=== PATIENT | female | born 1940 | race African-American/Black ===

== ENCOUNTER 2016-08-06 03:36 | Inpatient (IN) | payer OTHER, MEDICAID ==
[~2016-08-06] VITALS: Ht 165.1 cm; Wt 63.5 kg
[~2016-08-06 03:36] MED LIST: ACYC800T4 PO; FURO20TA3 PO
[2016-08-06 04:06] LABS: BASO # 0.1 x10^3/uL (0.0-0.2); BASO % 1 % (0-3); EOS % 1 % (0-3); HEMATOCRIT 34.5 % (36.0-47.0); HEMOGLOBIN 11.2 g/dL (12.0-15.5); LYMPH # 1.7 x10^3/uL (1.0-4.8); LYMPH % 13 % (24-48); MEAN CORPUSCULAR HEMOGLOBIN 27 pg (25-35); MEAN CORPUSCULAR HGB CONC 33 g/dL (31-37); MEAN CORPUSCULAR VOLUME 83 fL (79-100); MONO % 9 % (0-9); NEUT % 77 % (31-73); PLATELET COUNT 161 x10^3/uL (140-400); RED BLOOD COUNT 4.14 x10^6/uL (3.50-5.40); RED CELL DISTRIBUTION WIDTH 15.4 % (11.5-14.5); WHITE BLOOD COUNT 13.3 x10^3/uL (4.0-11.0)
--- NOTE | 2016-08-06 04:12 | PHYS DOC ---
Adult General Chief Complaint Chief Complaint: ANKLE PROBLEM HPI HPI This is a 75-year-old female presents from home after she had a syncopal episode while soaking her feet. He states she did fall out of her chair and hit her head and has an obvious ankle that is swollen and painful to the lateral malleolus. EMS arrived and administered multiple doses of fentanyl with mild pain relief as well as placing her in a rudimentary splint. She denies any chest pain or shortness breath. She has a mild occipital headache. She denies any swelling or bleeding from her scalp. She denies any shoulder pain or hip pain. She denies any abdominal pain. She localizes all of her pain to the right ankle and rates it an 6/10 on the pain scale. Review of Systems Review of Systems Constitutional: Denies fever or chills [] Eyes: Denies change in visual acuity, redness, or eye pain [] HENT: Denies nasal congestion or sore throat [] Respiratory: Denies cough or shortness of breath [] Cardiovascular: No additional information not addressed in HPI [] GI: Denies abdominal pain, nausea, vomiting, bloody stools or diarrhea [] : Denies dysuria or hematuria [] Musculoskeletal: Denies back pain, has joint pain [] Integument: Denies rash or skin lesions [] Neurologic: Denies headache, focal weakness or sensory changes [] Endocrine: Denies polyuria or polydipsia [] Current Medications Current Medications Current Medications Medications (Trade) Dose Ordered Sig/Rene Start Time Stop Time Status Last Admin Dose Admin Acetaminophen (Tylenol) 650 mg PRN Q4HRS PRN 08/06/16 05:00 08/07/16 04:59 Morphine Sulfate 4 mg 4 mg PRN Q2HR PRN 08/06/16 05:00 08/07/16 04:59 Ondansetron HCl (Zofran) 4 mg PRN Q8HRS PRN 08/06/16 05:00 08/07/16 04:59 Sodium Chloride (Iv Sodium Chloride 0.9% 500ml Bag) 500 ml @ 500 mls/hr 1X ONCE 08/06/16 05:00 08/06/16 05:59 08/06/16 04:48 500 MLS/HR Sodium Chloride (Iv Sodium Chloride 0.9% 1000ml Bag) 1,000 ml @ 100 mls/hr Q10H 08/06/16 04:59 08/07/16 04:58 08/06/16 05:31 100 MLS/HR Allergies Allergies Allergies Coded Allergies Type Severity Reaction Last Updated Verified iodine Allergy Severe 10/14/13 Yes Penicillins Allergy Intermediate 08/06/16 Yes Sulfa (Sulfonamide Antibiotics) Allergy Intermediate 08/06/16 Yes prednisone Allergy Mild 10/14/13 Yes Physical Exam Physical Exam Constitutional: Well developed, well nourished, no acute distress, non-toxic appearance. [] HENT: Normocephalic, atraumatic, bilateral external ears normal, oropharynx moist, no oral exudates, nose normal. [] Eyes: PERRLA, EOMI, conjunctiva normal, no discharge. [] Neck: Normal range of motion, no tenderness, supple, no stridor. [] Cardiovascular:Heart rate regular rhythm, no murmur [] Lungs & Thorax: Bilateral breath sounds clear to auscultation [] Abdomen: Bowel sounds normal, soft, no tenderness, no masses, no pulsatile masses. [] Skin: Warm, dry, no erythema, no rash. [] Back: No tenderness, no CVA tenderness. [] Extremities: Moderate tenderness and swelling to the left lateral malleolus, no cyanosis, no clubbing, ROM limited in right ankle secondary to pain, mild edema. [] Neurologic: Alert and oriented X 3, normal motor function, normal sensory function, no focal deficits noted. [] Psychologic: Affect normal, judgement normal, mood normal. [] Current Patient Data Vital Signs Vital Signs Date Time Temp Pulse Resp B/P Pulse Ox O2 Delivery O2 Flow Rate FiO2 08/06/16 04:47 19 95 08/06/16 03:36 99.5 86 146/81 99.5 Lab Values Laboratory Tests Test 08/06/16 03:55 08/06/16 04:00 Sodium Level 140mmol/L (136-145) Potassium Level 4.5mmol/L (3.5-5.1) Chloride Level 106mmol/L (98-107) Carbon Dioxide Level 26mmol/L (21-32) Anion Gap 8 (6-14) Blood Urea Nitrogen 42mg/dL (7-20) H Creatinine 1.8mg/dL (0.6-1.0) H Estimated GFR (Cockcroft-Gault) 33.1 Glucose Level 101mg/dL (70-99) H Calcium Level 10.4mg/dL (8.5-10.1) H Troponin I Quantitative 0.046ng/mL (0.000-0.055) White Blood Count 13.3x10^3/uL (4.0-11.0) H Red Blood Count 4.14x10^6/uL (3.50-5.40) Hemoglobin 11.2g/dL (12.0-15.5) L Hematocrit 34.5% (36.0-47.0) L Mean Corpuscular Volume 83fL (79-100) Mean Corpuscular Hemoglobin 27pg (25-35) Mean Corpuscular Hemoglobin Concent 33g/dL (31-37) Red Cell Distribution Width 15.4% (11.5-14.5) H Platelet Count 161x10^3/uL (140-400) Neutrophils (%) (Auto) 77% (31-73) H Lymphocytes (%) (Auto) 13% (24-48) L Monocytes (%) (Auto) 9% (0-9) Eosinophils (%) (Auto) 1% (0-3) Basophils (%) (Auto) 1% (0-3) Neutrophils # (Auto) 10.2x10^3uL (1.8-7.7) H Lymphocytes # (Auto) 1.7x10^3/uL (1.0-4.8) Monocytes # (Auto) 1.2x10^3/uL (0.0-1.1) H Eosinophils # (Auto) 0.1x10^3/uL (0.0-0.7) Basophils # (Auto) 0.1x10^3/uL (0.0-0.2) Laboratory Tests 08/06/16 04:00 Laboratory Tests 08/06/16 03:55 EKG EKG EKG as interpreted by me reveals sinus rhythm with rate 87 bpm. There are no obvious ischemic findings on this EKG. Radiology/Procedures Radiology/Procedures Portable view of the right ankle reveals a minimally displaced distal fibular fracture. Right hip 2 view with AP pelvis does not demonstrate any obvious acute fracture or dislocation Portable view of her chest does not reveal an acute process. CT of the head without contrast demonstrated the following; No evidence of acute intracranial hemorrhage or mass. Mild chronic small vessel ischemic changes in the deep/subcortical periventricular white matter with remote cortical infarcts of the right frontal lobe and right parietal lobe. Mild atrophy for age. Course & Med Decision Making Course & Med Decision Making Pertinent Labs and Imaging studies reviewed. (See chart for details) This 75-year-old female had a similar episode while sitting and soaking her feet and has obvious right ankle swelling and tenderness to lateral malleolus. Plain films will be obtained of the right ankle and hip and pelvis as well as a CT of her head without contrast. I will obtain full laboratory work including EKG. I will be admitting her for her syncopal episode and ankle fracture. Upon my reassessment, the patient has continued pain in the right ankle for which IV morphine will be administered. AP views of her right hip and pelvis did not demonstrate an acute fracture dislocation. Right ankle films demonstrate a distal fibular fracture that is minimally displaced for which a stirrup splint will be placed. Patient is in the process of going to the CT scanner in no acute distress. Post splint assessment reveals adequate immobilization and excellent capillary refill of the right foot. CT of the head without contrast did not demonstrate any acute findings but did show mild chronic small vessel ischemic changes in the deep subcortical periventricular white matter with remote cortical infarcts of the right frontal lobe and right parietal lobe. A portable 1 view her chest did not reveal any acute abnormality. I'll be admitting her to Dr. Arreola for her syncope and right ankle fracture with consults to orthopedic surgery. A urinalysis is still pending at this time. I discussed the need to admit the patient with the hospitalist, Dr. Alvarado, who agreed to admit the patient for further evaluation and treatment. Dragon Disclaimer Dragon Disclaimer This electronic medical record was generated, in whole or in part, using a voice recognition dictation system. Departure Departure Impression: Primary Impression: Syncope Additional Impression: Closed right ankle fracture Disposition: 09 ADMITTED INPATIENT Admitting Physician: Julianna Arreola Condition: STABLE Referrals: DIMITRI GROSSMAN MD (PCP) Problem Qualifiers OLEG GREENWOOD DO Aug 06, 2016 04:12
[2016-08-06 04:21] LABS: CALCIUM 10.4 mg/dL (8.5-10.1); CREATININE 1.8 mg/dL (0.6-1.0); GFR 33.1; POTASSIUM 4.5 mmol/L (3.5-5.1)
[2016-08-06] MEDS ORDERED: IV NORMAL SALINE 1000ML BAG 1,000 ML IV SCH (04:59)
[2016-08-06] MEDS ORDERED: MORPHINE SULFATE 4 MG/ML DISP.SYRIN. IV ONE (05:00)
[2016-08-06] MEDS ORDERED: ONDANSETRON PF 4 MG/2 ML VIAL. IV PRN (05:00)
[2016-08-06] MEDS ORDERED: MORPHINE SULFATE 4 MG/ML DISP.SYRIN. IV PRN (05:00)
[2016-08-06] MEDS ORDERED: ACETAMINOPHEN 325 MG TABLET. PO PRN (05:00)
[2016-08-06] MEDS ORDERED: IV NORMAL SALINE 500ML BAG 500 ML IV ONE (05:00)
--- NOTE | 2016-08-06 05:02 | RAD ---
PROCEDURE CT head without contrast dated 08/06/2016. HISTORY Syncope. Recent fall. TECHNIQUE Contiguous axial imaging of the head was performed from skull base to vertex. No contrast administered.Exposure: One or more of the following individualized dose reduction techniques were utilized for this exam: 1. Automated exposure control. 2. Adjustment of the mA and/or kV according to patient size. 3. Use of iterative reconstruction technique. COMPARISON 01/21/2004. FINDINGS Ventricles and sulci are mildly prominent for age. No midline shift or mass-effect. Mild patchy low density in the deep/subcortical periventricular white matter with small remote cortical infarcts of the right frontal lobe and high right parietal lobe. Mild patchy low density in the deep/subcortical periventricular white matter. No hemorrhage or extra-axial collection. Posterior fossa and brainstem unremarkable. Visualized paranasal sinuses and mastoid air cells are clear. No acute calvarial abnormality. IMPRESSION No evidence of acute intracranial hemorrhage or mass. Mild chronic small vessel ischemic changes in the deep/subcortical periventricular white matter with remote cortical infarcts of the right frontal lobe and right parietal lobe. Mild atrophy for age. Electronically signed by: Poncho Fernandez (Aug 06, 2016 05:00:58)
--- NOTE | 2016-08-06 05:30 | ACF ---
Admission Forms Criteria SYNCOPE Clinical Indications for Admission to Inpatient Care ( Place 'X' for any and all applicable criteria): Admission is indicated for syncope and ANY ONE of the following (1)(2)(3)(4)(5) (6)(7) : [ ]I. Inpatient admission required rather than observation care (Also use Syncope: Observation Care Criteria as appropriate) because of ANY ONE of the following: [ ]a) Hemodynamic instability that is severe or persistent [ ]b) Cardiac arrhythmias of immediate concern identified or strongly suspected (eg, needs electrophysiologic study) [ ]c) Acute coronary syndrome identified (Also use Myocardial Infarction or Angina Criteria form ) [ ]d) Structural cardiac disorder (eg, aortic stenosis) suspected as cause that requires immediate correction [ ]e) Respiratory symptoms (eg, dyspnea, tachypnea) that are severe or persistent [ ]f) Neurologic signs or symptoms that are severe or persistent ( eg, stroke, seizures, altered mental status) [ ]g) Severe electrolyte abnormalities requiring inpatient care [ ]h) Supplemental oxygen or respiratory treatment for over 24 hrs that are performable only in acute inpatient setting [ ]i) IV fluid to replace significant ongoing (eg, for over 24 hrs ) losses (>3 L/m2 per day) [ ]j) Continuous intravenous infusion of anticoagulation, platelet inhibitor, vasoactive, or antiarrhythmic medication(15)(16) [ ]k) Pulmonary artery catheter monitoring [ ]l) Temporary pacemaker placement(17) [ ]m) Emergent cardioversion(18) [ ]n) Other conditions, treatment or monitoring requiring inpatient admission [ ]II. Suspicion of imminently dangerous cause (eg, rare causes like pericardial tamponade, pulmonary embolism) [X]III. Syncope causing severe injury requiring hospitalization Extended stay beyond goal length of stay may be needed for(28) [ ]a) Dangerous arrhythmia(15)(23)(27)(29) [ ]b) Myocardial ischemia [ ]c) Seizure disorder [ ]d) Syncope-related injuries The original [employer] content created by [employer] has been revised. The portions of the content which have been revised are identified through the use of italic text or in bold, and [facility] has neither reviewed nor approved the modified material. All other unmodified content is copyright [facility]. Please see references footnoted in the original [facility] 2016 Admission Criteria Met?: Yes ALFIE CORTES Aug 06, 2016 05:29
[2016-08-06 05:41] LABS: BILIRUBIN,URINE NEGATIVE (NEG); GLUCOSE,URINE NEGATIVE (NEG); NITRITE,URINE NEGATIVE (NEG); PH,URINE 7.5; PROTEIN,URINE NEGATIVE (NEG-TRACE); UROBILINOGEN,URINE 0.2 mg/dL (0.2 mg/dL)
[2016-08-06 06:25] VITALS: BP 138/80
[2016-08-06 06:30] LABS: BACTERIA,URINE 0 /HPF (0-FEW); RBC,URINE 0 /HPF (0-2); SQUAMOUS EPITHELIAL CELL,UR OCC /LPF
--- NOTE | 2016-08-06 06:51 | EKG ---
[address] [place] [address] Test Date: 2016-08-06 Test Time: 04:24:48 Pat Name: DIONE GOMEZ Department: Room: Gender: F Manager Test: : 1940 Requested By: OLEG GREENWOOD Order Number: [id number] Reading MD: Measurements Intervals [place] Rate: 87 P: 12 [place]: 210 QRS: 57 QRSD: 80 T: 48 QT: 348 QTc: 424 Interpretive Statements SINUS RHYTHM NORMAL ECG RI6.01 Unconfirmed report No previous ECG available for comparison
[2016-08-06 07:00] VITALS: BP 125/77
--- NOTE | 2016-08-06 07:19 | RAD ---
EXAM: Chest one view. HISTORY: Syncope. COMPARISON: 09/28/2014. FINDINGS: A frontal view of the chest is obtained. There are no confluent infiltrates. Hyperinflation suggests chronic obstructive pulmonary disease. Blunting of the right costophrenic angle is chronic and likely represent scarring. There is no pneumothorax. The heart is moderately enlarged. There are atherosclerotic calcifications of the aorta. A right paratracheal mass superiorly, displacing the trachea to the left is stable chronically and represents intrathoracic extension of a goiter as seen on prior CT of 10/14/2013. There are surgical clips in the left upper quadrant. IMPRESSION: 1. Moderate cardiomegaly. 2. Hyperinflation is consistent with chronic obstructive pulmonary disease. Right basilar scarring. 3. 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
--- NOTE | 2016-08-06 07:26 | RAD ---
EXAM: Frontal pelvis with 2V right hip. HISTORY: Fall with right hip and pelvic pain. COMPARISON: 09/28/2014. FINDINGS: No fractures are identified. There is at least mild osteopenia. There is mild superior joint space narrowing at both hips. Alignment is maintained. Atherosclerotic calcifications are noted. IMPRESSION: 1. No fracture. Early bilateral hip osteoarthritis.
--- NOTE | 2016-08-06 07:28 | RAD ---
EXAM: Right ankle 3 views. HISTORY: Fall with right ankle pain COMPARISON: None. FINDINGS: Three views of the right ankle are obtained. There is a nondisplaced oblique fracture of the lateral malleolus, intersecting the mortise at the level of the tibial plafond. There is 2 cortical widths of posterior and lateral displacement of the distal fracture fragment. The alignment and joint spaces of the mortise is preserved. Osteopenia appears moderate. Soft tissue swelling is worst laterally. IMPRESSION: 1. Mildly displaced oblique fracture of the lateral malleolus.
--- NOTE | 2016-08-06 10:22 | PDOC ---
Provider Note Provider Note Pt seen.H&P dictated. #[id number] LOS NOLASCO MD Aug 06, 2016 10:22
[2016-08-06 11:00] VITALS: BP 102/61
--- NOTE | 2016-08-06 13:26 | PDOC2 ---
JOSE FOSTER [address] 08/06/16 1326: CARDIAC CONSULT DATE OF CONSULT Date of Consult DATE: 08/06/16 TIME: 13:25 REASON FOR CONSULT Reason for Consult: syncope REFERRING PHYSICIAN Referring Physician: Dr. Aleksandra Arreola SOURCE Source: Chart review, Patient HISTORY OF PRESENT ILLNESS HISTORY OF PRESENT ILLNESS 75 year old female with a syncopal episode resulting in a right ankle fracture. Reports she was on the floor soaking her feet and fell backward onto her head. Dizzy and lightheaded prior to syncope and daughter reports patient has been complaining of dizziness and lightheadedness recently. Denies associated chest pain, dyspnea, palpitations. EKG SR without acute changes. Troponin levels not consistent with acute DE. Previous cardiac evaluation @ [facility] associated with CVA in 2013. Reason for Visit: syncope PAST MEDICAL HISTORY Cardiovascular: CAD (coronary artery calcifications seen in predominantly LAD on CT scan - 2014), HTN, Other (infrarenal AAA 4 X [address] - 2014) Pulmonary: COPD (on CXR) CENTRAL NERVOUS SYSTEM: CVA (2013), Other (chronic small vessel ischemic disease on CT of head 07/2016) GI: Diverticulosis Endocrine: Other (right thyroid nodule) PAST SURGICAL HISTORY Past Surgical History: Appendectomy, Other (spleenectomy - 1978) FAMILY HISTORY Family History: No Significant SOCIAL HISTORY Smoke: No ALCOHOL: none Drugs: None CURRENT MEDICATIONS CURRENT MEDICATIONS Current Medications Medications (Trade) Dose Ordered Sig/Rene Route PRN Reason Start Time Stop Time Status Last Admin Dose Admin Morphine Sulfate 4 mg 4 mg 1X ONCE IV 08/06/16 05:00 08/06/16 05:01 DC 08/06/16 04:47 Sodium Chloride 500 ml @ 500 mls/hr 1X ONCE IV 08/06/16 05:00 08/06/16 05:59 DC 08/06/16 04:48 Sodium Chloride (Iv Sodium Chloride 0.9% 1000ml Bag) 1,000 ml @ 100 mls/hr Q10H IV 08/06/16 04:59 08/07/16 04:58 08/06/16 05:31 ALLERGIES ALLERGIES: Coded Allergies: iodine (Verified Allergy, Severe, 10/14/13) Penicillins (Verified Allergy, Intermediate, 08/06/16) Sulfa (Sulfonamide Antibiotics) (Verified Allergy, Intermediate, 08/06/16) prednisone (Verified Allergy, Mild, 10/14/13) ROS Review of System 14 point review with pertinent positives in HPI PHYSICAL EXAM General: Alert, Oriented X3, Cooperative, No acute distress HEENT: Atraumatic, PERRLA Lungs: Clear to auscultation, Normal air movement Heart: Regular rate, Normal S1, Normal S2, No murmurs, Other (no carotid bruits ; not on telemetry) Abdomen: Normal bowel sounds, Soft, No tenderness Extremities: No edema (in LLE; dressing/splint on RLE - unable to assess) Skin: No rashes Neuro: Normal speech Psych/Mental Status: Mental status NL, Mood NL MUSCULOSKELETAL: Other (splint on RLE) VITALS VITALS Vital Signs Date Time Temp Pulse Resp B/P Pulse Ox O2 Delivery O2 Flow Rate FiO2 08/06/16 11:00 100.0 62 18 102/61 99 Room Air 100.0 LABS Lab: Laboratory Tests Test 08/06/16 03:55 08/06/16 04:00 08/06/16 05:00 08/06/16 11:50 Sodium Level 140mmol/L (136-145) Potassium Level 4.5mmol/L (3.5-5.1) Chloride Level 106mmol/L (98-107) Carbon Dioxide Level 26mmol/L (21-32) Anion Gap 8 (6-14) Blood Urea Nitrogen 42mg/dL (7-20) Creatinine 1.8mg/dL (0.6-1.0) Estimated GFR (Cockcroft-Gault) 33.1 Glucose Level 101mg/dL (70-99) Calcium Level 10.4mg/dL (8.5-10.1) Troponin I Quantitative 0.046ng/mL (0.000-0.055) 0.041ng/mL (0.000-0.055) White Blood Count 13.3x10^3/uL (4.0-11.0) Red Blood Count 4.14x10^6/uL (3.50-5.40) Hemoglobin 11.2g/dL (12.0-15.5) Hematocrit 34.5% (36.0-47.0) Mean Corpuscular Volume 83fL (79-100) Mean Corpuscular Hemoglobin 27pg (25-35) Mean Corpuscular Hemoglobin Concent 33g/dL (31-37) Red Cell Distribution Width 15.4% (11.5-14.5) Platelet Count 161x10^3/uL (140-400) Neutrophils (%) (Auto) 77% (31-73) Lymphocytes (%) (Auto) 13% (24-48) Monocytes (%) (Auto) 9% (0-9) Eosinophils (%) (Auto) 1% (0-3) Basophils (%) (Auto) 1% (0-3) Neutrophils # (Auto) 10.2x10^3uL (1.8-7.7) Lymphocytes # (Auto) 1.7x10^3/uL (1.0-4.8) Monocytes # (Auto) 1.2x10^3/uL (0.0-1.1) Eosinophils # (Auto) 0.1x10^3/uL (0.0-0.7) Basophils # (Auto) 0.1x10^3/uL (0.0-0.2) Urine Collection Type Unknown Urine Color Yellow Urine Clarity Clear Urine pH 7.5 Urine Specific [place] 1.010 Urine Protein Negativemg/dL (NEG-TRACE) Urine Glucose (UA) Negativemg/dL (NEG) Urine Ketones (Stick) Negativemg/dL (NEG) Urine Blood Negative (NEG) Urine Nitrite Negative (NEG) Urine Bilirubin Negative (NEG) Urine Urobilinogen Dipstick 0.2mg/dL (0.2 mg/dL) Urine Leukocyte Esterase Small (NEG) Urine RBC 0/HPF (0-2) Urine WBC 5-10/HPF (0-4) Urine Squamous Epithelial Cells Occ/LPF Urine Bacteria 0/HPF (0-FEW) Creatine Kinase 184U/L (26-192) IMAGES IMAGES 10/14/2013: CT abd/pelvis: 1. Nodular enlargement of the right thyroid lobe with dominant low-density nodule measuring 3.3 cm. This was previously evaluated with ultrasound on July 09, 2006, correlate with biopsy results. 2. Extensive coronary artery calcification, greatest in the left anterior descending coronary artery. 3. 10 mm low-density lesion in the left hepatic dome, likely represents a cyst however this is indeterminate on this exam. This could be confirmed with ultrasound if clinically warranted. 4. Infrarenal abdominal aortic aneurysm, 4 x 4 cm, , spanning approximately 4.2 cm in length. This has increased in size since the 2007 CT exam when this area measured 2.5 cm AP. 5. Scattered colonic diverticula without CT evidence of acute diverticulitis. 6. No signs of malignancy in the chest, abdomen or pelvis on this noncontrast exam. 08/06/2016: CXR: FINDINGS: A frontal view of the chest is obtained. There are no confluent infiltrates. Hyperinflation suggests chronic obstructive pulmonary disease. Blunting of the right costophrenic angle is chronic and likely represent scarring. There is no pneumothorax. The heart is moderately enlarged. There are atherosclerotic calcifications of the aorta. A right paratracheal mass superiorly, displacing the trachea to the left is stable chronically and represents intrathoracic extension of a goiter as seen on prior CT of 10/14/2013. There are surgical clips in the left upper quadrant. IMPRESSION: 1. Moderate cardiomegaly. 2. Hyperinflation is consistent with chronic obstructive pulmonary disease. Right basilar scarring. 3. Right paratracheal mass consistent with intrathoracic extension of a extension of a goiter. ASSESSMENT/PLAN ASSESSMENT/PLAN 1. syncope echo pending to evaluate for valvular heart disease place on cardiac tele to evaluate for dysrhythmias - will likely need event monitor at discharge unable to measure orthostatics due to right ankle fracture 2. HTN resume home meds 3. AAA; infrarenal 4 X [address] scan - 2014 CR of 1.8 precludes re-evaluation with CT scan - will obtain u/s to evaluate AAA 4. CAD coronary artery calcifications in LAD predominantly troponin levels not consistent with AMI and no acute changes in EKG ? stress test as outpatient for further evaluation would consider use of statin therapy ASA 81 mg daily 5. thyroid nodules now with goiter seen on CXR 6. ? lipid status FLP pending 7. previous CVA sm. vessel ischemic disease on CT scan Problems: LILLIE ESTRADA MD 08/07/16 0907: CARDIAC CONSULT ALLERGIES ALLERGIES: Coded Allergies: iodine (Verified Allergy, Severe, 10/14/13) Penicillins (Verified Allergy, Intermediate, 08/06/16) Sulfa (Sulfonamide Antibiotics) (Verified Allergy, Intermediate, 08/06/16) prednisone (Verified Allergy, Mild, 10/14/13) ASSESSMENT/PLAN ASSESSMENT/PLAN Patient seen and examined 08/06/16. Agree with [employer]'s assessment and plan. Telemetry did not show any significant arrhythmia so far. 2-D echo showed normal LV function and severe pulmonary hypertension. Plan for event monitor as an outpatient to rule out any significant arrhythmias. We will also plan for outpatient ischemic evaluation in the form of stress test. Thank you for your consultation. Problems: JOSE FOSTER APRN Aug 06, 2016 13:26 LILLIE ESTRADA MD Aug 07, 2016 09:07
[2016-08-06] MEDS: IV NORMAL SALINE 1000ML BAG 1,000 ML IV SCH (14:03)
[2016-08-06] MEDS: ENOXAPARIN 30 MG/0.3 ML DISP.SYRIN. SQ SCH (14:03)
[2016-08-06] MEDS: ASPIRIN ENTERIC COATED 81 MG TABLET.DR. PO SCH (14:03)
[2016-08-06] MEDS: HYDROCODONE/APAP 5/325MG TABLET. PO PRN ×2 (14:09→21:19)
--- NOTE | 2016-08-06 14:54 | HP ---
ADMIT DATE: 08/06/2016 LOCATION: [facility] REASON FOR ADMISSION TO THE HOSPITAL: Syncopal episode and right fibular fracture, closed fracture from the fall. HISTORY OF PRESENT ILLNESS: The patient is a 75-year-old female and she was soaking her feet and she was trying to get out of the chair and she felt lightheaded, dizzy, fell and she says she does not remember how long and when she woke up, she had pain in the right ankle, came to the Emergency Room and x-ray shows a right fibular fracture, nondisplaced and patient was admitted for syncopal episode. PAST MEDICAL HISTORY: She has a history of hypertension, history of previous strokes. PAST SURGICAL HISTORY: Denies any major surgeries. ALLERGIES: PENICILLIN, SULFA, IODINE, AND PREDNISONE. MEDICATIONS: At home, she is on Lasix 20 mg, acyclovir 800 mg. FAMILY HISTORY: Unremarkable. SOCIAL HISTORY: Lives at home by herself, able to walk with a cane. REVIEW OF SYSTEMS: Fourteen-system reviewed. CARDIAC: Denies any chest pain. LUNGS: No cough or sputum. GASTROINTESTINAL: No nausea or vomiting. Complains of pain in the right ankle and she has a dizzy episode when she came to the hospital. Rest of the 14-system was reviewed, negative. PHYSICAL EXAMINATION: GENERAL: Pleasant female, not in any distress. VITAL SIGNS: Temperature 99.5, pulse 86, respirations 15, blood pressure 146/81, 98% on room air. HEENT: Head is atraumatic. Pupils equal. Oral cavity: Dentures. NECK: Supple. Thyroid not enlarged. JVD not elevated. CHEST: Symmetrical. CARDIOVASCULAR: S1, S2. No murmurs. LUNGS: Clear to auscultation, no wheezing. ABDOMEN: Soft, no mass palpable. EXTERNAL GENITALIA: No Jimenez. RECTAL: Deferred. EXTREMITIES: The patient has a half cast placed in the Emergency Room, left leg, no edema, no swelling, no pain. NEUROLOGIC: Cranial nerves intact. Power 5/5 in all extremities. LABORATORY DATA: Shows a white count of 13, hemoglobin 11, platelets 161. Electrolytes show sodium 140, potassium 4.5, chloride 106, bicarbonate 26, BUN 42, creatinine 1.8. Troponin 0.04, glucose 104. Urine negative for nitrites and leukocyte esterase. IMAGING: CT head shows no evidence of acute bleeding or mass; old strokes, right frontal and parietal lobes. Ankle x-ray shows mildly displaced oblique fracture of the lateral malleolus. Chest x-ray: Mild cardiomegaly, possibly some goiter. X-ray of the pelvis, no fractures, osteoarthritis. EKG done, report is pending. FINAL IMPRESSION: 1. Syncope. 2. Right ankle fracture, closed fracture. 3. Hypertension. 4. Mild renal insufficiency. 5. History of previous strokes. PLAN: At this time, was admit to the hospital, quality assurance monitor, cardiology consultation, neuro consultation, we will complete a stroke workup including carotid and echocardiogram, seen by orthopedic and may be transitioned to Cam walker boot and PT, OT and see how she does. The patient may benefit from going to SNF. She lives alone home. LOS NOLASCO MD DR: HARSHA/sal JOB#: [id number] / [id number]
--- NOTE | 2016-08-06 15:46 | RAD ---
EXAM: Carotid Doppler sonogram. HISTORY: Syncope. TECHNIQUE: Nicole scale and color Doppler sonographic evaluation of the neck with spectral waveform analysis was performed and static images are submitted for review. FINDINGS: RIGHT: The peak systolic velocity within the common carotid artery is 100 cm/sec. The peak systolic velocity within the internal carotid artery is 62 cm/sec and the end diastolic velocity within the internal carotid artery is 18 cm/sec. The ICA/CCA ratio is 0.93. Grayscale images demonstrate moderate calcified plaquing at the carotid bulb. LEFT: The peak systolic velocity within the common carotid artery is 59 cm/sec. The peak systolic velocity within the internal carotid artery is 61 cm/sec and the end diastolic velocity within the internal carotid artery is 21 cm/sec. The ICA/CCA ratio is 0.96. Grayscale images demonstrate moderate calcified plaquing at the carotid bulb. There is antegrade flow within both vertebral arteries. IMPRESSION: 1. No evidence of hemodynamically significant stenosis. PQRS Compliance Statement - Stenosis calculations for CT, MR and conventional angiography are based upon measurement of the distal ICA diameter in accordance with the NASCET methodology. Stenosis calculations for carotid ultrasound studies are derived from validated velocity criteria which are known to correlate with the NASCET methodology.
--- NOTE | 2016-08-06 15:51 | PDOC2 ---
NEUROLOGY CONSULT Date of Admission Date of Admission DATE: 08/06/16 TIME: 15:30 Reason for Consult Reason for Consult: IMPRESSION: Syncope. Seizure evaluation. UTI likely Renal failure. 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 Right oblique lateral malleolus fracture. RECOMMENDATIONS/PLAN: Continue ASA daily. HCT performed no acute findings. Carotid A US + Doppler. Thyroid US EEG Lab: see orders. Treat medical diseases. Discussed with her daughter at bedside. HISTORY OF THE PRESENT ILLNESS: 75-y-old AA male patient with above medical disease had a syncopal spell for this admission. She stated she lost consciousness and fell. No jerking, shaking or henrik movements observed. No obvious postictal state. Her daughter stated that the patient had a similar episode in recent month. No focalized motor or sensory deficits noted. PAST MEDICAL HISTORY: Please see above. PAST SURGERY HISTORY: Appendectomy. Spleenectomy. ALLERGY: PCN Sulfa Prednisone Iodine MEDICATIONS: Refer to [facility] FAMILY HISTORY: Non contributory. SOCIAL HISTORY: Denies current smoking, drinking, and illicit drug use. REVIEW OF SYSTEMS: Constitutional: No malnutrition, weight loss, cachexia. Head: No traumatic brain or head injury. Skin: No edema, or rash. Ear: No infection, tinnitus. Eyes: No vision loss or color blindness. Nose: No bleeding or purulent discharges. Hearing: Hearing decrease. Neck: No injury. Breast: No history of cancer, masses,or discharges. Cardiac: CAD, HTN, HLD. Pulmonary: COPD. GI: No GI ulcer, GI bleeding, GERD. Urinary/genital: UTI. Endocrinologic: goiter mass. Skeletomuscular: No muscular atrophy, deformity. Neurological: see HP. Psychiatric: Denies drug use/abuse. Otherwise, not [id number] review of systems. PHYSICAL EXAMINATION: General appearance is in subacute distress. HEENT: Normocephalic and nontraumatic. Eyes, nose, ears, and throat are unremarkable. Neck is supple. No lymphadenopathy. No crepitus. Cardiovascular: S1, S2, regular rate and rhythm. Pulmonary: Clear to auscultation bilaterally. Abdomen: Bowel sounds are positive. Extremities: No rash, lesions, or edema. No restriction of range of motion NEUROLOGICAL EXAMINATION: Awake. Oriented to time, place and person but reaction was slow. PERRL. EOMI. CN: no focal findings. Muscle tone: within normal. Muscle strength: 4+ DTR: 2 Plantar reflex: Flexor response bilaterally Gait: not examined in bed. Sensory exam: no abnormal findings. No cerebellar signs elicited. F-T-N test not performed.. Current Medications Current Medications Current Medications Morphine Sulfate 4 mg 4 mg 1X ONCE IV Last administered on 08/06/16 04:47; Start 08/06/16 at 05:00; Stop 08/06/16 at 05:01; Status DC Sodium Chloride (Iv Sodium Chloride 0.9% 500ml Bag) 500 ml @ 500 mls/hr 1X ONCE IV Last administered on 08/06/16 04:48; Start 08/06/16 at 05:00; Stop at 05:59; Status DC Ondansetron HCl (Zofran) 4 mg PRN Q8HRS PRN IV NAUSEA/VOMITING; Start 08/06/16 at 05:00; Stop 08/07/16 at 04:59 Morphine Sulfate 4 mg 4 mg PRN Q2HR PRN IV SEVERE PAIN; Start 08/06/16 at 05:00 ; Stop 08/07/16 at 04:59 Sodium Chloride (Iv Sodium Chloride 0.9% 1000ml Bag) 1,000 ml @ 100 mls/hr Q10H IV Last administered on 08/06/16 05:31; Start 08/06/16 at 04:59; Stop at 14:43; Status DC Acetaminophen 650 mg 650 mg PRN Q4HRS PRN PO FEVER; Start 08/06/16 at 05:00; Stop 08/07/16 at 04:59 Sodium Chloride (Iv Sodium Chloride 0.9% 1000ml Bag) 1,000 ml @ 75 mls/hr [id number] IV Last administered on 08/06/16 14:03; Start 08/06/16 at 11:00 Acetaminophen/ Hydrocodone Bitart (Lortab 5/325) 1 tab PRN Q4HRS PRN PO PAIN Last administered on 08/06/16 14:09; Start 08/06/16 at 10:15 Enoxaparin Sodium (Lovenox 30mg Syringe) 30 mg Q24H SQ Last administered on 08/06 14:03; Start 08/06/16 at 11:00 Aspirin (Ecotrin) 81 mg [id number] PO Last administered on 08/06/16t 14:03; Start 08/06/16 at 14:30 Active Scripts Active Reported Furosemide 20 Mg Tablet 20 Mg PO Zovirax (Acyclovir) 800 Mg Tablet 800 Mg PO Allergies Allergies: Coded Allergies: iodine (Verified Allergy, Severe, 10/14/13) Penicillins (Verified Allergy, Intermediate, 08/06/16) Sulfa (Sulfonamide Antibiotics) (Verified Allergy, Intermediate, 08/06/16) prednisone (Verified Allergy, Mild, 10/14/13) Vitals VITALS Vital Signs Date Time Temp Pulse Resp B/P Pulse Ox O2 Delivery O2 Flow Rate FiO2 08/06/16 15:18 Room Air 08/06/16 11:00 100.0 62 18 102/61 99 100.0 Labs Labs Laboratory Tests Test 08/06/16 03:55 08/06/16 04:00 08/06/16 05:00 08/06/16 11:50 Sodium Level 140mmol/L (136-145) Potassium Level 4.5mmol/L (3.5-5.1) Chloride Level 106mmol/L (98-107) Carbon Dioxide Level 26mmol/L (21-32) Anion Gap 8 (6-14) Blood Urea Nitrogen 42mg/dL (7-20) Creatinine 1.8mg/dL (0.6-1.0) Estimated GFR (Cockcroft-Gault) 33.1 Glucose Level 101mg/dL (70-99) Calcium Level 10.4mg/dL (8.5-10.1) Troponin I Quantitative 0.046ng/mL (0.000-0.055) 0.041ng/mL (0.000-0.055) White Blood Count 13.3x10^3/uL (4.0-11.0) Red Blood Count 4.14x10^6/uL (3.50-5.40) Hemoglobin 11.2g/dL (12.0-15.5) Hematocrit 34.5% (36.0-47.0) Mean Corpuscular Volume 83fL (79-100) Mean Corpuscular Hemoglobin 27pg (25-35) Mean Corpuscular Hemoglobin Concent 33g/dL (31-37) Red Cell Distribution Width 15.4% (11.5-14.5) Platelet Count 161x10^3/uL (140-400) Neutrophils (%) (Auto) 77% (31-73) Lymphocytes (%) (Auto) 13% (24-48) Monocytes (%) (Auto) 9% (0-9) Eosinophils (%) (Auto) 1% (0-3) Basophils (%) (Auto) 1% (0-3) Neutrophils # (Auto) 10.2x10^3uL (1.8-7.7) Lymphocytes # (Auto) 1.7x10^3/uL (1.0-4.8) Monocytes # (Auto) 1.2x10^3/uL (0.0-1.1) Eosinophils # (Auto) 0.1x10^3/uL (0.0-0.7) Basophils # (Auto) 0.1x10^3/uL (0.0-0.2) Urine Collection Type Unknown Urine Color Yellow Urine Clarity Clear Urine pH 7.5 Urine Specific [place] 1.010 Urine Protein Negativemg/dL (NEG-TRACE) Urine Glucose (UA) Negativemg/dL (NEG) Urine Ketones (Stick) Negativemg/dL (NEG) Urine Blood Negative (NEG) Urine Nitrite Negative (NEG) Urine Bilirubin Negative (NEG) Urine Urobilinogen Dipstick 0.2mg/dL (0.2 mg/dL) Urine Leukocyte Esterase Small (NEG) Urine RBC 0/HPF (0-2) Urine WBC 5-10/HPF (0-4) Urine Squamous Epithelial Cells Occ/LPF Urine Bacteria 0/HPF (0-FEW) Creatine Kinase 184U/L (26-192) Laboratory Tests Test 08/06/16 03:55 08/06/16 04:00 08/06/16 05:00 08/06/16 11:50 Sodium Level 140mmol/L (136-145) Potassium Level 4.5mmol/L (3.5-5.1) Chloride Level 106mmol/L (98-107) Carbon Dioxide Level 26mmol/L (21-32) Anion Gap 8 (6-14) Blood Urea Nitrogen 42mg/dL (7-20) Creatinine 1.8mg/dL (0.6-1.0) Estimated GFR (Cockcroft-Gault) 33.1 Glucose Level 101mg/dL (70-99) Calcium Level 10.4mg/dL (8.5-10.1) Troponin I Quantitative 0.046ng/mL (0.000-0.055) 0.041ng/mL (0.000-0.055) White Blood Count 13.3x10^3/uL (4.0-11.0) Red Blood Count 4.14x10^6/uL (3.50-5.40) Hemoglobin 11.2g/dL (12.0-15.5) Hematocrit 34.5% (36.0-47.0) Mean Corpuscular Volume 83fL (79-100) Mean Corpuscular Hemoglobin 27pg (25-35) Mean Corpuscular Hemoglobin Concent 33g/dL (31-37) Red Cell Distribution Width 15.4% (11.5-14.5) Platelet Count 161x10^3/uL (140-400) Neutrophils (%) (Auto) 77% (31-73) Lymphocytes (%) (Auto) 13% (24-48) Monocytes (%) (Auto) 9% (0-9) Eosinophils (%) (Auto) 1% (0-3) Basophils (%) (Auto) 1% (0-3) Neutrophils # (Auto) 10.2x10^3uL (1.8-7.7) Lymphocytes # (Auto) 1.7x10^3/uL (1.0-4.8) Monocytes # (Auto) 1.2x10^3/uL (0.0-1.1) Eosinophils # (Auto) 0.1x10^3/uL (0.0-0.7) Basophils # (Auto) 0.1x10^3/uL (0.0-0.2) Urine Collection Type Unknown Urine Color Yellow Urine Clarity Clear Urine pH 7.5 Urine Specific [place] 1.010 Urine Protein Negativemg/dL (NEG-TRACE) Urine Glucose (UA) Negativemg/dL (NEG) Urine Ketones (Stick) Negativemg/dL (NEG) Urine Blood Negative (NEG) Urine Nitrite Negative (NEG) Urine Bilirubin Negative (NEG) Urine Urobilinogen Dipstick 0.2mg/dL (0.2 mg/dL) Urine Leukocyte Esterase Small (NEG) Urine RBC 0/HPF (0-2) Urine WBC 5-10/HPF (0-4) Urine Squamous Epithelial Cells Occ/LPF Urine Bacteria 0/HPF (0-FEW) Creatine Kinase 184U/L (26-192) LUCINA SEVERINO MD Aug 06, 2016 15:51
--- NOTE | 2016-08-06 16:21 | CARD ---
APPROVED REPORT EXAM: Two-dimensional and M-mode echocardiogram with Doppler and color Doppler. Other Information Quality : GoodHR: 77bpm Rhythm : NSR INDICATION Syncope 2D DIMENSIONS RVDd2.9 (2.9-3.5cm)Left Atrium(2D)2.9 (1.6-4.0cm) IVSd1.1 (0.7-1.1cm)Aortic Root(2D)3.1 (2.0-3.7cm) LVDd3.6 (3.9-5.9cm)LVOT Diameter2.2 (1.8-2.4cm) PWd1.6 (0.7-1.1cm)LVDs2.3 (2.5-4.0cm) FS (%) 35.9 %SV36.7 ml LVEF(%)66.5 (>50%) Aortic Valve AoV Peak Gurmeet.159.0cm/sAoV VTI30.4cm AO Peak GR.10.1mmHgLVOT Peak Gurmeet.129.9cm/s AO Mean GR.6mmHgAVA (VMAX)3.15cm2 Mitral Valve MV E Jkcnkqzi40.0cm/sMV E Peak Gr.7mmHg MV DECEL [id number] A Bugbjzbs901.8cm/s MV E Mean Gr.4mmHgE/A Ratio0.8 MV A [id number] Pulmonary Valve PV Peak Gyeesxdv05.9cm/s Tricuspid Valve TR P. Wuxturus157cj/sTR Peak Gr.85mmHg Pulmonary Vein S1 Ujbasumg09.5cm/sD2 Ojdvdtbg68.8cm/s PVa ecuxetdm67qofh LEFT VENTRICLE The left ventricle is normal size. There is mild concentric left ventricular hypertrophy. The left ve ntricular systolic function is normal and the ejection fraction is within normal range. The Ejection Fraction is 60-65%. There is normal LV segmental wall motion. Transmitral Doppler flow pattern is Gra de I-abnormal relaxation pattern. RIGHT VENTRICLE The right ventricle is normal size. There is normal right ventricular wall thickness. The right ventr icular systolic function is normal. ATRIA The left atrium is mildly dilated. The right atrium size is mildly dilated. The interatrial septum is intact with no evidence for an atrial septal defect or patent foramen ovale as noted on 2-D or Doppl er imaging. AORTIC VALVE The aortic valve is mildly sclerotic. Doppler and Color Flow revealed trace aortic regurgitation. The re is no significant aortic valvular stenosis. MITRAL VALVE Mitral annular calcification is mild. The mitral valve leaflets are thickened. There is no evidence o f mitral valve prolapse. There is no mitral valve stenosis. Doppler and Color Flow revealed mild mitr al regurgitation. TRICUSPID VALVE Doppler and Color Flow revealed severe tricuspid regurgitation. The pulmonary artery systolic pressur e is estimated at greater than 70 mmHg. There is severe pulmonary hypertension. PULMONIC VALVE The pulmonary valve is normal in structure and function. Doppler and Color Flow revealed no pulmonic valvular regurgitation. There is no pulmonic valvular stenosis. GREAT VESSELS The aortic root is normal in size. The ascending aorta is normal in size. The pulmonary artery is nor mal. The IVC is normal in size and collapses >50% with inspiration. PERICARDIAL EFFUSION There is no evidence of significant pericardial effusion. Critical Notification Critical Value: No <Conclusion> The left ventricle is normal size. The left ventricular systolic function is normal and the ejection fraction is within normal range. The Ejection Fraction is 60-65%. There is mild concentric left ventricular hypertrophy. There is no significant aortic valvular stenosis. Doppler and Color Flow revealed trace aortic regurgitation. Doppler and Color Flow revealed mild mitral regurgitation. Doppler and Color Flow revealed severe tricuspid regurgitation. The pulmonary artery systolic pressure is estimated at greater than 70 mmHg. There is severe pulmonary hypertension.
--- NOTE | 2016-08-06 16:24 | RAD ---
EXAM: Thyroid ultrasound HISTORY: Goiter COMPARISON: None. FINDINGS: Sonographic evaluation of the thyroid gland was performed. The right lobe measures 5.7 x 3.8 x 3.8 cm. The right lobe is enlarged by a dominant solitary isoechoic or hyperechoic heterogeneous nodule that measures 4.1 x 3.0 x 3.0 cm. The left lobe measures 3.9 x 1.4 x 1.2 cm. The parenchyma is homogeneous without focal lesions. The isthmus is mildly thickened at 5 mm. IMPRESSION: 1. Dominant 4.1 cm nodule in the right thyroid lobe. Ultrasound-guided fine-needle aspiration is recommended to exclude malignancy.
[2016-08-06] MEDS ORDERED: BENZ100C2 PO (17:41)
[2016-08-06] MEDS ORDERED: AZIL1TAB3 PO (17:41)
[2016-08-06] MEDS ORDERED: DOCU-27 PO (18:39)
[2016-08-06 19:30] VITALS: BP 123/62
--- NOTE | 2016-08-06 19:40 | EEG ---
DATE OF SERVICE: 08/06/2016 EEG number: [id number]. OBJECTIVE: This is a 75-year-old female patient who had 2 syncopal versus seizure-like episodes. EEG was requested to help rule out seizure. METHOD: Twenty electrodes were applied according to the international 10-20 electrode placement system. EKG monitoring, hyperventilation, intermittent photic stimulation, monopolar and bipolar montages are routinely utilized. The record was obtained on a digital system with video monitoring. MEDICATIONS: No anti-seizure medication. FINDINGS: 1. Background: The patient was recorded in the awake and drowsy states. No actual sleep state was recorded. The overall background amplitude is 5-15 microvolts. A posterior dominant rhythm of 8 Hz is observed. 2. Abnormalities: No specific epileptiform discharge or electrographic seizure is seen. No focal or diffuse slowing. 3. Activation: Hyperventilation was performed with good efforts and normal response. Intermittent photic stimulation was performed with photic driving. No specific epileptiform discharge or electrographic seizure induced by hyperventilation or intermittent photic stimulation. IMPRESSION: This EEG is within the broad normal limits of the study for the awake and drowsy state. No actual sleep state was recorded. No focal, lateralizing, specific epileptiform discharge, or electrographic seizure is seen. LUCINA SEVERINO MD DR: RAEGAN/sal JOB#: [id number] / [id number] LAUREN
[2016-08-06] MEDS ORDERED: DOCUSATE SODIUM 100 MG CAPSULE PO PRN (20:15)
[2016-08-06] MEDS ORDERED: CHLORTHALIDONE PO SCH (21:00)
[2016-08-06] MEDS ORDERED: AZILSARTAN MED PO SCH (21:00)
[2016-08-06] MEDS: CHLORTHALIDONE 25 MG TABLET PO SCH (21:14)
[2016-08-06] MEDS: LOSARTAN POTASSIUM 50 MG TABLET. PO SCH (21:14)
[2016-08-06] MEDS: BENZONATATE 100 MG CAPSULE. PO SCH (21:19)
--- NOTE | 2016-08-06 22:44 | CONS ---
DATE OF CONSULTATION: 08/06/2016 REQUESTING PHYSICIAN: Dr. Arreola. REASON FOR CONSULTATION: Right ankle fracture. HISTORY OF PRESENT ILLNESS: The patient is a 75-year-old female who reports passing out when soaking her feet. She fell out of her chair, hit her head and twisted her right ankle, which was swollen, painful and she was unable to bear weight on it post-injury. She was brought in by ambulance to [facility]. She had a headache apparently on admission to the Emergency Department, which she says has now since resolved. Denied any other pain other than her right ankle. Today, she does indicate that she has had some intermittent pain in the right rib cage area prior to her injury. It is not more severe now and is really not present at this time, certainly not a result of the fall. She denies that it is worse with any breathing and is unsure of the exacerbating factors. Denies any significant past medical or surgical history. Otherwise, healthy, independently ambulatory regarding her social history and she is independent at home. MEDICATIONS: Reviewed. ALLERGIES: INCLUDE PENICILLIN, SULFA, IODINE AND PREDNISONE. FAMILY HISTORY: Noncontributory. SOCIAL HISTORY: Again, lives at home, independently ambulatory. Denies tobacco, alcohol or drug use. REVIEW OF SYSTEMS: Significant really only for the intermittent right-sided chest wall pain. She denies any chest pain, shortness of breath, visual changes, current headache, abdominal pain, change in bowel or bladder habits, focal weakness, numbness, tingling and really only significant for the right ankle pain with any motion, better with rest. PHYSICAL EXAMINATION: VITAL SIGNS: Temp 98.3, pulse 88, respirations 20, blood pressure 125/77, 94% saturation on room air. HEENT: Atraumatic, normocephalic. EXTREMITIES: Examination of the upper extremities reveals full range of motion and normal stability and alignment of the shoulder, elbow and wrist bilaterally. She has good hip and knee range of motion, alignment in both lower extremities throughout. Examination of the right ankle reveals tenderness over the lateral malleolus without gross instability. She has really no medial tenderness over the ankle. Normal examination of the contralateral left foot and ankle, with intact motor function, distal pulses, sensation, reflexes, skin in both upper and lower extremities throughout. IMAGING: CT of the head shows no intracranial hemorrhage or mass. X-rays of the right ankle show a distal fibula fracture that is overall in acceptable alignment with maintenance of the ankle joint mortise. LABORATORY DATA: H and H 11.2 and 34.5. IMPRESSION: 1. Right distal fibula fracture. 2. Right-sided intermittent chest wall pain unrelated to fall. TREATMENT PLAN: Regarding the right ankle, I anticipate nonoperative treatment for this. It is generally a stable injury. I am going to have her weightbear as tolerated in a Cam walker boot that will get from [facility], typically follow up with x-rays in about a week to make sure it is remaining in an acceptable position and as always, if it displaces at all, operative treatment may be considered. Regarding her intermittent right-sided chest wall pain unrelated to the fall, I suggested that she mention that to Dr. Arreola for potential further evaluation. I am going to resume her diet due to anticipated nonoperative treatment. ALICIA GUERIN MD DR: LOVE/sal JOB#: [id number] / [id number] DIMITRI Ambrosio MD
[2016-08-06 23:42] VITALS: BP 119/64
[2016-08-07] MEDS: IV NORMAL SALINE 1000ML BAG 1,000 ML IV SCH ×2 (00:46→13:57)
[2016-08-07 03:20] VITALS: BP 125/71
[2016-08-07 05:23] LABS: BASO # 0.1 x10^3/uL (0.0-0.2); BASO % 1 % (0-3); EOS % 8 % (0-3); HEMATOCRIT 30.1 % (36.0-47.0); HEMOGLOBIN 9.7 g/dL (12.0-15.5); LYMPH # 2.2 x10^3/uL (1.0-4.8); LYMPH % 30 % (24-48); MEAN CORPUSCULAR HEMOGLOBIN 28 pg (25-35); MEAN CORPUSCULAR HGB CONC 32 g/dL (31-37); MEAN CORPUSCULAR VOLUME 86 fL (79-100); MONO % 11 % (0-9); NEUT % 51 % (31-73); PLATELET COUNT 136 x10^3/uL (140-400); RED BLOOD COUNT 3.52 x10^6/uL (3.50-5.40); RED CELL DISTRIBUTION WIDTH 15.6 % (11.5-14.5); WHITE BLOOD COUNT 7.4 x10^3/uL (4.0-11.0)
[2016-08-07 05:49] LABS: ALBUMIN 2.4 g/dL (3.4-5.0); ALBUMIN/GLOBULIN RATIO 0.6 (1.0-1.7); CALCIUM 9.5 mg/dL (8.5-10.1); CHOLESTEROL/HDL RATIO 2.4; CREATININE 1.5 mg/dL (0.6-1.0); GFR 40.9; POTASSIUM 4.4 mmol/L (3.5-5.1); TOTAL BILIRUBIN 0.4 mg/dL (0.2-1.0); TOTAL PROTEIN 6.6 g/dL (6.4-8.2)
[2016-08-07 07:00] VITALS: BP 132/69
--- NOTE | 2016-08-07 07:31 | RAD ---
EXAM: Ultrasound abdominal aorta. HISTORY: Abdominal aortic aneurysm follow-up. COMPARISON: 10/14/2013. FINDINGS: Sonographic evaluation of the abdominal aorta was performed. Proximally the abdominal aorta measures 2.5 cm. There is an infrarenal abdominal aortic aneurysm that measures up to 5.2 x 4.[address] dated 10/14/2013, it measured 4.1 x 3.9 cm. The aorta tapers to normal caliber at the bifurcation right where it measures 1.5 cm. The common iliac arteries measure 1.5 cm on the right and 1.3 cm on the left. No aortic stenosis is seen. The gallbladder is packed with stones. The common duct is not dilated at 5 mm. IMPRESSION: 1. 5.2 cm infrarenal abdominal aortic aneurysm, increased from 4.1 cm and 2014. Ongoing management is recommended. 2. The gallbladder is packed with stones.
[2016-08-07] MEDS: ASPIRIN ENTERIC COATED 81 MG TABLET.DR. PO SCH (08:47)
[2016-08-07] MEDS: HYDROCODONE/APAP 5/325MG TABLET. PO PRN ×3 (08:47→22:22)
[2016-08-07] MEDS: LOSARTAN POTASSIUM 50 MG TABLET. PO SCH (08:48)
[2016-08-07] MEDS: ENOXAPARIN 30 MG/0.3 ML DISP.SYRIN. SQ SCH (08:49)
[2016-08-07] MEDS ORDERED: CHLORTHALIDONE PO SCH (09:00)
[2016-08-07] MEDS ORDERED: AZILSARTAN MED PO SCH (09:00)
[2016-08-07] MEDS: CHLORTHALIDONE 25 MG TABLET PO SCH (09:53)
--- NOTE | 2016-08-07 10:14 | PDOC ---
PROGRESS NOTES Subjective Subjective feels better today Objective Objective Vital Signs Date Time Temp Pulse Resp B/P Pulse Ox O2 Delivery O2 Flow Rate FiO2 08/07/16 09:51 Room Air 08/07/16 08:48 76 132/69 08/07/16 08:47 98 08/07/16 07:00 100.1 18 100.1 Intake and Output 08/07/16 07:00 Intake Total 2031 ml Output Total 400 ml Balance 1631 ml Intake Oral 480 ml IV Total 1551 ml Output Urine Total 400 ml # Voids 7 Physical Exam Abdomen: Normal bowel sounds, Soft, No tenderness Heart: Regular rate, Normal S1, Normal S2, No murmurs, Other (no carotid bruits ; not on telemetry) Extremities: No edema (in LLE; dressing/splint on RLE - unable to assess) General: Alert, Oriented X3, Cooperative, No acute distress HEENT: Atraumatic, PERRLA Lungs: Clear to auscultation, Normal air movement MUSCULOSKELETAL: Other (splint on RLE) Neuro: Normal speech Psych/Mental Status: Mental status NL, Mood NL Skin: No rashes COMMENT CAM walker boot rt leg Diagnosis Problem List Problems Medical Problems: (1) Closed right ankle fracture Status: Acute (2) Syncope Status: Acute Assessment Assessment Problems Medical Problems: (1) Closed right ankle fracture Status: Acute (2) Syncope Status: Acute FINAL IMPRESSION: 1. Syncope. 2. Right ankle fracture, closed fracture. 3. Hypertension. 4. Mild renal insufficiency. 5. History of previous strokes. 6. Thyroid mass 7. AAA PLAN: ct head old cva carotid dopller -neg. echo -good lvf. thyroid mass - FNA. surgical consult appreciated AAA-vascular consult ,5 [place] now[place] [facility] [place]. [place], was admit to the hospital, cardiac cath rn, cardiology consultation, neuro consultation, we will complete a stroke workup including carotid and echocardiogram, seen by orthopedic and may be transitioned to Cam walker boot and PT, OT and see how she does. The patient may benefit from going to SNF. She lives alone home. Problems: Plan Plan of Care Problems Medical Problems: (1) Closed right ankle fracture Status: Acute (2) Syncope Status: Acute Comment Review of Relevant I have reviewed the following items jmaes (where applicable) has been applied. Labs Laboratory Tests Test 08/06/16 11:50 08/06/16 17:45 08/07/16 04:55 Creatine Kinase 184U/L (26-192) Troponin I Quantitative 0.041ng/mL (0.000-0.055) 0.043ng/mL (0.000-0.055) White Blood Count 7.4x10^3/uL (4.0-11.0) Red Blood Count 3.52x10^6/uL (3.50-5.40) Hemoglobin 9.7g/dL (12.0-15.5) Hematocrit 30.1% (36.0-47.0) Mean Corpuscular Volume 86fL (79-100) Mean Corpuscular Hemoglobin 28pg (25-35) Mean Corpuscular Hemoglobin Concent 32g/dL (31-37) Red Cell Distribution Width 15.6% (11.5-14.5) Platelet Count 136x10^3/uL (140-400) Neutrophils (%) (Auto) 51% (31-73) Lymphocytes (%) (Auto) 30% (24-48) Monocytes (%) (Auto) 11% (0-9) Eosinophils (%) (Auto) 8% (0-3) Basophils (%) (Auto) 1% (0-3) Neutrophils # (Auto) 3.8x10^3uL (1.8-7.7) Lymphocytes # (Auto) 2.2x10^3/uL (1.0-4.8) Monocytes # (Auto) 0.8x10^3/uL (0.0-1.1) Eosinophils # (Auto) 0.6x10^3/uL (0.0-0.7) Basophils # (Auto) 0.1x10^3/uL (0.0-0.2) Sodium Level 141mmol/L (136-145) Potassium Level 4.4mmol/L (3.5-5.1) Chloride Level 110mmol/L (98-107) Carbon Dioxide Level 23mmol/L (21-32) Anion Gap 8 (6-14) Blood Urea Nitrogen 28mg/dL (7-20) Creatinine 1.5mg/dL (0.6-1.0) Estimated GFR (Cockcroft-Gault) 40.9 BUN/Creatinine Ratio 19 (6-20) Glucose Level 87mg/dL (70-99) Calcium Level 9.5mg/dL (8.5-10.1) Total Bilirubin 0.4mg/dL (0.2-1.0) Aspartate Amino Transf (AST/SGOT) 18U/L (15-37) Alanine Aminotransferase (ALT/SGPT) 15U/L (14-59) Alkaline Phosphatase 49U/L (46-116) Total Protein 6.6g/dL (6.4-8.2) Albumin 2.4g/dL (3.4-5.0) Albumin/Globulin Ratio 0.6 (1.0-1.7) Triglycerides Level 26mg/dL (0-150) Cholesterol Level 127mg/dL (0-200) LDL Cholesterol, Calculated 69mg/dL (0-100) VLDL Cholesterol, Calculated 5mg/dL (0-40) HDL Cholesterol 53mg/dL (40-60) Cholesterol/HDL Ratio 2.4 Thyroid Stimulating Hormone (TSH) 0.778uIU/mL (0.358-3.74) Medications Current Medications Acetaminophen/ Hydrocodone Bitart (Lortab 5/325) 1 tab PRN Q4HRS PRN PO PAIN Last administered on 08/07/16 08:47; Start 08/06/16 at 10:15 Aspirin (Ecotrin) 81 mg [id number] PO Last administered on 08/07/16 08:47; Start 08/06/16 at 14:30 Benzonatate (Tessalon Perle) 100 mg QHS PO ; Start 08/06/16 at 21:00 Chlorthalidone (Thalitone) 12.5 mg DAILY PO Last administered on 08/07/16 09:53 ; Start 08/06/16 at 20:30 Docusate Sodium (Colace) 100 mg PRN DAILY PRN PO CONSTIPATION Last administered on 08/07/16 08:46; Start 08/06/16 at 20:15 Enoxaparin Sodium (Lovenox 30mg Syringe) 30 mg Q24H SQ Last administered on 08/07 08:49; Start 08/06/16 at 11:00 Losartan Potassium (Cozaar) 50 mg DAILY PO Last administered on 08/07/16 08:48 ; Start 08/06/16 at 20:30 Non-Formulary Medication 1 tab DAILY PO ; Start 08/06/16 at 21:00; Status UNV Non-Formulary Medication 1 tab DAILY PO ; Start 08/07/16 at 09:00; Status Cancel Sodium Chloride (Iv Sodium Chloride 0.9% 1000ml Bag) 1,000 ml @ 75 mls/hr [id number] IV Last administered on 08/07/16t 00:46; Start 08/06/16 at 11:00 Vitals/I & O Vital Sign - Last 24 Hours 08/06/16 08/06/16 08/06/16 08/06/16 11:00 14:09 19:30 19:50 Temp 100.0 98.4 100.0 98.4 Pulse 62 74 Resp 18 B/P 102/61 123/62 Pulse Ox 99 99 O2 Delivery Room Air Room Air Room Air Room Air 08/06/16 08/06/16 08/06/16 08/07/16 21:14 21:19 23:42 03:20 Temp 98.3 98.4 98.3 98.4 Pulse 74 72 71 Resp 18 18 B/P 123/62 119/64 125/71 Pulse Ox 98 94 O2 Delivery Room Air Room Air Room Air 08/07/16 08/07/16 08/07/16 08/07/16 07:00 08:47 08:48 09:51 Temp 100.1 100.1 Pulse 76 76 Resp 18 B/P 132/69 132/69 Pulse Ox 98 98 O2 Delivery Room Air Room Air Room Air Intake and Output 08/06/16 08/06/16 08/07/16 15:00 23:00 07:00 Intake Total 816 ml 425 ml 790 ml Output Total 400 ml Balance 816 ml 425 ml 390 ml LOS NOLASCO MD Aug 07, 2016 10:14
[2016-08-07] MEDS ORDERED: MAGNESIUM HYDROXIDE 2,400 MG/30 ML ORAL.SUSP. PO PRN (10:45)
[2016-08-07 11:00] VITALS: BP 134/62
--- NOTE | 2016-08-07 11:20 | PDOC ---
CARDIO Progress Notes Date and Time Date of Service 08/07/2016 Time of Evaluation 1112 Subjective Comments: patient remains in the restroom - unable to evaluate Vitals Vitals Vital Signs Date Time Temp Pulse Resp B/P Pulse Ox O2 Delivery O2 Flow Rate FiO2 08/07/16 09:51 Room Air 08/07/16 08:48 76 132/69 08/07/16 08:47 98 08/07/16 07:00 100.1 18 100.1 Weight Weight [ ] Input and Output Intake and Output Intake and Output 08/07/16 07:00 Intake Total 2031 ml Output Total 400 ml Balance 1631 ml Intake Oral 480 ml IV Total 1551 ml Output Urine Total 400 ml # Voids 7 Laboratory Labs Laboratory Tests Test 08/06/16 11:50 08/06/16 17:45 08/07/16 04:55 Creatine Kinase 184U/L (26-192) Troponin I Quantitative 0.041ng/mL (0.000-0.055) 0.043ng/mL (0.000-0.055) White Blood Count 7.4x10^3/uL (4.0-11.0) Red Blood Count 3.52x10^6/uL (3.50-5.40) Hemoglobin 9.7g/dL (12.0-15.5) Hematocrit 30.1% (36.0-47.0) Mean Corpuscular Volume 86fL (79-100) Mean Corpuscular Hemoglobin 28pg (25-35) Mean Corpuscular Hemoglobin Concent 32g/dL (31-37) Red Cell Distribution Width 15.6% (11.5-14.5) Platelet Count 136x10^3/uL (140-400) Neutrophils (%) (Auto) 51% (31-73) Lymphocytes (%) (Auto) 30% (24-48) Monocytes (%) (Auto) 11% (0-9) Eosinophils (%) (Auto) 8% (0-3) Basophils (%) (Auto) 1% (0-3) Neutrophils # (Auto) 3.8x10^3uL (1.8-7.7) Lymphocytes # (Auto) 2.2x10^3/uL (1.0-4.8) Monocytes # (Auto) 0.8x10^3/uL (0.0-1.1) Eosinophils # (Auto) 0.6x10^3/uL (0.0-0.7) Basophils # (Auto) 0.1x10^3/uL (0.0-0.2) Sodium Level 141mmol/L (136-145) Potassium Level 4.4mmol/L (3.5-5.1) Chloride Level 110mmol/L (98-107) Carbon Dioxide Level 23mmol/L (21-32) Anion Gap 8 (6-14) Blood Urea Nitrogen 28mg/dL (7-20) Creatinine 1.5mg/dL (0.6-1.0) Estimated GFR (Cockcroft-Gault) 40.9 BUN/Creatinine Ratio 19 (6-20) Glucose Level 87mg/dL (70-99) Calcium Level 9.5mg/dL (8.5-10.1) Total Bilirubin 0.4mg/dL (0.2-1.0) Aspartate Amino Transf (AST/SGOT) 18U/L (15-37) Alanine Aminotransferase (ALT/SGPT) 15U/L (14-59) Alkaline Phosphatase 49U/L (46-116) Total Protein 6.6g/dL (6.4-8.2) Albumin 2.4g/dL (3.4-5.0) Albumin/Globulin Ratio 0.6 (1.0-1.7) Triglycerides Level 26mg/dL (0-150) Cholesterol Level 127mg/dL (0-200) LDL Cholesterol, Calculated 69mg/dL (0-100) VLDL Cholesterol, Calculated 5mg/dL (0-40) HDL Cholesterol 53mg/dL (40-60) Cholesterol/HDL Ratio 2.4 Thyroid Stimulating Hormone (TSH) 0.778uIU/mL (0.358-3.74) Assessment Assessment 1. syncope echo with preserved LV function, mild MR and severe TR; severe pulmonary HTN with PA of 70 mm Hg no evidence of cardiac dysrhythmias on tele outpatient event monitor at discharge 2. HTN improved control 3. AAA; infrarenal 4 X [address] scan - 2014 now 5.2 on ultrasound - consult to vascular surgery 4. CAD coronary artery calcifications in LAD predominantly troponin levels not consistent with AMI and no acute changes in EKG ? stress test as outpatient for further evaluation would consider use of statin therapy ASA 81 mg daily 5. thyroid nodules now with goiter seen on CXR 6. HLD LDLs = 69 7. previous CVA sm. vessel ischemic disease on CT scan 8. fracture right ankle JOSE FOSTER [employer] Aug 07, 2016 11:20
[2016-08-07] MEDS: ACETAMINOPHEN 325 MG TABLET. PO PRN (12:36)
--- NOTE | 2016-08-07 14:21 | PDOC ---
SURGICAL PROGRESS NOTE Subjective 75 yo F with thyroid nodule recommend FNA Thanks for consult! [id number] Vital Signs Vital Signs Date Time Temp Pulse Resp B/P Pulse Ox O2 Delivery O2 Flow Rate FiO2 08/07/16 13:57 Room Air 08/07/16 11:00 99.1 72 20 134/62 96 99.1 I&O Intake and Output 08/07/16 07:00 Intake Total 2031 ml Output Total 400 ml Balance 1631 ml Intake Oral 480 ml IV Total 1551 ml Output Urine Total 400 ml # Voids 7 Labs Laboratory Tests Test 08/06/16 03:55 08/06/16 04:00 08/06/16 05:00 08/06/16 11:50 Sodium Level 140mmol/L (136-145) Potassium Level 4.5mmol/L (3.5-5.1) Chloride Level 106mmol/L (98-107) Carbon Dioxide Level 26mmol/L (21-32) Anion Gap 8 (6-14) Blood Urea Nitrogen 42mg/dL (7-20) Creatinine 1.8mg/dL (0.6-1.0) Estimated GFR (Cockcroft-Gault) 33.1 Glucose Level 101mg/dL (70-99) Calcium Level 10.4mg/dL (8.5-10.1) Troponin I Quantitative 0.046ng/mL (0.000-0.055) 0.041ng/mL (0.000-0.055) White Blood Count 13.3x10^3/uL (4.0-11.0) Red Blood Count 4.14x10^6/uL (3.50-5.40) Hemoglobin 11.2g/dL (12.0-15.5) Hematocrit 34.5% (36.0-47.0) Mean Corpuscular Volume 83fL (79-100) Mean Corpuscular Hemoglobin 27pg (25-35) Mean Corpuscular Hemoglobin Concent 33g/dL (31-37) Red Cell Distribution Width 15.4% (11.5-14.5) Platelet Count 161x10^3/uL (140-400) Neutrophils (%) (Auto) 77% (31-73) Lymphocytes (%) (Auto) 13% (24-48) Monocytes (%) (Auto) 9% (0-9) Eosinophils (%) (Auto) 1% (0-3) Basophils (%) (Auto) 1% (0-3) Neutrophils # (Auto) 10.2x10^3uL (1.8-7.7) Lymphocytes # (Auto) 1.7x10^3/uL (1.0-4.8) Monocytes # (Auto) 1.2x10^3/uL (0.0-1.1) Eosinophils # (Auto) 0.1x10^3/uL (0.0-0.7) Basophils # (Auto) 0.1x10^3/uL (0.0-0.2) Urine Collection Type Unknown Urine Color Yellow Urine Clarity Clear Urine pH 7.5 Urine Specific [place] 1.010 Urine Protein Negativemg/dL (NEG-TRACE) Urine Glucose (UA) Negativemg/dL (NEG) Urine Ketones (Stick) Negativemg/dL (NEG) Urine Blood Negative (NEG) Urine Nitrite Negative (NEG) Urine Bilirubin Negative (NEG) Urine Urobilinogen Dipstick 0.2mg/dL (0.2 mg/dL) Urine Leukocyte Esterase Small (NEG) Urine RBC 0/HPF (0-2) Urine WBC 5-10/HPF (0-4) Urine Squamous Epithelial Cells Occ/LPF Urine Bacteria 0/HPF (0-FEW) Creatine Kinase 184U/L (26-192) Test 08/06/16 17:45 08/07/16 04:55 Troponin I Quantitative 0.043ng/mL (0.000-0.055) White Blood Count 7.4x10^3/uL (4.0-11.0) Red Blood Count 3.52x10^6/uL (3.50-5.40) Hemoglobin 9.7g/dL (12.0-15.5) Hematocrit 30.1% (36.0-47.0) Mean Corpuscular Volume 86fL (79-100) Mean Corpuscular Hemoglobin 28pg (25-35) Mean Corpuscular Hemoglobin Concent 32g/dL (31-37) Red Cell Distribution Width 15.6% (11.5-14.5) Platelet Count 136x10^3/uL (140-400) Neutrophils (%) (Auto) 51% (31-73) Lymphocytes (%) (Auto) 30% (24-48) Monocytes (%) (Auto) 11% (0-9) Eosinophils (%) (Auto) 8% (0-3) Basophils (%) (Auto) 1% (0-3) Neutrophils # (Auto) 3.8x10^3uL (1.8-7.7) Lymphocytes # (Auto) 2.2x10^3/uL (1.0-4.8) Monocytes # (Auto) 0.8x10^3/uL (0.0-1.1) Eosinophils # (Auto) 0.6x10^3/uL (0.0-0.7) Basophils # (Auto) 0.1x10^3/uL (0.0-0.2) Sodium Level 141mmol/L (136-145) Potassium Level 4.4mmol/L (3.5-5.1) Chloride Level 110mmol/L (98-107) Carbon Dioxide Level 23mmol/L (21-32) Anion Gap 8 (6-14) Blood Urea Nitrogen 28mg/dL (7-20) Creatinine 1.5mg/dL (0.6-1.0) Estimated GFR (Cockcroft-Gault) 40.9 BUN/Creatinine Ratio 19 (6-20) Glucose Level 87mg/dL (70-99) Calcium Level 9.5mg/dL (8.5-10.1) Total Bilirubin 0.4mg/dL (0.2-1.0) Aspartate Amino Transf (AST/SGOT) 18U/L (15-37) Alanine Aminotransferase (ALT/SGPT) 15U/L (14-59) Alkaline Phosphatase 49U/L (46-116) Total Protein 6.6g/dL (6.4-8.2) Albumin 2.4g/dL (3.4-5.0) Albumin/Globulin Ratio 0.6 (1.0-1.7) Triglycerides Level 26mg/dL (0-150) Cholesterol Level 127mg/dL (0-200) LDL Cholesterol, Calculated 69mg/dL (0-100) VLDL Cholesterol, Calculated 5mg/dL (0-40) HDL Cholesterol 53mg/dL (40-60) Cholesterol/HDL Ratio 2.4 Thyroid Stimulating Hormone (TSH) 0.778uIU/mL (0.358-3.74) Laboratory Tests Test 08/06/16 17:45 08/07/16 04:55 Troponin I Quantitative 0.043ng/mL (0.000-0.055) White Blood Count 7.4x10^3/uL (4.0-11.0) Red Blood Count 3.52x10^6/uL (3.50-5.40) Hemoglobin 9.7g/dL (12.0-15.5) Hematocrit 30.1% (36.0-47.0) Mean Corpuscular Volume 86fL (79-100) Mean Corpuscular Hemoglobin 28pg (25-35) Mean Corpuscular Hemoglobin Concent 32g/dL (31-37) Red Cell Distribution Width 15.6% (11.5-14.5) Platelet Count 136x10^3/uL (140-400) Neutrophils (%) (Auto) 51% (31-73) Lymphocytes (%) (Auto) 30% (24-48) Monocytes (%) (Auto) 11% (0-9) Eosinophils (%) (Auto) 8% (0-3) Basophils (%) (Auto) 1% (0-3) Neutrophils # (Auto) 3.8x10^3uL (1.8-7.7) Lymphocytes # (Auto) 2.2x10^3/uL (1.0-4.8) Monocytes # (Auto) 0.8x10^3/uL (0.0-1.1) Eosinophils # (Auto) 0.6x10^3/uL (0.0-0.7) Basophils # (Auto) 0.1x10^3/uL (0.0-0.2) Sodium Level 141mmol/L (136-145) Potassium Level 4.4mmol/L (3.5-5.1) Chloride Level 110mmol/L (98-107) Carbon Dioxide Level 23mmol/L (21-32) Anion Gap 8 (6-14) Blood Urea Nitrogen 28mg/dL (7-20) Creatinine 1.5mg/dL (0.6-1.0) Estimated GFR (Cockcroft-Gault) 40.9 BUN/Creatinine Ratio 19 (6-20) Glucose Level 87mg/dL (70-99) Calcium Level 9.5mg/dL (8.5-10.1) Total Bilirubin 0.4mg/dL (0.2-1.0) Aspartate Amino Transf (AST/SGOT) 18U/L (15-37) Alanine Aminotransferase (ALT/SGPT) 15U/L (14-59) Alkaline Phosphatase 49U/L (46-116) Total Protein 6.6g/dL (6.4-8.2) Albumin 2.4g/dL (3.4-5.0) Albumin/Globulin Ratio 0.6 (1.0-1.7) Triglycerides Level 26mg/dL (0-150) Cholesterol Level 127mg/dL (0-200) LDL Cholesterol, Calculated 69mg/dL (0-100) VLDL Cholesterol, Calculated 5mg/dL (0-40) HDL Cholesterol 53mg/dL (40-60) Cholesterol/HDL Ratio 2.4 Thyroid Stimulating Hormone (TSH) 0.778uIU/mL (0.358-3.74) Problem List Problems Medical Problems: (1) Closed right ankle fracture Status: Acute (2) Syncope Status: Acute Problems: GEORGES JHA MD Aug 07, 2016 14:21
[2016-08-07 15:00] VITALS: BP 136/63
--- NOTE | 2016-08-07 18:01 | PDOC ---
PROGRESS NOTES Assessment Assessment Syncope. Seizure not likely. UTI Renal failure. 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 Right oblique lateral malleolus fracture. RECOMMENDATIONS/PLAN: Continue ASA daily.. Treat medical diseases. Further evaluation of thyroid mass per floor team. Please consult Surgery for thyroid mass. Discussed with her daughter at bedside on 08/06/16. HCT performed no acute findings. Carotid A US + Doppler: No high grade stenosis. Thyroid US: 4/1 cm thyroid mass. EEG: WNL HISTORY OF THE PRESENT ILLNESS: 75-y-old AA male patient with above medical disease had a syncopal spell for this admission. She stated she lost consciousness and fell. No jerking, shaking or henrik movements observed. No obvious postictal state. Her daughter stated that the patient had a similar episode in recent month. No focalized motor or sensory deficits noted. She stated she is doing mush better on 3.8. PAST MEDICAL HISTORY: Please see above. PAST SURGERY HISTORY: Appendectomy. Spleenectomy. ALLERGY: PCN Sulfa Prednisone Iodine MEDICATIONS: Refer to [facility] FAMILY HISTORY: Non contributory. SOCIAL HISTORY: Denies current smoking, drinking, and illicit drug use. REVIEW OF SYSTEMS: Constitutional: No malnutrition, weight loss, cachexia. Head: No traumatic brain or head injury. Skin: No edema, or rash. Ear: No infection, tinnitus. Eyes: No vision loss or color blindness. Nose: No bleeding or purulent discharges. Hearing: Hearing decrease. Neck: No injury. Breast: No history of cancer, masses,or discharges. Cardiac: CAD, HTN, HLD. Pulmonary: COPD. GI: No GI ulcer, GI bleeding, GERD. Urinary/genital: UTI. Endocrinologic: goiter mass. Skeletomuscular: No muscular atrophy, deformity. Neurological: see HP. Psychiatric: Denies drug use/abuse. Otherwise, not [id number] review of systems. PHYSICAL EXAMINATION: General appearance is in subacute distress. HEENT: Normocephalic and nontraumatic. Eyes, nose, ears, and throat are unremarkable. Neck is supple. No lymphadenopathy. No crepitus. Cardiovascular: S1, S2, regular rate and rhythm. Pulmonary: Clear to auscultation bilaterally. Abdomen: Bowel sounds are positive. Extremities: No rash, lesions, or edema. No restriction of range of motion NEUROLOGICAL EXAMINATION: Awake. Oriented to time, place and person but reaction was slow. PERRL. EOMI. CN: no focal findings. Muscle tone: within normal. Muscle strength: 4+ DTR: 2 Plantar reflex: Flexor response bilaterally Gait: Able to stand with a walker. Sensory exam: no abnormal findings. No cerebellar signs elicited. F-T-N test not performed.. Objective Objective Vital Signs Date Time Temp Pulse Resp B/P Pulse Ox O2 Delivery O2 Flow Rate FiO2 08/07/16 15:03 Room Air 08/07/16 15:00 98.9 76 20 136/63 95 98.9 Intake and Output 08/07/16 07:00 Intake Total 2031 ml Output Total 400 ml Balance 1631 ml Intake Oral 480 ml IV Total 1551 ml Output Urine Total 400 ml # Voids 7 Vitals Signs Vitals VS - Last 72 Hours, by Label Date Time Temp Pulse Resp B/P Pulse Ox O2 Delivery O2 Flow Rate FiO2 08/07/16 15:03 Room Air 08/07/16 15:00 98.9 76 20 136/63 95 Room Air 98.9 08/07/16 13:57 Room Air 08/07/16 11:00 99.1 72 20 134/62 96 Room Air 99.1 08/07/16 08:48 76 132/69 08/07/16 08:47 98 Room Air 08/07/16 08:00 Room Air 08/07/16 07:00 100.1 76 18 132/69 98 Room Air 100.1 08/07/16 03:20 98.4 71 18 125/71 94 Room Air 98.4 08/06/16 23:42 98.3 72 18 119/64 98 Room Air 98.3 08/06/16 21:19 Room Air 08/06/16 21:14 74 123/62 08/06/16 19:50 Room Air 08/06/16 19:30 98.4 74 18 123/62 99 Room Air 98.4 08/06/16 14:09 Room Air 08/06/16 11:00 100.0 62 18 102/61 99 Room Air 100.0 08/06/16 08:00 Room Air 08/06/16 07:00 98.3 88 20 125/77 94 Room Air 98.3 Laboratory Laboratory Laboratory Tests Test 08/07/16 04:55 White Blood Count 7.4x10^3/uL (4.0-11.0) Red Blood Count 3.52x10^6/uL (3.50-5.40) Hemoglobin 9.7g/dL (12.0-15.5) Hematocrit 30.1% (36.0-47.0) Mean Corpuscular Volume 86fL (79-100) Mean Corpuscular Hemoglobin 28pg (25-35) Mean Corpuscular Hemoglobin Concent 32g/dL (31-37) Red Cell Distribution Width 15.6% (11.5-14.5) Platelet Count 136x10^3/uL (140-400) Neutrophils (%) (Auto) 51% (31-73) Lymphocytes (%) (Auto) 30% (24-48) Monocytes (%) (Auto) 11% (0-9) Eosinophils (%) (Auto) 8% (0-3) Basophils (%) (Auto) 1% (0-3) Neutrophils # (Auto) 3.8x10^3uL (1.8-7.7) Lymphocytes # (Auto) 2.2x10^3/uL (1.0-4.8) Monocytes # (Auto) 0.8x10^3/uL (0.0-1.1) Eosinophils # (Auto) 0.6x10^3/uL (0.0-0.7) Basophils # (Auto) 0.1x10^3/uL (0.0-0.2) Sodium Level 141mmol/L (136-145) Potassium Level 4.4mmol/L (3.5-5.1) Chloride Level 110mmol/L (98-107) Carbon Dioxide Level 23mmol/L (21-32) Anion Gap 8 (6-14) Blood Urea Nitrogen 28mg/dL (7-20) Creatinine 1.5mg/dL (0.6-1.0) Estimated GFR (Cockcroft-Gault) 40.9 BUN/Creatinine Ratio 19 (6-20) Glucose Level 87mg/dL (70-99) Calcium Level 9.5mg/dL (8.5-10.1) Total Bilirubin 0.4mg/dL (0.2-1.0) Aspartate Amino Transf (AST/SGOT) 18U/L (15-37) Alanine Aminotransferase (ALT/SGPT) 15U/L (14-59) Alkaline Phosphatase 49U/L (46-116) Total Protein 6.6g/dL (6.4-8.2) Albumin 2.4g/dL (3.4-5.0) Albumin/Globulin Ratio 0.6 (1.0-1.7) Triglycerides Level 26mg/dL (0-150) Cholesterol Level 127mg/dL (0-200) LDL Cholesterol, Calculated 69mg/dL (0-100) VLDL Cholesterol, Calculated 5mg/dL (0-40) HDL Cholesterol 53mg/dL (40-60) Cholesterol/HDL Ratio 2.4 Thyroid Stimulating Hormone (TSH) 0.778uIU/mL (0.358-3.74) Microbiology 08/06/16 Urine Culture - Preliminary, Resulted 08/06/16 Urine Culture Result 1 (SCARLETT) - Preliminary, Resulted 08/06/16 Urine Culture Result 2 (SCARLETT) - Preliminary, Resulted Medication Medications Current Medications Acetaminophen (Tylenol) 650 mg PRN Q6HRS PRN PO MILD PAIN / TEMP Last administered on 08/07/16 12:36; Start 08/07/16 at 10:45 Benzonatate (Tessalon Perle) 100 mg QHS PO ; Start 08/06/16 at 21:00 Chlorthalidone (Thalitone) 12.5 mg DAILY PO Last administered on 08/07/16 09:53 ; Start 08/06/16 at 20:30 Docusate Sodium (Colace) 100 mg PRN DAILY PRN PO CONSTIPATION Last administered on 08/07/16 08:46; Start 08/06/16 at 20:15 Losartan Potassium (Cozaar) 50 mg DAILY PO Last administered on 08/07/16 08:48 ; Start 08/06/16 at 20:30 Magnesium Hydroxide (Milk Of Magnesia) 2,400 mg PRN DAILY PRN PO CONSTIPATION; Start 08/07/16 at 10:45 Non-Formulary Medication 1 tab DAILY PO ; Start 08/06/16 at 21:00; Status UNV Non-Formulary Medication 1 tab DAILY PO ; Start 08/07/16 at 09:00; Status Cancel Comment Review of Relevant I have reviewed the following items james (where applicable) has been applied. LUCINA SEVERINO MD Aug 07, 2016 18:01
[2016-08-07 19:00] VITALS: BP 158/74
--- NOTE | 2016-08-07 19:54 | PDOC2 ---
CONSULT Date of Consult Date of Consult DATE: 08/07/16 TIME: 19:36 Reason for Consult Reason for Consult: Infrarenal abdominal aneurysm, 5.2 x 4.9 cm (ultrasound) Referring Physician Referring Physician: Dr. Arreola Identification/Chief Complaint Chief Complaint syncope with right ankle fracture Source Source: Patient History of Present Illness Reason for Visit: Ms. Booker is a 75 y/o female with HTN, CAD, prior CVA that presented to the ED with a right fibular fracture after a fall (syncope episode). She was trying to get out of a chair, and she felt dizzy and then fell and does not remember how long before she woke up. The right ankle fracture is is a boot, and being treated nonoperatively. She has a history of a AAA, from a CT scan in 2013 the aneurysm size was 4.1 cm. She has not had any routine follow-up on the abdominal aneurysm, and a repeat US on this admission demonstrated a AAA at 5.2 x 4.9 cm. She denies any abdominal pain or changes in eating or bowel function. She does have a history of a prior CVA in 2014, and a carotid study on this hospitalization was negative for carotid disease. She denies claudication, rest pain, or any foot ulcers. Past Medical History Cardiovascular: CAD (coronary artery calcifications seen in predominantly LAD on CT scan - 2014), HTN, Other (infrarenal AAA 4 X [address] - 2014) Pulmonary: COPD (on CXR) CENTRAL NERVOUS SYSTEM: CVA (2013), Other (chronic small vessel ischemic disease on CT of head 07/2016) GI: Diverticulosis Endocrine: Other (right thyroid nodule) Past Surgical History Past Surgical History: Appendectomy, Other (spleenectomy - 1978; hysterectomy) Family History Family History: No Significant Social History No ALCOHOL: none Drugs: None Current Problem List Problem List Problems Medical Problems: (1) Closed right ankle fracture Status: Acute (2) Syncope Status: Acute Current Medications Current Medications Current Medications Morphine Sulfate 4 mg 4 mg 1X ONCE IV Last administered on 08/06/16 04:47; Start 08/06/16 at 05:00; Stop 08/06/16 at 05:01; Status DC Sodium Chloride (Iv Sodium Chloride 0.9% 500ml Bag) 500 ml @ 500 mls/hr 1X ONCE IV Last administered on 08/06/16 04:48; Start 08/06/16 at 05:00; Stop at 05:59; Status DC Ondansetron HCl (Zofran) 4 mg PRN Q8HRS PRN IV NAUSEA/VOMITING; Start 08/06/16 at 05:00; Stop 08/07/16 at 04:59; Status DC Morphine Sulfate 4 mg 4 mg PRN Q2HR PRN IV SEVERE PAIN; Start 08/06/16 at 05:00 ; Stop 08/07/16 at 04:59; Status DC Sodium Chloride (Iv Sodium Chloride 0.9% 1000ml Bag) 1,000 ml @ 100 mls/hr Q10H IV Last administered on 08/06/16 05:31; Start 08/06/16 at 04:59; Stop at 14:43; Status DC Acetaminophen 650 mg 650 mg PRN Q4HRS PRN PO FEVER; Start 08/06/16 at 05:00; Stop 08/07/16 at 04:59; Status DC Sodium Chloride (Iv Sodium Chloride 0.9% 1000ml Bag) 1,000 ml @ 75 mls/hr [id number] IV Last administered on 08/07/16 13:57; Start 08/06/16 at 11:00 Acetaminophen/ Hydrocodone Bitart (Lortab 5/325) 1 tab PRN Q4HRS PRN PO PAIN Last administered on 08/07/16 13:57; Start 08/06/16 at 10:15 Enoxaparin Sodium (Lovenox 30mg Syringe) 30 mg Q24H SQ Last administered on 08/07 08:49; Start 08/06/16 at 11:00 Aspirin (Ecotrin) 81 mg DAILYWBKFT PO Last administered on 08/07/16 08:47; Start 08/06/16 at 14:30 Benzonatate (Tessalon Perle) 100 mg QHS PO ; Start 08/06/16 at 21:00 Docusate Sodium (Colace) 100 mg PRN DAILY PRN PO CONSTIPATION Last administered on 08/07/16 08:46; Start 08/06/16 at 20:15 Non-Formulary Medication 1 tab DAILY PO ; Start 08/07/16 at 09:00; Status Cancel Non-Formulary Medication 1 tab DAILY PO ; Start 08/06/16 at 21:00; Status UNV Chlorthalidone (Thalitone) 12.5 mg DAILY PO Last administered on 08/07/16 09:53 ; Start 08/06/16 at 20:30 Losartan Potassium (Cozaar) 50 mg DAILY PO Last administered on 08/07/16 08:48 ; Start 08/06/16 at 20:30 Acetaminophen (Tylenol) 650 mg PRN Q6HRS PRN PO MILD PAIN / TEMP Last administered on 08/07/16 12:36; Start 08/07/16 at 10:45 Magnesium Hydroxide (Milk Of Magnesia) 2,400 mg PRN DAILY PRN PO CONSTIPATION; Start 08/07/16 at 10:45 Active Scripts Active Reported Colace (Docusate Sodium) 100 Mg Capsule 100 Mg PO DAILY Benzonatate 100 Mg Capsule 1 Cap PO QHS Edarbyclor 40-12.5 Mg Tablet (Azilsartan/Chlorthalidone) 1 Each Tablet 1 Tab PO DAILY Zovirax (Acyclovir) 800 Mg Tablet 800 Mg PO Allergies Allergies: Coded Allergies: iodine (Verified Allergy, Severe, 10/14/13) Penicillins (Verified Allergy, Intermediate, 08/06/16) Sulfa (Sulfonamide Antibiotics) (Verified Allergy, Intermediate, 08/06/16) prednisone (Verified Allergy, Mild, 10/14/13) Physical Exam General: Alert, Oriented X3, No acute distress HEENT: Atraumatic, EOMI Lungs: Clear to auscultation, Normal air movement Heart: Regular rate, Normal S1, Normal S2, No murmurs Abdomen: Normal bowel sounds, Soft, No tenderness Extremities: No clubbing, No cyanosis, Other (Pulse: palpable femoral b/l, palpable popliteal b/l, palpable left DP/PT (+1), right DP/PT unable to examine (boot)) Skin: No rashes, No breakdown Neuro: Normal speech, Strength at 5/5 X4 ext, Sensation intact Psych/Mental Status: Mental status NL MUSCULOSKELETAL: No deformity, No swelling Vitals VITALS Vital Signs Date Time Temp Pulse Resp B/P Pulse Ox O2 Delivery O2 Flow Rate FiO2 08/07/16 19:00 98.3 70 20 158/74 99 Room Air 98.3 Labs Labs Laboratory Tests Test 08/06/16 03:55 08/06/16 04:00 08/06/16 05:00 08/06/16 11:50 Sodium Level 140mmol/L (136-145) Potassium Level 4.5mmol/L (3.5-5.1) Chloride Level 106mmol/L (98-107) Carbon Dioxide Level 26mmol/L (21-32) Anion Gap 8 (6-14) Blood Urea Nitrogen 42mg/dL (7-20) Creatinine 1.8mg/dL (0.6-1.0) Estimated GFR (Cockcroft-Gault) 33.1 Glucose Level 101mg/dL (70-99) Calcium Level 10.4mg/dL (8.5-10.1) Troponin I Quantitative 0.046ng/mL (0.000-0.055) 0.041ng/mL (0.000-0.055) White Blood Count 13.3x10^3/uL (4.0-11.0) Red Blood Count 4.14x10^6/uL (3.50-5.40) Hemoglobin 11.2g/dL (12.0-15.5) Hematocrit 34.5% (36.0-47.0) Mean Corpuscular Volume 83fL (79-100) Mean Corpuscular Hemoglobin 27pg (25-35) Mean Corpuscular Hemoglobin Concent 33g/dL (31-37) Red Cell Distribution Width 15.4% (11.5-14.5) Platelet Count 161x10^3/uL (140-400) Neutrophils (%) (Auto) 77% (31-73) Lymphocytes (%) (Auto) 13% (24-48) Monocytes (%) (Auto) 9% (0-9) Eosinophils (%) (Auto) 1% (0-3) Basophils (%) (Auto) 1% (0-3) Neutrophils # (Auto) 10.2x10^3uL (1.8-7.7) Lymphocytes # (Auto) 1.7x10^3/uL (1.0-4.8) Monocytes # (Auto) 1.2x10^3/uL (0.0-1.1) Eosinophils # (Auto) 0.1x10^3/uL (0.0-0.7) Basophils # (Auto) 0.1x10^3/uL (0.0-0.2) Urine Collection Type Unknown Urine Color Yellow Urine Clarity Clear Urine pH 7.5 Urine Specific Notrees 1.010 Urine Protein Negativemg/dL (NEG-TRACE) Urine Glucose (UA) Negativemg/dL (NEG) Urine Ketones (Stick) Negativemg/dL (NEG) Urine Blood Negative (NEG) Urine Nitrite Negative (NEG) Urine Bilirubin Negative (NEG) Urine Urobilinogen Dipstick 0.2mg/dL (0.2 mg/dL) Urine Leukocyte Esterase Small (NEG) Urine RBC 0/HPF (0-2) Urine WBC 5-10/HPF (0-4) Urine Squamous Epithelial Cells Occ/LPF Urine Bacteria 0/HPF (0-FEW) Creatine Kinase 184U/L (26-192) Test 08/06/16 17:45 08/07/16 04:55 Troponin I Quantitative 0.043ng/mL (0.000-0.055) White Blood Count 7.4x10^3/uL (4.0-11.0) Red Blood Count 3.52x10^6/uL (3.50-5.40) Hemoglobin 9.7g/dL (12.0-15.5) Hematocrit 30.1% (36.0-47.0) Mean Corpuscular Volume 86fL (79-100) Mean Corpuscular Hemoglobin 28pg (25-35) Mean Corpuscular Hemoglobin Concent 32g/dL (31-37) Red Cell Distribution Width 15.6% (11.5-14.5) Platelet Count 136x10^3/uL (140-400) Neutrophils (%) (Auto) 51% (31-73) Lymphocytes (%) (Auto) 30% (24-48) Monocytes (%) (Auto) 11% (0-9) Eosinophils (%) (Auto) 8% (0-3) Basophils (%) (Auto) 1% (0-3) Neutrophils # (Auto) 3.8x10^3uL (1.8-7.7) Lymphocytes # (Auto) 2.2x10^3/uL (1.0-4.8) Monocytes # (Auto) 0.8x10^3/uL (0.0-1.1) Eosinophils # (Auto) 0.6x10^3/uL (0.0-0.7) Basophils # (Auto) 0.1x10^3/uL (0.0-0.2) Sodium Level 141mmol/L (136-145) Potassium Level 4.4mmol/L (3.5-5.1) Chloride Level 110mmol/L (98-107) Carbon Dioxide Level 23mmol/L (21-32) Anion Gap 8 (6-14) Blood Urea Nitrogen 28mg/dL (7-20) Creatinine 1.5mg/dL (0.6-1.0) Estimated GFR (Cockcroft-Gault) 40.9 BUN/Creatinine Ratio 19 (6-20) Glucose Level 87mg/dL (70-99) Calcium Level 9.5mg/dL (8.5-10.1) Total Bilirubin 0.4mg/dL (0.2-1.0) Aspartate Amino Transf (AST/SGOT) 18U/L (15-37) Alanine Aminotransferase (ALT/SGPT) 15U/L (14-59) Alkaline Phosphatase 49U/L (46-116) Total Protein 6.6g/dL (6.4-8.2) Albumin 2.4g/dL (3.4-5.0) Albumin/Globulin Ratio 0.6 (1.0-1.7) Triglycerides Level 26mg/dL (0-150) Cholesterol Level 127mg/dL (0-200) LDL Cholesterol, Calculated 69mg/dL (0-100) VLDL Cholesterol, Calculated 5mg/dL (0-40) HDL Cholesterol 53mg/dL (40-60) Cholesterol/HDL Ratio 2.4 Thyroid Stimulating Hormone (TSH) 0.778uIU/mL (0.358-3.74) Laboratory Tests Test 08/07/16 04:55 White Blood Count 7.4x10^3/uL (4.0-11.0) Red Blood Count 3.52x10^6/uL (3.50-5.40) Hemoglobin 9.7g/dL (12.0-15.5) Hematocrit 30.1% (36.0-47.0) Mean Corpuscular Volume 86fL (79-100) Mean Corpuscular Hemoglobin 28pg (25-35) Mean Corpuscular Hemoglobin Concent 32g/dL (31-37) Red Cell Distribution Width 15.6% (11.5-14.5) Platelet Count 136x10^3/uL (140-400) Neutrophils (%) (Auto) 51% (31-73) Lymphocytes (%) (Auto) 30% (24-48) Monocytes (%) (Auto) 11% (0-9) Eosinophils (%) (Auto) 8% (0-3) Basophils (%) (Auto) 1% (0-3) Neutrophils # (Auto) 3.8x10^3uL (1.8-7.7) Lymphocytes # (Auto) 2.2x10^3/uL (1.0-4.8) Monocytes # (Auto) 0.8x10^3/uL (0.0-1.1) Eosinophils # (Auto) 0.6x10^3/uL (0.0-0.7) Basophils # (Auto) 0.1x10^3/uL (0.0-0.2) Sodium Level 141mmol/L (136-145) Potassium Level 4.4mmol/L (3.5-5.1) Chloride Level 110mmol/L (98-107) Carbon Dioxide Level 23mmol/L (21-32) Anion Gap 8 (6-14) Blood Urea Nitrogen 28mg/dL (7-20) Creatinine 1.5mg/dL (0.6-1.0) Estimated GFR (Cockcroft-Gault) 40.9 BUN/Creatinine Ratio 19 (6-20) Glucose Level 87mg/dL (70-99) Calcium Level 9.5mg/dL (8.5-10.1) Total Bilirubin 0.4mg/dL (0.2-1.0) Aspartate Amino Transf (AST/SGOT) 18U/L (15-37) Alanine Aminotransferase (ALT/SGPT) 15U/L (14-59) Alkaline Phosphatase 49U/L (46-116) Total Protein 6.6g/dL (6.4-8.2) Albumin 2.4g/dL (3.4-5.0) Albumin/Globulin Ratio 0.6 (1.0-1.7) Triglycerides Level 26mg/dL (0-150) Cholesterol Level 127mg/dL (0-200) LDL Cholesterol, Calculated 69mg/dL (0-100) VLDL Cholesterol, Calculated 5mg/dL (0-40) HDL Cholesterol 53mg/dL (40-60) Cholesterol/HDL Ratio 2.4 Thyroid Stimulating Hormone (TSH) 0.778uIU/mL (0.358-3.74) Images Images US 08/06/16: Infrarenal abdominal aortic aneurysm at 5.2 x 4.9 cm Carotid US 08/06/16: No hemodynamically significant stenosis Assessment/Plan Assessment/Plan Assessment: 1. AAA, 5.2 x 4.9 cm 2. Syncope 3. Right ankle fracture 4. CAD 5. prior CVA 6. COPD Plan: Ms. Booker has a history of infrarenal abdominal aneurysm with increase in size from last study in 2013 at 4.1 cm to 5.2 x 4.9 on recent abdominal ultrasound on 08/06/16. The ultrasound was obtained because of elevated creatinine at 1.5 and GFR 40, she also has an iodine dye allergy. If her renal function improves with IV hydration and her iodine dye reaction was mild, would recommend CTA Abd / Pelvis with prednisone pretreatment to further evaluate her abdominal aneurysm size and anatomy. If the renal function does not improve or her dye reaction was significant, then would recommend a non-contrast study. This will help get an accurate size measurement, and if her aneurysm size is near 5.2 then I discussed with her that she should consider a repair in the near future. If the aneurysm size is less than 5.0, recommend continued observation with repeat imaging in 3-6 months. I discussed with her the options of endovascular and open surgical repair, and the CT scan will determine if she is a candidate for endovascular repair. She does have elevated troponins on this admission, and an echo demonstrated normal LV function but she does have severe pulmonary hypertension. Cardiology has recommended a stress test as an outpatient. Will provide futher recommendations once CT scan is completed. SHERIN COBIAN MD Aug 07, 2016 19:54
[2016-08-07] MEDS: BENZONATATE 100 MG CAPSULE. PO SCH ×2 (20:32→20:39)
[2016-08-07 23:00] VITALS: BP 155/78
[2016-08-08 03:00] VITALS: BP 150/75
[2016-08-08] MEDS: IV NORMAL SALINE 1000ML BAG 1,000 ML IV SCH (04:05)
[2016-08-08 04:08] LABS: BASO # 0.1 x10^3/uL (0.0-0.2); BASO % 1 % (0-3); EOS % 6 % (0-3); HEMATOCRIT 30.3 % (36.0-47.0); LYMPH # 2.5 x10^3/uL (1.0-4.8); LYMPH % 30 % (24-48); MEAN CORPUSCULAR HEMOGLOBIN 28 pg (25-35); MEAN CORPUSCULAR HGB CONC 33 g/dL (31-37); MEAN CORPUSCULAR VOLUME 84 fL (79-100); MONO % 10 % (0-9); NEUT % 53 % (31-73); PLATELET COUNT 131 x10^3/uL (140-400); RED BLOOD COUNT 3.59 x10^6/uL (3.50-5.40); RED CELL DISTRIBUTION WIDTH 15.7 % (11.5-14.5); WHITE BLOOD COUNT 8.3 x10^3/uL (4.0-11.0)
[2016-08-08 04:21] LABS: CALCIUM 9.3 mg/dL (8.5-10.1); CREATININE 1.4 mg/dL (0.6-1.0); GFR 44.2; POTASSIUM 4.5 mmol/L (3.5-5.1)
--- NOTE | 2016-08-08 05:20 | CONS ---
DATE OF CONSULTATION: 08/07/2016 LOCATION: She is in room 410. ATTENDING PHYSICIAN: Dr. Arreola. The patient was seen at the request of Dr. Arreola for rehab evaluation. HISTORY OF PRESENT ILLNESS: This is a 75-year-old female who lives alone and has been independent with her mobility and self-care skills, not using an assistive device just prior to the present hospitalization. She is soaking her feet while sitting in a chair, tried to get up out of the chair, and she felt lightheaded and dizzy and fell and sustained fracture of right lateral malleolus and she had been admitted on 08/06/2016, and Orthopedics saw her and let her have CAM Walker and weightbearing as tolerated. She admits some pain in her right ankle area. She is somewhat protecting her right ankle. PAST MEDICAL HISTORY: Significant for hypertension, old cerebrovascular accident in 2016 without any residual deficits. ALLERGIES: She is known allergic to PENICILLIN, SULFA, IODINE, and PREDNISONE. SOCIAL HISTORY: She lives alone and had stairs for her to manage, railing in place. She used to use a cane on occasion. The patient admits some problems with constipation. She denies any trouble with urination. PHYSICAL EXAMINATION: Today revealed an elderly female. She is alert, oriented to time, place, person and circumstance and follows commands appropriately, moves all 4 extremities voluntarily. She had 4+/5 grade muscle strength, and deep tendon reflexes are slightly exaggerated at left knee, 2+ at right knee, absent at left ankle. She had equal perception of touch and pinprick sensation bilaterally. The patient had CAM walker placed to her right ankle in place. She is hesitant about moving her right lower extremity and complains of pain with any movement or even trying to touch her right leg with CAM walker. She requires minimal assistance with bed mobility and transfers. Once up, she walked using a roller walker at bedside without any problems. She walks slowly. She gets tired easily. Her skin is intact at this time. She is receiving IV fluids. She had a crepitus on range of motion of both knee joints with mild knee joint effusion. No significant pain on range of motion of her knees. ASSESSMENT: Mobility and self-care limitation in a patient with recent fall and fracture of right lateral malleolus with mild displacement, degenerative joint disease of both knees without any pain. History of previous cerebrovascular accident with hyperreflexia at left knee, clinical evidence of peripheral neuropathy. The patient with known hypertension. RECOMMENDATIONS: Agree with the plan for physical therapy and occupational therapy and transfer to [facility] care unit when medically stable. Dr. Arreola, I appreciate asking me to participate in care of this interesting patient. I will be glad to follow her with you as needed for her rehabilitation. ETHEL CHOI MD DR: MINI/nts JOB#: [id number] / [id number]
[2016-08-08 07:00] VITALS: BP 161/79
[2016-08-08] MEDS: ASPIRIN ENTERIC COATED 81 MG TABLET.DR. PO SCH (08:25)
[2016-08-08] MEDS: CHLORTHALIDONE 25 MG TABLET PO SCH (08:25)
[2016-08-08] MEDS: LOSARTAN POTASSIUM 50 MG TABLET. PO SCH (08:26)
[2016-08-08] MEDS: HYDROCODONE/APAP 5/325MG TABLET. PO PRN ×2 (08:27→13:36)
--- NOTE | 2016-08-08 08:28 | PDOC ---
Provider Note Provider Note Vascualr F/U Imp: AAA Plan: Will need cardiac clearance, suggest stress test now while an inpatient. KAM WEST MD Aug 08, 2016 08:28
--- NOTE | 2016-08-08 09:49 | PDOC ---
PROGRESS NOTES Subjective Subjective She admits continued right ankle pain. Objective Objective Vital Signs Date Time Temp Pulse Resp B/P Pulse Ox O2 Delivery O2 Flow Rate FiO2 08/08/16 08:27 Room Air 08/08/16 08:26 70 161/79 08/08/16 07:00 98.1 16 98 98.1 Intake and Output 08/08/16 07:00 Intake Total 100 ml Balance 100 ml Intake Oral 100 ml # Voids 8 # Bowel Movements 1 Physical Exam Physical Exam She is alert and she had tenderness to palpation over right lateral malleolus and edema of right ankle.She is still protecting her right ankle but not as much as yesterday. Assessment Assessment Problems Medical Problems: (1) Closed right ankle fracture Status: Acute (2) Syncope Status: Acute Plan Plan of Care To SNF when medically stable and arrangements are completed. Comment Review of Relevant I have reviewed the following items james (where applicable) has been applied. Labs Laboratory Tests Test 08/06/16 11:50 08/06/16 17:45 08/07/16 04:55 08/08/16 03:55 Creatine Kinase 184U/L (26-192) Troponin I Quantitative 0.041ng/mL (0.000-0.055) 0.043ng/mL (0.000-0.055) White Blood Count 7.4x10^3/uL (4.0-11.0) 8.3x10^3/uL (4.0-11.0) Red Blood Count 3.52x10^6/uL (3.50-5.40) 3.59x10^6/uL (3.50-5.40) Hemoglobin 9.7g/dL (12.0-15.5) 10.0g/dL (12.0-15.5) Hematocrit 30.1% (36.0-47.0) 30.3% (36.0-47.0) Mean Corpuscular Volume 86fL (79-100) 84fL (79-100) Mean Corpuscular Hemoglobin 28pg (25-35) 28pg (25-35) Mean Corpuscular Hemoglobin Concent 32g/dL (31-37) 33g/dL (31-37) Red Cell Distribution Width 15.6% (11.5-14.5) 15.7% (11.5-14.5) Platelet Count 136x10^3/uL (140-400) 131x10^3/uL (140-400) Neutrophils (%) (Auto) 51% (31-73) 53% (31-73) Lymphocytes (%) (Auto) 30% (24-48) 30% (24-48) Monocytes (%) (Auto) 11% (0-9) 10% (0-9) Eosinophils (%) (Auto) 8% (0-3) 6% (0-3) Basophils (%) (Auto) 1% (0-3) 1% (0-3) Neutrophils # (Auto) 3.8x10^3uL (1.8-7.7) 4.4x10^3uL (1.8-7.7) Lymphocytes # (Auto) 2.2x10^3/uL (1.0-4.8) 2.5x10^3/uL (1.0-4.8) Monocytes # (Auto) 0.8x10^3/uL (0.0-1.1) 0.9x10^3/uL (0.0-1.1) Eosinophils # (Auto) 0.6x10^3/uL (0.0-0.7) 0.5x10^3/uL (0.0-0.7) Basophils # (Auto) 0.1x10^3/uL (0.0-0.2) 0.1x10^3/uL (0.0-0.2) Sodium Level 141mmol/L (136-145) 142mmol/L (136-145) Potassium Level 4.4mmol/L (3.5-5.1) 4.5mmol/L (3.5-5.1) Chloride Level 110mmol/L (98-107) 110mmol/L (98-107) Carbon Dioxide Level 23mmol/L (21-32) 22mmol/L (21-32) Anion Gap 8 (6-14) 10 (6-14) Blood Urea Nitrogen 28mg/dL (7-20) 25mg/dL (7-20) Creatinine 1.5mg/dL (0.6-1.0) 1.4mg/dL (0.6-1.0) Estimated GFR (Cockcroft-Gault) 40.9 44.2 BUN/Creatinine Ratio 19 (6-20) Glucose Level 87mg/dL (70-99) 86mg/dL (70-99) Calcium Level 9.5mg/dL (8.5-10.1) 9.3mg/dL (8.5-10.1) Total Bilirubin 0.4mg/dL (0.2-1.0) Aspartate Amino Transf (AST/SGOT) 18U/L (15-37) Alanine Aminotransferase (ALT/SGPT) 15U/L (14-59) Alkaline Phosphatase 49U/L (46-116) Total Protein 6.6g/dL (6.4-8.2) Albumin 2.4g/dL (3.4-5.0) Albumin/Globulin Ratio 0.6 (1.0-1.7) Triglycerides Level 26mg/dL (0-150) Cholesterol Level 127mg/dL (0-200) LDL Cholesterol, Calculated 69mg/dL (0-100) VLDL Cholesterol, Calculated 5mg/dL (0-40) HDL Cholesterol 53mg/dL (40-60) Cholesterol/HDL Ratio 2.4 Thyroid Stimulating Hormone (TSH) 0.778uIU/mL (0.358-3.74) Laboratory Tests Test 08/08/16 03:55 White Blood Count 8.3x10^3/uL (4.0-11.0) Red Blood Count 3.59x10^6/uL (3.50-5.40) Hemoglobin 10.0g/dL (12.0-15.5) Hematocrit 30.3% (36.0-47.0) Mean Corpuscular Volume 84fL (79-100) Mean Corpuscular Hemoglobin 28pg (25-35) Mean Corpuscular Hemoglobin Concent 33g/dL (31-37) Red Cell Distribution Width 15.7% (11.5-14.5) Platelet Count 131x10^3/uL (140-400) Neutrophils (%) (Auto) 53% (31-73) Lymphocytes (%) (Auto) 30% (24-48) Monocytes (%) (Auto) 10% (0-9) Eosinophils (%) (Auto) 6% (0-3) Basophils (%) (Auto) 1% (0-3) Neutrophils # (Auto) 4.4x10^3uL (1.8-7.7) Lymphocytes # (Auto) 2.5x10^3/uL (1.0-4.8) Monocytes # (Auto) 0.9x10^3/uL (0.0-1.1) Eosinophils # (Auto) 0.5x10^3/uL (0.0-0.7) Basophils # (Auto) 0.1x10^3/uL (0.0-0.2) Sodium Level 142mmol/L (136-145) Potassium Level 4.5mmol/L (3.5-5.1) Chloride Level 110mmol/L (98-107) Carbon Dioxide Level 22mmol/L (21-32) Anion Gap 10 (6-14) Blood Urea Nitrogen 25mg/dL (7-20) Creatinine 1.4mg/dL (0.6-1.0) Estimated GFR (Cockcroft-Gault) 44.2 Glucose Level 86mg/dL (70-99) Calcium Level 9.3mg/dL (8.5-10.1) Microbiology 08/06/16 Urine Culture - Preliminary, Resulted 08/06/16 Urine Culture Result 1 (SCARLETT) - Preliminary, Resulted 08/06/16 Urine Culture Result 2 (SCARLETT) - Preliminary, Resulted Medications Current Medications Morphine Sulfate 4 mg 4 mg 1X ONCE IV Last administered on 08/06/16 04:47; Start 08/06/16 at 05:00; Stop 08/06/16 at 05:01; Status DC Sodium Chloride (Iv Sodium Chloride 0.9% 500ml Bag) 500 ml @ 500 mls/hr 1X ONCE IV Last administered on 08/06/16 04:48; Start 08/06/16 at 05:00; Stop at 05:59; Status DC Ondansetron HCl (Zofran) 4 mg PRN Q8HRS PRN IV NAUSEA/VOMITING; Start 08/06/16 at 05:00; Stop 08/07/16 at 04:59; Status DC Morphine Sulfate 4 mg 4 mg PRN Q2HR PRN IV SEVERE PAIN; Start 08/06/16 at 05:00 ; Stop 08/07/16 at 04:59; Status DC Sodium Chloride (Iv Sodium Chloride 0.9% 1000ml Bag) 1,000 ml @ 100 mls/hr Q10H IV Last administered on 08/06/16 05:31; Start 08/06/16 at 04:59; Stop at 14:43; Status DC Acetaminophen 650 mg 650 mg PRN Q4HRS PRN PO FEVER; Start 08/06/16 at 05:00; Stop 08/07/16 at 04:59; Status DC Sodium Chloride (Iv Sodium Chloride 0.9% 1000ml Bag) 1,000 ml @ 75 mls/hr [id number] IV Last administered on 08/08/16 04:05; Start 08/06/16 at 11:00 Acetaminophen/ Hydrocodone Bitart (Lortab 5/325) 1 tab PRN Q4HRS PRN PO PAIN Last administered on 08/08/16 08:27; Start 08/06/16 at 10:15 Enoxaparin Sodium (Lovenox 30mg Syringe) 30 mg Q24H SQ Last administered on 08/07 08:49; Start 08/06/16 at 11:00 Aspirin (Ecotrin) 81 mg DAILYWBKFT PO Last administered on 08/08/16 08:25; Start 08/06/16 at 14:30 Benzonatate (Tessalon Perle) 100 mg QHS PO ; Start 08/06/16 at 21:00; Stop at 01:53; Status DC Docusate Sodium (Colace) 100 mg PRN DAILY PRN PO CONSTIPATION Last administered on 08/07/16 08:46; Start 08/06/16 at 20:15 Non-Formulary Medication 1 tab DAILY PO ; Start 08/07/16 at 09:00; Status Cancel Non-Formulary Medication 1 tab DAILY PO ; Start 08/06/16 at 21:00; Status UNV Chlorthalidone (Thalitone) 12.5 mg DAILY PO Last administered on 08/08/16 08:25 ; Start 08/06/16 at 20:30 Losartan Potassium (Cozaar) 50 mg DAILY PO Last administered on 08/08/16 08:26 ; Start 08/06/16 at 20:30 Acetaminophen (Tylenol) 650 mg PRN Q6HRS PRN PO MILD PAIN / TEMP Last administered on 3/8/17at 12:36; Start 08/07/16 at 10:45 Magnesium Hydroxide (Milk Of Magnesia) 2,400 mg PRN DAILY PRN PO CONSTIPATION; Start 08/07/16 at 10:45 Active Scripts Active Reported Colace (Docusate Sodium) 100 Mg Capsule 100 Mg PO DAILY Benzonatate 100 Mg Capsule 1 Cap PO QHS Edarbyclor 40-12.5 Mg Tablet (Azilsartan/Chlorthalidone) 1 Each Tablet 1 Tab PO DAILY Zovirax (Acyclovir) 800 Mg Tablet 800 Mg PO Vitals/I & O Vital Sign - Last 24 Hours 08/07/16 08/07/16 08/07/16 08/07/16 11:00 13:57 15:00 15:03 Temp 99.1 98.9 99.1 98.9 Pulse 72 76 Resp 20 20 B/P 134/62 136/63 Pulse Ox 96 95 O2 Delivery Room Air Room Air Room Air Room Air 08/07/16 08/07/16 08/08/16 08/08/16 19:00 23:00 03:00 07:00 Temp 98.3 98.9 98.7 98.1 98.3 98.9 98.7 98.1 Pulse 70 71 70 70 Resp 20 20 20 16 B/P 158/74 155/78 150/75 161/79 Pulse Ox 99 96 94 98 O2 Delivery Room Air Room Air Room Air Room Air 08/08/16 08/08/16 08:26 08:27 Pulse 70 B/P 161/79 O2 Delivery Room Air Intake and Output 08/07/16 08/07/16 08/08/16 15:00 23:00 07:00 Intake Total 100 ml Balance 100 ml ETHEL CHOI MD Aug 08, 2016 09:49
[2016-08-08 10:06] LABS: BILIRUBIN,URINE NEGATIVE (NEG); GLUCOSE,URINE NEGATIVE (NEG); NITRITE,URINE NEGATIVE (NEG); PH,URINE 6.5; PROTEIN,URINE NEGATIVE (NEG-TRACE); UROBILINOGEN,URINE 0.2 mg/dL (0.2 mg/dL)
[2016-08-08 10:22] LABS: BACTERIA,URINE FEW /HPF (0-FEW); RBC,URINE RARE /HPF (0-2); SQUAMOUS EPITHELIAL CELL,UR FEW /LPF; WBC,URINE RARE /HPF (0-4)
[2016-08-08 11:00] VITALS: BP 124/75
--- NOTE | 2016-08-08 11:32 | PDOC ---
CLAUDIA LIGHT PAINT SPRAYING MACHINE OPERATOR HELPER 08/08/16 1131: CARDIO Progress Notes Date and Time Date of Service 08/08/16 Time of Evaluation 1145 Subjective Subjective: No Chest Pain, No shortness of breath, No Palpitations Vitals Vitals Vital Signs Date Time Temp Pulse Resp B/P Pulse Ox O2 Delivery O2 Flow Rate FiO2 08/08/16 08:27 Room Air 08/08/16 08:26 70 161/79 08/08/16 07:00 98.1 16 98 98.1 Weight Weight [ ] Input and Output Intake and Output Intake and Output 08/08/16 07:00 Intake Total 100 ml Balance 100 ml Intake Oral 100 ml # Voids 8 # Bowel Movements 1 Laboratory Labs Laboratory Tests Test 08/08/16 03:55 08/08/16 09:50 White Blood Count 8.3x10^3/uL (4.0-11.0) Red Blood Count 3.59x10^6/uL (3.50-5.40) Hemoglobin 10.0g/dL (12.0-15.5) Hematocrit 30.3% (36.0-47.0) Mean Corpuscular Volume 84fL (79-100) Mean Corpuscular Hemoglobin 28pg (25-35) Mean Corpuscular Hemoglobin Concent 33g/dL (31-37) Red Cell Distribution Width 15.7% (11.5-14.5) Platelet Count 131x10^3/uL (140-400) Neutrophils (%) (Auto) 53% (31-73) Lymphocytes (%) (Auto) 30% (24-48) Monocytes (%) (Auto) 10% (0-9) Eosinophils (%) (Auto) 6% (0-3) Basophils (%) (Auto) 1% (0-3) Neutrophils # (Auto) 4.4x10^3uL (1.8-7.7) Lymphocytes # (Auto) 2.5x10^3/uL (1.0-4.8) Monocytes # (Auto) 0.9x10^3/uL (0.0-1.1) Eosinophils # (Auto) 0.5x10^3/uL (0.0-0.7) Basophils # (Auto) 0.1x10^3/uL (0.0-0.2) Sodium Level 142mmol/L (136-145) Potassium Level 4.5mmol/L (3.5-5.1) Chloride Level 110mmol/L (98-107) Carbon Dioxide Level 22mmol/L (21-32) Anion Gap 10 (6-14) Blood Urea Nitrogen 25mg/dL (7-20) Creatinine 1.4mg/dL (0.6-1.0) Estimated GFR (Cockcroft-Gault) 44.2 Glucose Level 86mg/dL (70-99) Calcium Level 9.3mg/dL (8.5-10.1) Urine Collection Type Unknown Urine Color Straw Urine Clarity Clear Urine pH 6.5 Urine Specific [place] <=1.005 Urine Protein Negativemg/dL (NEG-TRACE) Urine Glucose (UA) Negativemg/dL (NEG) Urine Ketones (Stick) Negativemg/dL (NEG) Urine Blood Negative (NEG) Urine Nitrite Negative (NEG) Urine Bilirubin Negative (NEG) Urine Urobilinogen Dipstick 0.2mg/dL (0.2 mg/dL) Urine Leukocyte Esterase Negative (NEG) Urine RBC Rare/HPF (0-2) Urine WBC Rare/HPF (0-4) Urine Squamous Epithelial Cells Few/LPF Urine Bacteria Few/HPF (0-FEW) Microbiology Micro Microbiology 08/06/16 Urine Culture - Preliminary, Resulted 08/06/16 Urine Culture Result 1 (SCARLETT) - Preliminary, Resulted 08/06/16 Urine Culture Result 2 (SCARLETT) - Preliminary, Resulted Physical Exam HEENT: Neck Supple W Full Motion Chest: Symmetric LUNGS: Clear to Auscultation Heart: S1S2, RRR Abdomen: Soft N/T Extremities: Other (RLE boot/splint) Neurology: alert, oriented, follow commands Assessment Assessment 1. syncope echo with preserved LV function, mild MR and severe TR; severe pulmonary HTN with PA of 70 mm Hg no evidence of cardiac dysrhythmias on tele outpatient event monitor arranged upon discharge with f/u 2. HTN improved control 3. AAA; infrarenal 5.2 x 4.9 cm per ultrasound per vascular surgery 4. CAD coronary artery calcifications in LAD predominantly Revised Cardiac Risk Index class IV risk correlating with an 11% risk of major cardiac risk will proceed with MPI pre-operatively to r/o underlying ischemia 6. HLD LDLs = 69 7. previous CVA sm. vessel ischemic disease on CT scan 8. fracture right ankle LILLIE ESTRADA MD 08/09/16 1005: CARDIO Progress Notes Assessment Assessment Patient seen and examined 08/08/16. Agree with DIESEL PILE HAMMER OPERATOR's assessment and plan. Agree with Lexiscan nuclear stress test to rule out ischemia prior to cardiac clearance for surgery. Plan for event monitor as an outpatient to rule out any significant arrhythmias as a cause of her syncope. CLAUDIA LIGHT APRN Aug 08, 2016 11:31 LILLIE ESTRADA MD Aug 09, 2016 10:05
--- NOTE | 2016-08-08 11:43 | CONS ---
DATE OF CONSULTATION: 08/07/2016 REFERRING PHYSICIANS: Dr. Tad Rubio, Dr. Jason Phillips, Dr. Moore, Dr. Guerin, Dr. Estrada, Dr. Bryan, Dr. Nolasco, Dr. Oleg Skelton, and Dr. Dimitri White. Thank you for the consult. CHIEF COMPLAINT: Right foot pain. DIAGNOSIS: Fall with a foot fracture. REASON FOR CONSULTATION: Thyroid nodule. HISTORY OF PRESENT ILLNESS: This is a pleasant 75-year-old female who had a concern for possible syncopal event yesterday. She got up of the chair and felt lightheaded and fell down and broke her right ankle. She subsequently was admitted to the hospital for treatment of her ankle fracture as well as her syncope. During her workup, she has been noted to have a dominant thyroid nodule. She denies any unusual heart rates or temperature intolerances. She is seen in her hospital room and reports doing very well. She is tolerating diet well and denies any difficulty breathing or swelling. ALLERGIES: SHE HAS AN ALLERGY TO PENICILLIN, SULFA, IODINE AND PREDNISONE. MEDICATIONS: Includes, Lasix and acyclovir. PAST MEDICAL HISTORY: Hypertension, history of previous stroke, abdominal aortic aneurysm, COPD, and diverticulosis. PAST SURGICAL HISTORY: Includes appendectomy and splenectomy. SOCIAL HISTORY: No tobacco, no alcohol at this time. FAMILY HISTORY: Noncontributory. REVIEW OF SYSTEMS: All systems reviewed and negative except for HPI. PHYSICAL EXAMINATION: GENERAL: Well-developed, thin female sitting up in chair, no obvious distress. VITAL SIGNS: She is afebrile, vital signs within normal limits. HEENT: Normocephalic, anicteric sclerae. Oropharynx clear. NECK: Supple. Thyroid is palpable, but a distinct nodule is difficult to elicit.. CHEST: Bilateral chest excursion. ABDOMEN: Soft. EXTREMITIES: She has a right foot cast. LABORATORY DATA: White blood cell count 7.4, was 13 3 on presentation, creatinine is 1.5. Urinalysis is unremarkable. Abdominal aortic aneurysm; ultrasound demonstrates the 5.2 cm aneurysm with gallbladder with gallstones. Carotid Doppler demonstrates no significant stenosis. DIAGNOSTIC DATA: Chest x-ray demonstrates right paratracheal mass consistent with intrathoracic extension of goiter. Ankle x-ray demonstrates mildly displaced lateral malleolar fracture. Head CT demonstrates mild atrophy. An ultrasound of her neck demonstrates dominant 4.1 cm nodule in the right thyroid. A fine needle aspiration is recommended. IMPRESSION AND RECOMMENDATIONS: A 75-year-old female with right thyroid nodule, ask for a fine needle aspiration to evaluate for possible malignancy. I will discuss the case with Dr. Zaragoza, who has more experience with thyroid surgery and he will evaluate the patient tomorrow. Thank you for allowing participation in the care of this pleasant patient. Sincerely, GEORGES JHA MD DR: ADRIANA/sal JOB#: [id number] / [id number] JASON Simpson MD, DIMITRI SKELTON, OLEG ROJAS, TAD MOORE, ETHEL NOLASCO, LOS GUERIN, ALICIA ESTRADA, LILLIE BRYAN, LUCINA AGUILAR
--- NOTE | 2016-08-08 11:46 | PDOC2 ---
CONSULT Date of Consult Date of Consult DATE: 08/08/16 TIME: 11:44 Reason for Consult Reason for Consult: DUNIA, CAN Risk assessment Referring Physician Referring Physician: Dr Arreola Source Source: Chart review, Patient History of Present Illness Reason for Visit: as dictated Past Medical History Cardiovascular: CAD (coronary artery calcifications seen in predominantly LAD on CT scan - 2014), HTN, Other (infrarenal AAA 4 X [address] - 2014) Pulmonary: COPD (on CXR) CENTRAL NERVOUS SYSTEM: CVA (2013), Other (chronic small vessel ischemic disease on CT of head 07/2016) GI: Diverticulosis Renal/: Chronic renal insuff Endocrine: Other (right thyroid nodule) Past Surgical History Past Surgical History: Appendectomy, Other (spleenectomy - 1978; hysterectomy) Family History Family History: No Significant Social History No ALCOHOL: none Drugs: None Current Problem List Problem List Problems Medical Problems: (1) Closed right ankle fracture Status: Acute (2) Syncope Status: Acute Current Medications Current Medications Current Medications Morphine Sulfate 4 mg 4 mg 1X ONCE IV Last administered on 08/06/16 04:47; Start 08/06/16 at 05:00; Stop 08/06/16 at 05:01; Status DC Sodium Chloride (Iv Sodium Chloride 0.9% 500ml Bag) 500 ml @ 500 mls/hr 1X ONCE IV Last administered on 08/06/16 04:48; Start 08/06/16 at 05:00; Stop at 05:59; Status DC Ondansetron HCl (Zofran) 4 mg PRN Q8HRS PRN IV NAUSEA/VOMITING; Start 08/06/16 at 05:00; Stop 08/07/16 at 04:59; Status DC Morphine Sulfate 4 mg 4 mg PRN Q2HR PRN IV SEVERE PAIN; Start 08/06/16 at 05:00 ; Stop 08/07/16 at 04:59; Status DC Sodium Chloride (Iv Sodium Chloride 0.9% 1000ml Bag) 1,000 ml @ 100 mls/hr Q10H IV Last administered on 08/06/16 05:31; Start 08/06/16 at 04:59; Stop at 14:43; Status DC Acetaminophen 650 mg 650 mg PRN Q4HRS PRN PO FEVER; Start 08/06/16 at 05:00; Stop 08/07/16 at 04:59; Status DC Sodium Chloride (Iv Sodium Chloride 0.9% 1000ml Bag) 1,000 ml @ 75 mls/hr [id number] IV Last administered on 08/08/16 04:05; Start 08/06/16 at 11:00 Acetaminophen/ Hydrocodone Bitart (Lortab 5/325) 1 tab PRN Q4HRS PRN PO PAIN Last administered on 08/08/16 08:27; Start 08/06/16 at 10:15 Enoxaparin Sodium (Lovenox 30mg Syringe) 30 mg Q24H SQ Last administered on 08/07 08:49; Start 08/06/16 at 11:00 Aspirin (Ecotrin) 81 mg [id number] PO Last administered on 08/08/16 08:25; Start 08/06/16 at 14:30 Benzonatate (Tessalon Perle) 100 mg QHS PO ; Start 08/06/16 at 21:00; Stop at 01:53; Status DC Docusate Sodium (Colace) 100 mg PRN DAILY PRN PO CONSTIPATION Last administered on 08/07/16 08:46; Start 08/06/16 at 20:15 Non-Formulary Medication 1 tab DAILY PO ; Start 08/07/16 at 09:00; Status Cancel Non-Formulary Medication 1 tab DAILY PO ; Start 08/06/16 at 21:00; Status UNV Chlorthalidone (Thalitone) 12.5 mg DAILY PO Last administered on 08/08/16 08:25 ; Start 08/06/16 at 20:30 Losartan Potassium (Cozaar) 50 mg DAILY PO Last administered on 08/08/16 08:26 ; Start 08/06/16 at 20:30 Acetaminophen (Tylenol) 650 mg PRN Q6HRS PRN PO MILD PAIN / TEMP Last administered on 08/07/16 12:36; Start 08/07/16 at 10:45 Magnesium Hydroxide (Milk Of Magnesia) 2,400 mg PRN DAILY PRN PO CONSTIPATION; Start 08/07/16 at 10:45 Active Scripts Active Reported Colace (Docusate Sodium) 100 Mg Capsule 100 Mg PO DAILY Benzonatate 100 Mg Capsule 1 Cap PO QHS Edarbyclor 40-12.5 Mg Tablet (Azilsartan/Chlorthalidone) 1 Each Tablet 1 Tab PO DAILY Zovirax (Acyclovir) 800 Mg Tablet 800 Mg PO Allergies Allergies: Coded Allergies: iodine (Verified Allergy, Severe, 10/14/13) Penicillins (Verified Allergy, Intermediate, 08/06/16) Sulfa (Sulfonamide Antibiotics) (Verified Allergy, Intermediate, 08/06/16) prednisone (Verified Allergy, Mild, 10/14/13) ROS Review of System GEN: no Fevers no Chills EYES: no new Visual Complaints ENT: no EN Drainage no Hearing deficiets CVS: no Orthopnea no CP RESP: no SOB no RAMOS GI: no Nausea no Vomiting : no Dysuria no Urgency HEME: no easy bruising no Palp Ly Nodes NEURO no Focal Weakness no Sz PSYCH: no Suicidal Ideation no Depression SKIN: no Rashes ENDO: no Polyuria or Polydipsia no Hot/Cold Intolerance MU SK: + Arthraigia no Myalgia Physical Exam Physical Exam General Appearance: Awake Alert Oriented x 3 In no Distress Eyes: VIsion Unchanged Conjunctiva Normal EN: No EN Drainage Mucous Memb. moist Neck: no JVD no JVP Supple no Thyromegaly CVS: S1 S2 soft Murmur No Gallop No Rub no Edema Resp: no Rales no Rhonchi no Acc. Muscle use GI: BS +ve NO Bruit Non Tender Non Distended; +ve Palp pulsations : no CVA tenderness; no Suprapubic Tenderness SKIN: no Rashes Breast Exam deferred Mu.Sk: Adequate ROM x Rt foot (in brace) no Muscle Atrophy Heme: Unable to palpate Obvious LAD no Splenomegaly NEURO: Good Strength and Tone Cranial Nerves II - XII grossly intact Psych: not Depressed no Active hallucination Vital Signs Vital Signs Date Time Temp Pulse Resp B/P Pulse Ox O2 Delivery O2 Flow Rate FiO2 08/08/16 09:27 Room Air 08/08/16 08:26 70 161/79 08/08/16 07:00 98.1 16 98 98.1 Assessment & Plan Dunia - resolved CKD III - this may be her baseline with ASVDz. Current FLuid and E-lyte status does not necessitate emergent need for Dialysis. Will re-evaluate for Dialysis in am AAA - small to med Risk of CAN explained. pt willing to proceed; Given high likelihood of ASVDz - will hold Diuretic for now. Norvasc for HTN if needed HypoALb - UA -ve for proteinuria x 2 Anemia: Chekc Iron; may need Epogen Transfuse as needed. ? Renovascular HTN: will also eval renal arteries with CTA. Current BP meds reviewed. See orders for changes. Discussed Plan of Care and prognosis etc. at length with family. Labs Labs Laboratory Tests Test 08/06/16 11:50 08/06/16 17:45 08/07/16 04:55 08/08/16 03:55 Creatine Kinase 184U/L (26-192) Troponin I Quantitative 0.041ng/mL (0.000-0.055) 0.043ng/mL (0.000-0.055) White Blood Count 7.4x10^3/uL (4.0-11.0) 8.3x10^3/uL (4.0-11.0) Red Blood Count 3.52x10^6/uL (3.50-5.40) 3.59x10^6/uL (3.50-5.40) Hemoglobin 9.7g/dL (12.0-15.5) 10.0g/dL (12.0-15.5) Hematocrit 30.1% (36.0-47.0) 30.3% (36.0-47.0) Mean Corpuscular Volume 86fL (79-100) 84fL (79-100) Mean Corpuscular Hemoglobin 28pg (25-35) 28pg (25-35) Mean Corpuscular Hemoglobin Concent 32g/dL (31-37) 33g/dL (31-37) Red Cell Distribution Width 15.6% (11.5-14.5) 15.7% (11.5-14.5) Platelet Count 136x10^3/uL (140-400) 131x10^3/uL (140-400) Neutrophils (%) (Auto) 51% (31-73) 53% (31-73) Lymphocytes (%) (Auto) 30% (24-48) 30% (24-48) Monocytes (%) (Auto) 11% (0-9) 10% (0-9) Eosinophils (%) (Auto) 8% (0-3) 6% (0-3) Basophils (%) (Auto) 1% (0-3) 1% (0-3) Neutrophils # (Auto) 3.8x10^3uL (1.8-7.7) 4.4x10^3uL (1.8-7.7) Lymphocytes # (Auto) 2.2x10^3/uL (1.0-4.8) 2.5x10^3/uL (1.0-4.8) Monocytes # (Auto) 0.8x10^3/uL (0.0-1.1) 0.9x10^3/uL (0.0-1.1) Eosinophils # (Auto) 0.6x10^3/uL (0.0-0.7) 0.5x10^3/uL (0.0-0.7) Basophils # (Auto) 0.1x10^3/uL (0.0-0.2) 0.1x10^3/uL (0.0-0.2) Sodium Level 141mmol/L (136-145) 142mmol/L (136-145) Potassium Level 4.4mmol/L (3.5-5.1) 4.5mmol/L (3.5-5.1) Chloride Level 110mmol/L (98-107) 110mmol/L (98-107) Carbon Dioxide Level 23mmol/L (21-32) 22mmol/L (21-32) Anion Gap 8 (6-14) 10 (6-14) Blood Urea Nitrogen 28mg/dL (7-20) 25mg/dL (7-20) Creatinine 1.5mg/dL (0.6-1.0) 1.4mg/dL (0.6-1.0) Estimated GFR (Cockcroft-Gault) 40.9 44.2 BUN/Creatinine Ratio 19 (6-20) Glucose Level 87mg/dL (70-99) 86mg/dL (70-99) Calcium Level 9.5mg/dL (8.5-10.1) 9.3mg/dL (8.5-10.1) Total Bilirubin 0.4mg/dL (0.2-1.0) Aspartate Amino Transf (AST/SGOT) 18U/L (15-37) Alanine Aminotransferase (ALT/SGPT) 15U/L (14-59) Alkaline Phosphatase 49U/L (46-116) Total Protein 6.6g/dL (6.4-8.2) Albumin 2.4g/dL (3.4-5.0) Albumin/Globulin Ratio 0.6 (1.0-1.7) Triglycerides Level 26mg/dL (0-150) Cholesterol Level 127mg/dL (0-200) LDL Cholesterol, Calculated 69mg/dL (0-100) VLDL Cholesterol, Calculated 5mg/dL (0-40) HDL Cholesterol 53mg/dL (40-60) Cholesterol/HDL Ratio 2.4 Thyroid Stimulating Hormone (TSH) 0.778uIU/mL (0.358-3.74) Test 08/08/16 09:50 Urine Collection Type Unknown Urine Color Straw Urine Clarity Clear Urine pH 6.5 Urine Specific [place] <=1.005 Urine Protein Negativemg/dL (NEG-TRACE) Urine Glucose (UA) Negativemg/dL (NEG) Urine Ketones (Stick) Negativemg/dL (NEG) Urine Blood Negative (NEG) Urine Nitrite Negative (NEG) Urine Bilirubin Negative (NEG) Urine Urobilinogen Dipstick 0.2mg/dL (0.2 mg/dL) Urine Leukocyte Esterase Negative (NEG) Urine RBC Rare/HPF (0-2) Urine WBC Rare/HPF (0-4) Urine Squamous Epithelial Cells Few/LPF Urine Bacteria Few/HPF (0-FEW) Laboratory Tests Test 08/08/16 03:55 08/08/16 09:50 White Blood Count 8.3x10^3/uL (4.0-11.0) Red Blood Count 3.59x10^6/uL (3.50-5.40) Hemoglobin 10.0g/dL (12.0-15.5) Hematocrit 30.3% (36.0-47.0) Mean Corpuscular Volume 84fL (79-100) Mean Corpuscular Hemoglobin 28pg (25-35) Mean Corpuscular Hemoglobin Concent 33g/dL (31-37) Red Cell Distribution Width 15.7% (11.5-14.5) Platelet Count 131x10^3/uL (140-400) Neutrophils (%) (Auto) 53% (31-73) Lymphocytes (%) (Auto) 30% (24-48) Monocytes (%) (Auto) 10% (0-9) Eosinophils (%) (Auto) 6% (0-3) Basophils (%) (Auto) 1% (0-3) Neutrophils # (Auto) 4.4x10^3uL (1.8-7.7) Lymphocytes # (Auto) 2.5x10^3/uL (1.0-4.8) Monocytes # (Auto) 0.9x10^3/uL (0.0-1.1) Eosinophils # (Auto) 0.5x10^3/uL (0.0-0.7) Basophils # (Auto) 0.1x10^3/uL (0.0-0.2) Sodium Level 142mmol/L (136-145) Potassium Level 4.5mmol/L (3.5-5.1) Chloride Level 110mmol/L (98-107) Carbon Dioxide Level 22mmol/L (21-32) Anion Gap 10 (6-14) Blood Urea Nitrogen 25mg/dL (7-20) Creatinine 1.4mg/dL (0.6-1.0) Estimated GFR (Cockcroft-Gault) 44.2 Glucose Level 86mg/dL (70-99) Calcium Level 9.3mg/dL (8.5-10.1) Urine Collection Type Unknown Urine Color Straw Urine Clarity Clear Urine pH 6.5 Urine Specific [place] <=1.005 Urine Protein Negativemg/dL (NEG-TRACE) Urine Glucose (UA) Negativemg/dL (NEG) Urine Ketones (Stick) Negativemg/dL (NEG) Urine Blood Negative (NEG) Urine Nitrite Negative (NEG) Urine Bilirubin Negative (NEG) Urine Urobilinogen Dipstick 0.2mg/dL (0.2 mg/dL) Urine Leukocyte Esterase Negative (NEG) Urine RBC Rare/HPF (0-2) Urine WBC Rare/HPF (0-4) Urine Squamous Epithelial Cells Few/LPF Urine Bacteria Few/HPF (0-FEW) Images Images CT Abd and Pelvis from 09/2013: There are tiny calcifications in the right renal hilum, likely vascular in nature. Kidneys appear slightly small in size and are otherwise unremarkable KEITH CAMARILLO MD Aug 08, 2016 11:46
[2016-08-08] MEDS ORDERED: MAGNESIUM SULFATE 2GM 50 ML IV PRN (12:00)
[2016-08-08 12:19] LABS: % SAT IRON 13 % (15-34); IRON,SERUM 26 ug/dL (50-170)
[2016-08-08] MEDS: ENOXAPARIN 30 MG/0.3 ML DISP.SYRIN. SQ SCH (13:43)
--- NOTE | 2016-08-08 13:48 | PDOC ---
BUZZ JOHN MECHANICAL ADJUSTER 08/08/16 1348: SURGICAL PROGRESS NOTE Subjective patient eating lunch I discussed FNA with her--patient tells me she is not sure that she wants anything done, she has not decided if she is going to proceed with AAA d/w nurse-US showed GB packed with stones Vital Signs Vital Signs Date Time Temp Pulse Resp B/P Pulse Ox O2 Delivery O2 Flow Rate FiO2 08/08/16 13:36 Room Air 08/08/16 11:00 98.0 69 16 124/75 95 98.0 I&O Intake and Output 08/08/16 07:00 Intake Total 100 ml Balance 100 ml Intake Oral 100 ml # Voids 8 # Bowel Movements 1 General: Alert, Oriented X3, Cooperative, No acute distress Abdomen: Soft, No tenderness Labs Laboratory Tests Test 08/06/16 17:45 08/07/16 04:55 08/08/16 03:55 08/08/16 09:50 Troponin I Quantitative 0.043ng/mL (0.000-0.055) White Blood Count 7.4x10^3/uL (4.0-11.0) 8.3x10^3/uL (4.0-11.0) Red Blood Count 3.52x10^6/uL (3.50-5.40) 3.59x10^6/uL (3.50-5.40) Hemoglobin 9.7g/dL (12.0-15.5) 10.0g/dL (12.0-15.5) Hematocrit 30.1% (36.0-47.0) 30.3% (36.0-47.0) Mean Corpuscular Volume 86fL (79-100) 84fL (79-100) Mean Corpuscular Hemoglobin 28pg (25-35) 28pg (25-35) Mean Corpuscular Hemoglobin Concent 32g/dL (31-37) 33g/dL (31-37) Red Cell Distribution Width 15.6% (11.5-14.5) 15.7% (11.5-14.5) Platelet Count 136x10^3/uL (140-400) 131x10^3/uL (140-400) Neutrophils (%) (Auto) 51% (31-73) 53% (31-73) Lymphocytes (%) (Auto) 30% (24-48) 30% (24-48) Monocytes (%) (Auto) 11% (0-9) 10% (0-9) Eosinophils (%) (Auto) 8% (0-3) 6% (0-3) Basophils (%) (Auto) 1% (0-3) 1% (0-3) Neutrophils # (Auto) 3.8x10^3uL (1.8-7.7) 4.4x10^3uL (1.8-7.7) Lymphocytes # (Auto) 2.2x10^3/uL (1.0-4.8) 2.5x10^3/uL (1.0-4.8) Monocytes # (Auto) 0.8x10^3/uL (0.0-1.1) 0.9x10^3/uL (0.0-1.1) Eosinophils # (Auto) 0.6x10^3/uL (0.0-0.7) 0.5x10^3/uL (0.0-0.7) Basophils # (Auto) 0.1x10^3/uL (0.0-0.2) 0.1x10^3/uL (0.0-0.2) Sodium Level 141mmol/L (136-145) 142mmol/L (136-145) Potassium Level 4.4mmol/L (3.5-5.1) 4.5mmol/L (3.5-5.1) Chloride Level 110mmol/L (98-107) 110mmol/L (98-107) Carbon Dioxide Level 23mmol/L (21-32) 22mmol/L (21-32) Anion Gap 8 (6-14) 10 (6-14) Blood Urea Nitrogen 28mg/dL (7-20) 25mg/dL (7-20) Creatinine 1.5mg/dL (0.6-1.0) 1.4mg/dL (0.6-1.0) Estimated GFR (Cockcroft-Gault) 40.9 44.2 BUN/Creatinine Ratio 19 (6-20) Glucose Level 87mg/dL (70-99) 86mg/dL (70-99) Calcium Level 9.5mg/dL (8.5-10.1) 9.3mg/dL (8.5-10.1) Total Bilirubin 0.4mg/dL (0.2-1.0) Aspartate Amino Transf (AST/SGOT) 18U/L (15-37) Alanine Aminotransferase (ALT/SGPT) 15U/L (14-59) Alkaline Phosphatase 49U/L (46-116) Total Protein 6.6g/dL (6.4-8.2) Albumin 2.4g/dL (3.4-5.0) Albumin/Globulin Ratio 0.6 (1.0-1.7) Triglycerides Level 26mg/dL (0-150) Cholesterol Level 127mg/dL (0-200) LDL Cholesterol, Calculated 69mg/dL (0-100) VLDL Cholesterol, Calculated 5mg/dL (0-40) HDL Cholesterol 53mg/dL (40-60) Cholesterol/HDL Ratio 2.4 Thyroid Stimulating Hormone (TSH) 0.778uIU/mL (0.358-3.74) Reticulocyte Count (auto) 0.8% (0.5-2.5) Iron Level 26ug/dL (50-170) Total Iron Binding Capacity 196ug/dL (250-450) Iron Saturation 13% (15-34) Ferritin 117ng/mL (8-252) Urine Collection Type Unknown Urine Color Straw Urine Clarity Clear Urine pH 6.5 Urine Specific [place] <=1.005 Urine Protein Negativemg/dL (NEG-TRACE) Urine Glucose (UA) Negativemg/dL (NEG) Urine Ketones (Stick) Negativemg/dL (NEG) Urine Blood Negative (NEG) Urine Nitrite Negative (NEG) Urine Bilirubin Negative (NEG) Urine Urobilinogen Dipstick 0.2mg/dL (0.2 mg/dL) Urine Leukocyte Esterase Negative (NEG) Urine RBC Rare/HPF (0-2) Urine WBC Rare/HPF (0-4) Urine Squamous Epithelial Cells Few/LPF Urine Bacteria Few/HPF (0-FEW) Laboratory Tests Test 08/08/16 03:55 08/08/16 09:50 White Blood Count 8.3x10^3/uL (4.0-11.0) Red Blood Count 3.59x10^6/uL (3.50-5.40) Hemoglobin 10.0g/dL (12.0-15.5) Hematocrit 30.3% (36.0-47.0) Mean Corpuscular Volume 84fL (79-100) Mean Corpuscular Hemoglobin 28pg (25-35) Mean Corpuscular Hemoglobin Concent 33g/dL (31-37) Red Cell Distribution Width 15.7% (11.5-14.5) Platelet Count 131x10^3/uL (140-400) Neutrophils (%) (Auto) 53% (31-73) Lymphocytes (%) (Auto) 30% (24-48) Monocytes (%) (Auto) 10% (0-9) Eosinophils (%) (Auto) 6% (0-3) Basophils (%) (Auto) 1% (0-3) Neutrophils # (Auto) 4.4x10^3uL (1.8-7.7) Lymphocytes # (Auto) 2.5x10^3/uL (1.0-4.8) Monocytes # (Auto) 0.9x10^3/uL (0.0-1.1) Eosinophils # (Auto) 0.5x10^3/uL (0.0-0.7) Basophils # (Auto) 0.1x10^3/uL (0.0-0.2) Reticulocyte Count (auto) 0.8% (0.5-2.5) Sodium Level 142mmol/L (136-145) Potassium Level 4.5mmol/L (3.5-5.1) Chloride Level 110mmol/L (98-107) Carbon Dioxide Level 22mmol/L (21-32) Anion Gap 10 (6-14) Blood Urea Nitrogen 25mg/dL (7-20) Creatinine 1.4mg/dL (0.6-1.0) Estimated GFR (Cockcroft-Gault) 44.2 Glucose Level 86mg/dL (70-99) Calcium Level 9.3mg/dL (8.5-10.1) Iron Level 26ug/dL (50-170) Total Iron Binding Capacity 196ug/dL (250-450) Iron Saturation 13% (15-34) Ferritin 117ng/mL (8-252) Urine Collection Type Unknown Urine Color Straw Urine Clarity Clear Urine pH 6.5 Urine Specific Wilson <=1.005 Urine Protein Negativemg/dL (NEG-TRACE) Urine Glucose (UA) Negativemg/dL (NEG) Urine Ketones (Stick) Negativemg/dL (NEG) Urine Blood Negative (NEG) Urine Nitrite Negative (NEG) Urine Bilirubin Negative (NEG) Urine Urobilinogen Dipstick 0.2mg/dL (0.2 mg/dL) Urine Leukocyte Esterase Negative (NEG) Urine RBC Rare/HPF (0-2) Urine WBC Rare/HPF (0-4) Urine Squamous Epithelial Cells Few/LPF Urine Bacteria Few/HPF (0-FEW) Problem List Problems Medical Problems: (1) Closed right ankle fracture Status: Acute (2) Syncope Status: Acute Assessment/Plan thyroid nodule AAA cholelithiasis Dr Zaragoza can do oren at time of AAA repair if ok with vascular would rec FNA will consult Pat, as patient is unsure on treatment, assist with goal setting Problems: OLEG ZARAGOZA MD 08/09/16 1651: SURGICAL PROGRESS NOTE Assessment/Plan Reviewed, agree with above Problems: BUZZ JOHN APRN Aug 08, 2016 13:48 OLEG ZARAGOZA MD Aug 09, 2016 16:51
--- NOTE | 2016-08-08 14:06 | PDOC ---
ORTHO PROGRESS NOTES Subjective Complains of pain but tolerable. Boot provide support and some pain relief. Pain is on the lateral side of the ankle. She anticipates she will be going to rehabilitation at discharge Vitals Vital Signs Date Time Temp Pulse Resp B/P Pulse Ox O2 Delivery O2 Flow Rate FiO2 08/08/16 13:36 Room Air 08/08/16 11:00 98.0 69 16 124/75 95 98.0 Labs Laboratory Tests Test 08/06/16 17:45 08/07/16 04:55 08/08/16 03:55 08/08/16 09:50 Troponin I Quantitative 0.043ng/mL (0.000-0.055) White Blood Count 7.4x10^3/uL (4.0-11.0) 8.3x10^3/uL (4.0-11.0) Red Blood Count 3.52x10^6/uL (3.50-5.40) 3.59x10^6/uL (3.50-5.40) Hemoglobin 9.7g/dL (12.0-15.5) 10.0g/dL (12.0-15.5) Hematocrit 30.1% (36.0-47.0) 30.3% (36.0-47.0) Mean Corpuscular Volume 86fL (79-100) 84fL (79-100) Mean Corpuscular Hemoglobin 28pg (25-35) 28pg (25-35) Mean Corpuscular Hemoglobin Concent 32g/dL (31-37) 33g/dL (31-37) Red Cell Distribution Width 15.6% (11.5-14.5) 15.7% (11.5-14.5) Platelet Count 136x10^3/uL (140-400) 131x10^3/uL (140-400) Neutrophils (%) (Auto) 51% (31-73) 53% (31-73) Lymphocytes (%) (Auto) 30% (24-48) 30% (24-48) Monocytes (%) (Auto) 11% (0-9) 10% (0-9) Eosinophils (%) (Auto) 8% (0-3) 6% (0-3) Basophils (%) (Auto) 1% (0-3) 1% (0-3) Neutrophils # (Auto) 3.8x10^3uL (1.8-7.7) 4.4x10^3uL (1.8-7.7) Lymphocytes # (Auto) 2.2x10^3/uL (1.0-4.8) 2.5x10^3/uL (1.0-4.8) Monocytes # (Auto) 0.8x10^3/uL (0.0-1.1) 0.9x10^3/uL (0.0-1.1) Eosinophils # (Auto) 0.6x10^3/uL (0.0-0.7) 0.5x10^3/uL (0.0-0.7) Basophils # (Auto) 0.1x10^3/uL (0.0-0.2) 0.1x10^3/uL (0.0-0.2) Sodium Level 141mmol/L (136-145) 142mmol/L (136-145) Potassium Level 4.4mmol/L (3.5-5.1) 4.5mmol/L (3.5-5.1) Chloride Level 110mmol/L (98-107) 110mmol/L (98-107) Carbon Dioxide Level 23mmol/L (21-32) 22mmol/L (21-32) Anion Gap 8 (6-14) 10 (6-14) Blood Urea Nitrogen 28mg/dL (7-20) 25mg/dL (7-20) Creatinine 1.5mg/dL (0.6-1.0) 1.4mg/dL (0.6-1.0) Estimated GFR (Cockcroft-Gault) 40.9 44.2 BUN/Creatinine Ratio 19 (6-20) Glucose Level 87mg/dL (70-99) 86mg/dL (70-99) Calcium Level 9.5mg/dL (8.5-10.1) 9.3mg/dL (8.5-10.1) Total Bilirubin 0.4mg/dL (0.2-1.0) Aspartate Amino Transf (AST/SGOT) 18U/L (15-37) Alanine Aminotransferase (ALT/SGPT) 15U/L (14-59) Alkaline Phosphatase 49U/L (46-116) Total Protein 6.6g/dL (6.4-8.2) Albumin 2.4g/dL (3.4-5.0) Albumin/Globulin Ratio 0.6 (1.0-1.7) Triglycerides Level 26mg/dL (0-150) Cholesterol Level 127mg/dL (0-200) LDL Cholesterol, Calculated 69mg/dL (0-100) VLDL Cholesterol, Calculated 5mg/dL (0-40) HDL Cholesterol 53mg/dL (40-60) Cholesterol/HDL Ratio 2.4 Thyroid Stimulating Hormone (TSH) 0.778uIU/mL (0.358-3.74) Reticulocyte Count (auto) 0.8% (0.5-2.5) Iron Level 26ug/dL (50-170) Total Iron Binding Capacity 196ug/dL (250-450) Iron Saturation 13% (15-34) Ferritin 117ng/mL (8-252) Urine Collection Type Unknown Urine Color Straw Urine Clarity Clear Urine pH 6.[address] [place] <=1.005 Urine Protein Negativemg/dL (NEG-TRACE) Urine Glucose (UA) Negativemg/dL (NEG) Urine Ketones (Stick) Negativemg/dL (NEG) Urine Blood Negative (NEG) Urine Nitrite Negative (NEG) Urine Bilirubin Negative (NEG) Urine Urobilinogen Dipstick 0.2mg/dL (0.2 mg/dL) Urine Leukocyte Esterase Negative (NEG) Urine RBC Rare/HPF (0-2) Urine WBC Rare/HPF (0-4) Urine Squamous Epithelial Cells Few/LPF Urine Bacteria Few/HPF (0-FEW) Laboratory Tests Test 08/08/16 03:55 08/08/16 09:50 White Blood Count 8.3x10^3/uL (4.0-11.0) Red Blood Count 3.59x10^6/uL (3.50-5.40) Hemoglobin 10.0g/dL (12.0-15.5) Hematocrit 30.3% (36.0-47.0) Mean Corpuscular Volume 84fL (79-100) Mean Corpuscular Hemoglobin 28pg (25-35) Mean Corpuscular Hemoglobin Concent 33g/dL (31-37) Red Cell Distribution Width 15.7% (11.5-14.5) Platelet Count 131x10^3/uL (140-400) Neutrophils (%) (Auto) 53% (31-73) Lymphocytes (%) (Auto) 30% (24-48) Monocytes (%) (Auto) 10% (0-9) Eosinophils (%) (Auto) 6% (0-3) Basophils (%) (Auto) 1% (0-3) Neutrophils # (Auto) 4.4x10^3uL (1.8-7.7) Lymphocytes # (Auto) 2.5x10^3/uL (1.0-4.8) Monocytes # (Auto) 0.9x10^3/uL (0.0-1.1) Eosinophils # (Auto) 0.5x10^3/uL (0.0-0.7) Basophils # (Auto) 0.1x10^3/uL (0.0-0.2) Reticulocyte Count (auto) 0.8% (0.5-2.5) Sodium Level 142mmol/L (136-145) Potassium Level 4.5mmol/L (3.5-5.1) Chloride Level 110mmol/L (98-107) Carbon Dioxide Level 22mmol/L (21-32) Anion Gap 10 (6-14) Blood Urea Nitrogen 25mg/dL (7-20) Creatinine 1.4mg/dL (0.6-1.0) Estimated GFR (Cockcroft-Gault) 44.2 Glucose Level 86mg/dL (70-99) Calcium Level 9.3mg/dL (8.5-10.1) Iron Level 26ug/dL (50-170) Total Iron Binding Capacity 196ug/dL (250-450) Iron Saturation 13% (15-34) Ferritin 117ng/mL (8-252) Urine Collection Type Unknown Urine Color Straw Urine Clarity Clear Urine pH 6.[address] <=1.005 Urine Protein Negativemg/dL (NEG-TRACE) Urine Glucose (UA) Negativemg/dL (NEG) Urine Ketones (Stick) Negativemg/dL (NEG) Urine Blood Negative (NEG) Urine Nitrite Negative (NEG) Urine Bilirubin Negative (NEG) Urine Urobilinogen Dipstick 0.2mg/dL (0.2 mg/dL) Urine Leukocyte Esterase Negative (NEG) Urine RBC Rare/HPF (0-2) Urine WBC Rare/HPF (0-4) Urine Squamous Epithelial Cells Few/LPF Urine Bacteria Few/HPF (0-FEW) Notes Patient is awake and alert sitting up in chair. Breathing unlabored, no acute distress. Neurovascular intact right lower extremity. Moderate edema. Tenderness over the lateral ankle. Problems: (1) Closed right ankle fracture Assessment and Plan Okay to be weightbearing as tolerated in the boot. Okay to discharge when medically stable from orthopedic standpoint Follow-up with orthopedics, Dr. Diaz 2 weeks post injury Problem Qualifiers (1) Closed right ankle fracture: Encounter type: subsequent encounter Fracture healing: with routine healing Qualified Code: S82.891D - Other fracture of right lower leg, subsequent encounter for closed fracture with routine healing AUGUSTINE FRANCO MEDICAL SCRIBE Aug 08, 2016 14:06
--- NOTE | 2016-08-08 14:15 | PDOC ---
PROGRESS NOTES Subjective Subjective feels better ,no fever Objective Objective Vital Signs Date Time Temp Pulse Resp B/P Pulse Ox O2 Delivery O2 Flow Rate FiO2 08/08/16 13:36 Room Air 08/08/16 11:00 98.0 69 16 124/75 95 98.0 Intake and Output 08/08/16 07:00 Intake Total 100 ml Balance 100 ml Intake Oral 100 ml # Voids 8 # Bowel Movements 1 Physical Exam Abdomen: Soft, No tenderness Heart: Regular rate, Normal S1, Normal S2, No murmurs Extremities: No clubbing, No cyanosis, Other (Pulse: palpable femoral b/l, palpable popliteal b/l, palpable left DP/PT (+1), right DP/PT unable to examine (boot)) General: Alert, Oriented X3, Cooperative, No acute distress HEENT: Atraumatic, EOMI Lungs: Clear to auscultation, Normal air movement MUSCULOSKELETAL: No deformity, No swelling Neuro: Normal speech, Strength at 5/5 X4 ext, Sensation intact Psych/Mental Status: Mental status NL Skin: No rashes, No breakdown COMMENT CAM walker boot rt leg Diagnosis Problem List Problems Medical Problems: (1) Closed right ankle fracture Status: Acute (2) Syncope Status: Acute Assessment Assessment Problems Medical Problems: (1) Closed right ankle fracture Status: Acute (2) Syncope Status: Acute FINAL IMPRESSION: 1. Syncope. 2. Right ankle fracture, closed fracture. 3. Hypertension. 4. Mild renal insufficiency. 5. History of previous strokes. 6. Thyroid mass 7. AAA 8.Gallstones PLAN: needs CT angiogram for AAA renal consult. urine c/s pending ct head old cva carotid dopller -neg. echo -good lvf. thyroid mass - FNA. surgical consult appreciated AAA-vascular consult ,5 cm now,inc in [facility] [place]. At this time, was admit to the hospital, heel seat fitter machine, cardiology consultation, neuro consultation, we will complete a stroke workup including carotid and echocardiogram, seen by orthopedic and may be transitioned to Cam walker boot and PT, OT and see how she does. The patient may benefit from going to SNF. She lives alone home. Problems: Plan Plan of Care Problems Medical Problems: (1) Closed right ankle fracture Status: Acute (2) Syncope Status: Acute Comment Review of Relevant I have reviewed the following items james (where applicable) has been applied. Labs Laboratory Tests Test 08/08/16 03:55 08/08/16 09:50 White Blood Count 8.3x10^3/uL (4.0-11.0) Red Blood Count 3.59x10^6/uL (3.50-5.40) Hemoglobin 10.0g/dL (12.0-15.5) Hematocrit 30.3% (36.0-47.0) Mean Corpuscular Volume 84fL (79-100) Mean Corpuscular Hemoglobin 28pg (25-35) Mean Corpuscular Hemoglobin Concent 33g/dL (31-37) Red Cell Distribution Width 15.7% (11.5-14.5) Platelet Count 131x10^3/uL (140-400) Neutrophils (%) (Auto) 53% (31-73) Lymphocytes (%) (Auto) 30% (24-48) Monocytes (%) (Auto) 10% (0-9) Eosinophils (%) (Auto) 6% (0-3) Basophils (%) (Auto) 1% (0-3) Neutrophils # (Auto) 4.4x10^3uL (1.8-7.7) Lymphocytes # (Auto) 2.5x10^3/uL (1.0-4.8) Monocytes # (Auto) 0.9x10^3/uL (0.0-1.1) Eosinophils # (Auto) 0.5x10^3/uL (0.0-0.7) Basophils # (Auto) 0.1x10^3/uL (0.0-0.2) Reticulocyte Count (auto) 0.8% (0.5-2.5) Sodium Level 142mmol/L (136-145) Potassium Level 4.5mmol/L (3.5-5.1) Chloride Level 110mmol/L (98-107) Carbon Dioxide Level 22mmol/L (21-32) Anion Gap 10 (6-14) Blood Urea Nitrogen 25mg/dL (7-20) Creatinine 1.4mg/dL (0.6-1.0) Estimated GFR (Cockcroft-Gault) 44.2 Glucose Level 86mg/dL (70-99) Calcium Level 9.3mg/dL (8.5-10.1) Iron Level 26ug/dL (50-170) Total Iron Binding Capacity 196ug/dL (250-450) Iron Saturation 13% (15-34) Ferritin 117ng/mL (8-252) Urine Collection Type Unknown Urine Color Straw Urine Clarity Clear Urine pH 6.5 Urine Specific [place] <=1.005 Urine Protein Negativemg/dL (NEG-TRACE) Urine Glucose (UA) Negativemg/dL (NEG) Urine Ketones (Stick) Negativemg/dL (NEG) Urine Blood Negative (NEG) Urine Nitrite Negative (NEG) Urine Bilirubin Negative (NEG) Urine Urobilinogen Dipstick 0.2mg/dL (0.2 mg/dL) Urine Leukocyte Esterase Negative (NEG) Urine RBC Rare/HPF (0-2) Urine WBC Rare/HPF (0-4) Urine Squamous Epithelial Cells Few/LPF Urine Bacteria Few/HPF (0-FEW) Microbiology 08/06/16 Urine Culture - Final, Complete 08/06/16 Urine Culture Result 1 (SCARLETT) - Final, Complete 08/06/16 Urine Culture Result 2 (SCARLETT) - Final, Complete Medications Current Medications Acetylcysteine 1200 mg 1,200 mg BID PO ; Start 08/08/16 at 21:00; Stop 08/10/16 at 20:59 Magnesium Sulfate/ Dextrose (Magnesium Sulfate PREMIX 2GM) 50 ml @ 25 mls/hr PRN DAILY PRN IV for Mag < 1.7 on am labs; Start 08/08/16 at 12:00 Vitals/I & O Vital Sign - Last 24 Hours 08/07/16 08/07/16 08/07/16 08/08/16 15:00 19:00 23:00 03:00 Temp 98.9 98.3 98.9 98.7 98.9 98.3 98.9 98.7 Pulse 76 70 71 70 Resp 20 20 20 20 B/P 136/63 158/74 155/78 150/75 Pulse Ox 95 99 96 94 O2 Delivery Room Air Room Air Room Air Room Air 08/08/16 08/08/16 08/08/16 08/08/16 07:00 08:00 08:26 08:27 Temp 98.1 98.1 Pulse 70 70 Resp 16 B/P 161/79 161/79 Pulse Ox 98 O2 Delivery Room Air Room Air Room Air 08/08/16 08/08/16 08/08/16 09:27 11:00 13:36 Temp 98.0 98.0 Pulse 69 Resp 16 B/P 124/75 Pulse Ox 95 O2 Delivery Room Air Room Air Room Air Intake and Output 08/07/16 08/07/16 08/08/16 15:00 23:00 07:00 Intake Total 100 ml Balance 100 ml LOS NOLASCO MD Aug 08, 2016 14:15
--- NOTE | 2016-08-08 14:32 | PDOC ---
PROGRESS NOTES Assessment Assessment Syncope. Seizure not likely. UTI Renal failure. 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 Right oblique lateral malleolus fracture. RECOMMENDATIONS/PLAN: Continue ASA daily.. Treat medical diseases. Further evaluation of thyroid mass per floor team. Please consult Surgery for thyroid mass. Discussed with her daughter at bedside on 08/06/16. HCT performed no acute findings. Carotid A US + Doppler: No high grade stenosis. Thyroid US: 4.1 cm thyroid mass. EEG: WNL HISTORY OF THE PRESENT ILLNESS: 75-y-old AA male patient with above medical disease had a syncopal spell for this admission. She stated she lost consciousness and fell. No jerking, shaking or henrik movements observed. No obvious postictal state. Her daughter stated that the patient had a similar episode in recent month. No focalized motor or sensory deficits noted. She stated she is doing mush better since 08/07. PAST MEDICAL HISTORY: Please see above. PAST SURGERY HISTORY: Appendectomy. Spleenectomy. ALLERGY: PCN Sulfa Prednisone Iodine MEDICATIONS: Refer to [facility] FAMILY HISTORY: Non contributory. SOCIAL HISTORY: Denies current smoking, drinking, and illicit drug use. REVIEW OF SYSTEMS: Constitutional: No malnutrition, weight loss, cachexia. Head: No traumatic brain or head injury. Skin: No edema, or rash. Ear: No infection, tinnitus. Eyes: No vision loss or color blindness. Nose: No bleeding or purulent discharges. Hearing: Hearing decrease. Neck: No injury. Breast: No history of cancer, masses,or discharges. Cardiac: CAD, HTN, HLD. Pulmonary: COPD. GI: No GI ulcer, GI bleeding, GERD. Urinary/genital: UTI. Endocrinologic: goiter mass. Skeletomuscular: No muscular atrophy, deformity. Neurological: see HP. Psychiatric: Denies drug use/abuse. Otherwise, not [id number] review of systems. PHYSICAL EXAMINATION: General appearance is in subacute distress. HEENT: Normocephalic and nontraumatic. Eyes, nose, ears, and throat are unremarkable. Neck is supple. No lymphadenopathy. No crepitus. Cardiovascular: S1, S2, regular rate and rhythm. Pulmonary: Clear to auscultation bilaterally. Abdomen: Bowel sounds are positive. Extremities: No rash, lesions, or edema. No restriction of range of motion NEUROLOGICAL EXAMINATION: Awake. Oriented to time, place and person but reaction was slow. PERRL. EOMI. CN: no focal findings. Muscle tone: within normal. Muscle strength: 4+, 4- right LE DTR: 2 Plantar reflex: Flexor response bilaterally Gait: Able to stand with a walker. Sensory exam: no abnormal findings. No cerebellar signs elicited. F-T-N test not performed.. Objective Objective Vital Signs Date Time Temp Pulse Resp B/P Pulse Ox O2 Delivery O2 Flow Rate FiO2 08/08/16 13:36 Room Air 08/08/16 11:00 98.0 69 16 124/75 95 98.0 Intake and Output 08/08/16 07:00 Intake Total 100 ml Balance 100 ml Intake Oral 100 ml # Voids 8 # Bowel Movements 1 Vitals Signs Vitals VS - Last 72 Hours, by Label Date Time Temp Pulse Resp B/P Pulse Ox O2 Delivery O2 Flow Rate FiO2 08/08/16 13:36 Room Air 08/08/16 11:00 98.0 69 16 124/75 95 Room Air 98.0 08/08/16 09:27 Room Air 08/08/16 08:27 Room Air 08/08/16 08:26 70 161/79 08/08/16 08:00 Room Air 08/08/16 07:00 98.1 70 16 161/79 98 Room Air 98.1 08/08/16 03:00 98.7 70 20 150/75 94 Room Air 98.7 08/07/16 23:00 98.9 71 20 155/78 96 Room Air 98.9 08/07/16 19:00 98.3 70 20 158/74 99 Room Air 98.3 08/07/16 15:00 98.9 76 20 136/63 95 Room Air 98.9 08/07/16 13:57 Room Air 08/07/16 11:00 99.1 72 20 134/62 96 Room Air 99.1 08/07/16 08:48 76 132/69 08/07/16 08:47 98 Room Air 08/07/16 08:00 Room Air 08/07/16 07:00 100.1 76 18 132/69 98 Room Air 100.1 Laboratory Laboratory Laboratory Tests Test 08/08/16 03:55 08/08/16 09:50 White Blood Count 8.3x10^3/uL (4.0-11.0) Red Blood Count 3.59x10^6/uL (3.50-5.40) Hemoglobin 10.0g/dL (12.0-15.5) Hematocrit 30.3% (36.0-47.0) Mean Corpuscular Volume 84fL (79-100) Mean Corpuscular Hemoglobin 28pg (25-35) Mean Corpuscular Hemoglobin Concent 33g/dL (31-37) Red Cell Distribution Width 15.7% (11.5-14.5) Platelet Count 131x10^3/uL (140-400) Neutrophils (%) (Auto) 53% (31-73) Lymphocytes (%) (Auto) 30% (24-48) Monocytes (%) (Auto) 10% (0-9) Eosinophils (%) (Auto) 6% (0-3) Basophils (%) (Auto) 1% (0-3) Neutrophils # (Auto) 4.4x10^3uL (1.8-7.7) Lymphocytes # (Auto) 2.5x10^3/uL (1.0-4.8) Monocytes # (Auto) 0.9x10^3/uL (0.0-1.1) Eosinophils # (Auto) 0.5x10^3/uL (0.0-0.7) Basophils # (Auto) 0.1x10^3/uL (0.0-0.2) Reticulocyte Count (auto) 0.8% (0.5-2.5) Sodium Level 142mmol/L (136-145) Potassium Level 4.5mmol/L (3.5-5.1) Chloride Level 110mmol/L (98-107) Carbon Dioxide Level 22mmol/L (21-32) Anion Gap 10 (6-14) Blood Urea Nitrogen 25mg/dL (7-20) Creatinine 1.4mg/dL (0.6-1.0) Estimated GFR (Cockcroft-Gault) 44.2 Glucose Level 86mg/dL (70-99) Calcium Level 9.3mg/dL (8.5-10.1) Iron Level 26ug/dL (50-170) Total Iron Binding Capacity 196ug/dL (250-450) Iron Saturation 13% (15-34) Ferritin 117ng/mL (8-252) Urine Collection Type Unknown Urine Color Straw Urine Clarity Clear Urine pH 6.5 Urine Specific [place] <=1.005 Urine Protein Negativemg/dL (NEG-TRACE) Urine Glucose (UA) Negativemg/dL (NEG) Urine Ketones (Stick) Negativemg/dL (NEG) Urine Blood Negative (NEG) Urine Nitrite Negative (NEG) Urine Bilirubin Negative (NEG) Urine Urobilinogen Dipstick 0.2mg/dL (0.2 mg/dL) Urine Leukocyte Esterase Negative (NEG) Urine RBC Rare/HPF (0-2) Urine WBC Rare/HPF (0-4) Urine Squamous Epithelial Cells Few/LPF Urine Bacteria Few/HPF (0-FEW) Microbiology 08/06/16 Urine Culture - Final, Complete 08/06/16 Urine Culture Result 1 (SCARLETT) - Final, Complete 08/06/16 Urine Culture Result 2 (SCARLETT) - Final, Complete Medication Medications Current Medications Acetylcysteine 1200 mg 1,200 mg BID PO ; Start 08/08/16 at 21:00; Stop 08/10/16 at 20:59 Magnesium Sulfate/ Dextrose (Magnesium Sulfate PREMIX 2GM) 50 ml @ 25 mls/hr PRN DAILY PRN IV for Mag < 1.7 on am labs; Start 08/08/16 at 12:00 Comment Review of Relevant I have reviewed the following items james (where applicable) has been applied. LUCINA SEVERINO MD Aug 08, 2016 14:32
[2016-08-08 15:00] VITALS: BP 107/72
--- NOTE | 2016-08-08 17:19 | PDOC2 ---
PALLIATIVE CARE Palliative Care Note Palliative Care Consult requested to address goals of care Plan family meeting tomorrow at 1430 Diagnosis: AAA, gallbladder stones, Thyroid Mass, closed ankle fracture, mild renal insufficiency. Patient alert. Discussed Code Status: Will address again tomorrow with family MJ BEAVER Aug 08, 2016 17:19
[2016-08-08 19:00] VITALS: BP 134/46
[2016-08-08] MEDS: ACETYLCYSTEINE 20% ORAL SOLN 600 MG/3 ML SYRINGE. PO SCH (21:00)
[2016-08-08 23:00] VITALS: BP 137/80
[2016-08-09] VITALS (7 sets, daily range): BP systolic 134–163; BP diastolic 70–80
--- NOTE | 2016-08-09 01:36 | CONS ---
DATE OF CONSULTATION: PRIMARY PHYSICIAN: Dr. Arreola. REASON FOR CONSULTATION: Acute on chronic renal insufficiency. HISTORY OF PRESENT ILLNESS: The patient is a 75-year-old -[place] female who tells me that in the 1980s, she was told that she needed dialysis. She got another opinion and it was felt that she did not require it at that time. She has since felt that she may have had some kidney problems. She was followed by Dr. Rubio until recently. She is now followed by Dr. Arreola for the last month. She is not sure where her GFR lies at this time. She apparently sustained a fall at home and developed right fibular fracture. She is now in a boot/brace from that. She remembers feeling dizzy and lightheaded. During her hospital workup here, she is noted to have increased size of her infrarenal AAA and is felt to ____ a CT angiography. We were asked to see her for the same. Her list of home medications, current list of medications etc. were reviewed and it was felt that she was on Lasix as well as chlorthalidone recently. I have reviewed some of her old imaging studies and it is noted in 2013, she was noted to have a tiny calcifications in the right renal hilum, likely vascular in nature. Kidneys do appear slightly small in size on CT. No recent imaging studies of the kidneys are available. For rest of the details, please see electronic renal consult note. KEITH CAMARILLO MD DR: RAKAN/sal JOB#: [id number] / [id number]
[2016-08-09] MEDS: IV NORMAL SALINE 1000ML BAG 1,000 ML IV SCH ×3 (02:11→20:17)
[2016-08-09] MEDS: HYDROCODONE/APAP 5/325MG TABLET. PO PRN ×2 (03:18→22:32)
[2016-08-09 06:56] LABS: ALBUMIN 2.5 g/dL (3.4-5.0); CALCIUM 9.7 mg/dL (8.5-10.1); CREATININE 1.4 mg/dL (0.6-1.0); GFR 44.2; PHOSPHORUS 3.3 mg/dL (2.6-4.7); POTASSIUM 4.5 mmol/L (3.5-5.1)
[2016-08-09] MEDS ORDERED: REGADENOSON 0.4 MG/5 ML DISP.SYRIN. IV ONE (08:00)
--- NOTE | 2016-08-09 08:45 | PDOC ---
SUBJECTIVE ROS CKD and Elyte ABN doign OK x for c/o constipation CVS: no Orthopnea, no CP RESP: no SOB, no RAMOS GI: no Nausea, no Vomiting : no Dysuria, no Urgency OBJECTIVE Vital Signs Vital Signs Date Time Temp Pulse Resp B/P Pulse Ox O2 Delivery O2 Flow Rate FiO2 08/09/16 07:00 97.7 70 14 150/73 94 Room Air 97.7 I & 0 Intake and Output 08/09/16 07:00 Intake Total 200 ml Output Total 850 ml Balance -650 ml Intake Oral 200 ml Output Urine Total 850 ml # Voids 5 PHYSICAL EXAM Physical Exam General Appearance: Awake Alert Oriented x 3 In no Distress Eyes: VIsion Unchanged Conjunctiva Normal EN: No EN Drainage Mucous Memb. moist Neck: no JVD no JVP Supple no Thyromegaly CVS: S1 S2 soft Murmur No Gallop No Rub no Edema Resp: no Rales no Rhonchi no Acc. Muscle use GI: BS +ve NO Bruit Non Tender Non Distended; +ve Palp pulsations : no CVA tenderness; no Suprapubic Tenderness Assessment & Plan Dunia - resolved CKD III - this may be her baseline with ASVDz. Current FLuid and E-lyte status does not necessitate emergent need for Dialysis. Will re-evaluate for Dialysis in am AAA - small to med Risk of CAN with CTA if planned, has been explained pt willing to proceed; Given high likelihood of ASVDz - will hold Diuretic for now. Norvasc for HTN if needed, IVNS and NAC if needed HypoALb - UA -ve for proteinuria x 2 Low Mag - MOM x 1; replace IV if low in am Constipation - MOM x 1 Anemia: IV Iron as ordered; may need Epogen; Transfuse as needed. ? Renovascular HTN: will also need eval renal arteries with CTA. Current BP meds reviewed. ct present meds will return on Friday - pl call over weekend if needed COMMENT/RELEVANT DATA Meds Current Medications Medications (Trade) Dose Ordered Sig/Rene Start Time Stop Time Status Last Admin Dose Admin Acetaminophen (Tylenol) 650 mg PRN Q6HRS PRN 08/07/16 10:45 08/07/16 12:36 325 MG Acetaminophen/ Hydrocodone Bitart (Lortab 5/325) 1 tab PRN Q4HRS PRN 08/06/16 10:15 08/09/16 03:18 1 TAB Acetylcysteine 1200 mg 1,200 mg BID 08/08/16 21:00 08/10/16 20:59 Aspirin (Ecotrin) 81 mg [id number] 08/06/16 14:30 08/08/16 08:25 81 MG Benzonatate (Tessalon Perle) 100 mg QHS 08/06/16 21:00 08/08/16 01:53 DC Chlorthalidone (Thalitone) 12.5 mg DAILY 08/06/16 20:30 08/08/16 11:59 DC 08/08/16 08:25 12.5 MG Docusate Sodium (Colace) 100 mg PRN DAILY PRN 08/06/16 20:15 08/07/16 08:46 100 MG Enoxaparin Sodium (Lovenox 30mg Syringe) 30 mg Q24H 08/06/16 11:00 08/08/16 13:43 30 MG Losartan Potassium (Cozaar) 50 mg DAILY 08/06/16 20:30 08/08/16 11:59 DC 08/08/16 08:26 50 MG Magnesium Hydroxide (Milk Of Magnesia) 2,400 mg PRN DAILY PRN 08/07/16 10:45 Magnesium Sulfate/ Dextrose 50 ml @ 25 mls/hr PRN DAILY PRN 08/08/16 12:00 Morphine Sulfate 4 mg PRN Q2HR PRN 08/06/16 05:00 08/07/16 04:59 DC Morphine Sulfate 4 mg 4 mg 1X ONCE 08/06/16 05:00 08/06/16 05:01 DC 08/06/16 04:47 4 MG Non-Formulary Medication 1 tab DAILY 08/06/16 21:00 UNV Ondansetron HCl (Zofran) 4 mg PRN Q8HRS PRN 08/06/16 05:00 08/07/16 04:59 DC Regadenoson (Lexiscan) 0.4 mg 1X ONCE 08/09/16 08:00 08/09/16 08:01 DC Sodium Chloride (Iv Sodium Chloride 0.9% 500ml Bag) 500 ml @ 500 mls/hr 1X ONCE 08/06/16 05:00 08/06/16 05:59 DC 08/06/16 04:48 500 MLS/HR Sodium Chloride (Iv Sodium Chloride 0.9% 1000ml Bag) 1,000 ml @ 75 mls/hr [id number] 08/09/16 02:15 08/09/16 02:11 75 MLS/HR Lab Laboratory Tests Test 08/08/16 09:50 08/09/16 06:14 Urine Collection Type Unknown Urine Color Straw Urine Clarity Clear Urine pH 6.5 Urine Specific [place] <=1.005 Urine Protein Negativemg/dL (NEG-TRACE) Urine Glucose (UA) Negativemg/dL (NEG) Urine Ketones (Stick) Negativemg/dL (NEG) Urine Blood Negative (NEG) Urine Nitrite Negative (NEG) Urine Bilirubin Negative (NEG) Urine Urobilinogen Dipstick 0.2mg/dL (0.2 mg/dL) Urine Leukocyte Esterase Negative (NEG) Urine RBC Rare/HPF (0-2) Urine WBC Rare/HPF (0-4) Urine Squamous Epithelial Cells Few/LPF Urine Bacteria Few/HPF (0-FEW) Hemoglobin 10.6g/dL (12.0-15.5) Sodium Level 142mmol/L (136-145) Potassium Level 4.5mmol/L (3.5-5.1) Chloride Level 109mmol/L (98-107) Carbon Dioxide Level 24mmol/L (21-32) Anion Gap 9 (6-14) Blood Urea Nitrogen 22mg/dL (7-20) Creatinine 1.4mg/dL (0.6-1.0) Estimated GFR (Cockcroft-Gault) 44.2 Glucose Level 84mg/dL (70-99) Calcium Level 9.7mg/dL (8.5-10.1) Phosphorus Level 3.3mg/dL (2.6-4.7) Magnesium Level 1.5mg/dL (1.8-2.4) Albumin 2.5g/dL (3.4-5.0) KEITH CAMARILLO MD Aug 09, 2016 08:45
[2016-08-09] MEDS: ACETYLCYSTEINE 20% ORAL SOLN 600 MG/3 ML SYRINGE. PO SCH ×2 (09:00→20:18)
[2016-08-09] MEDS ORDERED: MAGNESIUM HYDROXIDE 2,400 MG/30 ML ORAL.SUSP. PO ONE (09:00)
--- NOTE | 2016-08-09 10:25 | PDOC ---
PROGRESS NOTES Subjective Subjective no new problems Objective Objective Vital Signs Date Time Temp Pulse Resp B/P Pulse Ox O2 Delivery O2 Flow Rate FiO2 08/09/16 08:00 Room Air 08/09/16 07:00 97.7 70 14 150/73 94 97.7 Intake and Output 08/09/16 07:00 Intake Total 200 ml Output Total 850 ml Balance -650 ml Intake Oral 200 ml Output Urine Total 850 ml # Voids 5 Physical Exam Abdomen: Soft, No tenderness Heart: Regular rate, Normal S1, Normal S2, No murmurs Extremities: No clubbing, No cyanosis, Other (Pulse: palpable femoral b/l, palpable popliteal b/l, palpable left DP/PT (+1), right DP/PT unable to examine (boot)) General: Alert, Oriented X3, Cooperative, No acute distress HEENT: Atraumatic, EOMI Lungs: Clear to auscultation, Normal air movement MUSCULOSKELETAL: No deformity, No swelling Neuro: Normal speech, Strength at 5/5 X4 ext, Sensation intact Psych/Mental Status: Mental status NL Skin: No rashes, No breakdown COMMENT CAM walker boot rt leg Diagnosis Problem List Problems Medical Problems: (1) Closed right ankle fracture Status: Acute (2) Syncope Status: Acute Assessment Assessment Problems Medical Problems: (1) Closed right ankle fracture Status: Acute (2) Syncope Status: Acute FINAL IMPRESSION: 1. Syncope. 2. Right ankle fracture, closed fracture. 3. Hypertension. 4. Mild renal insufficiency. 5. History of previous strokes. 6. Thyroid mass 7. AAA 8.Gallstones PLAN: [place] scan stress test today, pre op evaluation needs CT angiogram for AAA today renal consult appreciated. urine c/s neg ct head old cva carotid dopller -neg. echo -good lvf. thyroid mass - FNA out pt. surgical consult appreciated, gall blader surgery along with AAA surgery AAA-vascular consult ,5 cm now,inc in seize. Problems: Plan Plan of Care Problems Medical Problems: (1) Closed right ankle fracture Status: Acute (2) Syncope Status: Acute Comment Review of Relevant I have reviewed the following items james (where applicable) has been applied. Labs Laboratory Tests Test 08/09/16 06:14 Hemoglobin 10.6g/dL (12.0-15.5) Sodium Level 142mmol/L (136-145) Potassium Level 4.5mmol/L (3.5-5.1) Chloride Level 109mmol/L (98-107) Carbon Dioxide Level 24mmol/L (21-32) Anion Gap 9 (6-14) Blood Urea Nitrogen 22mg/dL (7-20) Creatinine 1.4mg/dL (0.6-1.0) Estimated GFR (Cockcroft-Gault) 44.2 Glucose Level 84mg/dL (70-99) Calcium Level 9.7mg/dL (8.5-10.1) Phosphorus Level 3.3mg/dL (2.6-4.7) Magnesium Level 1.5mg/dL (1.8-2.4) Albumin 2.5g/dL (3.4-5.0) Microbiology 08/06/16 Urine Culture - Final, Complete 08/06/16 Urine Culture Result 1 (SCARLETT) - Final, Complete 08/06/16 Urine Culture Result 2 (SCARLETT) - Final, Complete Medications Current Medications Acetylcysteine 1200 mg 1,200 mg BID PO ; Start 08/08/16 at 21:00; Stop 08/10/16 at 20:59 Enoxaparin Sodium (Lovenox 40mg Syringe) 40 mg Q24H SQ ; Start 08/09/16 at 11:00 Iron Sucrose/ Sodium Chloride (Venofer/Iv Sodium Chloride 0.9% 100ml) 110 ml @ 55 mls/hr 3X/WEEK IV ; Start 08/09/16 at 09:00; Stop 08/19/16 at 10:59 Magnesium Hydroxide 2400 mg 2,400 mg 1X ONCE PO ; Start 08/09/16 at 09:00; Stop 08/09/16 at 09:03; Status DC Magnesium Sulfate/ Dextrose 50 ml @ 25 mls/hr PRN DAILY PRN IV for Mag < 1.7 on am labs; Start 08/08/16 at 12:00 Regadenoson (Lexiscan) 0.4 mg 1X ONCE IV Last administered on 08/09/16 09:42 ; Start 08/09/16 at 08:00; Stop 08/09/16 at 08:01; Status DC Sodium Chloride (Iv Sodium Chloride 0.9% 1000ml Bag) 1,000 ml @ 75 mls/hr [id number] IV Last administered on 3/10/17at 02:11; Start 08/09/16 at 02:15 Vitals/I & O Vital Sign - Last 24 Hours 08/08/16 08/08/16 08/08/16 08/08/16 11:00 13:36 15:00 19:00 Temp 98.0 98.1 98.0 98.0 98.1 98.0 Pulse 69 65 64 Resp 16 16 18 B/P 124/75 107/72 134/46 Pulse Ox 95 100 95 O2 Delivery Room Air Room Air Room Air Room Air 08/08/16 08/09/16 08/09/16 08/09/16 23:00 03:00 04:12 07:00 Temp 98.6 98.2 98.2 97.7 98.6 98.2 98.2 97.7 Pulse 70 73 73 70 Resp 16 18 18 14 B/P 137/80 140/73 140/70 150/73 Pulse Ox 97 92 99 94 O2 Delivery Room Air Room Air Room Air Room Air 08/09/16 08:00 O2 Delivery Room Air Intake and Output 08/08/16 08/08/16 08/09/16 15:00 23:00 07:00 Intake Total 200 ml Output Total 850 ml Balance -650 ml LOS NOLASCO MD Aug 09, 2016 10:25
--- NOTE | 2016-08-09 10:31 | PDOC ---
PROGRESS NOTES Subjective Subjective She denies any chest pain or SOB. Objective Objective Vital Signs Date Time Temp Pulse Resp B/P Pulse Ox O2 Delivery O2 Flow Rate FiO2 08/09/16 08:00 Room Air 08/09/16 07:00 97.7 70 14 150/73 94 97.7 Intake and Output 08/09/16 07:00 Intake Total 200 ml Output Total 850 ml Balance -650 ml Intake Oral 200 ml Output Urine Total 850 ml # Voids 5 Physical Exam Physical Exam She is sitting on commode without her right ankle brace. Assessment Assessment Problems Medical Problems: (1) Closed right ankle fracture Status: Acute (2) Syncope Status: Acute Plan Plan of Care To SNF when medically stable. Comment Review of Relevant I have reviewed the following items james (where applicable) has been applied. Labs Laboratory Tests Test 08/08/16 03:55 08/08/16 09:50 08/09/16 06:14 White Blood Count 8.3x10^3/uL (4.0-11.0) Red Blood Count 3.59x10^6/uL (3.50-5.40) Hemoglobin 10.0g/dL (12.0-15.5) 10.6g/dL (12.0-15.5) Hematocrit 30.3% (36.0-47.0) Mean Corpuscular Volume 84fL (79-100) Mean Corpuscular Hemoglobin 28pg (25-35) Mean Corpuscular Hemoglobin Concent 33g/dL (31-37) Red Cell Distribution Width 15.7% (11.5-14.5) Platelet Count 131x10^3/uL (140-400) Neutrophils (%) (Auto) 53% (31-73) Lymphocytes (%) (Auto) 30% (24-48) Monocytes (%) (Auto) 10% (0-9) Eosinophils (%) (Auto) 6% (0-3) Basophils (%) (Auto) 1% (0-3) Neutrophils # (Auto) 4.4x10^3uL (1.8-7.7) Lymphocytes # (Auto) 2.5x10^3/uL (1.0-4.8) Monocytes # (Auto) 0.9x10^3/uL (0.0-1.1) Eosinophils # (Auto) 0.5x10^3/uL (0.0-0.7) Basophils # (Auto) 0.1x10^3/uL (0.0-0.2) Reticulocyte Count (auto) 0.8% (0.5-2.5) Sodium Level 142mmol/L (136-145) 142mmol/L (136-145) Potassium Level 4.5mmol/L (3.5-5.1) 4.5mmol/L (3.5-5.1) Chloride Level 110mmol/L (98-107) 109mmol/L (98-107) Carbon Dioxide Level 22mmol/L (21-32) 24mmol/L (21-32) Anion Gap 10 (6-14) 9 (6-14) Blood Urea Nitrogen 25mg/dL (7-20) 22mg/dL (7-20) Creatinine 1.4mg/dL (0.6-1.0) 1.4mg/dL (0.6-1.0) Estimated GFR (Cockcroft-Gault) 44.2 44.2 Glucose Level 86mg/dL (70-99) 84mg/dL (70-99) Calcium Level 9.3mg/dL (8.5-10.1) 9.7mg/dL (8.5-10.1) Iron Level 26ug/dL (50-170) Total Iron Binding Capacity 196ug/dL (250-450) Iron Saturation 13% (15-34) Ferritin 117ng/mL (8-252) Urine Collection Type Unknown Urine Color Straw Urine Clarity Clear Urine pH 6.5 Urine Specific [place] <=1.005 Urine Protein Negativemg/dL (NEG-TRACE) Urine Glucose (UA) Negativemg/dL (NEG) Urine Ketones (Stick) Negativemg/dL (NEG) Urine Blood Negative (NEG) Urine Nitrite Negative (NEG) Urine Bilirubin Negative (NEG) Urine Urobilinogen Dipstick 0.2mg/dL (0.2 mg/dL) Urine Leukocyte Esterase Negative (NEG) Urine RBC Rare/HPF (0-2) Urine WBC Rare/HPF (0-4) Urine Squamous Epithelial Cells Few/LPF Urine Bacteria Few/HPF (0-FEW) Phosphorus Level 3.3mg/dL (2.6-4.7) Magnesium Level 1.5mg/dL (1.8-2.4) Albumin 2.5g/dL (3.4-5.0) Laboratory Tests Test 08/09/16 06:14 Hemoglobin 10.6g/dL (12.0-15.5) Sodium Level 142mmol/L (136-145) Potassium Level 4.5mmol/L (3.5-5.1) Chloride Level 109mmol/L (98-107) Carbon Dioxide Level 24mmol/L (21-32) Anion Gap 9 (6-14) Blood Urea Nitrogen 22mg/dL (7-20) Creatinine 1.4mg/dL (0.6-1.0) Estimated GFR (Cockcroft-Gault) 44.2 Glucose Level 84mg/dL (70-99) Calcium Level 9.7mg/dL (8.5-10.1) Phosphorus Level 3.3mg/dL (2.6-4.7) Magnesium Level 1.5mg/dL (1.8-2.4) Albumin 2.5g/dL (3.4-5.0) Microbiology 08/06/16 Urine Culture - Final, Complete 08/06/16 Urine Culture Result 1 (SCARLETT) - Final, Complete 08/06/16 Urine Culture Result 2 (SCARLETT) - Final, Complete Medications Current Medications Morphine Sulfate 4 mg 4 mg 1X ONCE IV Last administered on 08/06/16 04:47; Start 08/06/16 at 05:00; Stop 08/06/16 at 05:01; Status DC Sodium Chloride (Iv Sodium Chloride 0.9% 500ml Bag) 500 ml @ 500 mls/hr 1X ONCE IV Last administered on 08/06/16 04:48; Start 08/06/16 at 05:00; Stop at 05:59; Status DC Ondansetron HCl (Zofran) 4 mg PRN Q8HRS PRN IV NAUSEA/VOMITING; Start 08/06/16 at 05:00; Stop 08/07/16 at 04:59; Status DC Morphine Sulfate 4 mg 4 mg PRN Q2HR PRN IV SEVERE PAIN; Start 08/06/16 at 05:00 ; Stop 08/07/16 at 04:59; Status DC Sodium Chloride (Iv Sodium Chloride 0.9% 1000ml Bag) 1,000 ml @ 100 mls/hr Q10H IV Last administered on 08/06/16 05:31; Start 08/06/16 at 04:59; Stop at 14:43; Status DC Acetaminophen 650 mg 650 mg PRN Q4HRS PRN PO FEVER; Start 08/06/16 at 05:00; Stop 08/07/16 at 04:59; Status DC Sodium Chloride (Iv Sodium Chloride 0.9% 1000ml Bag) 1,000 ml @ 75 mls/hr [id number] IV Last administered on 08/08/16 04:05; Start 08/06/16 at 11:00; Stop at 23:07; Status DC Acetaminophen/ Hydrocodone Bitart (Lortab 5/325) 1 tab PRN Q4HRS PRN PO PAIN Last administered on 08/09/16 03:18; Start 08/06/16 at 10:15 Enoxaparin Sodium (Lovenox 30mg Syringe) 30 mg Q24H SQ Last administered on 08/08 13:43; Start 08/06/16 at 11:00; Stop 08/09/16 at 10:10; Status DC Aspirin (Ecotrin) 81 mg [id number] PO Last administered on 08/08/16 08:25; Start 08/06/16 at 14:30 Benzonatate (Tessalon Perle) 100 mg QHS PO ; Start 08/06/16 at 21:00; Stop at 01:53; Status DC Docusate Sodium (Colace) 100 mg PRN DAILY PRN PO CONSTIPATION Last administered on 08/07/16 08:46; Start 08/06/16 at 20:15 Non-Formulary Medication 1 tab DAILY PO ; Start 08/07/16 at 09:00; Status Cancel Non-Formulary Medication 1 tab DAILY PO ; Start 08/06/16 at 21:00; Status UNV Chlorthalidone (Thalitone) 12.5 mg DAILY PO Last administered on 08/08/16 08:25 ; Start 08/06/16 at 20:30; Stop 08/08/16 at 11:59; Status DC Losartan Potassium (Cozaar) 50 mg DAILY PO Last administered on 08/08/16 08:26 ; Start 08/06/16 at 20:30; Stop 08/08/16 at 11:59; Status DC Acetaminophen (Tylenol) 650 mg PRN Q6HRS PRN PO MILD PAIN / TEMP Last administered on 08/07/16 12:36; Start 08/07/16 at 10:45 Magnesium Hydroxide (Milk Of Magnesia) 2,400 mg PRN DAILY PRN PO CONSTIPATION; Start 08/07/16 at 10:45 Acetylcysteine 1200 mg 1,200 mg BID PO ; Start 08/08/16 at 21:00; Stop 08/10/16 at 20:59 Magnesium Sulfate/ Dextrose 50 ml @ 25 mls/hr PRN DAILY PRN IV for Mag < 1.7 on am labs; Start 08/08/16 at 12:00 Sodium Chloride (Iv Sodium Chloride 0.9% 1000ml Bag) 1,000 ml @ 75 mls/hr [id number] IV Last administered on 08/09/16 02:11; Start 08/09/16 at 02:15 Regadenoson (Lexiscan) 0.4 mg 1X ONCE IV Last administered on 08/09/16 09:42 ; Start 08/09/16 at 08:00; Stop 08/09/16 at 08:01; Status DC Magnesium Hydroxide 2400 mg 2,400 mg 1X ONCE PO ; Start 08/09/16 at 09:00; Stop 08/09/16 at 09:03; Status DC Iron Sucrose/ Sodium Chloride (Venofer/Iv Sodium Chloride 0.9% 100ml) 110 ml @ 55 mls/hr 3X/WEEK IV ; Start 08/09/16 at 09:00; Stop 08/19/16 at 10:59 Enoxaparin Sodium (Lovenox 40mg Syringe) 40 mg Q24H SQ ; Start 08/09/16 at 11:00 Active Scripts Active Reported Colace (Docusate Sodium) 100 Mg Capsule 100 Mg PO DAILY Benzonatate 100 Mg Capsule 1 Cap PO QHS Edarbyclor 40-12.5 Mg Tablet (Azilsartan/Chlorthalidone) 1 Each Tablet 1 Tab PO DAILY Zovirax (Acyclovir) 800 Mg Tablet 800 Mg PO Vitals/I & O Vital Sign - Last 24 Hours 08/08/16 08/08/16 08/08/16 08/08/16 11:00 13:36 15:00 19:00 Temp 98.0 98.1 98.0 98.0 98.1 98.0 Pulse 69 65 64 Resp 16 16 18 B/P 124/75 107/72 134/46 Pulse Ox 95 100 95 O2 Delivery Room Air Room Air Room Air Room Air 08/08/16 08/09/16 08/09/16 08/09/16 23:00 03:00 04:12 07:00 Temp 98.6 98.2 98.2 97.7 98.6 98.2 98.2 97.7 Pulse 70 73 73 70 Resp 18 18 14 B/P 137/80 140/73 140/70 150/73 Pulse Ox 97 92 99 94 O2 Delivery Room Air Room Air Room Air Room Air 08/09/16 08:00 O2 Delivery Room Air Intake and Output 08/08/16 08/08/16 08/09/16 15:00 23:00 07:00 Intake Total 200 ml Output Total 850 ml Balance -650 ml ETHEL CHOI MD Aug 09, 2016 10:31
[2016-08-09] MEDS: ASPIRIN ENTERIC COATED 81 MG TABLET.DR. PO SCH (10:37)
[2016-08-09] MEDS: IRON SUCROSE COMPLEX 200 MG in IV NORMAL SALINE 100ML 100 ML IV SCH (10:38)
[2016-08-09] MEDS: ENOXAPARIN 40 MG/0.4 ML DISP.SYRIN. SQ SCH (10:39)
[2016-08-09] MEDS: ACETAMINOPHEN 325 MG TABLET. PO PRN (10:44)
--- NOTE | 2016-08-09 11:15 | PDOC ---
DORABUZZ [place] DATABASE MANAGER 08/09/16 1115: SURGICAL PROGRESS NOTE Subjective down in nuc med will fu this weekend can do lap oren during aaa repair if vascular agrees Still needs FNA Vital Signs Vital Signs Date Time Temp Pulse Resp B/P Pulse Ox O2 Delivery O2 Flow Rate FiO2 08/09/16 08:00 Room Air 08/09/16 07:00 97.7 70 14 150/73 94 97.7 I&O Intake and Output 08/09/16 07:00 Intake Total 200 ml Output Total 850 ml Balance -650 ml Intake Oral 200 ml Output Urine Total 850 ml # Voids 5 Labs Laboratory Tests Test 08/08/16 03:55 08/08/16 09:50 08/09/16 06:14 White Blood Count 8.3x10^3/uL (4.0-11.0) Red Blood Count 3.59x10^6/uL (3.50-5.40) Hemoglobin 10.0g/dL (12.0-15.5) 10.6g/dL (12.0-15.5) Hematocrit 30.3% (36.0-47.0) Mean Corpuscular Volume 84fL (79-100) Mean Corpuscular Hemoglobin 28pg (25-35) Mean Corpuscular Hemoglobin Concent 33g/dL (31-37) Red Cell Distribution Width 15.7% (11.5-14.5) Platelet Count 131x10^3/uL (140-400) Neutrophils (%) (Auto) 53% (31-73) Lymphocytes (%) (Auto) 30% (24-48) Monocytes (%) (Auto) 10% (0-9) Eosinophils (%) (Auto) 6% (0-3) Basophils (%) (Auto) 1% (0-3) Neutrophils # (Auto) 4.4x10^3uL (1.8-7.7) Lymphocytes # (Auto) 2.5x10^3/uL (1.0-4.8) Monocytes # (Auto) 0.9x10^3/uL (0.0-1.1) Eosinophils # (Auto) 0.5x10^3/uL (0.0-0.7) Basophils # (Auto) 0.1x10^3/uL (0.0-0.2) Reticulocyte Count (auto) 0.8% (0.5-2.5) Sodium Level 142mmol/L (136-145) 142mmol/L (136-145) Potassium Level 4.5mmol/L (3.5-5.1) 4.5mmol/L (3.5-5.1) Chloride Level 110mmol/L (98-107) 109mmol/L (98-107) Carbon Dioxide Level 22mmol/L (21-32) 24mmol/L (21-32) Anion Gap 10 (6-14) 9 (6-14) Blood Urea Nitrogen 25mg/dL (7-20) 22mg/dL (7-20) Creatinine 1.4mg/dL (0.6-1.0) 1.4mg/dL (0.6-1.0) Estimated GFR (Cockcroft-Gault) 44.2 44.2 Glucose Level 86mg/dL (70-99) 84mg/dL (70-99) Calcium Level 9.3mg/dL (8.5-10.1) 9.7mg/dL (8.5-10.1) Iron Level 26ug/dL (50-170) Total Iron Binding Capacity 196ug/dL (250-450) Iron Saturation 13% (15-34) Ferritin 117ng/mL (8-252) Urine Collection Type Unknown Urine Color Straw Urine Clarity Clear Urine pH 6.5 Urine Specific [place] <=1.005 Urine Protein Negativemg/dL (NEG-TRACE) Urine Glucose (UA) Negativemg/dL (NEG) Urine Ketones (Stick) Negativemg/dL (NEG) Urine Blood Negative (NEG) Urine Nitrite Negative (NEG) Urine Bilirubin Negative (NEG) Urine Urobilinogen Dipstick 0.2mg/dL (0.2 mg/dL) Urine Leukocyte Esterase Negative (NEG) Urine RBC Rare/HPF (0-2) Urine WBC Rare/HPF (0-4) Urine Squamous Epithelial Cells Few/LPF Urine Bacteria Few/HPF (0-FEW) Phosphorus Level 3.3mg/dL (2.6-4.7) Magnesium Level 1.5mg/dL (1.8-2.4) Albumin 2.5g/dL (3.4-5.0) Laboratory Tests Test 08/09/16 06:14 Hemoglobin 10.6g/dL (12.0-15.5) Sodium Level 142mmol/L (136-145) Potassium Level 4.5mmol/L (3.5-5.1) Chloride Level 109mmol/L (98-107) Carbon Dioxide Level 24mmol/L (21-32) Anion Gap 9 (6-14) Blood Urea Nitrogen 22mg/dL (7-20) Creatinine 1.4mg/dL (0.6-1.0) Estimated GFR (Cockcroft-Gault) 44.2 Glucose Level 84mg/dL (70-99) Calcium Level 9.7mg/dL (8.5-10.1) Phosphorus Level 3.3mg/dL (2.6-4.7) Magnesium Level 1.5mg/dL (1.8-2.4) Albumin 2.5g/dL (3.4-5.0) Problem List Problems Medical Problems: (1) Closed right ankle fracture Status: Acute (2) Syncope Status: Acute Problems: OLEG BONILLA MD 08/09/16 1652: SURGICAL PROGRESS NOTE Assessment/Plan Vascular input noted; agree that may not with for saúl dodde if graft is utilized; thyroid testing lower priority and can be done in future Problems: BUZZ JOHN APRN Aug 09, 2016 11:15 OLEG BONILLA MD Aug 09, 2016 16:52
[2016-08-09] MEDS ORDERED: MAGNESIUM SULFATE 2GM 50 ML IV ONE (12:00)
--- NOTE | 2016-08-09 13:13 | RAD ---
APPROVED REPORT Test Type: Pharmacological Stress Nurse/Tech: rex schuler Test Indications: elevated troponin, CAD Cardiac History: HTN, SEE EHR Medications: SEE EHR Medical History: STROKE, SEE EHR Resting ECG: SR Resting Heart Rate: 67 bpm Resting Blood Pressure: 156/74mmHg Pretest Chest Pain: No chest pain Nurse/Tech Notes LUNG SOUNDS CLEAR, S1S2 MURMUR - PT STATES SHE HAS HAD IT A LONG TIME. Consent: The procedure was explained to the patient in lay terms. Informed consent was witnessed. Manuel eout was entered into [employer]. History and Stress Test performed by RT Rodney (Ailyn) (N) Pharm. Details Pharmacologic stress testing was performed using 0.4mg per 5ml of regadenoson given intravenously ove r 7-10 seconds. Stress Symptoms ABODMINAL CRAMPING, PT STATING "I DON'T FEEL GOOD" BUT DIDN'T STATE ANY SPECIFIC PAIN. POST EXERCISE Reason for Termination: Infusion complete Max HR: 96 bpm Max Blood Pressure: 156/74mmHg Chest Pain: No. Arrhythmia: No. ST Change: No. INTERPRETATION Stress EKG Conclusion: The resting EKG shows a sinus rhythm and mild nonspecific ST-T segment changes . The stress EKG shows no significant changes from baseline. No EKG evidence of stress-induced ischemia. Imaging Protocol IMAGE PROTOCOL: Rest Tc-99m/stress Tc-99m 2 days Rest: Stress: Viability: Radiopharm.Tc99m [id number] Sestamibi Lwci50oDb 33mCi Duration 15min. 10min. Img Date 08/09/2016 08/09/2016 Inj-Img Cmut45kds. 60min. Rest Admin Site:IV - Left ForearmAdministrator:RT Rodney (Ailyn)(N) Stress Admin Site: IV - Left ForearmAdministrator: RT Alycia Hawkins)(N) STRESS DATA End Diast. Vol.76.0mlAv. Heart Rate76.0bpm End Syst. Vol.16.0mlCO Index BSA0.0L/min Myocardial Vswf204.0gEject. Mrzajtaj46.0% Stress Rates Pk. Fill Rate4.65EDV/secLVtime Pk. Fill 226.33msec Pk. Empty Rate5.18ESV/secLVtime Pk. Mooon081.50msec 1/3 Pk. Fill1.12EDV/sec Stress Scores Regional WT0.00Summed WT0.00 Regional WM0.00Summed WM4.00 LV Perfusion The stress scans have a mild defect in the apical septal region. The rest scans have no significant defects. Nuclear imaging is positive for a small area of reversible ischemia in the Wall Motion Left ventricular systolic function is normal with an ejection fraction of greater than 70%. LV Perf. Quant 17 Seg. SSS3.00 17 Seg. SRS1.00 17 Seg. SDS3.00 Stress Defect Extent (% LAD)20.60Rest Defect Extent (% LAD)0.00Rev. Defect Extent (% LAD)20.60 Stress Defect Extent (% LCX) 0.00Rest Defect Extent (% LCX)7.50Rev. Defect Extent (% LCX)0.00 Stress Defect Extent (% RCA)0.00Rest Defect Extent (% RCA)0.00Rev. Defect Extent (% RCA)0.00 Stress Defect Extent (% KELLEN)8.50Rest Defect Extent (% KELLEN)1.30Rev. Defect Extent (% KELLEN)8.50 Conclusion 1. Mildly abnormal baseline EKG but no EKG evidence of stress-induced ischemia. 2. Nuclear imaging suggests a small area of reversible ischemia in the apical septal region. 3. Normal left ventricular systolic function with an ejection fraction of greater than 70%. 4. Moderate risk Lexiscan nuclear stress test.
--- NOTE | 2016-08-09 14:15 | PDOC ---
CARDIO Progress Notes Date and Time Date of Service 08/09/16 Time of Evaluation 1215 Subjective Subjective: No Chest Pain, No shortness of breath, No Palpitations, Other ( doesnt know if she wants to be "cut on") Vitals Vitals Vital Signs Date Time Temp Pulse Resp B/P Pulse Ox O2 Delivery O2 Flow Rate FiO2 08/09/16 11:00 97.8 62 14 157/78 90 Room Air 97.8 Weight Weight [ ] Input and Output Intake and Output Intake and Output 08/09/16 07:00 Intake Total 200 ml Output Total 850 ml Balance -650 ml Intake Oral 200 ml Output Urine Total 850 ml # Voids 5 Laboratory Labs Laboratory Tests Test 08/09/16 06:14 Hemoglobin 10.6g/dL (12.0-15.5) Sodium Level 142mmol/L (136-145) Potassium Level 4.5mmol/L (3.5-5.1) Chloride Level 109mmol/L (98-107) Carbon Dioxide Level 24mmol/L (21-32) Anion Gap 9 (6-14) Blood Urea Nitrogen 22mg/dL (7-20) Creatinine 1.4mg/dL (0.6-1.0) Estimated GFR (Cockcroft-Gault) 44.2 Glucose Level 84mg/dL (70-99) Calcium Level 9.7mg/dL (8.5-10.1) Phosphorus Level 3.3mg/dL (2.6-4.7) Magnesium Level 1.5mg/dL (1.8-2.4) Albumin 2.5g/dL (3.4-5.0) Microbiology Micro Microbiology 08/06/16 Urine Culture - Final, Complete 08/06/16 Urine Culture Result 1 (SCARLETT) - Final, Complete 08/06/16 Urine Culture Result 2 (SCARLETT) - Final, Complete Physical Exam HEENT: Neck Supple W Full Motion Chest: Symmetric LUNGS: Clear to Auscultation Heart: S1S2, RRR Abdomen: Soft N/T Extremities: Other (RLE boot/splint) Neurology: alert, oriented, follow commands Assessment Assessment 1. syncope no acute events noted on telemetry outpatient event monitor 2. HTN improved control 3. AAA; infrarenal 5.2 x 4.9 cm per ultrasound need CTA for further evaluation 4. CAD coronary artery calcifications in LAD predominantly Revised Cardiac Risk Index class IV risk correlating with an 11% risk of major cardiac risk MPI with small area of reversible ischemia in the apical septal region. Palliative care meeting planned for this afternoon will need to address goal to determine aggressiveness of care/further workup 6. HLD LDLs = 69 7. previous CVA sm. vessel ischemic disease on CT scan 8. fracture right ankle 9. CKD per nephrology 10. hypomagnesemia replace, monitor CLAUDIA Horton APRN Aug 09, 2016 14:15
--- NOTE | 2016-08-09 14:25 | PDOC ---
Provider Note Provider Note Vascular Surgery: The patient was in nuclear medicine when visited the room. She will need a CT scan, appreciate nephrology input regarding renal insufficiency. Per the nurse, she did not want a contrast CT scan. She will still need a non-contrast CT abd/pel for surgical planning, and if appears candidate for endovascular procedure she may still need IV contrast study. Would not recommend cholecystectomy if she can have an endovascular repair. SHERIN COBIAN MD Aug 09, 2016 14:25
--- NOTE | 2016-08-09 15:37 | PDOC2 ---
PALLIATIVE CARE Palliative Care Note Palliative Care Met with patient and daughter Sharee; patient has dtr. Edwina and son Sudarshan unable to attend. granddaughter Major would also like to have attended the meeting but was unable. Patient is able to verbalize she has "aneurysm in stomach they want to operate on" States she does not want surgery until she has had second opinion after she leaves the hospital. She wants to go to therapy and get stronger before she makes any decisions. Informed patient also has gallbladder full of stones and mass on thyroid. Patient is able to verbalize understanding that the aneurysm could burst which would cause her to . Patient would like to complete AD. Discussed Code Status: patient requests full code. She would not want to be kept alive on machine but would allow her children to make those decisions. Goals Continue Full Code. AD document to be completed. David PATEL aware Patient does not want surgery on aneurysm until she has had opportunity to get second opinion Wants to go to senior living to get stronger. MJ BEAVER Aug 09, 2016 15:37
--- NOTE | 2016-08-09 15:51 | PDOC ---
PROGRESS NOTES Assessment Assessment Syncope. No evidence of seizure. UTI Renal failure. 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 Right oblique lateral malleolus fracture. RECOMMENDATIONS/PLAN: Continue ASA daily. Treat medical diseases. Further evaluation of thyroid mass per floor team. Please consult Surgery for thyroid mass. Discussed with her daughter at bedside on 08/06/16. HCT performed no acute findings. Carotid A US + Doppler: No high grade stenosis. Thyroid US: 4.1 cm thyroid mass. EEG: WNL HISTORY OF THE PRESENT ILLNESS: 75-y-old AA male patient with above medical disease had a syncopal spell for this admission. She stated she lost consciousness and fell. No jerking, shaking or henrik movements observed. No obvious postictal state. Her daughter stated that the patient had a similar episode in recent month. No focalized motor or sensory deficits noted. She stated she has been doing better since 08/07. PAST MEDICAL HISTORY: Please see above. PAST SURGERY HISTORY: Appendectomy. Spleenectomy. ALLERGY: PCN Sulfa Prednisone Iodine MEDICATIONS: Refer to [facility] FAMILY HISTORY: Non contributory. SOCIAL HISTORY: Denies current smoking, drinking, and illicit drug use. REVIEW OF SYSTEMS: Constitutional: No malnutrition, weight loss, cachexia. Head: No traumatic brain or head injury. Skin: No edema, or rash. Ear: No infection, tinnitus. Eyes: No vision loss or color blindness. Nose: No bleeding or purulent discharges. Hearing: Hearing decrease. Neck: No injury. Breast: No history of cancer, masses,or discharges. Cardiac: CAD, HTN, HLD. Pulmonary: COPD. GI: No GI ulcer, GI bleeding, GERD. Urinary/genital: UTI. Endocrinologic: goiter mass. Skeletomuscular: No muscular atrophy, deformity. Neurological: see HP. Psychiatric: Denies drug use/abuse. Otherwise, not [id number] review of systems. PHYSICAL EXAMINATION: General appearance is in subacute distress. HEENT: Normocephalic and nontraumatic. Eyes, nose, ears, and throat are unremarkable. Neck is supple. No lymphadenopathy. No crepitus. Cardiovascular: S1, S2, regular rate and rhythm. Pulmonary: Clear to auscultation bilaterally. Abdomen: Bowel sounds are positive. Extremities: No rash, lesions, or edema. No restriction of range of motion NEUROLOGICAL EXAMINATION: Awake. Oriented to time, place and person but reaction was slow. PERRL. EOMI. CN: no focal findings. Muscle tone: within normal. Muscle strength: 4+, 4- right LE DTR: 2 Plantar reflex: Flexor response bilaterally Gait: Able to stand with a walker. Sensory exam: no abnormal findings. No cerebellar signs elicited. F-T-N test not performed.. Objective Objective Vital Signs Date Time Temp Pulse Resp B/P Pulse Ox O2 Delivery O2 Flow Rate FiO2 08/09/16 11:00 97.8 62 14 157/78 90 Room Air 97.8 Intake and Output 08/09/16 07:00 Intake Total 200 ml Output Total 850 ml Balance -650 ml Intake Oral 200 ml Output Urine Total 850 ml # Voids 5 Vitals Signs Vitals VS - Last 72 Hours, by Label Date Time Temp Pulse Resp B/P Pulse Ox O2 Delivery O2 Flow Rate FiO2 08/09/16 11:00 97.8 62 14 157/78 90 Room Air 97.8 08/09/16 08:00 Room Air 08/09/16 07:00 97.7 70 14 150/73 94 Room Air 97.7 08/09/16 04:12 98.2 73 18 140/70 99 Room Air 98.2 08/09/16 03:00 98.2 73 18 140/73 92 Room Air 98.2 08/08/16 23:00 98.6 70 16 137/80 97 Room Air 98.6 08/08/16 19:00 98.0 64 18 134/46 95 Room Air 98.0 08/08/16 15:00 98.1 65 16 107/72 100 Room Air 98.1 08/08/16 13:36 Room Air 08/08/16 11:00 98.0 69 16 124/75 95 Room Air 98.0 08/08/16 09:27 Room Air 08/08/16 08:27 Room Air 08/08/16 08:26 70 161/79 08/08/16 08:00 Room Air 08/08/16 07:00 98.1 70 16 161/79 98 Room Air 98.1 Laboratory Laboratory Laboratory Tests Test 08/09/16 06:14 Hemoglobin 10.6g/dL (12.0-15.5) Sodium Level 142mmol/L (136-145) Potassium Level 4.5mmol/L (3.5-5.1) Chloride Level 109mmol/L (98-107) Carbon Dioxide Level 24mmol/L (21-32) Anion Gap 9 (6-14) Blood Urea Nitrogen 22mg/dL (7-20) Creatinine 1.4mg/dL (0.6-1.0) Estimated GFR (Cockcroft-Gault) 44.2 Glucose Level 84mg/dL (70-99) Calcium Level 9.7mg/dL (8.5-10.1) Phosphorus Level 3.3mg/dL (2.6-4.7) Magnesium Level 1.5mg/dL (1.8-2.4) Albumin 2.5g/dL (3.4-5.0) Microbiology 08/06/16 Urine Culture - Final, Complete 08/06/16 Urine Culture Result 1 (SCARLETT) - Final, Complete 08/06/16 Urine Culture Result 2 (SCARLETT) - Final, Complete Medication Medications Current Medications Acetylcysteine 1200 mg 1,200 mg BID PO ; Start 08/08/16 at 21:00; Stop 08/10/16 at 20:59 Enoxaparin Sodium 40 mg 40 mg Q24H SQ Last administered on 08/09/16 10:39; Start 08/09/16 at 11:00 Iron Sucrose/ Sodium Chloride (Venofer/Iv Sodium Chloride 0.9% 100ml) 110 ml @ 55 mls/hr 3X/WEEK IV Last administered on 08/09/16 10:38; Start 08/09/16 at 09 :00; Stop 08/19/16 at 10:59 Magnesium Hydroxide 2400 mg 2,400 mg 1X ONCE PO Last administered on 10:36; Start 08/09/16 at 09:00; Stop 08/09/16 at 09:03; Status DC Magnesium Sulfate/ Dextrose (Magnesium Sulfate PREMIX 2GM) 50 ml @ 25 mls/hr 1X ONCE IV ; Start 08/09/16 at 12:00; Stop 08/09/16 at 13:59; Status DC Regadenoson (Lexiscan) 0.4 mg 1X ONCE IV Last administered on 08/09/16 09:42 ; Start 08/09/16 at 08:00; Stop 3/10/17 at 08:01; Status DC Sodium Chloride (Iv Sodium Chloride 0.9% 1000ml Bag) 1,000 ml @ 75 mls/hr [id number] IV Last administered on 08/09/16t 02:11; Start 08/09/16 at 02:15 Comment Review of Relevant I have reviewed the following items james (where applicable) has been applied. LUCINA SEVERINO MD Aug 09, 2016 15:51
[2016-08-10 03:00] VITALS: BP 127/75
[2016-08-10] MEDS: HYDROCODONE/APAP 5/325MG TABLET. PO PRN ×2 (03:35→21:36)
[2016-08-10 05:48] LABS: CALCIUM 9.4 mg/dL (8.5-10.1); CREATININE 1.4 mg/dL (0.6-1.0); GFR 44.2; POTASSIUM 4.1 mmol/L (3.5-5.1)
[2016-08-10] MEDS: IV NORMAL SALINE 1000ML BAG 1,000 ML IV SCH (06:35)
[2016-08-10 07:00] VITALS: BP 135/74
[2016-08-10] MEDS: ACETYLCYSTEINE 20% ORAL SOLN 600 MG/3 ML SYRINGE. PO SCH (07:52)
[2016-08-10] MEDS: ASPIRIN ENTERIC COATED 81 MG TABLET.DR. PO SCH (07:52)
--- NOTE | 2016-08-10 08:41 | PDOC ---
BUZZ JOHN BIOCHEMISTRY TEACHER 08/10/16 0841: SURGICAL PROGRESS NOTE Subjective reviewed palliative note--patient is declining any procedures this admission, wanting to discharge and have a second opinion I d/w pt and she stated that was accurate reviewed vascular note, would not recommend oren if undergoing endovascular repair Vital Signs Vital Signs Date Time Temp Pulse Resp B/P Pulse Ox O2 Delivery O2 Flow Rate FiO2 08/10/16 04:35 16 Room Air 08/10/16 03:00 98.7 69 127/75 96 98.7 I&O Intake and Output 08/10/16 07:00 Intake Total 1179 ml Output Total 300 ml Balance 879 ml Other 1179 ml Output Urine Total 300 ml # Voids 8 # Bowel Movements 3 General: Alert, Oriented X3, Cooperative, No acute distress Abdomen: Soft, No tenderness Labs Laboratory Tests Test 08/08/16 09:50 08/09/16 06:14 08/10/16 04:53 08/10/16 04:55 Urine Collection Type Unknown Urine Color Straw Urine Clarity Clear Urine pH 6.5 Urine Specific [place] <=1.005 Urine Protein Negativemg/dL (NEG-TRACE) Urine Glucose (UA) Negativemg/dL (NEG) Urine Ketones (Stick) Negativemg/dL (NEG) Urine Blood Negative (NEG) Urine Nitrite Negative (NEG) Urine Bilirubin Negative (NEG) Urine Urobilinogen Dipstick 0.2mg/dL (0.2 mg/dL) Urine Leukocyte Esterase Negative (NEG) Urine RBC Rare/HPF (0-2) Urine WBC Rare/HPF (0-4) Urine Squamous Epithelial Cells Few/LPF Urine Bacteria Few/HPF (0-FEW) Hemoglobin 10.6g/dL (12.0-15.5) Sodium Level 142mmol/L (136-145) 145mmol/L (136-145) Potassium Level 4.5mmol/L (3.5-5.1) 4.1mmol/L (3.5-5.1) Chloride Level 109mmol/L (98-107) 112mmol/L (98-107) Carbon Dioxide Level 24mmol/L (21-32) 24mmol/L (21-32) Anion Gap 9 (6-14) 9 (6-14) Blood Urea Nitrogen 22mg/dL (7-20) 20mg/dL (7-20) Creatinine 1.4mg/dL (0.6-1.0) 1.4mg/dL (0.6-1.0) Estimated GFR (Cockcroft-Gault) 44.2 44.2 Glucose Level 84mg/dL (70-99) 85mg/dL (70-99) Calcium Level 9.7mg/dL (8.5-10.1) 9.4mg/dL (8.5-10.1) Phosphorus Level 3.3mg/dL (2.6-4.7) Magnesium Level 1.5mg/dL (1.8-2.4) 1.6mg/dL (1.8-2.4) Albumin 2.5g/dL (3.4-5.0) Laboratory Tests Test 08/10/16 04:53 08/10/16 04:55 Sodium Level 145mmol/L (136-145) Potassium Level 4.1mmol/L (3.5-5.1) Chloride Level 112mmol/L (98-107) Carbon Dioxide Level 24mmol/L (21-32) Anion Gap 9 (6-14) Blood Urea Nitrogen 20mg/dL (7-20) Creatinine 1.4mg/dL (0.6-1.0) Estimated GFR (Cockcroft-Gault) 44.2 Glucose Level 85mg/dL (70-99) Calcium Level 9.4mg/dL (8.5-10.1) Magnesium Level 1.6mg/dL (1.8-2.4) Problem List Problems Medical Problems: (1) Closed right ankle fracture Status: Acute (2) Syncope Status: Acute Assessment/Plan AAA cholelithiasis thyroid nodule no surgical plans(pt refusing at this time and if does proceed vascular does not recommend cholecystectomy at time of AAA repair) will still need fna if willing to have work up on thyroid nodule will sign off, can fu in clinic if wishes to purse workup Problems: GEORGES JHA MD 08/10/162007: SURGICAL PROGRESS NOTE Assessment/Plan Pt seen and examined. Agree with Ms. John's note Pt without c/o, david PO well abd soft pt not interested in surgery will sign off, but please call for questions Problems: BUZZ JOHN APRN Aug 10, 2016 08:41 GEORGES JHA MD 11, 2017 20:08
--- NOTE | 2016-08-10 08:59 | PDOC ---
NORAT[employer]O [employer] 08/10/16 0859: IM PROGRESS NOTES- Subjective Subjective does not want surgeries, wants second opinion Objective Objective alert. Discussion initiated to consider treatment for abnormal stress test and AAA. She wants to wait. Vitals Vital Signs Date Time Temp Pulse Resp B/P Pulse Ox O2 Delivery O2 Flow Rate FiO2 08/10/16 07:00 98.0 71 18 135/74 97 Room Air 98.0 Input & Output Intake and Output 08/10/16 07:00 Intake Total 1179 ml Output Total 300 ml Balance 879 ml Other 1179 ml Output Urine Total 300 ml # Voids 8 # Bowel Movements 3 Physical Exam Physical Exam General appearance - alert,well appearing, and in no distress and oriented to person, place, and time Mental Status - alert, oriented to person, place, and time, affect appropriate to mood Head - normal Chest - clear to auscultation, no wheezes, rales or rhonchi, symmetric air entry Heart - S1 and S2 normal Abdomen - soft, nontender, nondistended, no masses or organomegaly Neurological - alert and oriented Musculoskeletal - no muscular tenderness noted Extremities - + edema RLE (post fall injury with R foot pain) Skin - warm and dry Labs Laboratory Tests Test 08/08/16 09:50 08/09/16 06:14 08/10/16 04:53 08/10/16 04:55 Urine Collection Type Unknown Urine Color Straw Urine Clarity Clear Urine pH 6.5 Urine Specific [place] <=1.005 Urine Protein Negativemg/dL (NEG-TRACE) Urine Glucose (UA) Negativemg/dL (NEG) Urine Ketones (Stick) Negativemg/dL (NEG) Urine Blood Negative (NEG) Urine Nitrite Negative (NEG) Urine Bilirubin Negative (NEG) Urine Urobilinogen Dipstick 0.2mg/dL (0.2 mg/dL) Urine Leukocyte Esterase Negative (NEG) Urine RBC Rare/HPF (0-2) Urine WBC Rare/HPF (0-4) Urine Squamous Epithelial Cells Few/LPF Urine Bacteria Few/HPF (0-FEW) Hemoglobin 10.6g/dL (12.0-15.5) Sodium Level 142mmol/L (136-145) 145mmol/L (136-145) Potassium Level 4.5mmol/L (3.5-5.1) 4.1mmol/L (3.5-5.1) Chloride Level 109mmol/L (98-107) 112mmol/L (98-107) Carbon Dioxide Level 24mmol/L (21-32) 24mmol/L (21-32) Anion Gap 9 (6-14) 9 (6-14) Blood Urea Nitrogen 22mg/dL (7-20) 20mg/dL (7-20) Creatinine 1.4mg/dL (0.6-1.0) 1.4mg/dL (0.6-1.0) Estimated GFR (Cockcroft-Gault) 44.2 44.2 Glucose Level 84mg/dL (70-99) 85mg/dL (70-99) Calcium Level 9.7mg/dL (8.5-10.1) 9.4mg/dL (8.5-10.1) Phosphorus Level 3.3mg/dL (2.6-4.7) Magnesium Level 1.5mg/dL (1.8-2.4) 1.6mg/dL (1.8-2.4) Albumin 2.5g/dL (3.4-5.0) Laboratory Tests Test 08/10/16 04:53 08/10/16 04:55 Sodium Level 145mmol/L (136-145) Potassium Level 4.1mmol/L (3.5-5.1) Chloride Level 112mmol/L (98-107) Carbon Dioxide Level 24mmol/L (21-32) Anion Gap 9 (6-14) Blood Urea Nitrogen 20mg/dL (7-20) Creatinine 1.4mg/dL (0.6-1.0) Estimated GFR (Cockcroft-Gault) 44.2 Glucose Level 85mg/dL (70-99) Calcium Level 9.4mg/dL (8.5-10.1) Magnesium Level 1.6mg/dL (1.8-2.4) Meds Current Medications Enoxaparin Sodium 40 mg 40 mg Q24H SQ Last administered on 08/09/16 10:39; Start 08/09/16 at 11:00 Iron Sucrose/ Sodium Chloride (Venofer/Iv Sodium Chloride 0.9% 100ml) 110 ml @ 55 mls/hr 3X/WEEK IV Last administered on 08/09/16 10:38; Start 08/09/16 at 09 :00; Stop 08/19/16 at 10:59 Magnesium Hydroxide 2400 mg 2,400 mg 1X ONCE PO Last administered on 10:36; Start 08/09/16 at 09:00; Stop 08/09/16 at 09:03; Status DC Magnesium Sulfate/ Dextrose (Magnesium Sulfate PREMIX 2GM) 50 ml @ 25 mls/hr 1X ONCE IV ; Start 08/09/16 at 12:00; Stop 08/09/16 at 13:59; Status DC Assessment Assessment Problems Medical Problems: (1) Closed right ankle fracture Status: Acute (2) Syncope Status: Acute FINAL IMPRESSION: 1. Syncope. 2. Right ankle fracture, closed fracture. 3. Hypertension. 4. Mild renal insufficiency. 5. History of previous strokes. 6. Thyroid mass 7. AAA 8.Gallstones PLAN: abnormal MPI with small area reversible ischemia stress induced. Cardiology consulted AAA infrarenal - 2013 4.1x39, currently 5.2 x 4.9. Vascular surgery consulted. Does not want surgery, wants second opinion ARF with RUMA resolved Admit BUN 42 Cr 1.8 08/10 BUN 2.0 Cr 1.4 nephrology consulted NS 75cc/hr Wt admit 145# 08/10 157# syncope - OP patient event monitor planned anemia Fe - Venofer 200mg IV 3 times per week thyroid nodule R thyroid 4.1 cm, OP work up planned gallstones - choley not to be done with AAA repair due to possible contamination - treatment delayed. surgery consulted old CVA -R frontal/R parietal cortical infarct Mg 1.6 Renal standing Mg replacement orders. Await consultants notes/discussion with Jeanette. She does not want further surgeries and wants second opinion. Will initiate DC home paperwork. PLAN: domen[place] scan stress test today, pre op evaluation needs CT angiogram for AAA today renal consult appreciated. urine c/s neg ct head old cva carotid dopller -neg. echo -good lvf. thyroid mass - FNA out pt. surgical consult appreciated, gall blader surgery along with AAA surgery AAA-vascular consult ,5 cm now,inc in seize. Plan Plan For more details regarding further plans, please refer to the orders. BECKY DEL ANGEL MD 08/10/16 1129: IM PROGRESS NOTES- Assessment Assessment Extensively d/w her about condition,RX of AAA,kidney problems,cholelithiasis etc I do not believe that she understands the issues well and does not want any RX. Er lE swollen- check venous doppler.D/c IV fluids. screen SNF-[facility]. The patient was seen and examined by me. Chart reviewed and plan of care formulated. Discussed with, reviewed and agree with PLANT ASSOCIATE's notes, plan of care and orders with modifications as necessary. For more details regarding further plans, please refer to the orders. TACO MELENDEZ APRN Aug 10, 2016 08:59 BECKY DEL ANGEL MD Aug 10, 2016 11:29
--- NOTE | 2016-08-10 08:59 | DISCH ---
DISCHARGE INSTRUCTIONS Condition on Discharge Condition on Discharge: Stable Activity After Discharge Activity Instructions for Disc: Activity as tolerated Diet after Discharge Diet after Discharge: Cardiac Contacting the [facility] after DC Call your doctor for: Concerns you may have Follow-Up Follow up with: Dr. Arreola in 3-5 days TACO MELENDEZ APRN Aug 10, 2016 08:59
[2016-08-10] MEDS ORDERED: ASPI81TA9 PO (09:00)
[2016-08-10 11:00] VITALS: BP 122/59
[2016-08-10 11:20] LABS: ALBUMIN 2.4 g/dL (3.4-5.0); CALCIUM 9.4 mg/dL (8.5-10.1); CREATININE 1.5 mg/dL (0.6-1.0); GFR 40.9; PHOSPHORUS 2.7 mg/dL (2.6-4.7); POTASSIUM 4.1 mmol/L (3.5-5.1)
--- NOTE | 2016-08-10 12:20 | PDOC ---
PROGRESS NOTES Subjective Subjective She c/o right ankle swelling and pain. Objective Objective Vital Signs Date Time Temp Pulse Resp B/P Pulse Ox O2 Delivery O2 Flow Rate FiO2 08/10/16 11:00 98.1 78 18 122/59 97 Room Air 98.1 Intake and Output 08/10/16 07:00 Intake Total 1179 ml Output Total 300 ml Balance 879 ml Other 1179 ml Output Urine Total 300 ml # Voids 8 # Bowel Movements 3 Physical Exam Physical Exam She had edema of right ankle and foot and no calf tenderness noted and she continues with tenderness to palpation over right lateral malleolus and pain on ROM of right ankle and she is protecting her right ankle that might be responsible for continued edema. Assessment Assessment Problems Medical Problems: (1) Closed right ankle fracture Status: Acute (2) Syncope Status: Acute Plan Plan of Care To SNF when medically stable. Comment Review of Relevant I have reviewed the following items james (where applicable) has been applied. Labs Laboratory Tests Test 08/09/16 06:14 08/10/16 03:30 08/10/16 04:53 08/10/16 04:55 Hemoglobin 10.6g/dL (12.0-15.5) Sodium Level 142mmol/L (136-145) 144mmol/L (136-145) 145mmol/L (136-145) Potassium Level 4.5mmol/L (3.5-5.1) 4.1mmol/L (3.5-5.1) 4.1mmol/L (3.5-5.1) Chloride Level 109mmol/L (98-107) 111mmol/L (98-107) 112mmol/L (98-107) Carbon Dioxide Level 24mmol/L (21-32) 24mmol/L (21-32) 24mmol/L (21-32) Anion Gap 9 (6-14) 9 (6-14) 9 (6-14) Blood Urea Nitrogen 22mg/dL (7-20) 20mg/dL (7-20) 20mg/dL (7-20) Creatinine 1.4mg/dL (0.6-1.0) 1.5mg/dL (0.6-1.0) 1.4mg/dL (0.6-1.0) Estimated GFR (Cockcroft-Gault) 44.2 40.9 44.2 Glucose Level 84mg/dL (70-99) 83mg/dL (70-99) 85mg/dL (70-99) Calcium Level 9.7mg/dL (8.5-10.1) 9.4mg/dL (8.5-10.1) 9.4mg/dL (8.5-10.1) Phosphorus Level 3.3mg/dL (2.6-4.7) 2.7mg/dL (2.6-4.7) Magnesium Level 1.5mg/dL (1.8-2.4) 1.6mg/dL (1.8-2.4) Albumin 2.5g/dL (3.4-5.0) 2.4g/dL (3.4-5.0) Laboratory Tests Test 08/10/16 03:30 08/10/16 04:53 08/10/16 04:55 Sodium Level 144mmol/L (136-145) 145mmol/L (136-145) Potassium Level 4.1mmol/L (3.5-5.1) 4.1mmol/L (3.5-5.1) Chloride Level 111mmol/L (98-107) 112mmol/L (98-107) Carbon Dioxide Level 24mmol/L (21-32) 24mmol/L (21-32) Anion Gap 9 (6-14) 9 (6-14) Blood Urea Nitrogen 20mg/dL (7-20) 20mg/dL (7-20) Creatinine 1.5mg/dL (0.6-1.0) 1.4mg/dL (0.6-1.0) Estimated GFR (Cockcroft-Gault) 40.9 44.2 Glucose Level 83mg/dL (70-99) 85mg/dL (70-99) Calcium Level 9.4mg/dL (8.5-10.1) 9.4mg/dL (8.5-10.1) Phosphorus Level 2.7mg/dL (2.6-4.7) Albumin 2.4g/dL (3.4-5.0) Magnesium Level 1.6mg/dL (1.8-2.4) Microbiology 08/06/16 Urine Culture - Final, Complete 08/06/16 Urine Culture Result 1 (SCARLETT) - Final, Complete 08/06/16 Urine Culture Result 2 (SCARLETT) - Final, Complete Medications Current Medications Morphine Sulfate 4 mg 4 mg 1X ONCE IV Last administered on 08/06/16 04:47; Start 08/06/16 at 05:00; Stop 08/06/16 at 05:01; Status DC Sodium Chloride (Iv Sodium Chloride 0.9% 500ml Bag) 500 ml @ 500 mls/hr 1X ONCE IV Last administered on 08/06/16 04:48; Start 08/06/16 at 05:00; Stop at 05:59; Status DC Ondansetron HCl (Zofran) 4 mg PRN Q8HRS PRN IV NAUSEA/VOMITING; Start 08/06/16 at 05:00; Stop 08/07/16 at 04:59; Status DC Morphine Sulfate 4 mg 4 mg PRN Q2HR PRN IV SEVERE PAIN; Start 08/06/16 at 05:00 ; Stop 08/07/16 at 04:59; Status DC Sodium Chloride (Iv Sodium Chloride 0.9% 1000ml Bag) 1,000 ml @ 100 mls/hr Q10H IV Last administered on 08/06/16 05:31; Start 08/06/16 at 04:59; Stop at 14:43; Status DC Acetaminophen 650 mg 650 mg PRN Q4HRS PRN PO FEVER; Start 08/06/16 at 05:00; Stop 08/07/16 at 04:59; Status DC Sodium Chloride (Iv Sodium Chloride 0.9% 1000ml Bag) 1,000 ml @ 75 mls/hr [id number] IV Last administered on 08/08/16 04:05; Start 08/06/16 at 11:00; Stop at 23:07; Status DC Acetaminophen/ Hydrocodone Bitart (Lortab 5/325) 1 tab PRN Q4HRS PRN PO MODERATE - SEVERE PAIN Last administered on 08/10/16 03:35; Start 08/06/16 at 10 :15 Enoxaparin Sodium (Lovenox 30mg Syringe) 30 mg Q24H SQ Last administered on 08/08 13:43; Start 08/06/16 at 11:00; Stop 08/09/16 at 10:10; Status DC Aspirin (Ecotrin) 81 mg [id number] PO Last administered on 08/10/16 07:52; Start 08/06/16 at 14:30 Benzonatate (Tessalon Perle) 100 mg QHS PO ; Start 08/06/16 at 21:00; Stop at 01:53; Status DC Docusate Sodium (Colace) 100 mg PRN DAILY PRN PO CONSTIPATION Last administered on 08/07/16 08:46; Start 08/06/16 at 20:15 Non-Formulary Medication 1 tab DAILY PO ; Start 08/07/16 at 09:00; Status Cancel Non-Formulary Medication 1 tab DAILY PO ; Start 08/06/16 at 21:00; Status UNV Chlorthalidone (Thalitone) 12.5 mg DAILY PO Last administered on 08/08/16 08:25 ; Start 08/06/16 at 20:30; Stop 08/08/16 at 11:59; Status DC Losartan Potassium (Cozaar) 50 mg DAILY PO Last administered on 08/08/16 08:26 ; Start 08/06/16 at 20:30; Stop 08/08/16 at 11:59; Status DC Acetaminophen (Tylenol) 650 mg PRN Q6HRS PRN PO MILD PAIN / TEMP Last administered on 08/09/16 10:44; Start 08/07/16 at 10:45 Magnesium Hydroxide (Milk Of Magnesia) 2,400 mg PRN DAILY PRN PO CONSTIPATION Last administered on 08/09/16 20:18; Start 08/07/16 at 10:45 Acetylcysteine 1200 mg 1,200 mg BID PO Last administered on 08/10/16 07:52; Start 08/08/16 at 21:00; Stop 08/10/16 at 20:59 Magnesium Sulfate/ Dextrose 50 ml @ 25 mls/hr PRN DAILY PRN IV for Mag < 1.7 on am labs Last administered on 08/10/16 07:53; Start 08/08/16 at 12:00 Sodium Chloride (Iv Sodium Chloride 0.9% 1000ml Bag) 1,000 ml @ 75 mls/hr [id number] IV Last administered on 08/10/16 06:35; Start 08/09/16 at 02:15; Stop 08/10/16 at 11:27; Status DC Regadenoson (Lexiscan) 0.4 mg 1X ONCE IV Last administered on 08/09/16 09:42 ; Start 08/09/16 at 08:00; Stop 08/09/16 at 08:01; Status DC Magnesium Hydroxide 2400 mg 2,400 mg 1X ONCE PO Last administered on 10:36; Start 08/09/16 at 09:00; Stop 08/09/16 at 09:03; Status DC Iron Sucrose/ Sodium Chloride (Venofer/Iv Sodium Chloride 0.9% 100ml) 110 ml @ 55 mls/hr 3X/WEEK IV Last administered on 08/09/16 10:38; Start 08/09/16 at 09 :00; Stop 08/19/16 at 10:59 Enoxaparin Sodium 40 mg 40 mg Q24H SQ Last administered on 08/09/16 10:39; Start 08/09/16 at 11:00 Magnesium Sulfate/ Dextrose (Magnesium Sulfate PREMIX 2GM) 50 ml @ 25 mls/hr 1X ONCE IV ; Start 08/09/16 at 12:00; Stop 08/09/16 at 13:59; Status DC Active Scripts Active Aspirin Ec (Aspirin) 81 Mg Tablet. 81 Mg PO [id number] Reported Colace (Docusate Sodium) 100 Mg Capsule 100 Mg PO DAILY Vitals/I & O Vital Sign - Last 24 Hours 08/09/16 08/09/16 08/09/16 08/09/16 15:00 19:00 20:00 22:32 Temp 98.2 98.3 98.2 98.3 Pulse 79 75 Resp 14 18 16 B/P 143/80 134/71 Pulse Ox 94 98 O2 Delivery Room Air Room Air Room Air Room Air 08/09/16 08/10/16 08/10/16 08/10/16 23:00 03:00 03:35 04:35 Temp 99.4 98.7 99.4 98.7 Pulse 69 69 Resp 18 18 16 16 B/P 163/79 127/75 Pulse Ox 98 96 O2 Delivery Room Air Room Air Room Air Room Air 08/10/16 08/10/16 07:00 11:00 Temp 98.0 98.1 98.0 98.1 Pulse 71 78 Resp 18 18 B/P 135/74 122/59 Pulse Ox 97 97 O2 Delivery Room Air Room Air Intake and Output 08/09/16 08/09/16 08/10/16 15:00 23:00 07:00 Intake Total 1179 ml Output Total 300 ml Balance -300 ml 1179 ml ETHEL CHOI MD Aug 10, 2016 12:20
--- NOTE | 2016-08-10 13:07 | PDOC ---
PROGRESS NOTES Assessment Problems Medical Problems: (1) Closed right ankle fracture Status: Acute (2) Syncope Status: Acute Syncope. No evidence of seizure. 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 Plan Continue ASA daily. Treat medical diseases. Subjective no complaints Objective Vital Signs Date Time Temp Pulse Resp B/P Pulse Ox O2 Delivery O2 Flow Rate FiO2 08/10/16 11:00 98.1 78 18 122/59 97 Room Air 98.1 Intake and Output 08/10/16 07:00 Intake Total 1179 ml Output Total 300 ml Balance 879 ml Other 1179 ml Output Urine Total 300 ml # Voids 8 # Bowel Movements 3 PHYSICAL EXAM Alert. Oriented to time, place and person. PERRL. EOMI. CN: no focal findings. Muscle tone: normal. Muscle strength: 4+/5, splints right ankle due to pain DTR: 2+ Plantar reflex: flexor Gait: not examined in bed. Sensory exam: no abnormal findings. No cerebellar signs elicited. Review of Relevant I have reviewed the following items james (where applicable) has been applied. Labs Laboratory Tests Test 08/09/16 06:14 08/10/16 03:30 08/10/16 04:53 08/10/16 04:55 Hemoglobin 10.6g/dL (12.0-15.5) Sodium Level 142mmol/L (136-145) 144mmol/L (136-145) 145mmol/L (136-145) Potassium Level 4.5mmol/L (3.5-5.1) 4.1mmol/L (3.5-5.1) 4.1mmol/L (3.5-5.1) Chloride Level 109mmol/L (98-107) 111mmol/L (98-107) 112mmol/L (98-107) Carbon Dioxide Level 24mmol/L (21-32) 24mmol/L (21-32) 24mmol/L (21-32) Anion Gap 9 (6-14) 9 (6-14) 9 (6-14) Blood Urea Nitrogen 22mg/dL (7-20) 20mg/dL (7-20) 20mg/dL (7-20) Creatinine 1.4mg/dL (0.6-1.0) 1.5mg/dL (0.6-1.0) 1.4mg/dL (0.6-1.0) Estimated GFR (Cockcroft-Gault) 44.2 40.9 44.2 Glucose Level 84mg/dL (70-99) 83mg/dL (70-99) 85mg/dL (70-99) Calcium Level 9.7mg/dL (8.5-10.1) 9.4mg/dL (8.5-10.1) 9.4mg/dL (8.5-10.1) Phosphorus Level 3.3mg/dL (2.6-4.7) 2.7mg/dL (2.6-4.7) Magnesium Level 1.5mg/dL (1.8-2.4) 1.6mg/dL (1.8-2.4) Albumin 2.5g/dL (3.4-5.0) 2.4g/dL (3.4-5.0) Laboratory Tests Test 08/10/16 03:30 08/10/16 04:53 08/10/16 04:55 Sodium Level 144mmol/L (136-145) 145mmol/L (136-145) Potassium Level 4.1mmol/L (3.5-5.1) 4.1mmol/L (3.5-5.1) Chloride Level 111mmol/L (98-107) 112mmol/L (98-107) Carbon Dioxide Level 24mmol/L (21-32) 24mmol/L (21-32) Anion Gap 9 (6-14) 9 (6-14) Blood Urea Nitrogen 20mg/dL (7-20) 20mg/dL (7-20) Creatinine 1.5mg/dL (0.6-1.0) 1.4mg/dL (0.6-1.0) Estimated GFR (Cockcroft-Gault) 40.9 44.2 Glucose Level 83mg/dL (70-99) 85mg/dL (70-99) Calcium Level 9.4mg/dL (8.5-10.1) 9.4mg/dL (8.5-10.1) Phosphorus Level 2.7mg/dL (2.6-4.7) Albumin 2.4g/dL (3.4-5.0) Magnesium Level 1.6mg/dL (1.8-2.4) Microbiology 08/06/16 Urine Culture - Final, Complete 08/06/16 Urine Culture Result 1 (SCARLETT) - Final, Complete 08/06/16 Urine Culture Result 2 (SCARLETT) - Final, Complete Medications Current Medications Morphine Sulfate 4 mg 4 mg 1X ONCE IV Last administered on 08/06/16 04:47; Start 08/06/16 at 05:00; Stop 08/06/16 at 05:01; Status DC Sodium Chloride (Iv Sodium Chloride 0.9% 500ml Bag) 500 ml @ 500 mls/hr 1X ONCE IV Last administered on 08/06/16 04:48; Start 08/06/16 at 05:00; Stop at 05:59; Status DC Ondansetron HCl (Zofran) 4 mg PRN Q8HRS PRN IV NAUSEA/VOMITING; Start 08/06/16 at 05:00; Stop 08/07/16 at 04:59; Status DC Morphine Sulfate 4 mg 4 mg PRN Q2HR PRN IV SEVERE PAIN; Start 08/06/16 at 05:00 ; Stop 08/07/16 at 04:59; Status DC Sodium Chloride (Iv Sodium Chloride 0.9% 1000ml Bag) 1,000 ml @ 100 mls/hr Q10H IV Last administered on 08/06/16 05:31; Start 08/06/16 at 04:59; Stop at 14:43; Status DC Acetaminophen 650 mg 650 mg PRN Q4HRS PRN PO FEVER; Start 08/06/16 at 05:00; Stop 08/07/16 at 04:59; Status DC Sodium Chloride (Iv Sodium Chloride 0.9% 1000ml Bag) 1,000 ml @ 75 mls/hr [id number] IV Last administered on 08/08/16 04:05; Start 08/06/16 at 11:00; Stop at 23:07; Status DC Acetaminophen/ Hydrocodone Bitart (Lortab 5/325) 1 tab PRN Q4HRS PRN PO MODERATE - SEVERE PAIN Last administered on 08/10/16 03:35; Start 08/06/16 at 10 :15 Enoxaparin Sodium (Lovenox 30mg Syringe) 30 mg Q24H SQ Last administered on 08/08 13:43; Start 08/06/16 at 11:00; Stop 08/09/16 at 10:10; Status DC Aspirin (Ecotrin) 81 mg [id number] PO Last administered on 08/10/16 07:52; Start 08/06/16 at 14:30 Benzonatate (Tessalon Perle) 100 mg QHS PO ; Start 08/06/16 at 21:00; Stop at 01:53; Status DC Docusate Sodium (Colace) 100 mg PRN DAILY PRN PO CONSTIPATION Last administered on 08/07/16 08:46; Start 08/06/16 at 20:15 Non-Formulary Medication 1 tab DAILY PO ; Start 08/07/16 at 09:00; Status Cancel Non-Formulary Medication 1 tab DAILY PO ; Start 08/06/16 at 21:00; Status UNV Chlorthalidone (Thalitone) 12.5 mg DAILY PO Last administered on 08/08/16 08:25 ; Start 08/06/16 at 20:30; Stop 08/08/16 at 11:59; Status DC Losartan Potassium (Cozaar) 50 mg DAILY PO Last administered on 08/08/16 08:26 ; Start 08/06/16 at 20:30; Stop 08/08/16 at 11:59; Status DC Acetaminophen (Tylenol) 650 mg PRN Q6HRS PRN PO MILD PAIN / TEMP Last administered on 08/09/16 10:44; Start 08/07/16 at 10:45 Magnesium Hydroxide (Milk Of Magnesia) 2,400 mg PRN DAILY PRN PO CONSTIPATION Last administered on 08/09/16 20:18; Start 08/07/16 at 10:45 Acetylcysteine 1200 mg 1,200 mg BID PO Last administered on 08/10/16 07:52; Start 08/08/16 at 21:00; Stop 08/10/16 at 20:59 Magnesium Sulfate/ Dextrose 50 ml @ 25 mls/hr PRN DAILY PRN IV for Mag < 1.7 on am labs Last administered on 08/10/16 07:53; Start 08/08/16 at 12:00 Sodium Chloride (Iv Sodium Chloride 0.9% 1000ml Bag) 1,000 ml @ 75 mls/hr [id number] IV Last administered on 08/10/16 06:35; Start 08/09/16 at 02:15; Stop 08/10/16 at 11:27; Status DC Regadenoson (Lexiscan) 0.4 mg 1X ONCE IV Last administered on 08/09/16 09:42 ; Start 08/09/16 at 08:00; Stop 08/09/16 at 08:01; Status DC Magnesium Hydroxide 2400 mg 2,400 mg 1X ONCE PO Last administered on 10:36; Start 08/09/16 at 09:00; Stop 08/09/16 at 09:03; Status DC Iron Sucrose/ Sodium Chloride (Venofer/Iv Sodium Chloride 0.9% 100ml) 110 ml @ 55 mls/hr 3X/WEEK IV Last administered on 08/09/16 10:38; Start 08/09/16 at 09 :00; Stop 08/19/16 at 10:59 Enoxaparin Sodium 40 mg 40 mg Q24H SQ Last administered on 08/09/16 10:39; Start 08/09/16 at 11:00 Magnesium Sulfate/ Dextrose (Magnesium Sulfate PREMIX 2GM) 50 ml @ 25 mls/hr 1X ONCE IV ; Start 08/09/16 at 12:00; Stop 08/09/16 at 13:59; Status DC Active Scripts Active Aspirin Ec (Aspirin) 81 Mg Tablet. 81 Mg PO DAILYWBKFT Reported Colace (Docusate Sodium) 100 Mg Capsule 100 Mg PO DAILY Vitals/I & O Vital Sign - Last 24 Hours 08/09/16 08/09/16 08/09/16 08/09/16 15:00 19:00 20:00 22:32 Temp 98.2 98.3 98.2 98.3 Pulse 79 75 Resp 14 18 16 B/P 143/80 134/71 Pulse Ox 94 98 O2 Delivery Room Air Room Air Room Air Room Air 08/09/16 08/10/16 08/10/16 08/10/16 23:00 03:00 03:35 04:35 Temp 99.4 98.7 99.4 98.7 Pulse 69 69 Resp 18 18 16 16 B/P 163/79 127/75 Pulse Ox 98 96 O2 Delivery Room Air Room Air Room Air Room Air 08/10/16 08/10/16 07:00 11:00 Temp 98.0 98.1 98.0 98.1 Pulse 71 78 Resp 18 18 B/P 135/74 122/59 Pulse Ox 97 97 O2 Delivery Room Air Room Air Intake and Output 08/09/16 08/09/16 08/10/16 15:00 23:00 07:00 Intake Total 1179 ml Output Total 300 ml Balance -300 ml 1179 ml Images HCT no acute findings. Carotid A US + Doppler: No high grade stenosis. Thyroid US: 4.1 cm thyroid mass. EEG: COCO ELLIOTT MD Aug 10, 2016 13:07
[2016-08-10] MEDS: ENOXAPARIN 40 MG/0.4 ML DISP.SYRIN. SQ SCH (13:46)
[2016-08-10 14:41] VITALS: BP 129/61
--- NOTE | 2016-08-10 15:02 | PDOC ---
Provider Note Provider Note AF VSS awake and alert abdomen soft ND/NT palpable bilateral femoral pulses right foot/ankle swelling with fracture A/P Asymptomatic 5.2cm AAA by ultrasound - Recommend evaluation with a CT angiogram of the aorta with runoff of the legs however patient is refusing contrast. Will obtain a noncontrast CT abd/pelvis to confirm the aneurysm size and determine if repair is needed. If it is >5cm and appears to be a stent graft candidate she would need a CTA. I discussed both open surgical and endovascular stent repairs with the patient and the benefit to prevent rupture if this is sizable on CT. She is refusing any repair at this time and would like a second opinion from a second vascular group (both myself and Dr. Landeros have seen her, I offered a third surgeon here and she said no). She has agreed to proceed with the noncontrast CT scan here as an initial evaluation. ROSALBA CAMERON MD Aug 10, 2016 15:02
--- NOTE | 2016-08-10 15:50 | RAD ---
Exam performed: Right lower extremity venous Doppler. Clinical Indication: Right leg pain, status post ankle fracture Date of Service:08/10/16 Comparison : None available Discussion: Multiple longitudinal and transverse high resolution real-time images of the venous system of right lower extremity were obtained with color and Doppler sampling and spectral analysis. The common femoral, superficial femoral, popliteal and proximal calf veins are all patent and demonstrate normal flow and compressibility. Normal respiratory phasicity and augmentation is present. Impression: Normal color duplex ultrasound of the venous system of right lower extremity.
--- NOTE | 2016-08-10 16:49 | RAD ---
Exam performed: CT chest, abdomen and pelvis without contrast. History: Aortic aneurysm. Patient is allergic to iodine. Date of service: 08/10/16. Comparison made to a CT chest abdomen and pelvis from 10/14/13. Technique: Contiguous helical acquisitions are obtained through the chest, abdomen and pelvis without intravenous administration of contrast. Sagittal and coronal reformatted images are obtained and reviewed. Findings: There is a infrarenal abdominal aortic aneurysm which measures 5.5 x 5.3 x 8.3 cm in maximum transverse, AP and craniocaudal dimension (previously measuring 4.3 x 3.9 x 6.1 cm in corresponding dimensions. There is extensive scattered atheromatous calcification of the thoracoabdominal aorta which otherwise appears normal in caliber throughout. Right thyroid nodule. No neck, axillary, mediastinal or hilar adenopathy is seen. Lungs are essentially clear. Prominent interstitial markings in both lungs are probably chronic. Small bilateral pleural effusions and linear bibasal opacities probably atelectasis. Heart size is within limits of normal. Lack of IV contrast limits evaluation of abdominal viscera, however Tiny low attenuating nodule likely cysts in the left hepatic lobe, the remainder liver appears grossly unremarkable. Spleen is surgically absent. Pancreas and gallbladder appear normal. Both adrenal glands and bilateral kidneys are symmetric in size. There is a calcification in the right renal hilum likely vascular calcification. No retroperitoneal or mesenteric lymphadenopathy seen. The small and large bowel loops are nondilated and unremarkable. Scattered stool in the colon. Urinary bladder is distended. Uterus is not clearly seen. No adnexal masses. Interrogation of bone windows demonstrates mild spondylotic changes. Impression: Extensive atheromatous 1. Extensive atheromatous calcification of the thoracoabdominal aorta with infrarenal abdominal aortic aneurysm measuring 5.5 x 5.3 x 8.3 cm. 2. Chronic interstitial changes both lung bases with probable tiny left pleural effusion. 3. Cardiomegaly. 4. Probable left hepatic lobe cyst. 5. Right thyroid nodule PQRS Compliance Statement: One or more of the following individualized dose reduction techniques were utilized for this examination: 1. Automated exposure control 2. Adjustment of the mA and/or kV according to patient size 3. Use of iterative reconstruction technique
[2016-08-10 19:00] VITALS: BP 162/81
[2016-08-10] MEDS: MAGNESIUM OXIDE 400 MG TABLET PO SCH (21:35)
[2016-08-10 23:00] VITALS: BP 155/65
[2016-08-11 03:00] VITALS: BP 149/76
[2016-08-11] MEDS: HYDROCODONE/APAP 5/325MG TABLET. PO PRN ×3 (05:49→22:05)
[2016-08-11 07:00] VITALS: BP 147/73
[2016-08-11] MEDS: ASPIRIN ENTERIC COATED 81 MG TABLET.DR. PO SCH (07:52)
[2016-08-11] MEDS: MAGNESIUM OXIDE 400 MG TABLET PO SCH (07:52)
--- NOTE | 2016-08-11 09:00 | PDOC ---
Provider Note Provider Note VSS awake and alert abdomen soft ND/NT CT noncontrast reviewed and shows 5.5cm infrarenal AAA (appears likely adequate for a stent graft) A/P 5.5cm asymptomatic infrarenal AAA - Recommend repair of the AAA at this size. She has a noncontrast CT confirming the size and the anatomy looks possibly amenable to stent graft repair. Recommend a CT angiogram of the abd/pelvis/lower extremities to evaluate for stent graft repair. I discussed the findings of the CT, options of open surgical repair vs stent graft, risks/benefits and recovery. I also discussed the risk of aneurysm rupture in the future if she does not have it repaired. The patient is no agreeable at this point to proceed with the CTA or surgery. She would like to discuss this with Dr. Arreola and consider a second opinion with a different vascular surgery group. Will await patient's decision on treatment. ROSALBA CAMERON MD Aug 11, 2016 09:00
[2016-08-11 09:37] LABS: ALBUMIN 2.6 g/dL (3.4-5.0); CALCIUM 9.9 mg/dL (8.5-10.1); CREATININE 1.4 mg/dL (0.6-1.0); GFR 44.2; PHOSPHORUS 2.9 mg/dL (2.6-4.7); POTASSIUM 4.1 mmol/L (3.5-5.1)
[2016-08-11 11:00] VITALS: BP 133/69
--- NOTE | 2016-08-11 11:02 | PDOC ---
IM PROGRESS NOTES- Subjective Subjective She does not want surgeries, wants second opinion. Objective Vitals Vital Signs Date Time Temp Pulse Resp B/P Pulse Ox O2 Delivery O2 Flow Rate FiO2 08/11/16 10:40 97 Room Air 08/11/16 07:00 98.1 70 18 147/73 98.1 Input & Output Intake and Output 08/11/16 07:00 Intake Total 1429 ml Output Total 750 ml Balance 679 ml Intake Oral 450 ml IV Total 979 ml Output Urine Total 750 ml # Voids 5 # Bowel Movements 1 Physical Exam Physical Exam General appearance - alert,well appearing, and in no distress and oriented to person, place, and time Mental Status - alert, oriented to person, place, and time, affect appropriate to mood Head - normal Chest - clear to auscultation, no wheezes, rales or rhonchi, symmetric air entry Heart - S1 and S2 normal Abdomen - soft, nontender, nondistended, no masses or organomegaly Neurological - alert and oriented Musculoskeletal - no muscular tenderness noted Extremities - + edema RLE (post fall injury with R foot pain) Skin - warm and dry Labs Laboratory Tests Test 08/10/16 03:30 08/10/16 04:53 08/10/16 04:55 08/11/16 08:35 Sodium Level 144mmol/L (136-145) 145mmol/L (136-145) 144mmol/L (136-145) Potassium Level 4.1mmol/L (3.5-5.1) 4.1mmol/L (3.5-5.1) 4.1mmol/L (3.5-5.1) Chloride Level 111mmol/L (98-107) 112mmol/L (98-107) 110mmol/L (98-107) Carbon Dioxide Level 24mmol/L (21-32) 24mmol/L (21-32) 24mmol/L (21-32) Anion Gap 9 (6-14) 9 (6-14) 10 (6-14) Blood Urea Nitrogen 20mg/dL (7-20) 20mg/dL (7-20) 18mg/dL (7-20) Creatinine 1.5mg/dL (0.6-1.0) 1.4mg/dL (0.6-1.0) 1.4mg/dL (0.6-1.0) Estimated GFR (Cockcroft-Gault) 40.9 44.2 44.2 Glucose Level 83mg/dL (70-99) 85mg/dL (70-99) 107mg/dL (70-99) Calcium Level 9.4mg/dL (8.5-10.1) 9.4mg/dL (8.5-10.1) 9.9mg/dL (8.5-10.1) Phosphorus Level 2.7mg/dL (2.6-4.7) 2.9mg/dL (2.6-4.7) Albumin 2.4g/dL (3.4-5.0) 2.6g/dL (3.4-5.0) Magnesium Level 1.6mg/dL (1.8-2.4) 2.0mg/dL (1.8-2.4) White Blood Count 9.7x10^3/uL (4.0-11.0) Red Blood Count 3.84x10^6/uL (3.50-5.40) Hemoglobin 10.5g/dL (12.0-15.5) Hematocrit 32.8% (36.0-47.0) Mean Corpuscular Volume 85fL (79-100) Mean Corpuscular Hemoglobin 27pg (25-35) Mean Corpuscular Hemoglobin Concent 32g/dL (31-37) Red Cell Distribution Width 15.3% (11.5-14.5) Platelet Count 122x10^3/uL (140-400) Neutrophils (%) (Auto) 64% (31-73) Lymphocytes (%) (Auto) 21% (24-48) Monocytes (%) (Auto) 10% (0-9) Eosinophils (%) (Auto) 5% (0-3) Basophils (%) (Auto) 1% (0-3) Neutrophils # (Auto) 6.2x10^3uL (1.8-7.7) Lymphocytes # (Auto) 2.0x10^3/uL (1.0-4.8) Monocytes # (Auto) 1.0x10^3/uL (0.0-1.1) Eosinophils # (Auto) 0.5x10^3/uL (0.0-0.7) Basophils # (Auto) 0.1x10^3/uL (0.0-0.2) Laboratory Tests Test 08/11/16 08:35 White Blood Count 9.7x10^3/uL (4.0-11.0) Red Blood Count 3.84x10^6/uL (3.50-5.40) Hemoglobin 10.5g/dL (12.0-15.5) Hematocrit 32.8% (36.0-47.0) Mean Corpuscular Volume 85fL (79-100) Mean Corpuscular Hemoglobin 27pg (25-35) Mean Corpuscular Hemoglobin Concent 32g/dL (31-37) Red Cell Distribution Width 15.3% (11.5-14.5) Platelet Count 122x10^3/uL (140-400) Neutrophils (%) (Auto) 64% (31-73) Lymphocytes (%) (Auto) 21% (24-48) Monocytes (%) (Auto) 10% (0-9) Eosinophils (%) (Auto) 5% (0-3) Basophils (%) (Auto) 1% (0-3) Neutrophils # (Auto) 6.2x10^3uL (1.8-7.7) Lymphocytes # (Auto) 2.0x10^3/uL (1.0-4.8) Monocytes # (Auto) 1.0x10^3/uL (0.0-1.1) Eosinophils # (Auto) 0.5x10^3/uL (0.0-0.7) Basophils # (Auto) 0.1x10^3/uL (0.0-0.2) Sodium Level 144mmol/L (136-145) Potassium Level 4.1mmol/L (3.5-5.1) Chloride Level 110mmol/L (98-107) Carbon Dioxide Level 24mmol/L (21-32) Anion Gap 10 (6-14) Blood Urea Nitrogen 18mg/dL (7-20) Creatinine 1.4mg/dL (0.6-1.0) Estimated GFR (Cockcroft-Gault) 44.2 Glucose Level 107mg/dL (70-99) Calcium Level 9.9mg/dL (8.5-10.1) Phosphorus Level 2.9mg/dL (2.6-4.7) Magnesium Level 2.0mg/dL (1.8-2.4) Albumin 2.6g/dL (3.4-5.0) Meds Current Medications Magnesium Oxide (Magnesium Oxide) 800 mg DAILY PO Last administered on t 07:52; Start 08/10/16 at 20:00 Assessment Assessment Patien1. Syncope. 2. Right ankle fracture, closed fracture. 3. Hypertension. 4. Mild renal insufficiency. 5. History of previous strokes. 6. Thyroid mass 7. AAA 8.Gallstones PLAN: abnormal MPI with small area reversible ischemia stress induced. Cardiology consulted AAA infrarenal - 2013 4.1x39, currently 5.2 x 4.9. Vascular surgery consulted. Does not want surgery, wants second opinion ARF with RUMA resolved Admit BUN 42 Cr 1.8 08/10 BUN 2.0 Cr 1.4 nephrology consulted NS 75cc/hr Wt admit 145# 08/10 157# syncope - OP patient event monitor planned anemia Fe - Venofer 200mg IV 3 times per week thyroid nodule R thyroid 4.1 cm, OP work up planned gallstones - choley not to be done with AAA repair due to possible contamination - treatment delayed. surgery consulted old CVA -R frontal/R parietal cortical infarct Mg 1.6 Renal standing Mg replacement orders. Await consultants notes/discussion with Jeanette. She does not want further surgeries and wants second opinion. Will initiate DC home paperwork. PLAN: AAA-vascular consult ,5.5 cm now,inc in size.she does not want any intervention for AAA and possible myocardial ischemia. Venous doppler rt LE negative. screen [facility]. For more details regarding further plans, please refer to the orders. Plan Plan For more details regarding further plans, please refer to the orders. BECKY DEL ANGEL MD Aug 11, 2016 11:02
[2016-08-11] MEDS: ENOXAPARIN 40 MG/0.4 ML DISP.SYRIN. SQ SCH (13:03)
[2016-08-11 15:00] VITALS: BP 144/72
[2016-08-11] MEDS: ACETAMINOPHEN 325 MG TABLET. PO PRN (15:06)
[2016-08-11 19:00] VITALS: BP 146/78
[2016-08-11 23:21] VITALS: BP 136/70
[2016-08-12] MEDS: HYDROCODONE/APAP 5/325MG TABLET. PO PRN ×3 (01:58→13:44)
[2016-08-12 03:21] VITALS: BP 129/84
[2016-08-12 07:00] VITALS: BP 149/94
[2016-08-12] MEDS: ASPIRIN ENTERIC COATED 81 MG TABLET.DR. PO SCH (08:12)
[2016-08-12] MEDS: MAGNESIUM OXIDE 400 MG TABLET PO SCH (08:13)
--- NOTE | 2016-08-12 09:56 | PDOC ---
PROGRESS NOTES Assessment Problems Medical Problems: (1) Closed right ankle fracture Status: Acute (2) Syncope Status: Acute Syncope. No evidence of seizure. 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 Plan Continue ASA daily. Treat medical diseases. Subjective No complaints, no episodes of syncope Objective Vital Signs Date Time Temp Pulse Resp B/P Pulse Ox O2 Delivery O2 Flow Rate FiO2 08/12/16 08:12 Room Air 08/12/16 07:00 98.4 108 16 149/94 98 98.4 Intake and Output 08/12/16 07:00 Intake Total 650 ml Output Total 300 ml Balance 350 ml Intake Oral 650 ml Output Urine Total 300 ml # Voids 3 PHYSICAL EXAM Alert. Oriented to time, place and person. PERRL. EOMI. CN: no focal findings. Muscle tone: normal. Muscle strength: 4+/5, splints right ankle due to pain DTR: 2+ Plantar reflex: flexor Gait: not examined in bed. Sensory exam: no abnormal findings. No cerebellar signs elicited. Review of Relevant I have reviewed the following items james (where applicable) has been applied. Labs Laboratory Tests Test 08/11/16 08:35 Sodium Level 144mmol/L (136-145) Potassium Level 4.1mmol/L (3.5-5.1) Chloride Level 110mmol/L (98-107) Carbon Dioxide Level 24mmol/L (21-32) Anion Gap 10 (6-14) Blood Urea Nitrogen 18mg/dL (7-20) Creatinine 1.4mg/dL (0.6-1.0) Estimated GFR (Cockcroft-Gault) 44.2 Glucose Level 107mg/dL (70-99) Calcium Level 9.9mg/dL (8.5-10.1) Phosphorus Level 2.9mg/dL (2.6-4.7) Magnesium Level 2.0mg/dL (1.8-2.4) Albumin 2.6g/dL (3.4-5.0) Microbiology 08/06/16 Urine Culture - Final, Complete 08/06/16 Urine Culture Result 1 (SCARLETT) - Final, Complete 08/06/16 Urine Culture Result 2 (SCARLETT) - Final, Complete Medications Current Medications Morphine Sulfate 4 mg 4 mg 1X ONCE IV Last administered on 08/06/16t 04:47; Start 08/06/16 at 05:00; Stop 08/06/16 at 05:01; Status DC Sodium Chloride (Iv Sodium Chloride 0.9% 500ml Bag) 500 ml @ 500 mls/hr 1X ONCE IV Last administered on 08/06/16 04:48; Start 08/06/16 at 05:00; Stop at 05:59; Status DC Ondansetron HCl (Zofran) 4 mg PRN Q8HRS PRN IV NAUSEA/VOMITING; Start 08/06/16 at 05:00; Stop 08/07/16 at 04:59; Status DC Morphine Sulfate 4 mg 4 mg PRN Q2HR PRN IV SEVERE PAIN; Start 08/06/16 at 05:00 ; Stop 08/07/16 at 04:59; Status DC Sodium Chloride (Iv Sodium Chloride 0.9% 1000ml Bag) 1,000 ml @ 100 mls/hr Q10H IV Last administered on 08/06/16 05:31; Start 08/06/16 at 04:59; Stop at 14:43; Status DC Acetaminophen 650 mg 650 mg PRN Q4HRS PRN PO FEVER; Start 08/06/16 at 05:00; Stop 08/07/16 at 04:59; Status DC Sodium Chloride (Iv Sodium Chloride 0.9% 1000ml Bag) 1,000 ml @ 75 mls/hr [id number] IV Last administered on 08/08/16 04:05; Start 08/06/16 at 11:00; Stop at 23:07; Status DC Acetaminophen/ Hydrocodone Bitart (Lortab 5/325) 1 tab PRN Q4HRS PRN PO MODERATE - SEVERE PAIN Last administered on 08/12/16 08:12; Start 08/06/16 at 10 :15 Enoxaparin Sodium (Lovenox 30mg Syringe) 30 mg Q24H SQ Last administered on 08/08 13:43; Start 08/06/16 at 11:00; Stop 08/09/16 at 10:10; Status DC Aspirin (Ecotrin) 81 mg DAILYWBKFT PO Last administered on 08/12/16 08:12; Start 08/06/16 at 14:30 Benzonatate (Tessalon Perle) 100 mg QHS PO ; Start 08/06/16 at 21:00; Stop at 01:53; Status DC Docusate Sodium (Colace) 100 mg PRN DAILY PRN PO CONSTIPATION Last administered on 08/07/16 08:46; Start 08/06/16 at 20:15 Non-Formulary Medication 1 tab DAILY PO ; Start 08/07/16 at 09:00; Status Cancel Non-Formulary Medication 1 tab DAILY PO ; Start 08/06/16 at 21:00; Status UNV Chlorthalidone (Thalitone) 12.5 mg DAILY PO Last administered on 08/08/16 08:25 ; Start 08/06/16 at 20:30; Stop 08/08/16 at 11:59; Status DC Losartan Potassium (Cozaar) 50 mg DAILY PO Last administered on 08/08/16 08:26 ; Start 08/06/16 at 20:30; Stop 08/08/16 at 11:59; Status DC Acetaminophen (Tylenol) 650 mg PRN Q6HRS PRN PO MILD PAIN / TEMP Last administered on 08/11/16 15:06; Start 08/07/16 at 10:45 Magnesium Hydroxide (Milk Of Magnesia) 2,400 mg PRN DAILY PRN PO CONSTIPATION Last administered on 08/09/16 20:18; Start 08/07/16 at 10:45 Acetylcysteine 1200 mg 1,200 mg BID PO Last administered on 08/10/16 07:52; Start 08/08/16 at 21:00; Stop 08/10/16 at 20:59; Status DC Magnesium Sulfate/ Dextrose 50 ml @ 25 mls/hr PRN DAILY PRN IV for Mag < 1.7 on am labs Last administered on 08/10/16 07:53; Start 08/08/16 at 12:00 Sodium Chloride (Iv Sodium Chloride 0.9% 1000ml Bag) 1,000 ml @ 75 mls/hr [id number] IV Last administered on 08/10/16 06:35; Start 08/09/16 at 02:15; Stop 08/10/16 at 11:27; Status DC Regadenoson (Lexiscan) 0.4 mg 1X ONCE IV Last administered on 08/09/16 09:42 ; Start 08/09/16 at 08:00; Stop 08/09/16 at 08:01; Status DC Magnesium Hydroxide 2400 mg 2,400 mg 1X ONCE PO Last administered on 10:36; Start 08/09/16 at 09:00; Stop 08/09/16 at 09:03; Status DC Iron Sucrose/ Sodium Chloride (Venofer/Iv Sodium Chloride 0.9% 100ml) 110 ml @ 55 mls/hr 3X/WEEK IV Last administered on 08/09/16 10:38; Start 08/09/16 at 09 :00; Stop 08/19/16 at 10:59 Enoxaparin Sodium 40 mg 40 mg Q24H SQ Last administered on 08/11/16 13:03; Start 08/09/16 at 11:00 Magnesium Sulfate/ Dextrose (Magnesium Sulfate PREMIX 2GM) 50 ml @ 25 mls/hr 1X ONCE IV ; Start 08/09/16 at 12:00; Stop 08/09/16 at 13:59; Status DC Magnesium Oxide (Magnesium Oxide) 800 mg DAILY PO Last administered on 08:13; Start 08/10/16 at 20:00 Active Scripts Active Aspirin Ec (Aspirin) 81 Mg Tablet. 81 Mg PO DAILYWBKFT Reported Colace (Docusate Sodium) 100 Mg Capsule 100 Mg PO DAILY Vitals/I & O Vital Sign - Last 24 Hours 08/11/16 08/11/16 08/11/16 08/11/16 10:40 11:00 15:00 19:00 Temp 98.4 98.4 98.1 98.4 98.4 98.1 Pulse 69 63 60 Resp 18 18 20 B/P 133/69 144/72 146/78 Pulse Ox 97 94 98 95 O2 Delivery Room Air Room Air Room Air 08/11/16 08/11/16 08/11/16 08/12/16 19:40 22:05 23:21 01:58 Temp 99.1 99.1 Pulse 69 Resp 20 B/P 136/70 Pulse Ox 97 O2 Delivery Room Air Room Air Room Air Room Air 08/12/16 08/12/16 08/12/16 08/12/16 02:50 03:21 07:00 08:12 Temp 99.4 98.4 99.4 98.4 Pulse 77 108 Resp 20 16 B/P 129/84 149/94 Pulse Ox 96 98 O2 Delivery Room Air Room Air Room Air Room Air Intake and Output 08/11/16 08/11/16 08/12/16 15:00 23:00 07:00 Intake Total 250 ml 100 ml 300 ml Output Total 300 ml Balance 250 ml 100 ml 0 ml COCO GREGORY MD Aug 12, 2016 09:56
--- NOTE | 2016-08-12 10:03 | PDOC ---
PROGRESS NOTES Subjective Subjective c/o pain over low back ,fall last week Objective Objective Vital Signs Date Time Temp Pulse Resp B/P Pulse Ox O2 Delivery O2 Flow Rate FiO2 08/12/16 08:12 Room Air 08/12/16 07:00 98.4 108 16 149/94 98 98.4 Intake and Output 08/12/16 07:00 Intake Total 650 ml Output Total 300 ml Balance 350 ml Intake Oral 650 ml Output Urine Total 300 ml # Voids 3 Physical Exam Abdomen: Soft, No tenderness Heart: Regular rate, Normal S1, Normal S2, No murmurs Extremities: No clubbing, No cyanosis, Other (Pulse: palpable femoral b/l, palpable popliteal b/l, palpable left DP/PT (+1), right DP/PT unable to examine (boot)) General: Alert, Oriented X3, Cooperative, No acute distress HEENT: Atraumatic, EOMI Lungs: Clear to auscultation, Normal air movement MUSCULOSKELETAL: No deformity, No swelling Neuro: Normal speech, Strength at 5/5 X4 ext, Sensation intact Psych/Mental Status: Mental status NL Skin: No rashes, No breakdown COMMENT CAM walker boot rt leg Diagnosis Problem List Problems Medical Problems: (1) Closed right ankle fracture Status: Acute (2) Syncope Status: Acute Assessment Assessment IMP: low back pain 1. Syncope. 2. Right ankle fracture, closed fracture. 3. Hypertension. 4. Mild renal insufficiency. 5. History of previous strokes. 6. Thyroid mass 7. AAA 8.Gallstones PLAN:spoke with Vascular. x ray lower spine and pelvis. d/c to [facility] today Needs Arteriogram with run off as out pt abnormal MPI with small area reversible ischemia stress induced. Cardiology consulted AAA infrarenal - 2013 4.1x39, currently 5.2 x 4.9. Vascular surgery consulted. Does not want surgery right now,want to do later Endovascular repair ARF with RUMA resolved Admit BUN 42 Cr 1.8 08/10 BUN 2.0 Cr 1.4 nephrology consulted . syncope - OP patient event monitor planned anemia Fe - Venofer 200mg IV 3 times per week thyroid nodule R thyroid 4.1 cm, OP work up planned gallstones - choley not to be done with AAA repair due to possible contamination - treatment delayed. surgery consulted old CVA -R frontal/R parietal cortical infarct Mg 1.6 Renal standing Mg replacement orders. Venous doppler rt LE negative. screen SNF-[facility]. For more details regarding further plans, please refer to the orders. Problems: Plan Plan of Care Problems Medical Problems: (1) Closed right ankle fracture Status: Acute (2) Syncope Status: Acute Comment Review of Relevant I have reviewed the following items james (where applicable) has been applied. Labs Microbiology 08/06/16 Urine Culture - Final, Complete 08/06/16 Urine Culture Result 1 (SCARLETT) - Final, Complete 08/06/16 Urine Culture Result 2 (SCARLETT) - Final, Complete Vitals/I & O Vital Sign - Last 24 Hours 08/11/16 08/11/16 08/11/16 08/11/16 10:40 11:00 15:00 19:00 Temp 98.4 98.4 98.1 98.4 98.4 98.1 Pulse 69 63 60 Resp 18 18 20 B/P 133/69 144/72 146/78 Pulse Ox 97 94 98 95 O2 Delivery Room Air Room Air Room Air 08/11/16 08/11/16 08/11/16 08/12/16 19:40 22:05 23:21 01:58 Temp 99.1 99.1 Pulse 69 Resp 20 B/P 136/70 Pulse Ox 97 O2 Delivery Room Air Room Air Room Air Room Air 08/12/16 08/12/16 08/12/16 08/12/16 02:50 03:21 07:00 08:12 Temp 99.4 98.4 99.4 98.4 Pulse 77 108 Resp 20 16 B/P 129/84 149/94 Pulse Ox 96 98 O2 Delivery Room Air Room Air Room Air Room Air Intake and Output 08/11/16 08/11/16 08/12/16 15:00 23:00 07:00 Intake Total 250 ml 100 ml 300 ml Output Total 300 ml Balance 250 ml 100 ml 0 ml LOS NOLASCO MD Aug 12, 2016 10:02
--- NOTE | 2016-08-12 10:09 | PDOC ---
Provider Note Provider Note Discharge summary dictated. #[id number] LOS NOLASCO MD Aug 12, 2016 10:09
--- NOTE | 2016-08-12 10:30 | PDOC ---
PROGRESS NOTES Subjective Subjective She still admits pain,stiffness and swelling of right ankle. Objective Objective Vital Signs Date Time Temp Pulse Resp B/P Pulse Ox O2 Delivery O2 Flow Rate FiO2 08/12/16 10:02 Room Air 08/12/16 07:00 98.4 108 16 149/94 98 98.4 Intake and Output 08/12/16 07:00 Intake Total 650 ml Output Total 300 ml Balance 350 ml Intake Oral 650 ml Output Urine Total 300 ml # Voids 3 Physical Exam Physical Exam She is supine in bed and still protecting her right ankle with tenderness to palpation over right lateral malleolus. Assessment Assessment Problems Medical Problems: (1) Closed right ankle fracture Status: Acute (2) Syncope Status: Acute Plan Plan of Care To SNF when medically stable. Comment Review of Relevant I have reviewed the following items james (where applicable) has been applied. Labs Laboratory Tests Test 08/11/16 08:35 Sodium Level 144mmol/L (136-145) Potassium Level 4.1mmol/L (3.5-5.1) Chloride Level 110mmol/L (98-107) Carbon Dioxide Level 24mmol/L (21-32) Anion Gap 10 (6-14) Blood Urea Nitrogen 18mg/dL (7-20) Creatinine 1.4mg/dL (0.6-1.0) Estimated GFR (Cockcroft-Gault) 44.2 Glucose Level 107mg/dL (70-99) Calcium Level 9.9mg/dL (8.5-10.1) Phosphorus Level 2.9mg/dL (2.6-4.7) Magnesium Level 2.0mg/dL (1.8-2.4) Albumin 2.6g/dL (3.4-5.0) Microbiology 08/06/16 Urine Culture - Final, Complete 08/06/16 Urine Culture Result 1 (SCARLETT) - Final, Complete 08/06/16 Urine Culture Result 2 (SCARLETT) - Final, Complete Medications Current Medications Morphine Sulfate 4 mg 4 mg 1X ONCE IV Last administered on 08/06/16 04:47; Start 08/06/16 at 05:00; Stop 08/06/16 at 05:01; Status DC Sodium Chloride (Iv Sodium Chloride 0.9% 500ml Bag) 500 ml @ 500 mls/hr 1X ONCE IV Last administered on 08/06/16 04:48; Start 08/06/16 at 05:00; Stop at 05:59; Status DC Ondansetron HCl (Zofran) 4 mg PRN Q8HRS PRN IV NAUSEA/VOMITING; Start 08/06/16 at 05:00; Stop 08/07/16 at 04:59; Status DC Morphine Sulfate 4 mg 4 mg PRN Q2HR PRN IV SEVERE PAIN; Start 08/06/16 at 05:00 ; Stop 08/07/16 at 04:59; Status DC Sodium Chloride (Iv Sodium Chloride 0.9% 1000ml Bag) 1,000 ml @ 100 mls/hr Q10H IV Last administered on 08/06/16 05:31; Start 08/06/16 at 04:59; Stop at 14:43; Status DC Acetaminophen 650 mg 650 mg PRN Q4HRS PRN PO FEVER; Start 08/06/16 at 05:00; Stop 08/07/16 at 04:59; Status DC Sodium Chloride (Iv Sodium Chloride 0.9% 1000ml Bag) 1,000 ml @ 75 mls/hr [id number] IV Last administered on 08/08/16 04:05; Start 08/06/16 at 11:00; Stop at 23:07; Status DC Acetaminophen/ Hydrocodone Bitart (Lortab 5/325) 1 tab PRN Q4HRS PRN PO MODERATE - SEVERE PAIN Last administered on 08/12/16 08:12; Start 08/06/16 at 10 :15 Enoxaparin Sodium (Lovenox 30mg Syringe) 30 mg Q24H SQ Last administered on 08/08 13:43; Start 08/06/16 at 11:00; Stop 08/09/16 at 10:10; Status DC Aspirin (Ecotrin) 81 mg DAILYWBKFT PO Last administered on 08/12/16 08:12; Start 08/06/16 at 14:30 Benzonatate (Tessalon Perle) 100 mg QHS PO ; Start 08/06/16 at 21:00; Stop at 01:53; Status DC Docusate Sodium (Colace) 100 mg PRN DAILY PRN PO CONSTIPATION Last administered on 08/07/16 08:46; Start 08/06/16 at 20:15 Non-Formulary Medication 1 tab DAILY PO ; Start 08/07/16 at 09:00; Status Cancel Non-Formulary Medication 1 tab DAILY PO ; Start 08/06/16 at 21:00; Status UNV Chlorthalidone (Thalitone) 12.5 mg DAILY PO Last administered on 08/08/16 08:25 ; Start 08/06/16 at 20:30; Stop 08/08/16 at 11:59; Status DC Losartan Potassium (Cozaar) 50 mg DAILY PO Last administered on 08/08/16 08:26 ; Start 08/06/16 at 20:30; Stop 08/08/16 at 11:59; Status DC Acetaminophen (Tylenol) 650 mg PRN Q6HRS PRN PO MILD PAIN / TEMP Last administered on 08/11/16 15:06; Start 08/07/16 at 10:45 Magnesium Hydroxide (Milk Of Magnesia) 2,400 mg PRN DAILY PRN PO CONSTIPATION Last administered on 08/09/16 20:18; Start 08/07/16 at 10:45 Acetylcysteine 1200 mg 1,200 mg BID PO Last administered on 08/10/16 07:52; Start 08/08/16 at 21:00; Stop 08/10/16 at 20:59; Status DC Magnesium Sulfate/ Dextrose 50 ml @ 25 mls/hr PRN DAILY PRN IV for Mag < 1.7 on am labs Last administered on 08/10/16 07:53; Start 08/08/16 at 12:00 Sodium Chloride (Iv Sodium Chloride 0.9% 1000ml Bag) 1,000 ml @ 75 mls/hr [id number] IV Last administered on 08/10/16 06:35; Start 08/09/16 at 02:15; Stop 08/10/16 at 11:27; Status DC Regadenoson (Lexiscan) 0.4 mg 1X ONCE IV Last administered on 08/09/16 09:42 ; Start 08/09/16 at 08:00; Stop 08/09/16 at 08:01; Status DC Magnesium Hydroxide 2400 mg 2,400 mg 1X ONCE PO Last administered on 10:36; Start 08/09/16 at 09:00; Stop 08/09/16 at 09:03; Status DC Iron Sucrose/ Sodium Chloride (Venofer/Iv Sodium Chloride 0.9% 100ml) 110 ml @ 55 mls/hr 3X/WEEK IV Last administered on 08/09/16 10:38; Start 08/09/16 at 09 :00; Stop 08/19/16 at 10:59 Enoxaparin Sodium 40 mg 40 mg Q24H SQ Last administered on 08/11/16 13:03; Start 08/09/16 at 11:00 Magnesium Sulfate/ Dextrose (Magnesium Sulfate PREMIX 2GM) 50 ml @ 25 mls/hr 1X ONCE IV ; Start 08/09/16 at 12:00; Stop 08/09/16 at 13:59; Status DC Magnesium Oxide (Magnesium Oxide) 800 mg DAILY PO Last administered on 08:13; Start 08/10/16 at 20:00 Active Scripts Active Aspirin Ec (Aspirin) 81 Mg Tablet. 81 Mg PO DAILYWBKFT Reported Colace (Docusate Sodium) 100 Mg Capsule 100 Mg PO DAILY Vitals/I & O Vital Sign - Last 24 Hours 08/11/16 08/11/16 08/11/16 08/11/16 10:40 11:00 15:00 19:00 Temp 98.4 98.4 98.1 98.4 98.4 98.1 Pulse 69 63 60 Resp 18 18 20 B/P 133/69 144/72 146/78 Pulse Ox 97 94 98 95 O2 Delivery Room Air Room Air Room Air 08/11/16 08/11/16 08/11/16 08/12/16 19:40 22:05 23:21 01:58 Temp 99.1 99.1 Pulse 69 Resp 20 B/P 136/70 Pulse Ox 97 O2 Delivery Room Air Room Air Room Air Room Air 08/12/16 08/12/16 08/12/16 08/12/16 03:21 07:00 08:00 08:12 Temp 99.4 98.4 99.4 98.4 Pulse 77 108 Resp 20 16 B/P 129/84 149/94 Pulse Ox 96 98 O2 Delivery Room Air Room Air Room Air Room Air 08/12/16 10:02 O2 Delivery Room Air Intake and Output 08/11/16 08/11/16 08/12/16 15:00 23:00 07:00 Intake Total 250 ml 100 ml 300 ml Output Total 300 ml Balance 250 ml 100 ml 0 ml ETHEL CHOI MD Aug 12, 2016 10:30
[2016-08-12] MEDS: IRON SUCROSE COMPLEX 200 MG in IV NORMAL SALINE 100ML 100 ML IV SCH (10:55)
[2016-08-12] MEDS: ENOXAPARIN 40 MG/0.4 ML DISP.SYRIN. SQ SCH (10:55)
[2016-08-12 11:00] VITALS: BP 129/80
--- NOTE | 2016-08-12 11:53 | PDOC ---
PROGRESS NOTES Objective Objective Vascular Surgery follow up and plan: Patient is off the floor having back xrays performed. I have spoke with Dr. Arreola this morning regarding patient's decision. He spoke with the patient at great length. She is now willing to consider proceeding with AAA repair but wants to recover from ankle fracture first. Plans to be discharged to [facility]. I reminded Dr. Arreola that we still need a CTA of the abdominal aorta and pelvis with run-off to evaluate her PAD further and for possible stent graft evaluation. The patient does have CRI and her renal function will need to be monitored prior to CTA. Dr. Arreola will plan for CTA in a couple weeks and monitor renal function in the meantime. Additionally, patient will need to complete her CV eval with out-patient stress test prior to proceeding with an AAA repair. Patient has been seen by Dr. Aaron during this admission. Once the above further testing is completed, the patient does have a follow up appointment with Dr. Zonia Lovett in the office to rediscuss surgical options and consideration for an endovascular repair of her AAA. Vital Signs Date Time Temp Pulse Resp B/P Pulse Ox O2 Delivery O2 Flow Rate FiO2 08/12/16 11:00 98.3 105 16 129/80 97 Room Air 98.3 Intake and Output 08/12/16 07:00 Intake Total 650 ml Output Total 300 ml Balance 350 ml Intake Oral 650 ml Output Urine Total 300 ml # Voids 3 Assessment Assessment Problems Medical Problems: (1) Closed right ankle fracture Status: Acute (2) Syncope Status: Acute Comment Review of Relevant I have reviewed the following items james (where applicable) has been applied. Labs Laboratory Tests Test 08/11/16 08:35 Sodium Level 144mmol/L (136-145) Potassium Level 4.1mmol/L (3.5-5.1) Chloride Level 110mmol/L (98-107) Carbon Dioxide Level 24mmol/L (21-32) Anion Gap 10 (6-14) Blood Urea Nitrogen 18mg/dL (7-20) Creatinine 1.4mg/dL (0.6-1.0) Estimated GFR (Cockcroft-Gault) 44.2 Glucose Level 107mg/dL (70-99) Calcium Level 9.9mg/dL (8.5-10.1) Phosphorus Level 2.9mg/dL (2.6-4.7) Magnesium Level 2.0mg/dL (1.8-2.4) Albumin 2.6g/dL (3.4-5.0) Microbiology 08/06/16 Urine Culture - Final, Complete 08/06/16 Urine Culture Result 1 (SCARLETT) - Final, Complete 08/06/16 Urine Culture Result 2 (SCARLETT) - Final, Complete Medications Current Medications Morphine Sulfate 4 mg 4 mg 1X ONCE IV Last administered on 08/06/16 04:47; Start 08/06/16 at 05:00; Stop 08/06/16 at 05:01; Status DC Sodium Chloride (Iv Sodium Chloride 0.9% 500ml Bag) 500 ml @ 500 mls/hr 1X ONCE IV Last administered on 08/06/16 04:48; Start 08/06/16 at 05:00; Stop at 05:59; Status DC Ondansetron HCl (Zofran) 4 mg PRN Q8HRS PRN IV NAUSEA/VOMITING; Start 08/06/16 at 05:00; Stop 08/07/16 at 04:59; Status DC Morphine Sulfate 4 mg 4 mg PRN Q2HR PRN IV SEVERE PAIN; Start 08/06/16 at 05:00 ; Stop 08/07/16 at 04:59; Status DC Sodium Chloride (Iv Sodium Chloride 0.9% 1000ml Bag) 1,000 ml @ 100 mls/hr Q10H IV Last administered on 08/06/16 05:31; Start 08/06/16 at 04:59; Stop at 14:43; Status DC Acetaminophen 650 mg 650 mg PRN Q4HRS PRN PO FEVER; Start 08/06/16 at 05:00; Stop 08/07/16 at 04:59; Status DC Sodium Chloride (Iv Sodium Chloride 0.9% 1000ml Bag) 1,000 ml @ 75 mls/hr [id number] IV Last administered on 08/08/16 04:05; Start 08/06/16 at 11:00; Stop at 23:07; Status DC Acetaminophen/ Hydrocodone Bitart (Lortab 5/325) 1 tab PRN Q4HRS PRN PO MODERATE - SEVERE PAIN Last administered on 08/12/16 08:12; Start 08/06/16 at 10 :15 Enoxaparin Sodium (Lovenox 30mg Syringe) 30 mg Q24H SQ Last administered on 08/08 13:43; Start 08/06/16 at 11:00; Stop 08/09/16 at 10:10; Status DC Aspirin (Ecotrin) 81 mg DAILYWBKFT PO Last administered on 08/12/16 08:12; Start 08/06/16 at 14:30 Benzonatate (Tessalon Perle) 100 mg QHS PO ; Start 08/06/16 at 21:00; Stop at 01:53; Status DC Docusate Sodium (Colace) 100 mg PRN DAILY PRN PO CONSTIPATION Last administered on 08/07/16 08:46; Start 08/06/16 at 20:15 Non-Formulary Medication 1 tab DAILY PO ; Start 08/07/16 at 09:00; Status Cancel Non-Formulary Medication 1 tab DAILY PO ; Start 08/06/16 at 21:00; Status UNV Chlorthalidone (Thalitone) 12.5 mg DAILY PO Last administered on 08/08/16 08:25 ; Start 08/06/16 at 20:30; Stop 08/08/16 at 11:59; Status DC Losartan Potassium (Cozaar) 50 mg DAILY PO Last administered on 08/08/16 08:26 ; Start 08/06/16 at 20:30; Stop 08/08/16 at 11:59; Status DC Acetaminophen (Tylenol) 650 mg PRN Q6HRS PRN PO MILD PAIN / TEMP Last administered on 08/11/16 15:06; Start 08/07/16 at 10:45 Magnesium Hydroxide (Milk Of Magnesia) 2,400 mg PRN DAILY PRN PO CONSTIPATION Last administered on 08/09/16 20:18; Start 08/07/16 at 10:45 Acetylcysteine 1200 mg 1,200 mg BID PO Last administered on 08/10/16 07:52; Start 08/08/16 at 21:00; Stop 08/10/16 at 20:59; Status DC Magnesium Sulfate/ Dextrose 50 ml @ 25 mls/hr PRN DAILY PRN IV for Mag < 1.7 on am labs Last administered on 08/10/16 07:53; Start 08/08/16 at 12:00 Sodium Chloride (Iv Sodium Chloride 0.9% 1000ml Bag) 1,000 ml @ 75 mls/hr [id number] IV Last administered on 08/10/16 06:35; Start 08/09/16 at 02:15; Stop 08/10/16 at 11:27; Status DC Regadenoson (Lexiscan) 0.4 mg 1X ONCE IV Last administered on 08/09/16 09:42 ; Start 08/09/16 at 08:00; Stop 08/09/16 at 08:01; Status DC Magnesium Hydroxide 2400 mg 2,400 mg 1X ONCE PO Last administered on 10:36; Start 08/09/16 at 09:00; Stop 08/09/16 at 09:03; Status DC Iron Sucrose/ Sodium Chloride (Venofer/Iv Sodium Chloride 0.9% 100ml) 110 ml @ 55 mls/hr 3X/WEEK IV Last administered on 08/12/16 10:55; Start 08/09/16 at 09 :00; Stop 08/19/16 at 10:59 Enoxaparin Sodium 40 mg 40 mg Q24H SQ Last administered on 08/12/16 10:55; Start 08/09/16 at 11:00 Magnesium Sulfate/ Dextrose (Magnesium Sulfate PREMIX 2GM) 50 ml @ 25 mls/hr 1X ONCE IV ; Start 08/09/16 at 12:00; Stop 08/09/16 at 13:59; Status DC Magnesium Oxide (Magnesium Oxide) 800 mg DAILY PO Last administered on 08:13; Start 08/10/16 at 20:00 Active Scripts Active Aspirin Ec (Aspirin) 81 Mg Tablet. 81 Mg PO DAILYWBKFT Reported Colace (Docusate Sodium) 100 Mg Capsule 100 Mg PO DAILY Vitals/I & O Vital Sign - Last 24 Hours 08/11/16 08/11/16 08/11/16 08/11/16 15:00 19:00 19:40 22:05 Temp 98.4 98.1 98.4 98.1 Pulse 63 60 Resp 18 20 B/P 144/72 146/78 Pulse Ox 98 95 O2 Delivery Room Air Room Air Room Air Room Air 08/11/16 08/12/16 08/12/16 08/12/16 23:21 01:58 03:21 07:00 Temp 99.1 99.4 98.4 99.1 99.4 98.4 Pulse 69 77 108 Resp 20 20 16 B/P 136/70 129/84 149/94 Pulse Ox 97 96 98 O2 Delivery Room Air Room Air Room Air Room Air 08/12/16 08/12/16 08/12/16 08/12/16 08:00 08:12 10:02 11:00 Temp 98.3 98.3 Pulse 105 Resp 16 B/P 129/80 Pulse Ox 97 O2 Delivery Room Air Room Air Room Air Room Air Intake and Output 08/11/16 08/11/16 08/12/16 15:00 23:00 07:00 Intake Total 250 ml 100 ml 300 ml Output Total 300 ml Balance 250 ml 100 ml 0 ml JOSE WEST APRN Aug 12, 2016 11:53
--- NOTE | 2016-08-12 12:01 | RAD ---
Lumbar spine, 3 views, 08/12/2016: History: Fall, pain The bony structures are demineralized. The lumbar vertebral heights are well-maintained. The intervertebral disc spaces are well preserved. There are mild scattered marginal spurs. There are mild degenerative changes involving the facet joints in the lower lumbar spine. Aortoiliac calcific plaquing is present. 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 IMPRESSION: 1. Demineralization. 2. Mild degenerative change. 3. No acute lumbar spine abnormality is detected. Sacrococcygeal spine, 3 views, 08/12/2016: The sacrum is poorly defined on the AP views due to demineralization and overlying bowel content. No fracture is identified. The presacral soft tissues are unremarkable. IMPRESSION: No acute sacrococcygeal abnormality is detected. Pelvis, single view, 08/12/2016: No fracture or destructive bony lesion is seen. The hip joint spaces are fairly well-maintained. There are scattered vascular calcifications. IMPRESSION: No acute pelvic abnormality is detected.
--- NOTE | 2016-08-12 20:25 | DS ---
DATE OF DISCHARGE: 08/12/2016 REASON FOR ADMISSION TO THE HOSPITAL: 1. Syncope. 2. Right ankle fracture. CONSULTATIONS: Dr. Linn Fernandez, Renal; Dr. Diaz, Orthopedic; Dr. Colón, General Surgery; Cardiology, ; and Dr. Quan, Vascular. PROCEDURES DONE: 1. Echocardiogram. 2. CT head. 3. ECHO. 4. Carotid Doppler. 5. Ultrasound of the kidneys. 6. CT chest, abdomen and pelvis. 7. Ultrasound of the neck. HOSPITAL COURSE: The patient is a 75-year-old female with history of hypertension. She had a syncopal episode and fell, injuring her ankle. X-ray shows a right ankle fracture, fibula lower end, seen by Orthopedic, recommended a Cam walker, conservative treatment. Seen by physical therapy and rehab. The patient has a creatinine of 1.8. She was seen by Renal, had ultrasound of the kidneys and she also showed an AAA, had ultrasound, which shows 5.2 cm, increased from 4.5 cm last year. The patient was seen by Vascular, recommended surgery Patient had a Doppler lower leg, was negative for DVT. The patient had a CT head, which shows no evidence of acute bleed or mass,she had old cortical infarct in the right frontal lobe and right parietal lobe. The patient has had a stress test, shows very minimal reversible ischemia in the apical area, considered moderate risk for surgery. On the whole, the patient's condition was improving, and the patient was agreeable to have endovasular repair for AAA, but she wants to do that at a later time when she feels better, and the patient is discharged to [facility], for rehab and see how she improves. she also had gallstones on sonogram, she also had thyroid mass, needs needle aspiration biopsy. FINAL DIAGNOSES: 1. Syncope. 2. Ankle fracture, had a mildly displaced oblique fracture of the lateral malleolus. Recommended Cam walker. 3. Abdominal aortic aneurysm 5.5 cm, needs surgery. The patient wants to wait until she feels better.Endo vascular repair planned for future 4. [id number] renal insufficiency, improving. 5. Hypertension. 6. Thyroid nodules, need further evaluation. 7. Gallstones, need further evaluation. The patient wants to wait. 8. History of previous strokes. 9. Mild coronary artery disease in the apical region. PLAN: At this time, the patient wants to wait on the AAA repair, wants to get rehab and feel stronger. LOS NOLASCO MD DR: HARSHA/sal JOB#: [id number] / [id number] LAUREN
== END 2016-08-12 14:15 | disposition home or self-care (01) | DRG 683 ==
LOC: ER 03:36 → 4 NORTH 04:59
PROVIDERS: ADMIT Internal Medicine; ATTEND Internal Medicine
DX: N17.9 Acute kidney failure, unspecified (principal); N39.0 Urinary tract infection, site not specified; E44.0 Moderate protein-calorie malnutrition; S82.63XA Displaced fracture of lateral malleolus of unspecified fibula, initial encounter for closed fracture; E83.42 Hypomagnesemia; S82.61XA Displaced fracture of lateral malleolus of right fibula, initial encounter for closed fracture; E78.5 Hyperlipidemia, unspecified; I25.10 Atherosclerotic heart disease of native coronary artery without angina pectoris; I27.2 Other secondary pulmonary hypertension; J44.9 Chronic obstructive pulmonary disease, unspecified; Z51.5 Encounter for palliative care; M17.0 Bilateral primary osteoarthritis of knee; K59.00 Constipation, unspecified; I12.9 Hypertensive chronic kidney disease with stage 1 through stage 4 chronic kidney disease, or unspecified chronic kidney disease; I71.4 Abdominal aortic aneurysm, without rupture; E04.2 Nontoxic multinodular goiter; K80.20 Calculus of gallbladder without cholecystitis without obstruction; N18.3 Chronic kidney disease, stage 3 (moderate); D64.9 Anemia, unspecified; W07.XXXA Fall from chair, initial encounter; G62.9 Polyneuropathy, unspecified; Z68.23 Body mass index [BMI] 23.0-23.9, adult; K57.90 Diverticulosis of intestine, part unspecified, without perforation or abscess without bleeding; M54.5 Low back pain; R55 Syncope and collapse; Z88.0 Allergy status to penicillin; Z88.2 Allergy status to sulfonamides; Z88.8 Allergy status to other drugs, medicaments and biological substances; Z91.041 Radiographic dye allergy status; Z79.82 Long term (current) use of aspirin; Z86.73 Personal history of transient ischemic attack (TIA), and cerebral infarction without residual deficits; Z90.49 Acquired absence of other specified parts of digestive tract; Z90.81 Acquired absence of spleen; Y93.89 Activity, other specified; Y92.098 Other place in other non-institutional residence as the place of occurrence of the external cause; Y99.8 Other external cause status; Z86.79 Personal history of other diseases of the circulatory system
CPT/HCPCS: 36415; 70450; 71010; 71250; 72100; 72170; 72220; 73502; 73610; 74176; 76536; 76770; 78452; 80048; 80053; 80061; 80069; 81001; 82550; 82728; 83540; 83550; 83735; 84443; 84484; 85018; 85027; 85045; 87086; 93005; 93017; 93306; 93880; 93971; 95816; 96361; 96374; 96375; 96376; A9500; J1650; J1756; J2270; J2785; J7030; J7040; J7060; 97116; 97530; 97535; 99285-25

== ENCOUNTER 2016-08-28 09:47 | Emergency (ER) | payer MEDICAID, OTHER ==
[~2016-08-28] VITALS: Ht 165.1 cm; Wt 63.5 kg
[~2016-08-28 09:47] MED LIST changes: +ASPI81TA9 PO; +AZIL1TAB3 PO; +BENZ100C2 PO; +DOCU-27 PO; +ENOX40DI3 SQ; +HYDR-2666 PO; +MAGN400C PO
[2016-08-28 11:11] LABS: CALCIUM 10.6 mg/dL (8.5-10.1); CREATININE 1.7 mg/dL (0.6-1.0); GFR 35.4; POTASSIUM 3.8 mmol/L (3.5-5.1)
[2016-08-28 11:16] LABS: ALBUMIN 3.2 g/dL (3.4-5.0); ALBUMIN/GLOBULIN RATIO 0.6 (1.0-1.7); TOTAL BILIRUBIN 0.3 mg/dL (0.2-1.0); TOTAL PROTEIN 8.2 g/dL (6.4-8.2)
[2016-08-28 11:20] LABS: BASO % 0 % (0-3); EOS % 1 % (0-3); HEMATOCRIT 36.9 % (36.0-47.0); HEMOGLOBIN 11.8 g/dL (12.0-15.5); LYMPH # 2.4 x10^3/uL (1.0-4.8); LYMPH % 22 % (24-48); MEAN CORPUSCULAR HEMOGLOBIN 27 pg (25-35); MEAN CORPUSCULAR HGB CONC 32 g/dL (31-37); MEAN CORPUSCULAR VOLUME 86 fL (79-100); MONO % 8 % (0-9); NEUT % 69 % (31-73); PLATELET COUNT 150 x10^3/uL (140-400); WHITE BLOOD COUNT 10.9 x10^3/uL (4.0-11.0)
[2016-08-28 12:11] LABS: PLT ESTIMATE ADEQUATE (ADEQUATE)
--- NOTE | 2016-08-28 12:11 | RAD ---
Indication bilateral submandibular masses. Imaging of the neck was performed. The study is limited. No IV contrast was administered. The right lobe of the thyroid is enlarged with some associated mediastinal extension. These findings are consistent with those demonstrated on the thyroid ultrasound 08/06/2016. The lung apices are clear. There is moderate atrophy in the visualized brain. The calvarium and visualized paranasal sinuses appear unremarkable. No significant bony finding is seen. Significant adenopathy in the neck is not seen. The submandibular glands are symmetric but perhaps slightly enlarged. In the floor the mouth, just below the tongue there is a suggested oval mass measuring approximately 1.6 cm in greatest dimension. The etiology is unclear. This could be a cyst. An enlarged atypical lymph node is felt somewhat less likely. This may be amenable to ultrasound evaluation. No additional finding is seen. IMPRESSION: Enlarged right lobe of the thyroid with associated mediastinal extension. This was identified and referenced on a thyroid ultrasound examination 08/06/2016. Mild enlargement of both submandibular glands. Suggested 1.6 cm mass at the floor the mouth. The etiology is unclear PQRS Compliance Statement: One or more of the following individualized dose reduction techniques were utilized for this examination: 1. Automated exposure control 2. Adjustment of the mA and/or kV according to patient size 3. Use of iterative reconstruction technique
--- NOTE | 2016-08-28 12:16 | PHYS DOC ---
Past Medical History Past Medical History: Hypertension, Pneumonia Additional Past Medical Histor: LOW PLATLET COUNT, AAA, fx to R foot Past Surgical History: Appendectomy, Splenectomy Alcohol Use: None Drug Use: None Adult General Chief Complaint Chief Complaint: Neck swelling HPI HPI Patient is a 75 year old female sent in from [facility] with the complaint of neck swelling, possible allergic reaction. Dr. Arreola called me about this patient. Yesterday, the patient had a contrast CT angiography to evaluate a AAA. The patient had reported a history of iodine allergy so she had been premedicated with dexamethasone and Benadryl. Today, the patient complained of neck swelling and there was a concern that her symptoms might be allergic so Dr. Arreola ask them to bring her here for evaluation. The patient tells me that she was fine yesterday, fine when she went to bed last night, she woke up at about 6 this morning without any complaint, and at some point she became aware that her neck is swollen. She has no itching anywhere. She has no itchy rash or any kind of rash. She did has no swelling inside of her mouth or throat. She has no difficulty breathing or swallowing. This has never happened to her before. She does not have any swelling elsewhere. The patient is at [facility] for rehabilitation, she had a fall a few weeks ago, was hospitalized, and was sent to [facility] for rehabilitation prior to eventually going home is the plan. PCP Dr. Arreola Review of Systems Review of Systems Constitutional: Denies fever or chills [] Eyes: Denies change in visual acuity, redness, or eye pain [] HENT: Denies nasal congestion or sore throat [] Respiratory: Denies cough or shortness of breath [] Cardiovascular: Denies chest pain GI: Denies abdominal pain, nausea, vomiting, bloody stools or diarrhea [] : Denies dysuria or hematuria [] Musculoskeletal: Denies back pain or joint pain [] Integument: Denies rash or skin lesions [] Neurologic: Denies headache, focal weakness or sensory changes [] Allergies Allergies Allergies Coded Allergies Type Severity Reaction Last Updated Verified iodine Allergy Severe 10/14/13 Yes Penicillins Allergy Intermediate 08/06/16 Yes Sulfa (Sulfonamide Antibiotics) Allergy Intermediate 08/06/16 Yes prednisone Allergy Mild 10/14/13 Yes Physical Exam Physical Exam Constitutional: Well developed, well nourished, no acute distress, non-toxic appearance. Alert, mentating normally, no stridor, no dyspnea. HENT: Normocephalic, atraumatic, bilateral external ears normal, oropharynx moist, no oral exudates, no swelling inside the mouth, no swelling of the tongue , uvula, or pharynx, nose normal. [] Eyes: PERRLA, EOMI, conjunctiva normal, no discharge. [] Neck: Normal range of motion, no tenderness, supple, no stridor. Symmetrical enlarged palpable apparent lymph nodes submandibular bilaterally. The masses do not appear to be salivary gland on exam. The swelling does not cross the angle of the mandible. They are nontender. There is no other lymphadenopathy or mass in the neck. Cardiovascular:Heart rate regular rhythm, no murmur [] Lungs & Thorax: Bilateral breath sounds clear to auscultation [] Skin: Warm, dry, no erythema, no rash. [] Extremities: No tenderness, no cyanosis, no clubbing, ROM intact, no edema. [] Neurologic: Alert and oriented X 3, normal motor function, normal sensory function, no focal deficits noted. [] Current Patient Data Vital Signs Vital Signs Date Time Temp Pulse Resp B/P Pulse Ox O2 Delivery O2 Flow Rate FiO2 08/28/16 13:01 64 20 146/77 Room Air 08/28/16 11:45 94 08/28/16 10:04 97.2 97.2 Lab Values Laboratory Tests Test 08/28/16 10:50 White Blood Count 10.9x10^3/uL (4.0-11.0) Red Blood Count 4.30x10^6/uL (3.50-5.40) Hemoglobin 11.8g/dL (12.0-15.5) L Hematocrit 36.9% (36.0-47.0) Mean Corpuscular Volume 86fL (79-100) Mean Corpuscular Hemoglobin 27pg (25-35) Mean Corpuscular Hemoglobin Concent 32g/dL (31-37) Red Cell Distribution Width 16.0% (11.5-14.5) H Platelet Count 150x10^3/uL (140-400) Neutrophils (%) (Auto) 69% (31-73) Lymphocytes (%) (Auto) 22% (24-48) L Monocytes (%) (Auto) 8% (0-9) Eosinophils (%) (Auto) 1% (0-3) Basophils (%) (Auto) 0% (0-3) Neutrophils # (Auto) 7.5x10^3uL (1.8-7.7) Lymphocytes # (Auto) 2.4x10^3/uL (1.0-4.8) Monocytes # (Auto) 0.9x10^3/uL (0.0-1.1) Eosinophils # (Auto) 0.1x10^3/uL (0.0-0.7) Basophils # (Auto) 0.0x10^3/uL (0.0-0.2) Platelet Estimate Adequate (ADEQUATE) Large Platelets Present Giant Platelets Present Sodium Level 142mmol/L (136-145) Potassium Level 3.8mmol/L (3.5-5.1) Chloride Level 105mmol/L (98-107) Carbon Dioxide Level 30mmol/L (21-32) Anion Gap 7 (6-14) Blood Urea Nitrogen 48mg/dL (7-20) H Creatinine 1.7mg/dL (0.6-1.0) H Estimated GFR (Cockcroft-Gault) 35.4 BUN/Creatinine Ratio 28 (6-20) H Glucose Level 93mg/dL (70-99) Calcium Level 10.6mg/dL (8.5-10.1) H Total Bilirubin 0.3mg/dL (0.2-1.0) Aspartate Amino Transferase (AST) 35U/L (15-37) Alanine Aminotransferase (ALT) 35U/L (14-59) Alkaline Phosphatase 67U/L (46-116) Total Protein 8.2g/dL (6.4-8.2) Albumin 3.2g/dL (3.4-5.0) L Albumin/Globulin Ratio 0.6 (1.0-1.7) L Laboratory Tests 08/28/16 10:50 Laboratory Tests 08/28/16 10:50 EKG EKG [] Radiology/Procedures Radiology/Procedures CT scan of the neck without contrast read by the radiologist showed that the enlargements are submandibular glands. They did not see any significant adenopathy. [] Course & Med Decision Making Course & Med Decision Making Pertinent Labs and Imaging studies reviewed. (See chart for details) 75-year-old female presents with symmetrical bilateral submandibular nontender masses that clinically appear to be lymph nodes. Because she had a contrasted CT scan yesterday, and has reported an iodine allergy, the presenting complaint was "possible allergic reaction". However, there is no sign whatsoever of allergic reaction on evaluation. The patient insists that she did not have this swelling yesterday, it was present when she woke up this morning, and she does believe it must be linked to the fact that she got IV contrast yesterday. However, as I explained to her, I don't believe it is an allergic reaction. I advised the patient that we will attempt to evaluate these masses with a noncontrast CT scan and also do some blood work. She is agreeable to that plan. Labs today reveal creatinine 1.7, in the past it was running 1.4-1.5. That small bump may be from the IV contrast yesterday but I don't believe that is a significant elevation. Noncontrast CT scan showed that the masses are submandibular salivary glands. No lymphadenopathy was seen. The swelling of the submandibular glands historically occurred a few hours after administration of IV contrast. Researching this case, I found that there is a rare late adverse reaction after injection of iodine-based contrast agent which is swelling of the salivary glands. Iodide sialadenitis is a rare late reaction to IV administration of iodine-containing contrast material. management is supportive therapy unless the patient is in renal failure and requires dialysis to remove the iodide. This patient is not in renal failure. I discussed the case with Dr. Arreola. The patient can be sent back to [facility] with warm packs to her neck when necessary. I did recommend considering repeat renal function and 2 or 3 days and I made a note of that on her discharge instructions. [] Dragon Disclaimer Dragon Disclaimer This electronic medical record was generated, in whole or in part, using a voice recognition dictation system. Departure Departure Impression: Primary Impression: Submandibular gland swelling Additional Impression: Adverse reaction to contrast media Disposition: 03 TRANSFER SNF Condition: STABLE Referrals: LOS ARREOLA MD Additional Instructions: As we discussed, the swelling in your neck is from salivary glands which was caused by a reaction to the IV contrast. It is not an allergic reaction. It will not be helped by Benadryl or other medications for allergic reaction. If it is uncomfortable, try moist heat such as a small towel wet in hot water applied to the neck. I recommend recheck of blood work in 2-3 days. I will discuss this with Dr. Arreola. This can be done at [facility]. Problem Qualifiers MIKO MOSLEY MD Aug 28, 2016 12:16
[2016-08-28 13:01] VITALS: BP 146/77
== END 2016-08-28 13:50 | disposition home or self-care (01) ==
LOC: ER 09:47
DX: R22.1 Localized swelling, mass and lump, neck (principal); T49.0X5A Adverse effect of local antifungal, anti-infective and anti-inflammatory drugs, initial encounter; I10 Essential (primary) hypertension; Z91.041 Radiographic dye allergy status; Z88.0 Allergy status to penicillin; Z88.2 Allergy status to sulfonamides; Z88.8 Allergy status to other drugs, medicaments and biological substances; Y92.89 Other specified places as the place of occurrence of the external cause
CPT/HCPCS: 36415; 70490; 80053; 85007; 85027; 99285-25

== ENCOUNTER 2016-09-01 12:11 | Inpatient (IN) | payer OTHER ==
[~2016-09-01] VITALS: Ht 165.1 cm; Wt 61.7 kg
--- NOTE | 2016-09-01 12:40 | EKG ---
[facility] [address] [place] [id number] Test Date: 2016-09-01 Test Time: 12:24:41 Pat Name: DIONE GOMEZ Department: Room: Gender: F Clinical Trials Assistant: : 1940 Requested By: UMBERTO NAZARIO Order Number: [id number] Reading MD: Malina Mitchell Measurements Intervals [place] Rate: 85 P: [place]: QRS: 12 QRSD: 78 T: 21 QT: 344 QTc: 414 Interpretive Statements SINUS RHYTHM QRS(T) CONTOUR ABNORMALITY CONSISTENT WITH INFERIOR INFARCT PROBABLY OLD ABNORMAL ECG RI6.01 Compared to ECG 08/06/2016 04:24:48 Myocardial infarct finding now present Electronically Signed On 09-01-2016 19:30:18 CDT by Malina Mitchell
[2016-09-01 12:47] LABS: BASO # 0.1 x10^3/uL (0.0-0.2); BASO % 0 % (0-3); EOS % 1 % (0-3); HEMATOCRIT 34.1 % (36.0-47.0); HEMOGLOBIN 10.7 g/dL (12.0-15.5); LYMPH # 1.8 x10^3/uL (1.0-4.8); LYMPH % 15 % (24-48); MEAN CORPUSCULAR HEMOGLOBIN 27 pg (25-35); MEAN CORPUSCULAR HGB CONC 32 g/dL (31-37); MEAN CORPUSCULAR VOLUME 87 fL (79-100); MONO % 12 % (0-9); NEUT % 72 % (31-73); PLATELET COUNT 132 x10^3/uL (140-400); RED BLOOD COUNT 3.94 x10^6/uL (3.50-5.40); RED CELL DISTRIBUTION WIDTH 15.7 % (11.5-14.5)
[2016-09-01 12:54] LABS: CALCIUM 9.9 mg/dL (8.5-10.1); GFR 29.3; POTASSIUM 4.3 mmol/L (3.5-5.1)
[2016-09-01 13:00] LABS: ALBUMIN 2.8 g/dL (3.4-5.0); ALBUMIN/GLOBULIN RATIO 0.6 (1.0-1.7); TOTAL BILIRUBIN 0.5 mg/dL (0.2-1.0); TOTAL PROTEIN 7.3 g/dL (6.4-8.2)
--- NOTE | 2016-09-01 13:00 | RAD ---
EXAM: Chest, single view. HISTORY: Syncope. COMPARISON: 08/06/2016. FINDINGS: A frontal view of the chest is obtained. There is stable mild interstitial prominence. There is blunting of the right costophrenic angle likely due to a trace pleural effusion or pleural thickening. There is bilateral basilar atelectasis. There are calcified granulomas. There is stable widening of the right paratracheal stripe likely due to the comminution of tortuous aortic arch great vessels and enlarged right thyroid lobe demonstrated on a CT dated 08/28/2016. IMPRESSION: 1. Suspected trace right pleural effusion or basilar pleural thickening and bilateral basilar atelectasis. 2. Cardiomegaly and stable widening of the right paratracheal stripe.
--- NOTE | 2016-09-01 13:12 | RAD ---
EXAM: Head CT without contrast. HISTORY: Dizziness. TECHNIQUE: Computed tomographic images of the head were obtained without contrast. COMPARISON: 08/06/2016. FINDINGS: There is no acute or subacute extra-axial or intraparenchymal hemorrhage. There is no mass effect or midline shift. There is no hydrocephalus. There are chronic infarcts within the right frontal and parietal lobes and possibly the right basal ganglia. There is scattered areas of hypodensity throughout the cerebral white, likely due to chronic small vessel disease. There is cerebral volume loss. There is a suspected mildly expanded empty or partially sella. The orbits are unremarkable. There is mild right maxillary sinus mucous thickening. The mastoid air cells are clear. No calvarial lesion is seen. IMPRESSION: 1. No acute to pneumonia finding. Note is made that MRI is more sensitive for acute infarction. 2. Suspected chronic infarcts within the right frontal and parietal lobes and possibly right basal ganglia. 3. Scattered areas of hypodensity within the cerebral white matter, likely due to chronic small vessel disease. 4. Suspected empty or partially empty sella. PQRS Compliance Statement: One or more of the following individualized dose reduction techniques were utilized for this examination: 1. Automated exposure control 2. Adjustment of the mA and/or kV according to patient size 3. Use of iterative reconstruction technique
[2016-09-01 13:19] LABS: PLT ESTIMATE DECREASED (ADEQUATE); POIKILOCYTOSIS PRESENT
[2016-09-01 13:20] LABS: ANISOCYTOSIS PRESENT; SCHISTOCYTES FEW
[2016-09-01 14:18] LABS: BILIRUBIN,URINE NEGATIVE (NEG); GLUCOSE,URINE NEGATIVE (NEG); NITRITE,URINE NEGATIVE (NEG); PH,URINE 6.5; PROTEIN,URINE NEGATIVE (NEG-TRACE)
[2016-09-01 14:24] LABS: BACTERIA,URINE 0 /HPF (0-FEW); RBC,URINE 0 /HPF (0-2); SQUAMOUS EPITHELIAL CELL,UR OCC /LPF; WBC,URINE RARE /HPF (0-4)
--- NOTE | 2016-09-01 14:51 | PHYS DOC ---
Past Medical History Past Medical History: Hypertension, Pneumonia Additional Past Medical Histor: LOW PLATLET COUNT, AAA, fx to R foot Past Surgical History: Appendectomy, Splenectomy Alcohol Use: None Drug Use: None Adult General Chief Complaint Chief Complaint: LOSS OF CONSCIOUSNESS HPI HPI 75-year-old female presents via EMS after syncopal episode at the custodial. She had this spell EMS was called and on EMSs arrival they stated that her blood pressure was very low she was nauseous and diaphoretic. Patient does not completely remember the episode. She does state that she was not having chest pain she did not have any severe headache. She does think that she was diagnosed with an aneurysm recently she states she feels much better now that she's here in the hospital. She no longer feels lightheaded or dizzy. [] Review of Systems Review of Systems Constitutional: Denies fever or chills [] Eyes: Denies change in visual acuity, redness, or eye pain [] HENT: Denies nasal congestion or sore throat [] Respiratory: Denies cough or shortness of breath [] Cardiovascular: No additional information not addressed in HPI [] GI: Denies abdominal pain, nausea, vomiting, bloody stools or diarrhea [] : Denies dysuria or hematuria [] Musculoskeletal: Denies back pain or joint pain [] Integument: Denies rash or skin lesions [] Neurologic: Per history of present illness [] Endocrine: Denies polyuria or polydipsia [] Current Medications Current Medications Current Medications Medications (Trade) Dose Ordered Sig/Rene Start Time Stop Time Status Last Admin Dose Admin Sodium Chloride (Iv Sodium Chloride 0.9% 500ml Bag) 500 ml @ 0 mls/hr 1X ONCE 09/01/16 15:15 09/01/16 15:16 Allergies Allergies Allergies Coded Allergies Type Severity Reaction Last Updated Verified iodine Allergy Severe 10/14/13 Yes Penicillins Allergy Intermediate 08/06/16 Yes Sulfa (Sulfonamide Antibiotics) Allergy Intermediate 08/06/16 Yes lisinopril Allergy Intermediate 09/01/16 Yes prednisone Allergy Intermediate 09/01/16 Yes Physical Exam Physical Exam Constitutional: Well developed, well nourished, no acute distress, non-toxic appearance. [] HENT: Normocephalic, atraumatic, bilateral external ears normal, oropharynx moist, no oral exudates, nose normal. [] Eyes: PERRLA, EOMI, conjunctiva normal, no discharge. [] Neck: Normal range of motion, no tenderness, supple, no stridor. [] Cardiovascular:Heart rate regular rhythm, no murmur [] Lungs & Thorax: Bilateral breath sounds clear to auscultation [] Abdomen: Bowel sounds normal, soft, no tenderness, no masses, no pulsatile masses. [] Skin: Warm, dry, no erythema, no rash. [] Back: No tenderness, no CVA tenderness. [] Extremities: No tenderness, no cyanosis, no clubbing, ROM intact, no edema. [] Neurologic: Alert and oriented X 3, normal motor function, normal sensory function, no focal deficits noted. [] Psychologic: Affect normal, judgement normal, mood normal. [] Current Patient Data Vital Signs Vital Signs Date Time Temp Pulse Resp B/P Pulse Ox O2 Delivery O2 Flow Rate FiO2 09/01/16 14:00 78 09/01/16 13:15 24 97 09/01/16 12:11 99.2 94/58 Room Air 99.2 Lab Values Laboratory Tests Test 09/01/16 12:16 09/01/16 14:10 White Blood Count 12.0x10^3/uL (4.0-11.0) H Red Blood Count 3.94x10^6/uL (3.50-5.40) Hemoglobin 10.7g/dL (12.0-15.5) L Hematocrit 34.1% (36.0-47.0) L Mean Corpuscular Volume 87fL (79-100) Mean Corpuscular Hemoglobin 27pg (25-35) Mean Corpuscular Hemoglobin Concent 32g/dL (31-37) Red Cell Distribution Width 15.7% (11.5-14.5) H Platelet Count 132x10^3/uL (140-400) L Neutrophils (%) (Auto) 72% (31-73) Lymphocytes (%) (Auto) 15% (24-48) L Monocytes (%) (Auto) 12% (0-9) H Eosinophils (%) (Auto) 1% (0-3) Basophils (%) (Auto) 0% (0-3) Neutrophils # (Auto) 8.7x10^3uL (1.8-7.7) H Lymphocytes # (Auto) 1.8x10^3/uL (1.0-4.8) Monocytes # (Auto) 1.4x10^3/uL (0.0-1.1) H Eosinophils # (Auto) 0.1x10^3/uL (0.0-0.7) Basophils # (Auto) 0.1x10^3/uL (0.0-0.2) Platelet Estimate Decreased (ADEQUATE) Large Platelets Present Poikilocytosis Present Anisocytosis Present Schistocytes Few Sodium Level 140mmol/L (136-145) Potassium Level 4.3mmol/L (3.5-5.1) Chloride Level 103mmol/L (98-107) Carbon Dioxide Level 27mmol/L (21-32) Anion Gap 10 (6-14) Blood Urea Nitrogen 41mg/dL (7-20) H Creatinine 2.0mg/dL (0.6-1.0) H Estimated GFR (Cockcroft-Gault) 29.3 BUN/Creatinine Ratio 21 (6-20) H Glucose Level 116mg/dL (70-99) H Lactic Acid Level 1.1mmol/L (0.4-2.0) Calcium Level 9.9mg/dL (8.5-10.1) Total Bilirubin 0.5mg/dL (0.2-1.0) Aspartate Amino Transferase (AST) 30U/L (15-37) Alanine Aminotransferase (ALT) 32U/L (14-59) Alkaline Phosphatase 56U/L (46-116) Troponin I Quantitative < 0.017ng/mL (0.000-0.055) Total Protein 7.3g/dL (6.4-8.2) Albumin 2.8g/dL (3.4-5.0) L Albumin/Globulin Ratio 0.6 (1.0-1.7) L Urine Collection Type U cath Urine Color Yellow Urine Clarity Cloudy Urine pH 6.5 Urine Specific [place] 1.020 Urine Protein Negativemg/dL (NEG-TRACE) Urine Glucose (UA) Negativemg/dL (NEG) Urine Ketones (Stick) Negativemg/dL (NEG) Urine Blood Negative (NEG) Urine Nitrite Negative (NEG) Urine Bilirubin Negative (NEG) Urine Urobilinogen Dipstick 1.0mg/dL (0.2 mg/dL) Urine Leukocyte Esterase Negative (NEG) Urine RBC 0/HPF (0-2) Urine WBC Rare/HPF (0-4) Urine Squamous Epithelial Cells Occ/LPF Urine Transitional Epithelial Cells Occ/LPF Urine Bacteria 0/HPF (0-FEW) Urine Hyaline Casts Few/HPF Urine Mucus Slight/LPF Laboratory Tests 09/01/16 12:16 Laboratory Tests 09/01/16 12:16 EKG EKG [] Radiology/Procedures Radiology/Procedures []PROCEDURE: CHEST AP ONLY EXAM: Chest, single view. HISTORY: Syncope. COMPARISON: 08/06/2016. FINDINGS: A frontal view of the chest is obtained. There is stable mild interstitial prominence. There is blunting of the right costophrenic angle likely due to a trace pleural effusion or pleural thickening. There is bilateral basilar atelectasis. There are calcified granulomas. There is stable widening of the right paratracheal stripe likely due to the comminution of tortuous aortic arch great vessels and enlarged right thyroid lobe demonstrated on a CT dated 08/28/2016. IMPRESSION: 1. Suspected trace right pleural effusion or basilar pleural thickening and bilateral basilar atelectasis. 2. Cardiomegaly and stable widening of the right paratracheal stripe. Impressions: PROCEDURE: HEAD WO CONTRAST EXAM: Head CT without contrast. HISTORY: Dizziness. TECHNIQUE: Computed tomographic images of the head were obtained without contrast. COMPARISON: 08/06/2016. FINDINGS: There is no acute or subacute extra-axial or intraparenchymal hemorrhage. There is no mass effect or midline shift. There is no hydrocephalus. There are chronic infarcts within the right frontal and parietal lobes and possibly the right basal ganglia. There is scattered areas of hypodensity throughout the cerebral white, likely due to chronic small vessel disease. There is cerebral volume loss. There is a suspected mildly expanded empty or partially sella. The orbits are unremarkable. There is mild right maxillary sinus mucous thickening. The mastoid air cells are clear. No calvarial lesion is seen. IMPRESSION: 1. No acute to pneumonia finding. Note is made that MRI is more sensitive for acute infarction. 2. Suspected chronic infarcts within the right frontal and parietal lobes and possibly right basal ganglia. 3. Scattered areas of hypodensity within the cerebral white matter, likely due to chronic small vessel disease. 4. Suspected empty or partially empty sella. Course & Med Decision Making Course & Med Decision Making Pertinent Labs and Imaging studies reviewed. (See chart for details) [ED course: Evaluation reveals a 75-year-old with syncopal episode. She was given IV fluids during her stay in the department which did help elevate her blood pressure to around 100 systolic. She remained symptom-free throughout her stay in the department. However given the significance of her hypotension and her elevated creatinine I feel is best for the patient to stay in the hospital. I spoke with Dr. Howe who agrees with this] Dragon Disclaimer Dragon Disclaimer This electronic medical record was generated, in whole or in part, using a voice recognition dictation system. Departure Departure Impression: Primary Impression: Syncope Additional Impression: Hypotension Disposition: 09 ADMITTED INPATIENT Admitting Physician: Fara Caruso Condition: GUARDED Referrals: DIMITRI GROSSMAN MD (PCP) Problem Qualifiers Primary Impression: Syncope Syncope type: unspecified Qualified Code: R55 - Syncope and collapse Additional Impression: Hypotension Hypotension type: idiopathic hypotension Qualified Code: I95.0 - Idiopathic hypotension UMBERTO NAZARIO DO Sep 01, 2016 14:51
[2016-09-01] MEDS ORDERED: ONDANSETRON PF 4 MG/2 ML VIAL. IV PRN (15:00)
[2016-09-01] MEDS ORDERED: IV NORMAL SALINE 500ML BAG 500 ML IV ONE (15:15)
--- NOTE | 2016-09-01 16:15 | ACF ---
Admission Forms Criteria TELEMETRY CARE Telemetry Admission Guidelines (Place 'X' for any and all applicable criteria): Admission to telemetry [A] may be indicated for ANY ONE of the following(1)(2)(3 )(4)(5): [ ]I. Cardiac disease, including ANY ONE of the following (9)(10)(11)(12)(13 ): [ ]a) Postacute MN [ ]b) Low-risk patients with ST-segment elevation MN who have undergone successful percutaneous coronary intervention [ ]c) Unstable angina [ ]d) Suspected MN (until it is ruled out) [ ]e) Post cardiac surgery (first 48 to 72 hours unless complications occur) [ ]f) Acute arrhythmias (including significant tachycardia or bradycardia) [B] [ ]g) Firing of an implantable cardioverter defibrillator [C] [ ]h) Suspected pacemaker or implantable cardioverter defibrillator malfunction (10) [ ]i) New administration or adjustment of an antiarrhythmic drug [D ] [ ]j) Child admitted for acute congestive heart failure [ ]j) Long QT syndrome [ ]k) Advanced heart block (eg, second-degree Mobitz type II, third- degree heart block) [ ]l) Acute myocarditis or pericarditis [ ]m) Short-term (ambulatory or inpatient) monitoring after a cardiac procedure as indicated by ANY ONE of the following [E]: [ ]i) Electrophysiologic studies [ ]ii) Percutaneous coronary intervention with stent placement [ ]iii) Pacemaker placement with cardiac conduction defect [ ]iv) Implantable cardiac defibrillator placement [ ]II. Drug overdose or poisoning with substance that causes arrhythmias or QT prolongation (eg, phenothiazines, sympathomimetic agents, cyclic antidepressants, digitalis, antiarrhythmic drugs)(15) [ ]III. Short-term (ambulatory or inpatient) monitoring after therapeutic or diagnostic procedure requiring conscious sedation or anesthesia (eg, endoscopy, elective cardioversion) [ ]IV. Acute cerebrovascular even[F](18) [ ]V. Massive blood transfusion (eg, at least 10 units of packed red blood cells in 24 hours) [ ]. Variceal bleeding after endoscopy, sclerotherapy, or IV vasopressin [ ]VII. Uncorrected electrolyte abnormalities associated with an increased risk of dangerous arrhythmia [G]; examples include [ ]a) Hyperkalemia with attributable ECG changes [ ]b) Potassium greater than 6.5 mmol/L (mEq/L) in a patient without history of chronic renal disease [ ]c) Prolonged QT attributed to hypokalemia, hypomagnesemia, or hypocalcemia [X]VIII.Unexplained syncope or other neurologic event suspected of being due to arrhythmia due to a finding that increases risk; examples include(19)(20)(21): [ ]a) High-risk ECG findings (eg, bifascicular block, bradycardia, abnormal QT interval, ventricular pre- excitation) [ ]b) History of previous syncope due to arrhythmia [ ]c) Abnormal ventricular function (eg, reduced ejection fraction ) [ ]d) Exertional or supine syncope [X]e) Concerning syncope characteristics (eg, sudden loss of consciousness without prodrome) [ ]f) Family history of sudden [ ]g) Use of arrhythmogenic medication [ ]h) Suspected cardiac ischemia [ ]i) Known channelopathy (eg, long QT syndrome, Brugada syndrome, or catecholaminergic paroxysmal ventricular tachycardia) [ ]j) Known structural heart disease (eg, hypertrophic cardiomyopathy , severe valvular disease) [ ]k) Palpitations preceding syncope The original [employer] content created by [employer] has been revised. The portions of the content which have been revised are identified through the use of italic text or in bold, and [facility] has neither reviewed nor approved the modified material. All other unmodified content is copyright [employer]. Please see references footnoted in the original [employer] edition 2016 Admission Criteria Met?: Yes SAPNA ZUÑIGA Sep 01, 2016 16:15
[2016-09-01] MEDS: IV NORMAL SALINE 1000ML BAG 1,000 ML IV SCH ×2 (16:21→21:13)
[2016-09-01 16:23] VITALS: BP 118/64
[2016-09-01 16:25] VITALS: BP 118/64
[2016-09-01] MEDS ORDERED: MAGN2400 PO (17:20)
[2016-09-01] MEDS ORDERED: ACET325T9 PO (17:20)
[2016-09-01] MEDS ORDERED: MAGNESIUM HYDROXIDE 2,400 MG/30 ML ORAL.SUSP. PO PRN (19:15)
[2016-09-01] MEDS ORDERED: ACETAMINOPHEN 325 MG TABLET. PO PRN (19:15)
[2016-09-01 19:20] VITALS: BP 99/54
[2016-09-01] MEDS: HYDROCODONE/APAP 5/325MG TABLET. PO PRN (21:04)
[2016-09-01 23:50] VITALS: BP 98/51
[2016-09-02 03:08] LABS: BASO # 0.1 x10^3/uL (0.0-0.2); BASO % 1 % (0-3); EOS % 3 % (0-3); HEMATOCRIT 30.7 % (36.0-47.0); HEMOGLOBIN 9.8 g/dL (12.0-15.5); LYMPH # 1.9 x10^3/uL (1.0-4.8); LYMPH % 20 % (24-48); MEAN CORPUSCULAR HEMOGLOBIN 28 pg (25-35); MEAN CORPUSCULAR HGB CONC 32 g/dL (31-37); MEAN CORPUSCULAR VOLUME 87 fL (79-100); MONO % 15 % (0-9); NEUT % 62 % (31-73); PLATELET COUNT 130 x10^3/uL (140-400); RED BLOOD COUNT 3.54 x10^6/uL (3.50-5.40); RED CELL DISTRIBUTION WIDTH 15.7 % (11.5-14.5)
[2016-09-02 03:23] LABS: ALBUMIN 2.2 g/dL (3.4-5.0); ALBUMIN/GLOBULIN RATIO 0.5 (1.0-1.7); CALCIUM 9.4 mg/dL (8.5-10.1); CREATININE 1.7 mg/dL (0.6-1.0); GFR 35.4; TOTAL BILIRUBIN 0.2 mg/dL (0.2-1.0); TOTAL PROTEIN 6.6 g/dL (6.4-8.2)
[2016-09-02 03:36] LABS: % EOS 3 % (0-5); ANISOCYTOSIS SLIGHT; PLT ESTIMATE ADEQUATE (ADEQUATE); POIKILOCYTOSIS MOD; SPHEROCYTES OCC
[2016-09-02 03:37] LABS: CRENATED RBC PRESENT; OVALOCYTES MOD; SCHISTOCYTES OCC
[2016-09-02 03:50] VITALS: BP 119/68
[2016-09-02 07:39] VITALS: BP 130/65
[2016-09-02] MEDS: IV NORMAL SALINE 1000ML BAG 1,000 ML IV SCH ×2 (08:36→15:15)
[2016-09-02] MEDS: DOCUSATE SODIUM 100 MG CAPSULE. PO SCH (08:36)
[2016-09-02] MEDS: ASPIRIN ENTERIC COATED 81 MG TABLET.DR. PO SCH (08:36)
[2016-09-02] MEDS: MAGNESIUM OXIDE 400 MG TABLET PO SCH (08:37)
[2016-09-02] MEDS: ENOXAPARIN 30 MG/0.3 ML SYRINGE. SQ SCH (08:37)
--- NOTE | 2016-09-02 10:33 | PDOC ---
Provider Note Provider Note Pt seen,H&P dictated. #[id number] LOS NOLASCO MD Sep 02, 2016 10:33
[2016-09-02 11:55] VITALS: BP 117/59
[2016-09-02] MEDS: CHLORTHALIDONE 25 MG TABLET. PO SCH (12:00)
--- NOTE | 2016-09-02 13:03 | PDOC2 ---
CLAUDIA LIGHT PHOTOGRAPHER PORTRAIT 09/02/16 1302: CARDIAC CONSULT DATE OF CONSULT Date of Consult DATE: 09/02/16 TIME: 12:53 REASON FOR CONSULT Reason for Consult: Cardiac Clearance for AAA repair Syncope REFERRING PHYSICIAN Referring Physician: This is a 75 yo female who presented from [facility] secondary to a syncopal versus near syncopal event. Patient reports she was working with therapy and felt "woozy". As she proceed to continue with therapy, she became more significantly dizzy. Was associated with nausea and diaphoresis. Patient denies LOC but ED report reveal syncopal event. Patient was reportedly hypotensive and diaphoretic upon EMS arrival. Patient denies any episode of CP, although RN reports she was told patient had episode of chest pain. No other specifics provided. Recent history of syncopal episode. Was set up with outpatient event monitor but patient failed to wear after a couple of days. Information available for 08/17-08/19 with two recordings of SB rate in the upper 30's during the night. Otherwise, patient was in SR. Known AAA. Last hospitalization, patient deferred cardiac catheterization and AAA repair, requesting a second opinion before she was "cut on". Patient, along with family collaboration, decided to proceed with AAA repair and underwent outpatient surgical evaluation. Patient schedule for endovascular AAA repair later this week. Cardiac clearance requested prior to surgery. SOURCE Source: Chart review, Patient PAST MEDICAL HISTORY Past Medical History Cardiovascular: CAD (coronary artery calcifications seen in predominantly LAD on CT scan - 2014), HTN, Other (5.4 cm infrarenal abdominal aortic aneurysm- ). Pulmonary: COPD (on CXR) CENTRAL NERVOUS SYSTEM: CVA (2013), Other (chronic small vessel ischemic disease on CT of head 07/2016) GI: Diverticulosis Endocrine: Other (right thyroid nodule) PAST SURGICAL HISTORY Past Surgical History Appendectomy, Other (spleenectomy - 1978) FAMILY HISTORY Family History: Other (no pertinent history ) SOCIAL HISTORY Smoke: No ALCOHOL: none Drugs: None Lives: [facility] (at for rehab ) CURRENT MEDICATIONS CURRENT MEDICATIONS Current Medications Medications (Trade) Dose Ordered Sig/Rene Route PRN Reason Start Time Stop Time Status Last Admin Dose Admin Sodium Chloride 500 ml @ 0 mls/hr 1X ONCE IV 09/01/16 15:15 09/01/16 15:16 DC 09/01/16 14:50 Sodium Chloride (Iv Sodium Chloride 0.9% 1000ml Bag) 1,000 ml @ 125 mls/hr Q8H IV 09/01/16 15:00 09/02/16 14:59 09/02/16 08:36 Aspirin (Ecotrin) 81 mg [id number] PO 09/02/16 08:00 09/02/16 08:36 Docusate Sodium (Colace) 100 mg DAILY PO 09/02/16 09:00 09/02/16 08:36 Enoxaparin Sodium (Lovenox 30mg Syringe) 30 mg Q24H SQ 09/02/16 09:00 09/02/16 08:37 Acetaminophen/ Hydrocodone Bitart (Lortab 5/325) 1 tab PRN Q4HRS PRN PO PAIN 09/01/16 19:15 09/01/16 21:04 Magnesium Oxide (Magnesium Oxide) 800 mg DAILY PO 09/02/16 09:00 09/02/16 08:37 ALLERGIES ALLERGIES: Coded Allergies: iodine (Verified Allergy, Severe, 10/14/13) Penicillins (Verified Allergy, Intermediate, 08/06/16) Sulfa (Sulfonamide Antibiotics) (Verified Allergy, Intermediate, 08/06/16) lisinopril (Verified Allergy, Intermediate, 09/01/16) prednisone (Verified Allergy, Intermediate, 09/01/16) ROS Review of System 14 point ROS conducted with pertinent positives noted above in HPI. PHYSICAL EXAM General: Alert, Oriented X3, Cooperative, No acute distress HEENT: Atraumatic, Mucous membr. moist/pink Lungs: Clear to auscultation, Normal air movement Heart: Regular rate, Normal S1, Normal S2, Other (3/6 systolic murmur ) Abdomen: Soft, No tenderness Extremities: Normal pulses, Other (trace RLE edema ) Skin: No breakdown, No significant lesion Neuro: Normal speech, Sensation intact Psych/Mental Status: Mental status NL, Mood NL MUSCULOSKELETAL: Osteoarthritic changes both hands, Abnormal active ROM of ( right ankle ) VITALS VITALS Vital Signs Date Time Temp Pulse Resp B/P Pulse Ox O2 Delivery O2 Flow Rate FiO2 09/02/16 11:55 97.7 81 16 117/59 93 Nasal Cannula 2.0 97.7 LABS Lab: Laboratory Tests Test 09/01/16 14:10 09/01/16 20:50 09/01/16 21:20 09/02/16 03:00 Urine Collection Type U cath Urine Color Yellow Urine Clarity Cloudy Urine pH 6.5 Urine Specific [place] 1.020 Urine Protein Negativemg/dL (NEG-TRACE) Urine Glucose (UA) Negativemg/dL (NEG) Urine Ketones (Stick) Negativemg/dL (NEG) Urine Blood Negative (NEG) Urine Nitrite Negative (NEG) Urine Bilirubin Negative (NEG) Urine Urobilinogen Dipstick 1.0mg/dL (0.2 mg/dL) Urine Leukocyte Esterase Negative (NEG) Urine RBC 0/HPF (0-2) Urine WBC Rare/HPF (0-4) Urine Squamous Epithelial Cells Occ/LPF Urine Transitional Epithelial Cells Occ/LPF Urine Bacteria 0/HPF (0-FEW) Urine Hyaline Casts Few/HPF Urine Mucus Slight/LPF Troponin I Quantitative < 0.017ng/mL (0.000-0.055) < 0.017ng/mL (0.000-0.055) Nasal Screen MRSA (PCR) Negative (Negative) White Blood Count 10.0x10^3/uL (4.0-11.0) Red Blood Count 3.54x10^6/uL (3.50-5.40) Hemoglobin 9.8g/dL (12.0-15.5) Hematocrit 30.7% (36.0-47.0) Mean Corpuscular Volume 87fL (79-100) Mean Corpuscular Hemoglobin 28pg (25-35) Mean Corpuscular Hemoglobin Concent 32g/dL (31-37) Red Cell Distribution Width 15.7% (11.5-14.5) Platelet Count 130x10^3/uL (140-400) Neutrophils (%) (Auto) 62% (31-73) Lymphocytes (%) (Auto) 20% (24-48) Monocytes (%) (Auto) 15% (0-9) Eosinophils (%) (Auto) 3% (0-3) Basophils (%) (Auto) 1% (0-3) Neutrophils # (Auto) 6.2x10^3uL (1.8-7.7) Lymphocytes # (Auto) 1.9x10^3/uL (1.0-4.8) Monocytes # (Auto) 1.5x10^3/uL (0.0-1.1) Eosinophils # (Auto) 0.3x10^3/uL (0.0-0.7) Basophils # (Auto) 0.1x10^3/uL (0.0-0.2) Segmented Neutrophils % 73% (35-66) Band Neutrophils % 2% (0-9) Lymphocytes % 17% (24-48) Monocytes % 5% (0-10) Eosinophils % 3% (0-5) Platelet Estimate Adequate (ADEQUATE) Giant Platelets Occ Poikilocytosis Mod Anisocytosis Slight Spherocytes Occ Ovalocytes Mod Crenated Cell Present Schistocytes Occ Sodium Level 141mmol/L (136-145) Potassium Level 4.0mmol/L (3.5-5.1) Chloride Level 107mmol/L (98-107) Carbon Dioxide Level 26mmol/L (21-32) Anion Gap 8 (6-14) Blood Urea Nitrogen 39mg/dL (7-20) Creatinine 1.7mg/dL (0.6-1.0) Estimated GFR (Cockcroft-Gault) 35.4 BUN/Creatinine Ratio 23 (6-20) Glucose Level 97mg/dL (70-99) Calcium Level 9.4mg/dL (8.5-10.1) Total Bilirubin 0.2mg/dL (0.2-1.0) Aspartate Amino Transf (AST/SGOT) 22U/L (15-37) Alanine Aminotransferase (ALT/SGPT) 27U/L (14-59) Alkaline Phosphatase 49U/L (46-116) Total Protein 6.6g/dL (6.4-8.2) Albumin 2.2g/dL (3.4-5.0) Albumin/Globulin Ratio 0.5 (1.0-1.7) ECHOCARDIOGRAM ECHOCARDIOGRAM <Conclusion> The left ventricle is normal size. The left ventricular systolic function is normal and the ejection fraction is within normal range. The Ejection Fraction is 60-65%. There is mild concentric left ventricular hypertrophy. There is no significant aortic valvular stenosis. Doppler and Color Flow revealed trace aortic regurgitation. Doppler and Color Flow revealed mild mitral regurgitation. Doppler and Color Flow revealed severe tricuspid regurgitation. The pulmonary artery systolic pressure is estimated at greater than 70 mmHg. There is severe pulmonary hypertension. DATE: 08/06/16 1620 STRESS TEST STRESS TEST Conclusion 1. Mildly abnormal baseline EKG but no EKG evidence of stress-induced ischemia. 2. Nuclear imaging suggests a small area of reversible ischemia in the apical septal region. 3. Normal left ventricular systolic function with an ejection fraction of greater than 70%. 4. Moderate risk Lexiscan nuclear stress test. DATE: 08/09/16 1312 ASSESSMENT/PLAN ASSESSMENT/PLAN 1. syncope likely vagal response recent echo with normal LV function and polyvalvular insufficiency as outlined above. no acute events noted on telemetry continue to monitor tele- resume event monitor upon discharge 2. Chest pain, atypical recent MPI with small amount of ischemia as noted above. recommend cardiac cath for more definitive surgical clearance evaluation r/b/a discussed with patient and is agreeable. Will plan for am. 3. HTN monitor for hypotension check orthos 4. AAA; infrarenal 5.4 cm infrarenal abdominal aortic aneurysm. plan for outpatient endovascular repair later this week per surgical team 5. CAD calcification noted per chest CT 08/16 cath in am 6. RUMA with CKD Cr now 1.7; improved from 2.0 will gentle hydrate overnight. 7. pulm HTN, severe echo with PAP 70 8. thyroid nodules goiter seen on CXR previously per PCP 9. previous CVA sm. vessel ischemic disease on CT scan Problems: LILLIE ESTRADA MD 09/02/16 1431: CARDIAC CONSULT ALLERGIES ALLERGIES: Coded Allergies: iodine (Verified Allergy, Severe, 10/14/13) Penicillins (Verified Allergy, Intermediate, 08/06/16) Sulfa (Sulfonamide Antibiotics) (Verified Allergy, Intermediate, 08/06/16) lisinopril (Verified Allergy, Intermediate, 09/01/16) prednisone (Verified Allergy, Intermediate, 09/01/16) ASSESSMENT/PLAN ASSESSMENT/PLAN Patient seen and examined. Agree with CUTTER GRINDER's assessment and plan. Monitor telemetry to rule out any significant arrhythmias. Chest pain with somewhat atypical features but patient is not the best historian. Recent stress test showed small amount of ischemia. Patient is presently being considered for endovascular repair of AAA. Plan for cardiac catheterization for more definitive evaluation prior to clearance for AAA repair. Thank you for your consultation. Problems: CLAUDIA LIGHT APRN Sep 02, 2016 13:02 LILLIE ESTRADA MD Sep 02, 2016 14:31
[2016-09-02] MEDS: LOSARTAN POTASSIUM 50 MG TABLET. PO SCH (14:04)
[2016-09-02 15:44] VITALS: BP 129/70
--- NOTE | 2016-09-02 17:21 | PDOC ---
Provider Note Provider Note Med Onc consult: 1. - Lymphadenopathy - Multiple prominent retroperitoneal lymph nodes, increased compared to the prior CT dated 06/27/2006. These are nonspecific and may be reactive in etiology. Plan f/u CT in 3 months. see dictation CHEPE ANTHONY MD Sep 02, 2016 17:21
[2016-09-02 19:00] VITALS: BP 136/80
[2016-09-02] MEDS: HYDROCODONE/APAP 5/325MG TABLET. PO PRN (20:54)
--- NOTE | 2016-09-02 22:17 | HP ---
ADMIT DATE: 09/01/2016 REASON FOR ADMISSION TO THE HOSPITAL: Syncopal episode at the group home. HISTORY OF PRESENT ILLNESS: The patient is a 75-year-old female. She says she was at the [facility], where she had a broken ankle of the right foot. She is getting therapy. Friday she was not feeling well and did not want to have therapy, but at the insistence of physical therapy, she went to the gym and started doing the hand bicycling and she felt dizzy, lightheaded, she did not lose consciousness. Paramedics were called. She was brought to the hospital. Her creatinine was slightly elevated than baseline, could be orthostatic, was admitted to the hospital. PAST MEDICAL HISTORY: She has a history of recently admitted to the hospital on last month 08/06/2016, after a fall at home. She had an ankle closed ankle fracture, recommended Cam walker. She has a history of hypertension, previous stroke, hyperlipidemia, AAA, thyroid mass. 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 Last week she had iodine for CT scan, which shows she had a swollen glands in the neck from the contrast. ALLERGIC TO PENICILLIN, SULFA, AND PREDNISONE. MEDICATIONS AT HOME: She is on aspirin 81 mg daily, azilsartan /Hctz , which is 40/12.5 one daily, Colace 100 mg daily, Lovenox 40 mg subcutaneously daily, hydrocodone 5/325 q.6, milk of magnesia p.r.n. PERSONAL HISTORY: History of smoke in the past notsmoking now. FAMILY HISTORY: Unremarkable. SOCIAL HISTORY: Usually at home, able to walk, but she is at the [facility] after the broken ankle and she has been there for 3 weeks now. REVIEW OF SYSTEMS: CARDIAC: Denies any chest pain, shortness of breath. GASTROINTESTINAL: No nausea or vomiting. NEUROLOGICAL: No weakness. Patient was found to have triple abdominal aortic aneurysm, 5.2 cm and she is going to talk to Vascular about surgery on that. She has an appointment sometime later this week. PHYSICAL EXAMINATION: GENERAL: The patient is comfortable, sitting underside of the bed eating breakfast. VITAL SIGNS: At the time of admission shows a temperature 99, pulse 86, respirations 16, blood pressure 94/58, 100% on room air. HEENT: Head is atraumatic. Pupils equal. Oral cavity: No congestion. NECK: Supple. Slight enlarged nodes in the neck, submandibular, nontender. CHEST: Symmetrical. CARDIOVASCULAR: S1, S2. LUNGS: Clear to auscultation. ABDOMEN: Soft. Bowel sounds present, no mass palpable. EXTERNAL GENITALIA: No Jimenez. RECTAL: Deferred. EXTREMITIES: No swelling. The patient has a Cam walker boot on the right for broken ankle. NEUROLOGIC: Moving all extremities. No focal deficit noted. LABORATORY DATA: Shows a white count is 12, hemoglobin 10, platelets 132. Electrolytes show sodium 140, potassium 4.3, chloride 103, bicarbonate 27, BUN 41, creatinine 2.0, glucose 116. LFTs were normal. UA was negative. Chest x-ray, trace right pleural effusion, cardiomegaly. She had a CT head, which shows old CVA, right frontal parietal lobes and basal ganglia. FINAL IMPRESSION: 1. Near syncopal episode. 2. Possible vasovagal. 3. Orthostatic hypotension. 4. Mild renal insufficiency, acute on chronic, stage 3. 5. Abdominal aortic aneurysm, 5.2 cm. 6. Retroperitoneal adenopathy. 7. Thyroid mass. 8. Recent ankle fracture, conservative treatment with Cam walker. 9. Gallstones. 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 The patient is supposed to see a vascular sometime this week for surgery. We will have a Cardiology clearance before that and see. She had echocardiogram as well as a stress test last admission, which was 4 days ago. She will also have Oncology consult because of retroperitoneal adenopathy and see if needs to do further workup. LOS NOLASCO MD DR: HARSHA/sal JOB#: [id number] / [id number] LAUREN
[2016-09-02 23:00] VITALS: BP 125/71
[2016-09-03] VITALS (19 sets, daily range): BP systolic 117–174; BP diastolic 59–88
--- NOTE | 2016-09-03 03:51 | CONS ---
DATE OF CONSULTATION: 09/02/2016 REQUESTING PHYSICIAN: Dr. Julianna Arreola. REASON FOR CONSULTATION: Abdominal lymphadenopathy noted on CT angiogram on 08/27/2016. HISTORY OF PRESENT ILLNESS: The patient is a 75-year-old -[place] female who presented to [facility] due to a syncopal event. She also had associated nausea and diaphoresis. She was noted to be hypotensive and diaphoretic by the EMS. She did not have any chest pain. She underwent CT angiogram of the abdomen and pelvis for evaluation of abdominal aortic aneurysm on 08/27/2016. This revealed multiple prominent retroperitoneal lymph nodes, largest measuring 1.5 cm in maximum dimension and when compared to the prior scan of 06/27/2006, they have increased, but they are thought to be nonspecific and may be reactive per the radiologist. I was asked to see the patient for further evaluation of lymphadenopathy. She has had a CT scan of the chest, abdomen and pelvis on 08/06/2016 that did not reveal any evidence of lymphadenopathy. PAST MEDICAL HISTORY: Coronary artery disease, COPD, cerebrovascular accident, diverticulosis, appendectomy and splenectomy in 1977. FAMILY HISTORY: Father had cancer, she does not know what type. SOCIAL HISTORY: She quit smoking in 2008. REVIEW OF SYSTEMS: A 12-point review of system was performed. Pertinent positives are mentioned in the history of present illness. Rest of the system review is negative. PHYSICAL EXAMINATION: GENERAL APPEARANCE: The patient is a 75-year-old -[place] female who is in no acute cardiorespiratory distress. VITAL SIGNS: Blood pressure 129/70, temperature 97.7. HEENT: Atraumatic, normocephalic. Eyes: No icterus. NECK: Supple. CHEST: Bilaterally symmetrical. No crepitations or rhonchi heard. HEART: S1, S2 normal. ABDOMEN: Soft, nontender. CENTRAL NERVOUS SYSTEM: No focal deficits. LYMPHATICS: No lymphadenopathy. SKIN: No rashes. PSYCHOLOGIC: Mood and affect are appropriate. MUSCULOSKELETAL: No joint effusions. LABORATORY DATA: WBC 10, hemoglobin 9.8, platelet count 130, creatinine 1.7, total protein 6.6 and albumin 2.2. IMPRESSION AND PLAN: 1. Retroperitoneal lymphadenopathy noted on CT angiogram of the abdomen and pelvis on 08/27/2016. Prior CT scan of the chest, abdomen and pelvis on 08/10/2016 was negative for lymphadenopathy. She also had a scan on 06/27/2006 that showed similar lymphadenopathy; however, the current CT angiogram shows that these are slightly increased when compared to the prior exam. However, the radiologist also felt that these are nonspecific findings and it could be reactive and the largest lymph node measures only 1.5 cm. Since there is no significant change since 2006 to 2016, it is unlikely that this is a malignancy. However, I have recommended a followup CT scan to be done in about 3 months to reevaluate the status of her lymphadenopathy. She does not have any signs or symptoms to suggest lymphoma. 2. Abdominal aortic aneurysm, management per surgery. 3. History of splenectomy. 4. Anemia. I will check iron studies, B12 and folic acid levels. CHEPE ANTHONY MD DR: TISH/sal JOB#: [id number] / [id number] isabel Arreola Dr. MTDRaj
[2016-09-03 05:10] LABS: BASO % 1 % (0-3); EOS % 5 % (0-3); HEMATOCRIT 28.9 % (36.0-47.0); HEMOGLOBIN 9.4 g/dL (12.0-15.5); LYMPH # 1.8 x10^3/uL (1.0-4.8); LYMPH % 24 % (24-48); MEAN CORPUSCULAR HEMOGLOBIN 28 pg (25-35); MEAN CORPUSCULAR HGB CONC 33 g/dL (31-37); MEAN CORPUSCULAR VOLUME 86 fL (79-100); MONO % 12 % (0-9); NEUT % 59 % (31-73); PLATELET COUNT 140 x10^3/uL (140-400); RED BLOOD COUNT 3.36 x10^6/uL (3.50-5.40); RED CELL DISTRIBUTION WIDTH 16.1 % (11.5-14.5); WHITE BLOOD COUNT 7.6 x10^3/uL (4.0-11.0)
[2016-09-03 05:31] LABS: CALCIUM 9.5 mg/dL (8.5-10.1); CREATININE 1.4 mg/dL (0.6-1.0); GFR 44.2; POTASSIUM 4.3 mmol/L (3.5-5.1)
[2016-09-03 05:47] LABS: % SAT IRON 14 % (15-34); IRON,SERUM 20 ug/dL (50-170)
[2016-09-03] MEDS: ENOXAPARIN 30 MG/0.3 ML SYRINGE. SQ SCH (09:00)
[2016-09-03 09:14] LABS: FOLATE 13.15 ng/ml (3.2-20.0)
[2016-09-03] MEDS: IV NORMAL SALINE 1000ML BAG 1,000 ML IV SCH (09:18)
[2016-09-03] MEDS ORDERED: methylPREDNISolone SOD SUCC PF 125 MG/2 ML VIAL. IV ONE (09:30)
[2016-09-03] MEDS ORDERED: ADENOSINE 90 MG in IV NORMAL SALINE 50ML 90 ML IV ONE (09:30)
[2016-09-03] MEDS ORDERED: FAMOTIDINE 20 MG/2 ML VIAL IVP ONE (09:30)
[2016-09-03] MEDS ORDERED: DIPHENHYDRAMINE 50 MG/ML VIAL. IVP ONE (09:30)
--- NOTE | 2016-09-03 10:27 | PDOC ---
PROGRESS NOTES Subjective Subjective pt going for cardiac cath Objective Objective Vital Signs Date Time Temp Pulse Resp B/P Pulse Ox O2 Delivery O2 Flow Rate FiO2 09/03/16 08:00 Room Air 09/03/16 07:00 97.9 66 18 144/78 99 2.0 97.9 Intake and Output 09/03/16 07:00 Intake Total 800 ml Balance 800 ml Intake Oral 800 ml # Voids 6 Physical Exam Abdomen: Soft, No tenderness Heart: Regular rate, Normal S1, Normal S2, Other (3/6 systolic murmur ) Extremities: Normal pulses, Other (trace RLE edema ) General: Alert, Oriented X3, Cooperative, No acute distress HEENT: Atraumatic, Mucous membr. moist/pink Lungs: Clear to auscultation, Normal air movement MUSCULOSKELETAL: Osteoarthritic changes both hands, Abnormal active ROM of ( right ankle ) Neuro: Normal speech, Sensation intact Psych/Mental Status: Mental status NL, Mood NL Skin: No breakdown, No significant lesion Diagnosis Problem List Problems Medical Problems: (1) Hypotension Status: Acute (2) Syncope Status: Acute Assessment Assessment Problems Medical Problems: (1) Hypotension Status: Acute (2) Syncope Status: Acute FINAL IMPRESSION: 1. Near syncopal episode resolved. 2. Possible vasovagal. 3. Orthostatic hypotension. 4. Mild renal insufficiency, acute on chronic, stage 3. 5. Abdominal aortic aneurysm, 5.2 cm. 6. Retroperitoneal adenopathy. 7. Thyroid mass. 8. Recent ankle fracture, conservative treatment with Cam walker. 9. Gallstones. PLAN: cardiac cath today spoke with cardiology,sever allergy to contrast.will premedicate. will consult Vascular, pt is ready for AAA repair. cr 1.4 improved. Plan at this time was admit to the hospital, hydrate with IV fluids, monitor kidney function, monitor blood pressure and see how she does. The patient is supposed to see a vascular sometime this week for surgery. We will have a Cardiology clearance before that and see. She had echocardiogram as well as a stress test last admission, which was 4 days ago. She will also have Oncology consult because of retroperitoneal adenopathy and see if needs to do further workup. Problems: Plan Plan of Care Problems Medical Problems: (1) Hypotension Status: Acute (2) Syncope Status: Acute Comment Review of Relevant I have reviewed the following items james (where applicable) has been applied. Labs Laboratory Tests Test 09/03/16 04:03 White Blood Count 7.6x10^3/uL (4.0-11.0) Red Blood Count 3.36x10^6/uL (3.50-5.40) Hemoglobin 9.4g/dL (12.0-15.5) Hematocrit 28.9% (36.0-47.0) Mean Corpuscular Volume 86fL (79-100) Mean Corpuscular Hemoglobin 28pg (25-35) Mean Corpuscular Hemoglobin Concent 33g/dL (31-37) Red Cell Distribution Width 16.1% (11.5-14.5) Platelet Count 140x10^3/uL (140-400) Neutrophils (%) (Auto) 59% (31-73) Lymphocytes (%) (Auto) 24% (24-48) Monocytes (%) (Auto) 12% (0-9) Eosinophils (%) (Auto) 5% (0-3) Basophils (%) (Auto) 1% (0-3) Neutrophils # (Auto) 4.5x10^3uL (1.8-7.7) Lymphocytes # (Auto) 1.8x10^3/uL (1.0-4.8) Monocytes # (Auto) 0.9x10^3/uL (0.0-1.1) Eosinophils # (Auto) 0.4x10^3/uL (0.0-0.7) Basophils # (Auto) 0.0x10^3/uL (0.0-0.2) Reticulocyte Count (auto) 0.6% (0.5-2.5) Sodium Level 143mmol/L (136-145) Potassium Level 4.3mmol/L (3.5-5.1) Chloride Level 111mmol/L (98-107) Carbon Dioxide Level 24mmol/L (21-32) Anion Gap 8 (6-14) Blood Urea Nitrogen 29mg/dL (7-20) Creatinine 1.4mg/dL (0.6-1.0) Estimated GFR (Cockcroft-Gault) 44.2 Glucose Level 83mg/dL (70-99) Calcium Level 9.5mg/dL (8.5-10.1) Iron Level 20ug/dL (50-170) Total Iron Binding Capacity 142ug/dL (250-450) Iron Saturation 14% (15-34) Ferritin 280ng/mL (8-252) Vitamin B12 Level 503pg/mL (247-911) Serum Folate 13.15ng/ml (3.2-20.0) Microbiology 09/01/16 Blood Culture - Preliminary, Resulted NO GROWTH AFTER 1 DAY Medications Current Medications Adenosine/Sodium Chloride (Adenoscan/Iv Sodium Chloride 0.9% 50ml) 120 ml @ 200 mls/hr 1X ONCE IV ; Start 09/03/16 at 09:30; Stop 09/03/16 at 09:30; Status DC Chlorthalidone 12.5 mg 12.5 mg DAILY PO ; Start 09/02/16 at 12:00 Diphenhydramine HCl 50 mg 50 mg 1X ONCE IVP ; Start 09/03/16 at 09:30; Stop 09/03 at 09:31; Status DC Famotidine (Pepcid) 20 mg 1X ONCE IVP ; Start 09/03/16 at 09:30; Stop 09/03/16 at 09:31; Status DC Losartan Potassium (Cozaar) 50 mg DAILY PO Last administered on 09/02/16 14:04 ; Start 09/02/16 at 12:00 Methylprednisolone Sodium Succinate (Solu-Medrol 125mg Vial) 125 mg 1X ONCE IV ; Start 09/03/16 at 09:30; Stop 09/03/16 at 09:31; Status DC Sodium Chloride (Iv Sodium Chloride 0.9% 1000ml Bag) 1,000 ml @ 75 mls/hr [id number] IV Last administered on 09/03/16 09:18; Start 09/02/16 at 15:15 Vitals/I & O Vital Sign - Last 24 Hours 09/02/16 09/02/16 09/02/16 09/02/16 11:55 14:04 15:44 19:00 Temp 97.7 97.7 98.8 97.7 97.7 98.8 Pulse 81 81 73 65 Resp 16 16 18 B/P 117/59 117/59 129/70 136/80 Pulse Ox 93 95 98 O2 Delivery Nasal Cannula Nasal Cannula Nasal Cannula O2 Flow Rate 2.0 2.0 2.0 09/02/16 09/02/16 09/02/16 09/02/16 20:00 20:54 21:54 23:00 Temp 98.9 98.9 Pulse 69 Resp 20 20 18 B/P 125/71 Pulse Ox 96 96 97 O2 Delivery Nasal Cannula Room Air Room Air Room Air O2 Flow Rate 2.0 09/03/16 09/03/16 09/03/16 03:00 07:00 08:00 Temp 98.9 97.9 98.9 97.9 Pulse 72 66 Resp 18 B/P 117/77 144/78 Pulse Ox 94 99 O2 Delivery Room Air Nasal Cannula Room Air O2 Flow Rate 2.0 Intake and Output 09/02/16 09/02/16 09/03/16 15:00 23:00 07:00 Intake Total 800 ml 0 ml Balance 800 ml 0 ml LOS NOLASCO MD Sep 03, 2016 10:27
[2016-09-03] MEDS ORDERED: LIDOCAINE 2% 20 ML VIAL. ONE (10:28)
[2016-09-03] MEDS ORDERED: IODIXANOL 320 MG/ML 100 ML VIAL. ONE (10:28)
[2016-09-03] MEDS ORDERED: FENTANYL PF 100 MCG/2 ML VIAL. ONE (10:32)
[2016-09-03] MEDS ORDERED: NITROGLYCERIN 200 MCG/2 ML SYRINGE FOR CATH/VASC LAB. ONE (10:32)
[2016-09-03] MEDS ORDERED: HEPARIN for IV BOLUS 10,000 UNIT/10 ML VIAL. ONE (10:32)
[2016-09-03] MEDS ORDERED: VERAPAMIL 5 MG/2 ML VIAL. ONE (10:32)
[2016-09-03] MEDS ORDERED: MIDAZOLAM HCL/PF 2 MG/2 ML VIAL. ONE (10:33)
[2016-09-03] MEDS ORDERED: FAMOTIDINE 20 MG/2 ML VIAL ONE (10:34)
[2016-09-03] MEDS ORDERED: methylPREDNISolone SOD SUCC PF 125 MG/2 ML VIAL. ONE (10:34)
[2016-09-03] MEDS ORDERED: DIPHENHYDRAMINE 50 MG/ML VIAL. ONE (10:34)
[2016-09-03] MEDS ORDERED: FENTANYL PF 100 MCG/2 ML VIAL. IV ONE (10:45)
[2016-09-03] MEDS ORDERED: HEPARIN for IV BOLUS 10,000 UNIT/10 ML VIAL. IART ONE (10:45)
[2016-09-03] MEDS ORDERED: IODIXANOL 320 MG/ML 100 ML VIAL. IART ONE (10:45)
[2016-09-03] MEDS ORDERED: LIDOCAINE 2% 20 ML VIAL. IJ ONE (10:45)
[2016-09-03] MEDS ORDERED: NITROGLYCERIN 200 MCG/2 ML SYRINGE FOR CATH/VASC LAB. IART ONE (10:45)
[2016-09-03] MEDS ORDERED: MIDAZOLAM HCL/PF 2 MG/2 ML VIAL. IV ONE (10:45)
[2016-09-03] MEDS ORDERED: VERAPAMIL 5 MG/2 ML VIAL. IART ONE (10:45)
[2016-09-03] MEDS ORDERED: NITROGLYCERIN SUBLINGUAL 0.4 MG BOTTLE OF 25. SL PRN (13:00)
--- NOTE | 2016-09-03 13:03 | CARD ---
APPROVED REPORT Procedure(s) performed: Left heart catheterization, selective coronary angiography and left ventricul ography via right transradial approach INDICATION The indication(s) include : unstable angina , pre-op clearance. PROCEDURE NARRATIVE After explaining the risks, benefits and alternative options, informed consent was obtained from kyara ent. Patient was brought to the cardiac [facility] and right wrist was prepped and draped in the usual fashion after confirming a positive modified August's test. Arterial access was obtained in the [facility] t radial artery and a 6 Macedonian sheath was inserted. 6 Macedonian Dayday catheter was used to perform diane ective angiography of the left and right coronary arteries. 6 Macedonian pigtail catheter was used to pe rform left ventriculography. Patient tolerated the procedure well. Hemostasis was achieved using TR band. There were no immediate complications. The following findings were noted. FINDINGS 1. Hemodynamics: Left ventricular end-diastolic pressure of 20 mmHg. No pullback gradient across th e aortic valve. 2. Left ventriculography: Normal left ventricle systolic function with ejection fraction estimated at 65%. No significant mitral regurgitation seen. 3. Coronary angiography: a. The left main coronary artery arose from the left sinus of Valsalva, gave rise to the left anteri or descending, ramus intermedius and left circumflex arteries and showed 70-80% distal segment stenos is. b. The left anterior descending artery showed 100% chronic total occlusion involving the proximal se gment with faint distal reconstitution from left to left and [id number] collaterals. There appeare d to be the 100% chronic total occlusion in the distal segment as well. c. The ramus intermedius artery is a large caliber vessel that did not show any significant stenosis . d. The left circumflex artery did not show any significant stenosis. e. The right coronary artery was a dominant vessel arising from the right sinus of Valsalva that bhavik wed 80% stenosis in the midsegment and 40% stenosis in the distal segment. Conclusion 1. Three-vessel coronary artery disease including significant distal left main coronary artery steno sis 2. Normal left ventricle systolic function with ejection fraction estimated at 65% Recommendations Coronary artery bypass surgery versus high risk PCI/stents placement with hemodynamic support from pella percutaneous ventricular assist device
--- NOTE | 2016-09-03 13:04 | PDOC ---
MODERATE SEDATION ASSESSMENT RISKS/ALTERNATIVES Risks/Alternatives Risks and alternatives of this type of sedation and procedure discussed with: RISK/ALTERNATIVES: Patient H & P ON CHART H & P H & P on chart and reviewed for co-morbid conditions and appropriate labs. H&P ON CHART: Yes STATUS PREG STATUS ASSESSED: N/A MEDS/ALLERGIES REVIEWED Meds/Allergies Reviewed Medications and Allergies including time and route of recently administered narcotics and sedatives. MEDS/ALLERGIES REVIEWED: Yes ASA RATING ASA RATING: II AIRWAY ASSESSMENT Airway Assessment Airway patency, oral function limitations, presence of caps, crowns, dentures, partials, and ability to extend neck assessed. AIRWAY ASSESSMENT: Yes MALLAMPATI SCORE MALLAMPATI SCORE: II PRE-SEDATION ASSESSMENT PRE-SEDATION ASSESSMENT: Yes LILLIE ESTRADA MD Sep 03, 2016 13:04
--- NOTE | 2016-09-03 14:03 | PDOC ---
PROGRESS NOTES Subjective Subjective "You can talk to my cousin, Aleksandr. I'm sleepy." Objective Objective Vascular Surgery Follow Up: (patient is seen in post-cardiac recovery room) Consultation has been requested for known 5.[address] Rufino Landeros saw the patient during her admission early in July. At that time, she was hesitant to consider surgery for repair of AAA. The patient was scheduled to be seen in the office this by Dr. Zonia Lovett to rediscuss options for her AAA. Since that admission, the patient has had CTA of the Abd/Pelvis coordinated by Dr. Arreola showing a 5.4 cm infrarenal abdominal aortic aneurysm and abdominal aortic and aortic branch vessel atherosclerotic plaque and ectasia of the common iliac arteries. No severe stenosis is seen. The patient returned to the hospital 2 days ago having experienced syncope. She was supposed to be wearing an event monitor (coordinated by Cardiology) but the patient removed it after just 2 days. No cardiac events were noted. In preparation for possible repair of the AAA, cardiology consultation was requested and in progress. The patient has just had a cardiac cath performed. FINDINGS 1. Hemodynamics: Left ventricular end-diastolic pressure of 20 mmHg. No pullback gradient across the aortic valve. 2. Left ventriculography: Normal left ventricle systolic function with ejection fraction estimated at 65%. No significant mitral regurgitation seen. 3. Coronary angiography: a. The left main coronary artery arose from the left sinus of Valsalva, gave rise to the left anterior descending, ramus intermedius and left circumflex arteries and showed 70-80% distal segment stenosis. b. The left anterior descending artery showed 100% chronic total occlusion involving the proximal segment with faint distal reconstitution from left to left and [id number] collaterals. There appeared to be the 100% chronic total occlusion in the distal segment as well. c. The ramus intermedius artery is a large caliber vessel that did not show any significant stenosis. d. The left circumflex artery did not show any significant stenosis. e. The right coronary artery was a dominant vessel arising from the right sinus of Valsalva that showed 80% stenosis in the midsegment and 40% stenosis in the distal segment. Conclusion 1. Three-vessel coronary artery disease including significant distal left main coronary artery stenosis 2. Normal left ventricle systolic function with ejection fraction estimated at 65% Assessment/Plan: 1. AAA - unable to perform consultation at this time as patient is falling asleep post-heart cath. Will return to see the patient tomorrow when anesthetics have worn off. 2. Severe CAD with triple vessel disease. Preserved EF. 3. CTA has been reviewed by Vascular Surgery and felt to be a candidate for EVAR. However, the patient will need to have cardiac stability in the event that the EVAR converts to an open AAA procedure. The patient is in no condition at this time to discuss the implications of the results of the heart cath and the risk this poses to an AAA repair. She keeps falling asleep while I talked to her cousin. In the meantime, Dr. Arreola's involvement will be quite helpful in gaining some insight into what the patient might consider. 4. CKD Stage III. Has rec'd dye for heart cath today. If further coronary intervention is needed, will need a respite between dye loads for renal preservation. CR on admit 1.7 and 1.4 today. This seems to be her baseline. Has been seen by Dr. Fernandez during last admission. 5. Anemia with thrombocytopenia. Once again, Vascular Surgery will attempt to see the patient again tomorrow once anesthetics have cleared. I will provide Dr. Phillips the details of her current status. Vital Signs Date Time Temp Pulse Resp B/P Pulse Ox O2 Delivery O2 Flow Rate FiO2 09/03/16 13:10 62 16 96 Room Air 09/03/16 11:42 3.0 09/03/16 11:39 163/85 09/03/16 11:10 97.9 97.9 Intake and Output 09/03/16 07:00 Intake Total 800 ml Balance 800 ml Intake Oral 800 ml # Voids 6 Assessment Assessment Problems Medical Problems: (1) Hypotension Status: Acute (2) Syncope Status: Acute Comment Review of Relevant I have reviewed the following items james (where applicable) has been applied. Labs Laboratory Tests Test 09/01/16 14:10 09/01/16 20:50 09/01/16 21:20 09/02/16 03:00 Urine Collection Type U cath Urine Color Yellow Urine Clarity Cloudy Urine pH 6.5 Urine Specific [place] 1.020 Urine Protein Negativemg/dL (NEG-TRACE) Urine Glucose (UA) Negativemg/dL (NEG) Urine Ketones (Stick) Negativemg/dL (NEG) Urine Blood Negative (NEG) Urine Nitrite Negative (NEG) Urine Bilirubin Negative (NEG) Urine Urobilinogen Dipstick 1.0mg/dL (0.2 mg/dL) Urine Leukocyte Esterase Negative (NEG) Urine RBC 0/HPF (0-2) Urine WBC Rare/HPF (0-4) Urine Squamous Epithelial Cells Occ/LPF Urine Transitional Epithelial Cells Occ/LPF Urine Bacteria 0/HPF (0-FEW) Urine Hyaline Casts Few/HPF Urine Mucus Slight/LPF Troponin I Quantitative < 0.017ng/mL (0.000-0.055) < 0.017ng/mL (0.000-0.055) Nasal Screen MRSA (PCR) Negative (Negative) White Blood Count 10.0x10^3/uL (4.0-11.0) Red Blood Count 3.54x10^6/uL (3.50-5.40) Hemoglobin 9.8g/dL (12.0-15.5) Hematocrit 30.7% (36.0-47.0) Mean Corpuscular Volume 87fL (79-100) Mean Corpuscular Hemoglobin 28pg (25-35) Mean Corpuscular Hemoglobin Concent 32g/dL (31-37) Red Cell Distribution Width 15.7% (11.5-14.5) Platelet Count 130x10^3/uL (140-400) Neutrophils (%) (Auto) 62% (31-73) Lymphocytes (%) (Auto) 20% (24-48) Monocytes (%) (Auto) 15% (0-9) Eosinophils (%) (Auto) 3% (0-3) Basophils (%) (Auto) 1% (0-3) Neutrophils # (Auto) 6.2x10^3uL (1.8-7.7) Lymphocytes # (Auto) 1.9x10^3/uL (1.0-4.8) Monocytes # (Auto) 1.5x10^3/uL (0.0-1.1) Eosinophils # (Auto) 0.3x10^3/uL (0.0-0.7) Basophils # (Auto) 0.1x10^3/uL (0.0-0.2) Segmented Neutrophils % 73% (35-66) Band Neutrophils % 2% (0-9) Lymphocytes % 17% (24-48) Monocytes % 5% (0-10) Eosinophils % 3% (0-5) Platelet Estimate Adequate (ADEQUATE) Giant Platelets Occ Poikilocytosis Mod Anisocytosis Slight Spherocytes Occ Ovalocytes Mod Crenated Cell Present Schistocytes Occ Sodium Level 141mmol/L (136-145) Potassium Level 4.0mmol/L (3.5-5.1) Chloride Level 107mmol/L (98-107) Carbon Dioxide Level 26mmol/L (21-32) Anion Gap 8 (6-14) Blood Urea Nitrogen 39mg/dL (7-20) Creatinine 1.7mg/dL (0.6-1.0) Estimated GFR (Cockcroft-Gault) 35.4 BUN/Creatinine Ratio 23 (6-20) Glucose Level 97mg/dL (70-99) Calcium Level 9.4mg/dL (8.5-10.1) Total Bilirubin 0.2mg/dL (0.2-1.0) Aspartate Amino Transf (AST/SGOT) 22U/L (15-37) Alanine Aminotransferase (ALT/SGPT) 27U/L (14-59) Alkaline Phosphatase 49U/L (46-116) Total Protein 6.6g/dL (6.4-8.2) Albumin 2.2g/dL (3.4-5.0) Albumin/Globulin Ratio 0.5 (1.0-1.7) Test 09/03/16 04:03 White Blood Count 7.6x10^3/uL (4.0-11.0) Red Blood Count 3.36x10^6/uL (3.50-5.40) Hemoglobin 9.4g/dL (12.0-15.5) Hematocrit 28.9% (36.0-47.0) Mean Corpuscular Volume 86fL (79-100) Mean Corpuscular Hemoglobin 28pg (25-35) Mean Corpuscular Hemoglobin Concent 33g/dL (31-37) Red Cell Distribution Width 16.1% (11.5-14.5) Platelet Count 140x10^3/uL (140-400) Neutrophils (%) (Auto) 59% (31-73) Lymphocytes (%) (Auto) 24% (24-48) Monocytes (%) (Auto) 12% (0-9) Eosinophils (%) (Auto) 5% (0-3) Basophils (%) (Auto) 1% (0-3) Neutrophils # (Auto) 4.5x10^3uL (1.8-7.7) Lymphocytes # (Auto) 1.8x10^3/uL (1.0-4.8) Monocytes # (Auto) 0.9x10^3/uL (0.0-1.1) Eosinophils # (Auto) 0.4x10^3/uL (0.0-0.7) Basophils # (Auto) 0.0x10^3/uL (0.0-0.2) Reticulocyte Count (auto) 0.6% (0.5-2.5) Sodium Level 143mmol/L (136-145) Potassium Level 4.3mmol/L (3.5-5.1) Chloride Level 111mmol/L (98-107) Carbon Dioxide Level 24mmol/L (21-32) Anion Gap 8 (6-14) Blood Urea Nitrogen 29mg/dL (7-20) Creatinine 1.4mg/dL (0.6-1.0) Estimated GFR (Cockcroft-Gault) 44.2 Glucose Level 83mg/dL (70-99) Calcium Level 9.5mg/dL (8.5-10.1) Iron Level 20ug/dL (50-170) Total Iron Binding Capacity 142ug/dL (250-450) Iron Saturation 14% (15-34) Ferritin 280ng/mL (8-252) Vitamin B12 Level 503pg/mL (247-911) Serum Folate 13.15ng/ml (3.2-20.0) Laboratory Tests Test 09/03/16 04:03 White Blood Count 7.6x10^3/uL (4.0-11.0) Red Blood Count 3.36x10^6/uL (3.50-5.40) Hemoglobin 9.4g/dL (12.0-15.5) Hematocrit 28.9% (36.0-47.0) Mean Corpuscular Volume 86fL (79-100) Mean Corpuscular Hemoglobin 28pg (25-35) Mean Corpuscular Hemoglobin Concent 33g/dL (31-37) Red Cell Distribution Width 16.1% (11.5-14.5) Platelet Count 140x10^3/uL (140-400) Neutrophils (%) (Auto) 59% (31-73) Lymphocytes (%) (Auto) 24% (24-48) Monocytes (%) (Auto) 12% (0-9) Eosinophils (%) (Auto) 5% (0-3) Basophils (%) (Auto) 1% (0-3) Neutrophils # (Auto) 4.5x10^3uL (1.8-7.7) Lymphocytes # (Auto) 1.8x10^3/uL (1.0-4.8) Monocytes # (Auto) 0.9x10^3/uL (0.0-1.1) Eosinophils # (Auto) 0.4x10^3/uL (0.0-0.7) Basophils # (Auto) 0.0x10^3/uL (0.0-0.2) Reticulocyte Count (auto) 0.6% (0.5-2.5) Sodium Level 143mmol/L (136-145) Potassium Level 4.3mmol/L (3.5-5.1) Chloride Level 111mmol/L (98-107) Carbon Dioxide Level 24mmol/L (21-32) Anion Gap 8 (6-14) Blood Urea Nitrogen 29mg/dL (7-20) Creatinine 1.4mg/dL (0.6-1.0) Estimated GFR (Cockcroft-Gault) 44.2 Glucose Level 83mg/dL (70-99) Calcium Level 9.5mg/dL (8.5-10.1) Iron Level 20ug/dL (50-170) Total Iron Binding Capacity 142ug/dL (250-450) Iron Saturation 14% (15-34) Ferritin 280ng/mL (8-252) Vitamin B12 Level 503pg/mL (247-911) Serum Folate 13.15ng/ml (3.2-20.0) Microbiology 09/01/16 Blood Culture - Preliminary, Resulted NO GROWTH AFTER 2 DAYS Medications Current Medications Sodium Chloride (Iv Sodium Chloride 0.9% 500ml Bag) 500 ml @ 0 mls/hr 1X ONCE IV Last administered on 09/01/16t 14:50; Start 09/01/16 at 15:15; Stop 09/01/16 at 15:16; Status DC Ondansetron HCl 4 mg 4 mg PRN Q8HRS PRN IV NAUSEA/VOMITING; Start 09/01/16 at 15 :00; Stop 09/02/16 at 14:59; Status DC Sodium Chloride (Iv Sodium Chloride 0.9% 1000ml Bag) 1,000 ml @ 125 mls/hr Q8H IV Last administered on 09/02/16 08:36; Start 09/01/16 at 15:00; Stop 09/02/16 at 14:59; Status DC Acetaminophen (Tylenol) 650 mg PRN Q6HRS PRN PO PAIN/FEVER; Start 09/01/16 at 19 :15 Aspirin (Ecotrin) 81 mg [id number] PO Last administered on 09/02/16 08:36; Start 09/02/16 at 08:00 Docusate Sodium (Colace) 100 mg DAILY PO Last administered on 09/02/16 08:36; Start 09/02/16 at 09:00 Enoxaparin Sodium (Lovenox 30mg Syringe) 30 mg Q24H SQ Last administered on 09/02 08:37; Start 09/02/16 at 09:00 Acetaminophen/ Hydrocodone Bitart (Lortab 5/325) 1 tab PRN Q4HRS PRN PO PAIN Last administered on 09/02/16 20:54; Start 09/01/16 at 19:15 Magnesium Hydroxide (Milk Of Magnesia) 2,400 mg PRN DAILY PRN PO CONSTIPATION; Start 09/01/16 at 19:15 Magnesium Oxide (Magnesium Oxide) 800 mg DAILY PO Last administered on 08:37; Start 09/02/16 at 09:00 Losartan Potassium (Cozaar) 50 mg DAILY PO Last administered on 09/02/16 14:04 ; Start 09/02/16 at 12:00 Chlorthalidone 12.5 mg 12.5 mg DAILY PO ; Start 09/02/16 at 12:00 Sodium Chloride (Iv Sodium Chloride 0.9% 1000ml Bag) 1,000 ml @ 75 mls/hr [id number] IV Last administered on 09/03/16 09:18; Start 09/02/16 at 15:15; Stop at 12:59; Status DC Methylprednisolone Sodium Succinate (Solu-Medrol 125mg Vial) 125 mg 1X ONCE IV Last administered on 09/03/16 11:38; Start 09/03/16 at 09:30; Stop 09/03/16 at 09:31; Status DC Famotidine (Pepcid) 20 mg 1X ONCE IVP Last administered on 09/03/16 11:38; Start 09/03/16 at 09:30; Stop 09/03/16 at 09:31; Status DC Diphenhydramine HCl 50 mg 50 mg 1X ONCE IVP Last administered on 09/03/16 11: 38; Start 09/03/16 at 09:30; Stop 09/03/16 at 09:31; Status DC Adenosine/Sodium Chloride (Adenoscan/Iv Sodium Chloride 0.9% 50ml) 120 ml @ 200 mls/hr 1X ONCE IV ; Start 09/03/16 at 09:30; Stop 09/03/16 at 09:30; Status DC Nitroglycerin (Nitroglycerin) 200 mcg 1X ONCE IART Last administered on 11:38; Start 09/03/16 at 10:45; Stop 09/03/16 at 10:46; Status DC Verapamil HCl (Verapamil) 2.5 mg 1X ONCE IART Last administered on 09/03/16 11 :39; Start 09/03/16 at 10:45; Stop 09/03/16 at 10:46; Status DC Heparin Sodium (Porcine) (Heparin Sodium) 2,500 unit 1X ONCE IART Last administered on 09/03/16 11:40; Start 09/03/16 at 10:45; Stop 09/03/16 at 10:46; Status DC Heparin Sodium/ Sodium Chloride 1,000 unit 1X ONCE IART Last administered on 11:37; Start 09/03/16 at 10:45; Stop 09/03/16 at 10:46; Status DC Midazolam HCl (Versed) 2 mg 1X ONCE IV Last administered on 09/03/16 11:40; Start 09/03/16 at 10:45; Stop 09/03/16 at 10:46; Status DC Fentanyl Citrate (Fentanyl 2ml Vial) 100 mcg 1X ONCE IV Last administered on 11:40; Start 09/03/16 at 10:45; Stop 09/03/16 at 10:46; Status DC Iodixanol (Visipaque 320) 100 ml 1X ONCE IART Last administered on 09/03/16t 11 :37; Start 09/03/16 at 10:45; Stop 09/03/16 at 10:46; Status DC Lidocaine HCl 20 ml 20 ml 1X ONCE IJ Last administered on 09/03/16t 11:39; Start 09/03/16 at 10:45; Stop 09/03/16 at 10:46; Status DC Heparin Sodium/ Sodium Chloride 500 ml @ As Directed STK-MED ONCE .ROUTE ; Start 09/03/16 at 10:28; Stop 09/03/16 at 11:43; Status DC Lidocaine HCl 20 ml STK-MED ONCE .ROUTE ; Start 09/03/16 at 10:28; Stop 09/03/16 at 11:43; Status DC Iodixanol (Visipaque 320) 100 ml STK-MED ONCE .ROUTE ; Start 09/03/16 at 10:28; Stop 09/03/16 at 11:43; Status DC Nitroglycerin (Nitroglycerin) 200 mcg STK-MED ONCE .ROUTE ; Start 09/03/16 at 10: 32; Stop 09/03/16 at 11:43; Status DC Verapamil HCl (Verapamil) 5 mg STK-MED ONCE .ROUTE ; Start 09/03/16 at 10:32; Stop 09/03/16 at 11:43; Status DC Heparin Sodium (Porcine) 10,000 unit STK-MED ONCE .ROUTE ; Start 09/03/16 at 10: 32; Stop 09/03/16 at 11:44; Status DC Fentanyl Citrate (Fentanyl 2ml Vial) 100 mcg STK-MED ONCE .ROUTE ; Start at 10:32; Stop 09/03/16 at 11:44; Status DC Midazolam HCl (Versed) 2 mg STK-MED ONCE .ROUTE ; Start 09/03/16 at 10:33; Stop 09/03/16 at 11:44; Status DC Methylprednisolone Sodium Succinate (Solu-Medrol 125mg Vial) 125 mg STK-MED ONCE .ROUTE ; Start 09/03/16 at 10:34; Stop 09/03/16 at 11:44; Status DC Famotidine (Pepcid) 20 mg STK-MED ONCE .ROUTE ; Start 09/03/16 at 10:34; Stop 09/03/16 at 11:44; Status DC Diphenhydramine HCl 50 mg 50 mg STK-MED ONCE .ROUTE ; Start 09/03/16 at 10:34; Stop 09/03/16 at 11:44; Status DC Sodium Chloride (Iv Sodium Chloride 0.45%) 1,000 ml @ 60 mls/hr [id number] IV ; Start 09/03/16 at 14:00 Nitroglycerin (Nitrostat) 0.4 mg PRN Q5MIN PRN SL CHEST PAIN; Start 09/03/16 at 13:00 Active Scripts Active Aspirin Ec (Aspirin) 81 Mg Tablet.dr 81 Mg PO [id number] Reported Milk Of Magnesia (Magnesium Hydroxide) 2,400 Mg/10 Ml Oral.susp 2,400 Mg PO PRN DAILY PRN Tylenol (Acetaminophen) 325 Mg Tablet 650 Mg PO PRN Q6HRS Magnesium (Magnesium Oxide) 400 Mg Capsule 2 Cap PO DAILY Hydrocodone-Apap 5-325 (Hydrocodone Bit/Acetaminophen) 1 Each Tablet 1 Tab PO Q4HRS PRN Enoxaparin Sodium 40 Mg/0.4 Ml Disp.syrin 40 Mg SQ DAILY Edarbyclor 40-12.5 Mg Tablet (Azilsartan/Chlorthalidone) 1 Each Tablet 1 Tab PO DAILY Colace (Docusate Sodium) 100 Mg Capsule 100 Mg PO DAILY Vitals/I & O Vital Sign - Last 24 Hours 09/02/16 09/02/16 09/02/16 09/02/16 14:04 15:44 19:00 20:00 Temp 97.7 98.8 97.7 98.8 Pulse 81 73 65 Resp 16 18 B/P 117/59 129/70 136/80 Pulse Ox 95 98 O2 Delivery Nasal Cannula Nasal Cannula Nasal Cannula O2 Flow Rate 2.0 2.0 2.0 09/02/16 09/02/16 09/02/16 09/03/16 20:54 21:54 23:00 03:00 Temp 98.9 98.9 98.9 98.9 Pulse 69 72 Resp 20 20 18 18 B/P 125/71 117/77 Pulse Ox 96 96 97 94 O2 Delivery Room Air Room Air Room Air Room Air 4/09/1609/03/16 09/03/16 09/03/16 07:00 08:00 11:10 11:39 Temp 97.9 97.9 97.9 97.9 Pulse 66 67 69 Resp 18 18 B/P 144/78 136/74 163/85 Pulse Ox 99 94 O2 Delivery Nasal Cannula Room Air Room Air O2 Flow Rate 2.0 09/03/16 09/03/16 09/03/16 09/03/16 11:40 11:42 12:09 12:15 Pulse 70 62 62 Resp 12 22 18 18 Pulse Ox 95 95 96 96 O2 Delivery Nasal Cannula Nasal Cannula Room Air Room Air O2 Flow Rate 2.0 3.0 09/03/16 09/03/16 12:30 13:10 Pulse 62 62 Resp 18 16 Pulse Ox 96 96 O2 Delivery Room Air Room Air Intake and Output 09/02/16 09/02/16 09/03/16 15:00 23:00 07:00 Intake Total 800 ml 0 ml Balance 800 ml 0 ml JOSE WEST APRN Sep 03, 2016 14:02
[2016-09-03] MEDS: MAGNESIUM OXIDE 400 MG TABLET PO SCH (14:38)
[2016-09-03] MEDS: ASPIRIN ENTERIC COATED 81 MG TABLET.DR. PO SCH (14:38)
[2016-09-03] MEDS: LOSARTAN POTASSIUM 50 MG TABLET. PO SCH (14:39)
[2016-09-03] MEDS: CHLORTHALIDONE 25 MG TABLET. PO SCH (14:40)
[2016-09-03] MEDS: IV 1/2 NORMAL SALINE 1,000 ML IV SCH (14:41)
[2016-09-03] MEDS: DOCUSATE SODIUM 100 MG CAPSULE. PO SCH (14:41)
--- NOTE | 2016-09-03 15:25 | PDOC ---
PROGRESS NOTES Subjective Subjective c/c - f/u of Retroperitoneal lymphadenopathy Objective Objective Vital Signs Date Time Temp Pulse Resp B/P Pulse Ox O2 Delivery O2 Flow Rate FiO2 09/03/16 14:39 69 168/87 09/03/16 14:01 16 96 Room Air 09/03/16 11:42 3.0 09/03/16 11:10 97.9 97.9 Intake and Output 09/03/16 07:00 Intake Total 800 ml Balance 800 ml Intake Oral 800 ml # Voids 6 Physical Exam Heart: Normal S1, Normal S2 General: Alert, Oriented X3 Lungs: Clear to auscultation Neuro: Normal speech Psych/Mental Status: Mental status NL Assessment Assessment Problems Medical Problems: (1) Hypotension Status: Acute (2) Syncope Status: Acute IMPRESSION AND PLAN: 1. Retroperitoneal lymphadenopathy noted on CT angiogram of the abdomen and pelvis on 08/27/2016. Prior CT scan of the chest, abdomen and pelvis on 08/10/2016 was negative for lymphadenopathy. She also had a scan on 06/27/2006 that showed similar lymphadenopathy; however, the current CT angiogram shows that these are slightly increased when compared to the prior exam. However, the radiologist also felt that these are nonspecific findings and it could be reactive and the largest lymph node measures only 1.5 cm. Since there is no significant change since 2006 to 2016, it is unlikely that this is a malignancy. However, I have recommended a followup CT scan to be done in about 3 months to reevaluate the status of her lymphadenopathy. She does not have any signs or symptoms to suggest lymphoma. 2. Abdominal aortic aneurysm, management per surgery. 3. History of splenectomy. 4. Anemia. Iron studies indicate anemia due to chronic disease. Normal B12 and folic acid levels. Comment Review of Relevant I have reviewed the following items james (where applicable) has been applied. Labs Laboratory Tests Test 09/01/16 20:50 09/01/16 21:20 09/02/16 03:00 09/03/16 04:03 Troponin I Quantitative < 0.017ng/mL (0.000-0.055) < 0.017ng/mL (0.000-0.055) Nasal Screen MRSA (PCR) Negative (Negative) White Blood Count 10.0x10^3/uL (4.0-11.0) 7.6x10^3/uL (4.0-11.0) Red Blood Count 3.54x10^6/uL (3.50-5.40) 3.36x10^6/uL (3.50-5.40) Hemoglobin 9.8g/dL (12.0-15.5) 9.4g/dL (12.0-15.5) Hematocrit 30.7% (36.0-47.0) 28.9% (36.0-47.0) Mean Corpuscular Volume 87fL (79-100) 86fL (79-100) Mean Corpuscular Hemoglobin 28pg (25-35) 28pg (25-35) Mean Corpuscular Hemoglobin Concent 32g/dL (31-37) 33g/dL (31-37) Red Cell Distribution Width 15.7% (11.5-14.5) 16.1% (11.5-14.5) Platelet Count 130x10^3/uL (140-400) 140x10^3/uL (140-400) Neutrophils (%) (Auto) 62% (31-73) 59% (31-73) Lymphocytes (%) (Auto) 20% (24-48) 24% (24-48) Monocytes (%) (Auto) 15% (0-9) 12% (0-9) Eosinophils (%) (Auto) 3% (0-3) 5% (0-3) Basophils (%) (Auto) 1% (0-3) 1% (0-3) Neutrophils # (Auto) 6.2x10^3uL (1.8-7.7) 4.5x10^3uL (1.8-7.7) Lymphocytes # (Auto) 1.9x10^3/uL (1.0-4.8) 1.8x10^3/uL (1.0-4.8) Monocytes # (Auto) 1.5x10^3/uL (0.0-1.1) 0.9x10^3/uL (0.0-1.1) Eosinophils # (Auto) 0.3x10^3/uL (0.0-0.7) 0.4x10^3/uL (0.0-0.7) Basophils # (Auto) 0.1x10^3/uL (0.0-0.2) 0.0x10^3/uL (0.0-0.2) Segmented Neutrophils % 73% (35-66) Band Neutrophils % 2% (0-9) Lymphocytes % 17% (24-48) Monocytes % 5% (0-10) Eosinophils % 3% (0-5) Platelet Estimate Adequate (ADEQUATE) Giant Platelets Occ Poikilocytosis Mod Anisocytosis Slight Spherocytes Occ Ovalocytes Mod Crenated Cell Present Schistocytes Occ Sodium Level 141mmol/L (136-145) 143mmol/L (136-145) Potassium Level 4.0mmol/L (3.5-5.1) 4.3mmol/L (3.5-5.1) Chloride Level 107mmol/L (98-107) 111mmol/L (98-107) Carbon Dioxide Level 26mmol/L (21-32) 24mmol/L (21-32) Anion Gap 8 (6-14) 8 (6-14) Blood Urea Nitrogen 39mg/dL (7-20) 29mg/dL (7-20) Creatinine 1.7mg/dL (0.6-1.0) 1.4mg/dL (0.6-1.0) Estimated GFR (Cockcroft-Gault) 35.4 44.2 BUN/Creatinine Ratio 23 (6-20) Glucose Level 97mg/dL (70-99) 83mg/dL (70-99) Calcium Level 9.4mg/dL (8.5-10.1) 9.5mg/dL (8.5-10.1) Total Bilirubin 0.2mg/dL (0.2-1.0) Aspartate Amino Transf (AST/SGOT) 22U/L (15-37) Alanine Aminotransferase (ALT/SGPT) 27U/L (14-59) Alkaline Phosphatase 49U/L (46-116) Total Protein 6.6g/dL (6.4-8.2) Albumin 2.2g/dL (3.4-5.0) Albumin/Globulin Ratio 0.5 (1.0-1.7) Reticulocyte Count (auto) 0.6% (0.5-2.5) Iron Level 20ug/dL (50-170) Total Iron Binding Capacity 142ug/dL (250-450) Iron Saturation 14% (15-34) Ferritin 280ng/mL (8-252) Vitamin B12 Level 503pg/mL (247-911) Serum Folate 13.15ng/ml (3.2-20.0) Laboratory Tests Test 09/03/16 04:03 White Blood Count 7.6x10^3/uL (4.0-11.0) Red Blood Count 3.36x10^6/uL (3.50-5.40) Hemoglobin 9.4g/dL (12.0-15.5) Hematocrit 28.9% (36.0-47.0) Mean Corpuscular Volume 86fL (79-100) Mean Corpuscular Hemoglobin 28pg (25-35) Mean Corpuscular Hemoglobin Concent 33g/dL (31-37) Red Cell Distribution Width 16.1% (11.5-14.5) Platelet Count 140x10^3/uL (140-400) Neutrophils (%) (Auto) 59% (31-73) Lymphocytes (%) (Auto) 24% (24-48) Monocytes (%) (Auto) 12% (0-9) Eosinophils (%) (Auto) 5% (0-3) Basophils (%) (Auto) 1% (0-3) Neutrophils # (Auto) 4.5x10^3uL (1.8-7.7) Lymphocytes # (Auto) 1.8x10^3/uL (1.0-4.8) Monocytes # (Auto) 0.9x10^3/uL (0.0-1.1) Eosinophils # (Auto) 0.4x10^3/uL (0.0-0.7) Basophils # (Auto) 0.0x10^3/uL (0.0-0.2) Reticulocyte Count (auto) 0.6% (0.5-2.5) Sodium Level 143mmol/L (136-145) Potassium Level 4.3mmol/L (3.5-5.1) Chloride Level 111mmol/L (98-107) Carbon Dioxide Level 24mmol/L (21-32) Anion Gap 8 (6-14) Blood Urea Nitrogen 29mg/dL (7-20) Creatinine 1.4mg/dL (0.6-1.0) Estimated GFR (Cockcroft-Gault) 44.2 Glucose Level 83mg/dL (70-99) Calcium Level 9.5mg/dL (8.5-10.1) Iron Level 20ug/dL (50-170) Total Iron Binding Capacity 142ug/dL (250-450) Iron Saturation 14% (15-34) Ferritin 280ng/mL (8-252) Vitamin B12 Level 503pg/mL (247-911) Serum Folate 13.15ng/ml (3.2-20.0) Microbiology 09/01/16 Blood Culture - Preliminary, Resulted NO GROWTH AFTER 2 DAYS Medications Current Medications Sodium Chloride (Iv Sodium Chloride 0.9% 500ml Bag) 500 ml @ 0 mls/hr 1X ONCE IV Last administered on 09/01/16 14:50; Start 09/01/16 at 15:15; Stop 09/01/16 at 15:16; Status DC Ondansetron HCl 4 mg 4 mg PRN Q8HRS PRN IV NAUSEA/VOMITING; Start 09/01/16 at 15 :00; Stop 09/02/16 at 14:59; Status DC Sodium Chloride (Iv Sodium Chloride 0.9% 1000ml Bag) 1,000 ml @ 125 mls/hr Q8H IV Last administered on 09/02/16 08:36; Start 09/01/16 at 15:00; Stop 09/02/16 at 14:59; Status DC Acetaminophen (Tylenol) 650 mg PRN Q6HRS PRN PO PAIN/FEVER; Start 09/01/16 at 19 :15 Aspirin (Ecotrin) 81 mg [id number] PO Last administered on 09/03/16 14:38; Start 09/02/16 at 08:00 Docusate Sodium (Colace) 100 mg DAILY PO Last administered on 09/03/16 14:41; Start 09/02/16 at 09:00 Enoxaparin Sodium (Lovenox 30mg Syringe) 30 mg Q24H SQ Last administered on 09/02 08:37; Start 09/02/16 at 09:00 Acetaminophen/ Hydrocodone Bitart (Lortab 5/325) 1 tab PRN Q4HRS PRN PO PAIN Last administered on 09/02/16 20:54; Start 09/01/16 at 19:15 Magnesium Hydroxide (Milk Of Magnesia) 2,400 mg PRN DAILY PRN PO CONSTIPATION; Start 09/01/16 at 19:15 Magnesium Oxide (Magnesium Oxide) 800 mg DAILY PO Last administered on 14:38; Start 09/02/16 at 09:00 Losartan Potassium (Cozaar) 50 mg DAILY PO Last administered on 09/03/16 14:39 ; Start 09/02/16 at 12:00 Chlorthalidone 12.5 mg 12.5 mg DAILY PO Last administered on 09/03/16 14:40; Start 09/02/16 at 12:00 Sodium Chloride (Iv Sodium Chloride 0.9% 1000ml Bag) 1,000 ml @ 75 mls/hr [id number] IV Last administered on 09/03/16 09:18; Start 09/02/16 at 15:15; Stop at 12:59; Status DC Methylprednisolone Sodium Succinate (Solu-Medrol 125mg Vial) 125 mg 1X ONCE IV Last administered on 09/03/16 11:38; Start 09/03/16 at 09:30; Stop 09/03/16 at 09:31; Status DC Famotidine (Pepcid) 20 mg 1X ONCE IVP Last administered on 09/03/16 11:38; Start 09/03/16 at 09:30; Stop 09/03/16 at 09:31; Status DC Diphenhydramine HCl 50 mg 50 mg 1X ONCE IVP Last administered on 09/03/16 11: 38; Start 09/03/16 at 09:30; Stop 09/03/16 at 09:31; Status DC Adenosine/Sodium Chloride (Adenoscan/Iv Sodium Chloride 0.9% 50ml) 120 ml @ 200 mls/hr 1X ONCE IV ; Start 09/03/16 at 09:30; Stop 09/03/16 at 09:30; Status DC Nitroglycerin (Nitroglycerin) 200 mcg 1X ONCE IART Last administered on 11:38; Start 09/03/16 at 10:45; Stop 09/03/16 at 10:46; Status DC Verapamil HCl (Verapamil) 2.5 mg 1X ONCE IART Last administered on 09/03/16 11 :39; Start 09/03/16 at 10:45; Stop 09/03/16 at 10:46; Status DC Heparin Sodium (Porcine) (Heparin Sodium) 2,500 unit 1X ONCE IART Last administered on 09/03/16 11:40; Start 09/03/16 at 10:45; Stop 09/03/16 at 10:46; Status DC Heparin Sodium/ Sodium Chloride 1,000 unit 1X ONCE IART Last administered on 11:37; Start 09/03/16 at 10:45; Stop 09/03/16 at 10:46; Status DC Midazolam HCl (Versed) 2 mg 1X ONCE IV Last administered on 09/03/16 11:40; Start 09/03/16 at 10:45; Stop 09/03/16 at 10:46; Status DC Fentanyl Citrate (Fentanyl 2ml Vial) 100 mcg 1X ONCE IV Last administered on 11:40; Start 09/03/16 at 10:45; Stop 09/03/16 at 10:46; Status DC Iodixanol (Visipaque 320) 100 ml 1X ONCE IART Last administered on 09/03/16 11 :37; Start 09/03/16 at 10:45; Stop 09/03/16 at 10:46; Status DC Lidocaine HCl 20 ml 20 ml 1X ONCE IJ Last administered on 09/03/16 11:39; Start 09/03/16 at 10:45; Stop 09/03/16 at 10:46; Status DC Heparin Sodium/ Sodium Chloride 500 ml @ As Directed STK-MED ONCE .ROUTE ; Start 09/03/16 at 10:28; Stop 09/03/16 at 11:43; Status DC Lidocaine HCl 20 ml STK-MED ONCE .ROUTE ; Start 09/03/16 at 10:28; Stop 09/03/16 at 11:43; Status DC Iodixanol (Visipaque 320) 100 ml STK-MED ONCE .ROUTE ; Start 09/03/16 at 10:28; Stop 09/03/16 at 11:43; Status DC Nitroglycerin (Nitroglycerin) 200 mcg STK-MED ONCE .ROUTE ; Start 09/03/16 at 10: 32; Stop 09/03/16 at 11:43; Status DC Verapamil HCl (Verapamil) 5 mg STK-MED ONCE .ROUTE ; Start 09/03/16 at 10:32; Stop 09/03/16 at 11:43; Status DC Heparin Sodium (Porcine) 10,000 unit STK-MED ONCE .ROUTE ; Start 09/03/16 at 10: 32; Stop 09/03/16 at 11:44; Status DC Fentanyl Citrate (Fentanyl 2ml Vial) 100 mcg STK-MED ONCE .ROUTE ; Start at 10:32; Stop 09/03/16 at 11:44; Status DC Midazolam HCl (Versed) 2 mg STK-MED ONCE .ROUTE ; Start 09/03/16 at 10:33; Stop 09/03/16 at 11:44; Status DC Methylprednisolone Sodium Succinate (Solu-Medrol 125mg Vial) 125 mg STK-MED ONCE .ROUTE ; Start 09/03/16 at 10:34; Stop 09/03/16 at 11:44; Status DC Famotidine (Pepcid) 20 mg STK-MED ONCE .ROUTE ; Start 09/03/16 at 10:34; Stop 09/03/16 at 11:44; Status DC Diphenhydramine HCl 50 mg 50 mg STK-MED ONCE .ROUTE ; Start 09/03/16 at 10:34; Stop 09/03/16 at 11:44; Status DC Sodium Chloride (Iv Sodium Chloride 0.45%) 1,000 ml @ 60 mls/hr [id number] IV Last administered on 09/03/16t 14:41; Start 09/03/16 at 14:00 Nitroglycerin (Nitrostat) 0.4 mg PRN Q5MIN PRN SL CHEST PAIN; Start 09/03/16 at 13:00 Active Scripts Active Aspirin Ec (Aspirin) 81 Mg Tablet.dr 81 Mg PO [id number] Reported Milk Of Magnesia (Magnesium Hydroxide) 2,400 Mg/10 Ml Oral.susp 2,400 Mg PO PRN DAILY PRN Tylenol (Acetaminophen) 325 Mg Tablet 650 Mg PO PRN Q6HRS Magnesium (Magnesium Oxide) 400 Mg Capsule 2 Cap PO DAILY Hydrocodone-Apap 5-325 (Hydrocodone Bit/Acetaminophen) 1 Each Tablet 1 Tab PO Q4HRS PRN Enoxaparin Sodium 40 Mg/0.4 Ml Disp.syrin 40 Mg SQ DAILY Edarbyclor 40-12.5 Mg Tablet (Azilsartan/Chlorthalidone) 1 Each Tablet 1 Tab PO DAILY Colace (Docusate Sodium) 100 Mg Capsule 100 Mg PO DAILY Vitals/I & O Vital Sign - Last 24 Hours 09/02/16 09/02/16 09/02/16 09/02/16 15:44 19:00 20:00 20:54 Temp 97.7 98.8 97.7 98.8 Pulse 73 65 Resp 16 18 20 B/P 129/70 136/80 Pulse Ox 95 98 96 O2 Delivery Nasal Cannula Nasal Cannula Nasal Cannula Room Air O2 Flow Rate 2.0 2.0 2.0 09/02/16 09/02/16 09/03/16 09/03/16 21:54 23:00 03:00 07:00 Temp 98.9 98.9 97.9 98.9 98.9 97.9 Pulse 69 72 66 Resp 20 18 18 B/P 125/71 117/77 144/78 Pulse Ox 96 97 94 99 O2 Delivery Room Air Room Air Room Air Nasal Cannula O2 Flow Rate 2.0 09/03/16 09/03/16 09/03/16 09/03/16 08:00 11:10 11:39 11:40 Temp 97.9 97.9 Pulse 67 69 Resp 18 12 B/P 136/74 163/85 Pulse Ox 94 95 O2 Delivery Room Air Room Air Nasal Cannula O2 Flow Rate 2.0 09/03/16 09/03/16 09/03/16 09/03/16 11:42 12:09 12:15 12:30 Pulse 70 62 62 62 Resp 22 18 18 Pulse Ox 95 96 96 96 O2 Delivery Nasal Cannula Room Air Room Air Room Air O2 Flow Rate 3.0 09/03/16 09/03/16 09/03/16 09/03/16 13:10 13:30 14:01 14:39 Pulse 62 62 69 69 Resp 16 16 16 B/P 168/87 Pulse Ox 96 96 96 O2 Delivery Room Air Room Air Room Air Intake and Output 09/02/16 09/02/16 09/03/16 15:00 23:00 07:00 Intake Total 800 ml 0 ml Balance 800 ml 0 ml CHEPE ANTHONY MD Sep 03, 2016 15:25
--- NOTE | 2016-09-03 17:11 | PDOC ---
Provider Note Provider Note VASCULAR 5.5 cm AAA Multivessel CAD Pt is an excellent candidate for endovascular repair rec proceeding with cardiac revasc then EVAR pt is agreeable to this approach Consult Dictated EDI AGUIRRE MD Sep 03, 2016 17:11
--- NOTE | 2016-09-04 00:30 | CONS ---
DATE OF CONSULTATION: REASON FOR CONSULTATION: A 5.5-cm abdominal aortic aneurysm. HISTORY OF PRESENT ILLNESS: This is a 75-year-old female, referred for consultation regarding the presence of an abdominal aortic aneurysm. She has a CT scan performed, which shows the presence of a 5.5-cm abdominal aortic aneurysm. That CT scan has been reviewed. She has an adequate and excellent infrarenal aortic neck for consideration of endovascular aneurysmal repair. Her access vessels are 9 mm bilaterally and the common iliac arteries are 15 mm. She has no history of back pain or abdominal pain. She has a history of claudication. In the course of her evaluation of the abdominal aortic aneurysm, the patient underwent cardiac imaging studies, which suggested significant cardiac ischemia and she has had a cardiac catheterization performed. Cardiac catheterization shows significant three-vessel coronary artery disease with an LAD occlusion, a 70-80% stenosis in the left main and 80% stenosis in the right coronary artery. Ejection fraction is preserved at 65%. Carotid duplex imaging studies have been performed. No significant carotid artery stenosis. The patient is not complaining of any claudication. She is not complaining of any abdominal pain. She has had a recent fall at home with a right ankle fracture. She is walking with a CAM walker. SOCIAL HISTORY: She has only a remote history of tobacco use, which she discontinued in 2008. MEDICATIONS: Include aspirin 81 mg daily, losartan 40/12.5 mg daily, Colace 100 mg as needed, hydrocodone for pain, and milk of magnesia for constipation. The patient has been very active prior to her recent fall and ankle fracture. PHYSICAL EXAMINATION: GENERAL: She is lying in bed, in no acute distress, alert, and cooperative. NECK: Normal carotid upstrokes. No carotid bruits. LUNGS: Clear. CARDIAC: Regular rate and rhythm. ABDOMEN: Soft. Palpable aortic pulsation - difficult to determine the size by physical examination. Excellent femoral pulses and palpable popliteal pulses bilaterally. LABORATORY DATA: Reviewed. Creatinine is 2. 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 This was by CT imaging studies. ASSESSMENT AND PLAN: Discussed options of treatment with the patient. She has significant multivessel coronary artery disease, which I believe, in and of itself would warrant treatment. Defer that decision however to the integration director. Her 5.5-cm abdominal aortic aneurysm puts her at risk for aneurysm rupture. If she could safely navigate aneurysm repair, that would probably be best for her. Given her aneurysmal anatomy, I believe that an endovascular aneurysm repair would be appropriate. Discussed this with the patient and she would like to proceed. Additional cardiac evaluation and treatment may be necessary prior to considering proceeding with the aneurysm repair. Once she has finished her cardiac evaluation and treatment, then we will schedule her for elective endovascular repair. Thank you for this consult. Discussed this at length with the patient. EDI AGUIRRE MD DR: ZOE/sal JOB#: [id number] / [id number]
[2016-09-04 03:34] VITALS: BP 156/95
[2016-09-04] MEDS: IV 1/2 NORMAL SALINE 1,000 ML IV SCH ×2 (06:11→21:41)
[2016-09-04 07:00] VITALS: BP 152/82
[2016-09-04] MEDS: ASPIRIN ENTERIC COATED 81 MG TABLET.DR. PO SCH (08:34)
[2016-09-04] MEDS: MAGNESIUM OXIDE 400 MG TABLET PO SCH (08:34)
[2016-09-04] MEDS: DOCUSATE SODIUM 100 MG CAPSULE. PO SCH (08:35)
[2016-09-04] MEDS: CHLORTHALIDONE 25 MG TABLET. PO SCH (08:35)
[2016-09-04] MEDS: LOSARTAN POTASSIUM 50 MG TABLET. PO SCH (08:35)
[2016-09-04] MEDS: ENOXAPARIN 30 MG/0.3 ML SYRINGE. SQ SCH (08:36)
[2016-09-04 08:43] LABS: CALCIUM 10.4 mg/dL (8.5-10.1); CREATININE 1.7 mg/dL (0.6-1.0); GFR 35.4; POTASSIUM 4.6 mmol/L (3.5-5.1)
[2016-09-04 09:00] LABS: BASO % 0 % (0-3); EOS % 0 % (0-3); HEMATOCRIT 32.1 % (36.0-47.0); HEMOGLOBIN 10.2 g/dL (12.0-15.5); LYMPH # 1.5 x10^3/uL (1.0-4.8); LYMPH % 10 % (24-48); MEAN CORPUSCULAR HEMOGLOBIN 27 pg (25-35); MEAN CORPUSCULAR HGB CONC 32 g/dL (31-37); MEAN CORPUSCULAR VOLUME 86 fL (79-100); MONO % 6 % (0-9); NEUT % 84 % (31-73); PLATELET COUNT 152 x10^3/uL (140-400); RED BLOOD COUNT 3.73 x10^6/uL (3.50-5.40); RED CELL DISTRIBUTION WIDTH 15.8 % (11.5-14.5); WHITE BLOOD COUNT 14.8 x10^3/uL (4.0-11.0)
[2016-09-04 10:15] LABS: ANISOCYTOSIS SLIGHT; PLT ESTIMATE ADEQUATE (ADEQUATE); POIKILOCYTOSIS PRESENT
[2016-09-04 10:16] LABS: OVALOCYTES PRESENT
[2016-09-04 10:17] LABS: SCHISTOCYTES FEW
--- NOTE | 2016-09-04 10:30 | PDOC ---
PROGRESS NOTES Objective Objective Vascular Surgery follow up: No new plans yet at this time. Will await recommendations from Dr. Arreola and cardiology re: next steps Will follow periodically for elective EVAR by Dr. Phillips. Vital Signs Date Time Temp Pulse Resp B/P Pulse Ox O2 Delivery O2 Flow Rate FiO2 09/04/16 08:35 69 152/82 09/04/16 08:00 Room Air 09/04/16 07:00 97.5 18 100 97.5 09/03/16 11:42 3.0 Intake and Output 09/04/16 07:00 Intake Total 1260 ml Balance 1260 ml Intake Oral 1260 ml # Voids 4 Assessment Assessment Problems Medical Problems: (1) Hypotension Status: Acute (2) Syncope Status: Acute Comment Review of Relevant I have reviewed the following items james (where applicable) has been applied. Labs Laboratory Tests Test 09/03/16 04:03 09/04/16 07:20 White Blood Count 7.6x10^3/uL (4.0-11.0) 14.8x10^3/uL (4.0-11.0) Red Blood Count 3.36x10^6/uL (3.50-5.40) 3.73x10^6/uL (3.50-5.40) Hemoglobin 9.4g/dL (12.0-15.5) 10.2g/dL (12.0-15.5) Hematocrit 28.9% (36.0-47.0) 32.1% (36.0-47.0) Mean Corpuscular Volume 86fL (79-100) 86fL (79-100) Mean Corpuscular Hemoglobin 28pg (25-35) 27pg (25-35) Mean Corpuscular Hemoglobin Concent 33g/dL (31-37) 32g/dL (31-37) Red Cell Distribution Width 16.1% (11.5-14.5) 15.8% (11.5-14.5) Platelet Count 140x10^3/uL (140-400) 152x10^3/uL (140-400) Neutrophils (%) (Auto) 59% (31-73) 84% (31-73) Lymphocytes (%) (Auto) 24% (24-48) 10% (24-48) Monocytes (%) (Auto) 12% (0-9) 6% (0-9) Eosinophils (%) (Auto) 5% (0-3) 0% (0-3) Basophils (%) (Auto) 1% (0-3) 0% (0-3) Neutrophils # (Auto) 4.5x10^3uL (1.8-7.7) 12.5x10^3uL (1.8-7.7) Lymphocytes # (Auto) 1.8x10^3/uL (1.0-4.8) 1.5x10^3/uL (1.0-4.8) Monocytes # (Auto) 0.9x10^3/uL (0.0-1.1) 0.9x10^3/uL (0.0-1.1) Eosinophils # (Auto) 0.4x10^3/uL (0.0-0.7) 0.0x10^3/uL (0.0-0.7) Basophils # (Auto) 0.0x10^3/uL (0.0-0.2) 0.0x10^3/uL (0.0-0.2) Reticulocyte Count (auto) 0.6% (0.5-2.5) Sodium Level 143mmol/L (136-145) 142mmol/L (136-145) Potassium Level 4.3mmol/L (3.5-5.1) 4.6mmol/L (3.5-5.1) Chloride Level 111mmol/L (98-107) 108mmol/L (98-107) Carbon Dioxide Level 24mmol/L (21-32) 24mmol/L (21-32) Anion Gap 8 (6-14) 10 (6-14) Blood Urea Nitrogen 29mg/dL (7-20) 34mg/dL (7-20) Creatinine 1.4mg/dL (0.6-1.0) 1.7mg/dL (0.6-1.0) Estimated GFR (Cockcroft-Gault) 44.2 35.4 Glucose Level 83mg/dL (70-99) 130mg/dL (70-99) Calcium Level 9.5mg/dL (8.5-10.1) 10.4mg/dL (8.5-10.1) Iron Level 20ug/dL (50-170) Total Iron Binding Capacity 142ug/dL (250-450) Iron Saturation 14% (15-34) Ferritin 280ng/mL (8-252) Vitamin B12 Level 503pg/mL (247-911) Serum Folate 13.15ng/ml (3.2-20.0) Segmented Neutrophils % 84% (35-66) Lymphocytes % 11% (24-48) Monocytes % 5% (0-10) Platelet Estimate Adequate (ADEQUATE) Giant Platelets Present Poikilocytosis Present Anisocytosis Slight Ovalocytes Present Schistocytes Few Laboratory Tests Test 09/04/16 07:20 White Blood Count 14.8x10^3/uL (4.0-11.0) Red Blood Count 3.73x10^6/uL (3.50-5.40) Hemoglobin 10.2g/dL (12.0-15.5) Hematocrit 32.1% (36.0-47.0) Mean Corpuscular Volume 86fL (79-100) Mean Corpuscular Hemoglobin 27pg (25-35) Mean Corpuscular Hemoglobin Concent 32g/dL (31-37) Red Cell Distribution Width 15.8% (11.5-14.5) Platelet Count 152x10^3/uL (140-400) Neutrophils (%) (Auto) 84% (31-73) Lymphocytes (%) (Auto) 10% (24-48) Monocytes (%) (Auto) 6% (0-9) Eosinophils (%) (Auto) 0% (0-3) Basophils (%) (Auto) 0% (0-3) Neutrophils # (Auto) 12.5x10^3uL (1.8-7.7) Lymphocytes # (Auto) 1.5x10^3/uL (1.0-4.8) Monocytes # (Auto) 0.9x10^3/uL (0.0-1.1) Eosinophils # (Auto) 0.0x10^3/uL (0.0-0.7) Basophils # (Auto) 0.0x10^3/uL (0.0-0.2) Segmented Neutrophils % 84% (35-66) Lymphocytes % 11% (24-48) Monocytes % 5% (0-10) Platelet Estimate Adequate (ADEQUATE) Giant Platelets Present Poikilocytosis Present Anisocytosis Slight Ovalocytes Present Schistocytes Few Sodium Level 142mmol/L (136-145) Potassium Level 4.6mmol/L (3.5-5.1) Chloride Level 108mmol/L (98-107) Carbon Dioxide Level 24mmol/L (21-32) Anion Gap 10 (6-14) Blood Urea Nitrogen 34mg/dL (7-20) Creatinine 1.7mg/dL (0.6-1.0) Estimated GFR (Cockcroft-Gault) 35.4 Glucose Level 130mg/dL (70-99) Calcium Level 10.4mg/dL (8.5-10.1) Microbiology 09/01/16 Blood Culture - Preliminary, Resulted NO GROWTH AFTER 2 DAYS Medications Current Medications Sodium Chloride (Iv Sodium Chloride 0.9% 500ml Bag) 500 ml @ 0 mls/hr 1X ONCE IV Last administered on 09/01/16 14:50; Start 09/01/16 at 15:15; Stop 09/01/16 at 15:16; Status DC Ondansetron HCl 4 mg 4 mg PRN Q8HRS PRN IV NAUSEA/VOMITING; Start 09/01/16 at 15 :00; Stop 09/02/16 at 14:59; Status DC Sodium Chloride (Iv Sodium Chloride 0.9% 1000ml Bag) 1,000 ml @ 125 mls/hr Q8H IV Last administered on 09/02/16 08:36; Start 09/01/16 at 15:00; Stop 09/02/16 at 14:59; Status DC Acetaminophen (Tylenol) 650 mg PRN Q6HRS PRN PO PAIN/FEVER; Start 09/01/16 at 19 :15 Aspirin (Ecotrin) 81 mg [id number] PO Last administered on 09/04/16 08:34; Start 09/02/16 at 08:00 Docusate Sodium (Colace) 100 mg DAILY PO Last administered on 09/04/16 08:35; Start 09/02/16 at 09:00 Enoxaparin Sodium (Lovenox 30mg Syringe) 30 mg Q24H SQ Last administered on 09/04 08:36; Start 09/02/16 at 09:00 Acetaminophen/ Hydrocodone Bitart (Lortab 5/325) 1 tab PRN Q4HRS PRN PO PAIN Last administered on 09/02/16 20:54; Start 09/01/16 at 19:15 Magnesium Hydroxide (Milk Of Magnesia) 2,400 mg PRN DAILY PRN PO CONSTIPATION Last administered on 09/04/16 08:34; Start 09/01/16 at 19:15 Magnesium Oxide (Magnesium Oxide) 800 mg DAILY PO Last administered on 08:34; Start 09/02/16 at 09:00 Losartan Potassium (Cozaar) 50 mg DAILY PO Last administered on 09/04/16 08:35 ; Start 09/02/16 at 12:00 Chlorthalidone 12.5 mg 12.5 mg DAILY PO Last administered on 09/04/16 08:35; Start 09/02/16 at 12:00 Sodium Chloride (Iv Sodium Chloride 0.9% 1000ml Bag) 1,000 ml @ 75 mls/hr [id number] IV Last administered on 09/03/16 09:18; Start 09/02/16 at 15:15; Stop at 12:59; Status DC Methylprednisolone Sodium Succinate (Solu-Medrol 125mg Vial) 125 mg 1X ONCE IV Last administered on 09/03/16 11:38; Start 09/03/16 at 09:30; Stop 09/03/16 at 09:31; Status DC Famotidine (Pepcid) 20 mg 1X ONCE IVP Last administered on 09/03/16 11:38; Start 09/03/16 at 09:30; Stop 09/03/16 at 09:31; Status DC Diphenhydramine HCl 50 mg 50 mg 1X ONCE IVP Last administered on 09/03/16 11: 38; Start 09/03/16 at 09:30; Stop 09/03/16 at 09:31; Status DC Adenosine/Sodium Chloride (Adenoscan/Iv Sodium Chloride 0.9% 50ml) 120 ml @ 200 mls/hr 1X ONCE IV ; Start 09/03/16 at 09:30; Stop 09/03/16 at 09:30; Status DC Nitroglycerin (Nitroglycerin) 200 mcg 1X ONCE IART Last administered on 11:38; Start 09/03/16 at 10:45; Stop 09/03/16 at 10:46; Status DC Verapamil HCl (Verapamil) 2.5 mg 1X ONCE IART Last administered on 09/03/16 11 :39; Start 09/03/16 at 10:45; Stop 09/03/16 at 10:46; Status DC Heparin Sodium (Porcine) (Heparin Sodium) 2,500 unit 1X ONCE IART Last administered on 09/03/16 11:40; Start 09/03/16 at 10:45; Stop 09/03/16 at 10:46; Status DC Heparin Sodium/ Sodium Chloride 1,000 unit 1X ONCE IART Last administered on 11:37; Start 09/03/16 at 10:45; Stop 09/03/16 at 10:46; Status DC Midazolam HCl (Versed) 2 mg 1X ONCE IV Last administered on 09/03/16 11:40; Start 09/03/16 at 10:45; Stop 09/03/16 at 10:46; Status DC Fentanyl Citrate (Fentanyl 2ml Vial) 100 mcg 1X ONCE IV Last administered on 11:40; Start 09/03/16 at 10:45; Stop 09/03/16 at 10:46; Status DC Iodixanol (Visipaque 320) 100 ml 1X ONCE IART Last administered on 09/03/16 11 :37; Start 09/03/16 at 10:45; Stop 09/03/16 at 10:46; Status DC Lidocaine HCl 20 ml 20 ml 1X ONCE IJ Last administered on 09/03/16 11:39; Start 09/03/16 at 10:45; Stop 09/03/16 at 10:46; Status DC Heparin Sodium/ Sodium Chloride 500 ml @ As Directed STK-MED ONCE .ROUTE ; Start 09/03/16 at 10:28; Stop 09/03/16 at 11:43; Status DC Lidocaine HCl 20 ml STK-MED ONCE .ROUTE ; Start 09/03/16 at 10:28; Stop 09/03/16 at 11:43; Status DC Iodixanol (Visipaque 320) 100 ml STK-MED ONCE .ROUTE ; Start 09/03/16 at 10:28; Stop 09/03/16 at 11:43; Status DC Nitroglycerin (Nitroglycerin) 200 mcg STK-MED ONCE .ROUTE ; Start 09/03/16 at 10: 32; Stop 09/03/16 at 11:43; Status DC Verapamil HCl (Verapamil) 5 mg STK-MED ONCE .ROUTE ; Start 09/03/16 at 10:32; Stop 09/03/16 at 11:43; Status DC Heparin Sodium (Porcine) 10,000 unit STK-MED ONCE .ROUTE ; Start 09/03/16 at 10: 32; Stop 09/03/16 at 11:44; Status DC Fentanyl Citrate (Fentanyl 2ml Vial) 100 mcg STK-MED ONCE .ROUTE ; Start at 10:32; Stop 09/03/16 at 11:44; Status DC Midazolam HCl (Versed) 2 mg STK-MED ONCE .ROUTE ; Start 09/03/16 at 10:33; Stop 09/03/16 at 11:44; Status DC Methylprednisolone Sodium Succinate (Solu-Medrol 125mg Vial) 125 mg STK-MED ONCE .ROUTE ; Start 09/03/16 at 10:34; Stop 09/03/16 at 11:44; Status DC Famotidine (Pepcid) 20 mg STK-MED ONCE .ROUTE ; Start 09/03/16 at 10:34; Stop 09/03/16 at 11:44; Status DC Diphenhydramine HCl 50 mg 50 mg STK-MED ONCE .ROUTE ; Start 09/03/16 at 10:34; Stop 09/03/16 at 11:44; Status DC Sodium Chloride (Iv Sodium Chloride 0.45%) 1,000 ml @ 60 mls/hr [id number] IV Last administered on 09/04/16t 06:11; Start 09/03/16 at 14:00 Nitroglycerin (Nitrostat) 0.4 mg PRN Q5MIN PRN SL CHEST PAIN; Start 09/03/16 at 13:00 Active Scripts Active Aspirin Ec (Aspirin) 81 Mg Tablet. 81 Mg PO [id number] Reported Milk Of Magnesia (Magnesium Hydroxide) 2,400 Mg/10 Ml Oral.susp 2,400 Mg PO PRN DAILY PRN Tylenol (Acetaminophen) 325 Mg Tablet 650 Mg PO PRN Q6HRS Magnesium (Magnesium Oxide) 400 Mg Capsule 2 Cap PO DAILY Hydrocodone-Apap 5-325 (Hydrocodone Bit/Acetaminophen) 1 Each Tablet 1 Tab PO Q4HRS PRN Enoxaparin Sodium 40 Mg/0.4 Ml Disp.syrin 40 Mg SQ DAILY Edarbyclor 40-12.5 Mg Tablet (Azilsartan/Chlorthalidone) 1 Each Tablet 1 Tab PO DAILY Colace (Docusate Sodium) 100 Mg Capsule 100 Mg PO DAILY Vitals/I & O Vital Sign - Last 24 Hours 09/03/16 09/03/16 09/03/16 09/03/16 11:10 11:39 11:40 11:42 Temp 97.9 97.9 Pulse 67 69 70 Resp 18 12 22 B/P 136/74 163/85 Pulse Ox 94 95 95 O2 Delivery Room Air Nasal Cannula Nasal Cannula O2 Flow Rate 2.0 3.0 09/03/16 09/03/16 09/03/16 09/03/16 12:09 12:15 12:30 13:10 Pulse 62 62 62 62 Resp 18 18 18 16 Pulse Ox 96 96 96 96 O2 Delivery Room Air Room Air Room Air Room Air 09/03/16 09/03/16 09/03/16 09/03/16 13:30 14:01 14:15 14:31 Pulse 62 69 74 66 Resp 16 16 B/P 139/74 131/74 Pulse Ox 96 96 95 95 O2 Delivery Room Air Room Air Room Air Room Air 09/03/16 09/03/16 09/03/16 09/03/16 14:39 14:45 15:00 15:30 Pulse 69 76 85 78 B/P 168/87 129/71 139/70 129/61 Pulse Ox 95 96 96 O2 Delivery Room Air Room Air Room Air 09/03/16 09/03/16 09/03/16 09/03/16 16:00 17:00 19:30 20:00 Temp 96.8 96.8 Pulse 80 78 89 Resp 16 B/P 124/59 135/68 128/71 Pulse Ox 94 93 95 O2 Delivery Room Air Room Air Room Air Room Air 09/03/16 09/04/16 09/04/16 09/04/16 23:25 03:34 07:00 08:00 Temp 97.7 97.7 97.5 97.7 97.7 97.5 Pulse 65 69 69 Resp 20 20 18 B/P 160/77 156/95 152/82 Pulse Ox 98 100 100 O2 Delivery Room Air Room Air Room Air Room Air 09/04/16 08:35 Pulse 69 B/P 152/82 Intake and Output 09/03/16 09/03/16 09/04/16 15:00 23:00 07:00 Intake Total 350 ml 480 ml 430 ml Balance 350 ml 480 ml 430 ml JOSE WEST APRN Sep 04, 2016 10:30
--- NOTE | 2016-09-04 10:31 | PDOC ---
PROGRESS NOTES Subjective Subjective pt doing well,had cardiac cath yesterday Objective Objective Vital Signs Date Time Temp Pulse Resp B/P Pulse Ox O2 Delivery O2 Flow Rate FiO2 09/04/16 08:35 69 152/82 09/04/16 08:00 Room Air 09/04/16 07:00 97.5 18 100 97.5 09/03/16 11:42 3.0 Intake and Output 09/04/16 07:00 Intake Total 1260 ml Balance 1260 ml Intake Oral 1260 ml # Voids 4 Physical Exam Abdomen: Soft, No tenderness Heart: Normal S1, Normal S2 Extremities: Normal pulses, Other (trace RLE edema ) General: Alert, Oriented X3 HEENT: Atraumatic, Mucous membr. moist/pink Lungs: Clear to auscultation MUSCULOSKELETAL: Osteoarthritic changes both hands, Abnormal active ROM of ( right ankle ) Neuro: Normal speech Psych/Mental Status: Mental status NL Skin: No breakdown, No significant lesion Diagnosis Problem List Problems Medical Problems: (1) Hypotension Status: Acute (2) Syncope Status: Acute Assessment Assessment Problems Medical Problems: (1) Hypotension Status: Acute (2) Syncope Status: Acute FINAL IMPRESSION:CAD 3 vessel 1. Near syncopal episode resolved. 2. Possible vasovagal. 3. Orthostatic hypotension. 4. Mild renal insufficiency, acute on chronic, stage 3. 5. Abdominal aortic aneurysm, 5.2 cm. 6. Retroperitoneal adenopathy. 7. Thyroid mass. 8. Recent ankle fracture, conservative treatment with Cam walker. 9. Gallstones. PLAN: cardiac cath showed 3 vessel disease. spoke with cardiology,pt do not want CABG. will consult Vascular, pt is ready for AAA repair. cr 1.7 worsened after contrast,hydrate for now and monitor kidney function. will have ortho ?rehab f/u. pt want to go home from here Plan at this time was admit to the hospital, hydrate with IV fluids, monitor kidney function, monitor blood pressure and see how she does. The patient is supposed to see a vascular sometime this week for surgery. We will have a Cardiology clearance before that and see. She had echocardiogram as well as a stress test last admission, which was 4 days ago. She will also have Oncology consult because of retroperitoneal adenopathy and see if needs to do further workup. Problems: Plan Plan of Care Problems Medical Problems: (1) Hypotension Status: Acute (2) Syncope Status: Acute Comment Review of Relevant I have reviewed the following items james (where applicable) has been applied. Labs Laboratory Tests Test 09/04/16 07:20 White Blood Count 14.8x10^3/uL (4.0-11.0) Red Blood Count 3.73x10^6/uL (3.50-5.40) Hemoglobin 10.2g/dL (12.0-15.5) Hematocrit 32.1% (36.0-47.0) Mean Corpuscular Volume 86fL (79-100) Mean Corpuscular Hemoglobin 27pg (25-35) Mean Corpuscular Hemoglobin Concent 32g/dL (31-37) Red Cell Distribution Width 15.8% (11.5-14.5) Platelet Count 152x10^3/uL (140-400) Neutrophils (%) (Auto) 84% (31-73) Lymphocytes (%) (Auto) 10% (24-48) Monocytes (%) (Auto) 6% (0-9) Eosinophils (%) (Auto) 0% (0-3) Basophils (%) (Auto) 0% (0-3) Neutrophils # (Auto) 12.5x10^3uL (1.8-7.7) Lymphocytes # (Auto) 1.5x10^3/uL (1.0-4.8) Monocytes # (Auto) 0.9x10^3/uL (0.0-1.1) Eosinophils # (Auto) 0.0x10^3/uL (0.0-0.7) Basophils # (Auto) 0.0x10^3/uL (0.0-0.2) Segmented Neutrophils % 84% (35-66) Lymphocytes % 11% (24-48) Monocytes % 5% (0-10) Platelet Estimate Adequate (ADEQUATE) Giant Platelets Present Poikilocytosis Present Anisocytosis Slight Ovalocytes Present Schistocytes Few Sodium Level 142mmol/L (136-145) Potassium Level 4.6mmol/L (3.5-5.1) Chloride Level 108mmol/L (98-107) Carbon Dioxide Level 24mmol/L (21-32) Anion Gap 10 (6-14) Blood Urea Nitrogen 34mg/dL (7-20) Creatinine 1.7mg/dL (0.6-1.0) Estimated GFR (Cockcroft-Gault) 35.4 Glucose Level 130mg/dL (70-99) Calcium Level 10.4mg/dL (8.5-10.1) Microbiology 09/01/16 Blood Culture - Preliminary, Resulted NO GROWTH AFTER 2 DAYS Medications Current Medications Diphenhydramine HCl 50 mg 50 mg STK-MED ONCE .ROUTE ; Start 09/03/16 at 10:34; Stop 09/03/16 at 11:44; Status DC Famotidine (Pepcid) 20 mg STK-MED ONCE .ROUTE ; Start 09/03/16 at 10:34; Stop 09/03/16 at 11:44; Status DC Fentanyl Citrate (Fentanyl 2ml Vial) 100 mcg 1X ONCE IV Last administered on 11:40; Start 09/03/16 at 10:45; Stop 09/03/16 at 10:46; Status DC Fentanyl Citrate (Fentanyl 2ml Vial) 100 mcg STK-MED ONCE .ROUTE ; Start at 10:32; Stop 09/03/16 at 11:44; Status DC Heparin Sodium (Porcine) 10,000 unit STK-MED ONCE .ROUTE ; Start 09/03/16 at 10: 32; Stop 09/03/16 at 11:44; Status DC Heparin Sodium (Porcine) (Heparin Sodium) 2,500 unit 1X ONCE IART Last administered on 09/03/16 11:40; Start 09/03/16 at 10:45; Stop 09/03/16 at 10:46; Status DC Heparin Sodium/ Sodium Chloride 500 ml @ As Directed STK-MED ONCE .ROUTE ; Start 09/03/16 at 10:28; Stop 09/03/16 at 11:43; Status DC Heparin Sodium/ Sodium Chloride 1,000 unit 1X ONCE IART Last administered on 11:37; Start 09/03/16 at 10:45; Stop 09/03/16 at 10:46; Status DC Iodixanol (Visipaque 320) 100 ml 1X ONCE IART Last administered on 09/03/16 11 :37; Start 09/03/16 at 10:45; Stop 09/03/16 at 10:46; Status DC Iodixanol (Visipaque 320) 100 ml STK-MED ONCE .ROUTE ; Start 09/03/16 at 10:28; Stop 09/03/16 at 11:43; Status DC Lidocaine HCl 20 ml STK-MED ONCE .ROUTE ; Start 09/03/16 at 10:28; Stop 09/03/16 at 11:43; Status DC Lidocaine HCl 20 ml 20 ml 1X ONCE IJ Last administered on 09/03/16 11:39; Start 09/03/16 at 10:45; Stop 09/03/16 at 10:46; Status DC Methylprednisolone Sodium Succinate (Solu-Medrol 125mg Vial) 125 mg STK-MED ONCE .ROUTE ; Start 09/03/16 at 10:34; Stop 09/03/16 at 11:44; Status DC Midazolam HCl (Versed) 2 mg 1X ONCE IV Last administered on 09/03/16 11:40; Start 09/03/16 at 10:45; Stop 09/03/16 at 10:46; Status DC Midazolam HCl (Versed) 2 mg STK-MED ONCE .ROUTE ; Start 09/03/16 at 10:33; Stop 09/03/16 at 11:44; Status DC Nitroglycerin (Nitroglycerin) 200 mcg 1X ONCE IART Last administered on 11:38; Start 09/03/16 at 10:45; Stop 09/03/16 at 10:46; Status DC Nitroglycerin (Nitroglycerin) 200 mcg STK-MED ONCE .ROUTE ; Start 09/03/16 at 10: 32; Stop 09/03/16 at 11:43; Status DC Nitroglycerin (Nitrostat) 0.4 mg PRN Q5MIN PRN SL CHEST PAIN; Start 09/03/16 at 13:00 Sodium Chloride (Iv Sodium Chloride 0.45%) 1,000 ml @ 60 mls/hr [id number] IV Last administered on 09/04/16 06:11; Start 09/03/16 at 14:00 Verapamil HCl (Verapamil) 2.5 mg 1X ONCE IART Last administered on 09/03/16 11 :39; Start 09/03/16 at 10:45; Stop 09/03/16 at 10:46; Status DC Verapamil HCl (Verapamil) 5 mg STK-MED ONCE .ROUTE ; Start 09/03/16 at 10:32; Stop 09/03/16 at 11:43; Status DC Vitals/I & O Vital Sign - Last 24 Hours 09/03/16 09/03/16 09/03/16 09/03/16 11:10 11:39 11:40 11:42 Temp 97.9 97.9 Pulse 67 69 70 Resp 18 12 22 B/P 136/74 163/85 Pulse Ox 94 95 95 O2 Delivery Room Air Nasal Cannula Nasal Cannula O2 Flow Rate 2.0 3.0 09/03/16 09/03/16 09/03/16 09/03/16 12:09 12:15 12:30 13:10 Pulse 62 62 62 62 Resp 18 18 18 16 Pulse Ox 96 96 96 96 O2 Delivery Room Air Room Air Room Air Room Air 09/03/16 09/03/16 09/03/16 09/03/16 13:30 14:01 14:15 14:31 Pulse 62 69 74 66 Resp 16 16 B/P 139/74 131/74 Pulse Ox 96 96 95 95 O2 Delivery Room Air Room Air Room Air Room Air 09/03/16 09/03/16 09/03/16 09/03/16 14:39 14:45 15:00 15:30 Pulse 69 76 85 78 B/P 168/87 129/71 139/70 129/61 Pulse Ox 95 96 96 O2 Delivery Room Air Room Air Room Air 09/03/16 09/03/16 09/03/16 09/03/16 16:00 17:00 19:30 20:00 Temp 96.8 96.8 Pulse 80 78 89 Resp 16 B/P 124/59 135/68 128/71 Pulse Ox 94 93 95 O2 Delivery Room Air Room Air Room Air Room Air 09/03/16 09/04/16 09/04/16 09/04/16 23:25 03:34 07:00 08:00 Temp 97.7 97.7 97.5 97.7 97.7 97.5 Pulse 65 69 69 Resp 20 20 18 B/P 160/77 156/95 152/82 Pulse Ox 98 100 100 O2 Delivery Room Air Room Air Room Air Room Air 09/04/16 08:35 Pulse 69 B/P 152/82 Intake and Output 09/03/16 09/03/16 09/04/16 15:00 23:00 07:00 Intake Total 350 ml 480 ml 430 ml Balance 350 ml 480 ml 430 ml KODURI,VINAYA K MD Sep 04, 2016 10:31
[2016-09-04 11:00] VITALS: BP 154/74
--- NOTE | 2016-09-04 13:29 | PDOC ---
[facility] 09/04/16 1329: CARDIO Progress Notes Date and Time Date of Service 09/04/16 Time of Evaluation 1115 Subjective Subjective: No Chest Pain, No shortness of breath, No Palpitations Vitals Vitals Vital Signs Date Time Temp Pulse Resp B/P Pulse Ox O2 Delivery O2 Flow Rate FiO2 09/04/16 11:00 97.6 73 18 154/74 100 Room Air 97.6 09/03/16 11:42 3.0 Weight Weight [ ] Input and Output Intake and Output Intake and Output 09/04/16 06:59 Intake Total 1260 ml Balance 1260 ml Intake Oral 1260 ml # Voids 4 Laboratory Labs Laboratory Tests Test 09/04/16 07:20 White Blood Count 14.8x10^3/uL (4.0-11.0) Red Blood Count 3.73x10^6/uL (3.50-5.40) Hemoglobin 10.2g/dL (12.0-15.5) Hematocrit 32.1% (36.0-47.0) Mean Corpuscular Volume 86fL (79-100) Mean Corpuscular Hemoglobin 27pg (25-35) Mean Corpuscular Hemoglobin Concent 32g/dL (31-37) Red Cell Distribution Width 15.8% (11.5-14.5) Platelet Count 152x10^3/uL (140-400) Neutrophils (%) (Auto) 84% (31-73) Lymphocytes (%) (Auto) 10% (24-48) Monocytes (%) (Auto) 6% (0-9) Eosinophils (%) (Auto) 0% (0-3) Basophils (%) (Auto) 0% (0-3) Neutrophils # (Auto) 12.5x10^3uL (1.8-7.7) Lymphocytes # (Auto) 1.5x10^3/uL (1.0-4.8) Monocytes # (Auto) 0.9x10^3/uL (0.0-1.1) Eosinophils # (Auto) 0.0x10^3/uL (0.0-0.7) Basophils # (Auto) 0.0x10^3/uL (0.0-0.2) Segmented Neutrophils % 84% (35-66) Lymphocytes % 11% (24-48) Monocytes % 5% (0-10) Platelet Estimate Adequate (ADEQUATE) Giant Platelets Present Poikilocytosis Present Anisocytosis Slight Ovalocytes Present Schistocytes Few Sodium Level 142mmol/L (136-145) Potassium Level 4.6mmol/L (3.5-5.1) Chloride Level 108mmol/L (98-107) Carbon Dioxide Level 24mmol/L (21-32) Anion Gap 10 (6-14) Blood Urea Nitrogen 34mg/dL (7-20) Creatinine 1.7mg/dL (0.6-1.0) Estimated GFR (Cockcroft-Gault) 35.4 Glucose Level 130mg/dL (70-99) Calcium Level 10.4mg/dL (8.5-10.1) Microbiology Micro Microbiology 09/01/16 Blood Culture - Preliminary, Resulted NO GROWTH AFTER 3 DAYS Physical Exam HEENT: Neck Supple W Full Motion Chest: Symmetric LUNGS: Clear to Auscultation Heart: S1S2, RRR, murmurs (3/6 systolic murmur ) Abdomen: Soft N/T Extremities: 2+ Dorsalis Pedis, No Edema, No Calf Tenderness Neurology: alert, oriented, follow commands Assessment Assessment 1. syncope likely vagal response recent echo with normal LV function and polyvalvular insufficiency as outlined above. no acute events on telemetry 2. CAD cath revealed triple vessel disease with left main 70-80% lesion, RCA 80% lesion, and BUSINESS TECHNOLOGY ARCHITECT of the LAD discussed Impella assisted PCI for revascularization- patient wanting to proceed- would like to discuss with family add low-dose BB 3. HTN monitor for hypotension 4. AAA; infrarenal 5.4 cm infrarenal abdominal aortic aneurysm. wishes to proceed with EVAR unclear; patient previously agreed to proceed and now is contemplating as this is "more than I want to undergo" vascular sx following 5. RUMA with CKD Cr 1.7 7. pulm HTN, severe echo with PAP 70 8. thyroid nodules goiter seen on CXR previously per PCP 9. previous CVA sm. vessel ischemic disease on CT scan LILLIE ESTRADA MD 09/05/16 1857: CARDIO Progress Notes Assessment Assessment Patient seen and examined 09/04/16. Agree with SOUP MIXER's assessment and plan. Cath findings and treatment options discussed in detail with patient and family including her daughter and . Patient leaning towards high risk PCI/ stents with hemodynamic support from Impella but would like to make final decision tomorrow. Currently chest pain free. Continue current medical regimen. Possible PCI friday. CLAUDIA LIGHT APRN Sep 04, 2016 13:29 LILLIE ESTRADA MD Sep 05, 2016 08:57
[2016-09-04 15:00] VITALS: BP 145/79
--- NOTE | 2016-09-04 15:36 | RAD ---
Right ankle, 3 views, 09/04/2016: History: Follow-up ankle fracture Comparison is made to a study from 08/21/2016. The bony structures are demineralized. There is slight unchanged posterior displacement of the distal fracture fragment at the fracture site. The fracture line is still visible. No new bony abnormality is seen. There is moderate diffuse soft tissue swelling about the ankle. IMPRESSION: 1. Demineralization. 2. Unchanged distal fibular fracture.
[2016-09-04] MEDS: METOPROLOL TART IMMED RELEASE 25 MG TABLET. PO SCH ×2 (16:14→20:20)
[2016-09-04 19:50] VITALS: BP 140/87
[2016-09-04] MEDS: ATORVASTATIN CALCIUM 10 MG TABLET. PO SCH (20:19)
[2016-09-04] MEDS: MINERAL OIL/PETROLATUM TOPICAL CREAM 113GM JAR. TP SCH (20:22)
[2016-09-04] MEDS: HYDROCODONE/APAP 5/325MG TABLET. PO PRN (21:40)
[2016-09-04 23:05] VITALS: BP 128/72
[2016-09-05 03:25] VITALS: BP 136/70
[2016-09-05 04:06] LABS: BASO % 0 % (0-3); EOS % 1 % (0-3); HEMATOCRIT 28.3 % (36.0-47.0); HEMOGLOBIN 9.1 g/dL (12.0-15.5); LYMPH # 2.3 x10^3/uL (1.0-4.8); LYMPH % 17 % (24-48); MEAN CORPUSCULAR HEMOGLOBIN 28 pg (25-35); MEAN CORPUSCULAR HGB CONC 32 g/dL (31-37); MEAN CORPUSCULAR VOLUME 86 fL (79-100); MONO % 7 % (0-9); NEUT % 74 % (31-73); PLATELET COUNT 151 x10^3/uL (140-400)
--- NOTE | 2016-09-05 04:17 | CONS ---
DATE OF CONSULTATION: 09/04/2016 She is in room ____. ATTENDING PHYSICIAN: Dr. Arreola. The patient was seen at the request of Dr. Arreola for rehab evaluation. HISTORY OF PRESENT ILLNESS: This is a 75-year-old female at [facility] unit after recuperating for treatment of fracture, right lateral malleolus. The patient on 09/01/2016, not feeling well and did not want to have physical therapy, but at the insistence of physical therapy, she went to the gym and started doing the hand bicycling and felt dizzy, lightheaded, did not lose consciousness. She was admitted to the hospital. She was noted with elevated creatinine. She had cardiac evaluation, was noted with stenotic disease and plans for stent placement later on in the week. She also had a CT scan of the brain, which failed to reveal any acute abnormalities. It revealed suspected chronic infarct within the right frontal and parietal lobes and possibly right basal ganglia and chronic small vessel ischemic disease suspected ____ partially empty sella. Chest x-ray revealed suspected trace right pleural effusion, basilar pleural thickening and bilateral basilar atelectasis, cardiomegaly and stable widening of right paratracheal stripe and x-ray of her right ankle reveal ____ and unchanged distal fibular fracture, slight unchanged posterior displacement of the distal fracture fragment at the fracture site with associated diffuse soft tissue swelling about the ankle. The patient admits less pain and swelling in her right ankle. The patient with known hypertension, previous cerebrovascular accident, hyperlipidemia, abdominal aortic aneurysm, thyroid mass, splenectomy, KNOWN ALLERGIC TO IODINE AND PREDNISONE AND SULFA. She lives with her family. PHYSICAL EXAMINATION: Today revealed she is alert, oriented to time, place, person and circumstance and follow commands appropriately, moves all 4 extremities voluntarily where she had 4+/5 grade muscle strength. She is still protecting her right ankle to some extent, still had some edema of her right ankle and tenderness to palpation over right lateral malleolus and she had dry scaly skin of her right ankle and leg. Minimal tenderness to palpation over right tendo Achilles and some tightness of her right heel cord. She can bring her right ankle to 90 degrees of dorsiflexion. Deep tendon reflexes are decreased overall. She had equal perception of touch and pinprick sensation bilaterally. She is independent with bed mobility, except sometime required some help with picking up her right foot to the bed. I have not tested her ambulation skills at this time, but she is participating with physical therapy using Cam walker boot on the right side. ASSESSMENT: An elderly female with fracture right lateral malleolus with some involvement of the ankle joint mortise onset 08/06/2016 with associated edema of her right ankle in a patient with known hypertension, previous cerebrovascular accident, hyperlipidemia, abdominal aortic aneurysm, thyroid mass and coronary artery disease, being considered for stenting. RECOMMENDATIONS: Agree with the plan for physical therapy and occupational therapy and when medically stable, back to half-way care unit or home with home health followup. Dr. Arreola, I appreciate asking me to participate in the care of this interesting patient. I will be glad to follow her with you as needed for her rehabilitation. ETHEL CHOI MD DR: MINI/sal JOB#: [id number] / [id number]
[2016-09-05 04:24] LABS: CALCIUM 9.8 mg/dL (8.5-10.1); CREATININE 1.6 mg/dL (0.6-1.0); GFR 37.9; POTASSIUM 4.1 mmol/L (3.5-5.1)
[2016-09-05 07:00] VITALS: BP 135/69
[2016-09-05] MEDS: DOCUSATE SODIUM 100 MG CAPSULE. PO SCH (09:00)
--- NOTE | 2016-09-05 09:07 | PDOC ---
PROGRESS NOTES Subjective Subjective c/c - f/u of Retroperitoneal lymphadenopathy ROS - no abd pain Objective Objective Vital Signs Date Time Temp Pulse Resp B/P Pulse Ox O2 Delivery O2 Flow Rate FiO2 09/05/16 07:00 98.5 65 18 135/69 97 Room Air 98.5 09/03/16 11:42 3.0 Intake and Output 09/05/16 07:00 Intake Total 900 ml Balance 900 ml Intake Oral 900 ml # Voids 5 # Bowel Movements 1 Physical Exam Heart: Normal S1, Normal S2 General: Alert, Oriented X3 Lungs: Clear to auscultation Neuro: Normal speech Psych/Mental Status: Mental status NL Assessment Assessment Problems Medical Problems: (1) Hypotension Status: Acute (2) Syncope Status: Acute IMPRESSION AND PLAN: 1. Retroperitoneal lymphadenopathy noted on CT angiogram of the abdomen and pelvis on 08/27/2016. Prior CT scan of the chest, abdomen and pelvis on 08/10/2016 was negative for lymphadenopathy. She also had a scan on 06/27/2006 that showed similar lymphadenopathy; however, the current CT angiogram shows that these are slightly increased when compared to the prior exam. However, the radiologist also felt that these are nonspecific findings and it could be reactive and the largest lymph node measures only 1.5 cm. Since there is no significant change since 2006 to 2016, it is unlikely that this is a malignancy. However, I have recommended a followup CT scan to be done in about 3 months to reevaluate the status of her lymphadenopathy. She does not have any signs or symptoms to suggest lymphoma. 2. Abdominal aortic aneurysm, management per vascular surgery. 3. History of splenectomy. 4. Anemia. Iron studies indicate anemia due to chronic disease. Normal B12 and folic acid levels. Hb 9.1, monitor cbc prn. Comment Review of Relevant I have reviewed the following items james (where applicable) has been applied. Labs Laboratory Tests Test 09/04/16 07:20 09/05/16 02:45 White Blood Count 14.8x10^3/uL (4.0-11.0) 14.0x10^3/uL (4.0-11.0) Red Blood Count 3.73x10^6/uL (3.50-5.40) 3.30x10^6/uL (3.50-5.40) Hemoglobin 10.2g/dL (12.0-15.5) 9.1g/dL (12.0-15.5) Hematocrit 32.1% (36.0-47.0) 28.3% (36.0-47.0) Mean Corpuscular Volume 86fL (79-100) 86fL (79-100) Mean Corpuscular Hemoglobin 27pg (25-35) 28pg (25-35) Mean Corpuscular Hemoglobin Concent 32g/dL (31-37) 32g/dL (31-37) Red Cell Distribution Width 15.8% (11.5-14.5) 16.0% (11.5-14.5) Platelet Count 152x10^3/uL (140-400) 151x10^3/uL (140-400) Neutrophils (%) (Auto) 84% (31-73) 74% (31-73) Lymphocytes (%) (Auto) 10% (24-48) 17% (24-48) Monocytes (%) (Auto) 6% (0-9) 7% (0-9) Eosinophils (%) (Auto) 0% (0-3) 1% (0-3) Basophils (%) (Auto) 0% (0-3) 0% (0-3) Neutrophils # (Auto) 12.5x10^3uL (1.8-7.7) 10.4x10^3uL (1.8-7.7) Lymphocytes # (Auto) 1.5x10^3/uL (1.0-4.8) 2.3x10^3/uL (1.0-4.8) Monocytes # (Auto) 0.9x10^3/uL (0.0-1.1) 1.0x10^3/uL (0.0-1.1) Eosinophils # (Auto) 0.0x10^3/uL (0.0-0.7) 0.2x10^3/uL (0.0-0.7) Basophils # (Auto) 0.0x10^3/uL (0.0-0.2) 0.0x10^3/uL (0.0-0.2) Segmented Neutrophils % 84% (35-66) Lymphocytes % 11% (24-48) Monocytes % 5% (0-10) Platelet Estimate Adequate (ADEQUATE) Giant Platelets Present Poikilocytosis Present Anisocytosis Slight Ovalocytes Present Schistocytes Few Sodium Level 142mmol/L (136-145) 142mmol/L (136-145) Potassium Level 4.6mmol/L (3.5-5.1) 4.1mmol/L (3.5-5.1) Chloride Level 108mmol/L (98-107) 108mmol/L (98-107) Carbon Dioxide Level 24mmol/L (21-32) 26mmol/L (21-32) Anion Gap 10 (6-14) 8 (6-14) Blood Urea Nitrogen 34mg/dL (7-20) 33mg/dL (7-20) Creatinine 1.7mg/dL (0.6-1.0) 1.6mg/dL (0.6-1.0) Estimated GFR (Cockcroft-Gault) 35.4 37.9 Glucose Level 130mg/dL (70-99) 86mg/dL (70-99) Calcium Level 10.4mg/dL (8.5-10.1) 9.8mg/dL (8.5-10.1) Laboratory Tests Test 09/05/16 02:45 White Blood Count 14.0x10^3/uL (4.0-11.0) Red Blood Count 3.30x10^6/uL (3.50-5.40) Hemoglobin 9.1g/dL (12.0-15.5) Hematocrit 28.3% (36.0-47.0) Mean Corpuscular Volume 86fL (79-100) Mean Corpuscular Hemoglobin 28pg (25-35) Mean Corpuscular Hemoglobin Concent 32g/dL (31-37) Red Cell Distribution Width 16.0% (11.5-14.5) Platelet Count 151x10^3/uL (140-400) Neutrophils (%) (Auto) 74% (31-73) Lymphocytes (%) (Auto) 17% (24-48) Monocytes (%) (Auto) 7% (0-9) Eosinophils (%) (Auto) 1% (0-3) Basophils (%) (Auto) 0% (0-3) Neutrophils # (Auto) 10.4x10^3uL (1.8-7.7) Lymphocytes # (Auto) 2.3x10^3/uL (1.0-4.8) Monocytes # (Auto) 1.0x10^3/uL (0.0-1.1) Eosinophils # (Auto) 0.2x10^3/uL (0.0-0.7) Basophils # (Auto) 0.0x10^3/uL (0.0-0.2) Sodium Level 142mmol/L (136-145) Potassium Level 4.1mmol/L (3.5-5.1) Chloride Level 108mmol/L (98-107) Carbon Dioxide Level 26mmol/L (21-32) Anion Gap 8 (6-14) Blood Urea Nitrogen 33mg/dL (7-20) Creatinine 1.6mg/dL (0.6-1.0) Estimated GFR (Cockcroft-Gault) 37.9 Glucose Level 86mg/dL (70-99) Calcium Level 9.8mg/dL (8.5-10.1) Microbiology 09/01/16 Blood Culture - Preliminary, Resulted NO GROWTH AFTER 3 DAYS Medications Current Medications Sodium Chloride (Iv Sodium Chloride 0.9% 500ml Bag) 500 ml @ 0 mls/hr 1X ONCE IV Last administered on 09/01/16 14:50; Start 09/01/16 at 15:15; Stop 09/01/16 at 15:16; Status DC Ondansetron HCl 4 mg 4 mg PRN Q8HRS PRN IV NAUSEA/VOMITING; Start 09/01/16 at 15 :00; Stop 09/02/16 at 14:59; Status DC Sodium Chloride (Iv Sodium Chloride 0.9% 1000ml Bag) 1,000 ml @ 125 mls/hr Q8H IV Last administered on 09/02/16 08:36; Start 09/01/16 at 15:00; Stop 09/02/16 at 14:59; Status DC Acetaminophen (Tylenol) 650 mg PRN Q6HRS PRN PO PAIN/FEVER; Start 09/01/16 at 19 :15 Aspirin (Ecotrin) 81 mg DAILYWBKFT PO Last administered on 09/04/16 08:34; Start 09/02/16 at 08:00 Docusate Sodium (Colace) 100 mg DAILY PO Last administered on 09/04/16 08:35; Start 09/02/16 at 09:00 Enoxaparin Sodium (Lovenox 30mg Syringe) 30 mg Q24H SQ Last administered on 09/04 08:36; Start 09/02/16 at 09:00 Acetaminophen/ Hydrocodone Bitart (Lortab 5/325) 1 tab PRN Q4HRS PRN PO PAIN Last administered on 09/04/16 21:40; Start 09/01/16 at 19:15 Magnesium Hydroxide (Milk Of Magnesia) 2,400 mg PRN DAILY PRN PO CONSTIPATION Last administered on 09/04/16 08:34; Start 09/01/16 at 19:15 Magnesium Oxide (Magnesium Oxide) 800 mg DAILY PO Last administered on 08:34; Start 09/02/16 at 09:00 Losartan Potassium (Cozaar) 50 mg DAILY PO Last administered on 09/04/16 08:35 ; Start 09/02/16 at 12:00 Chlorthalidone 12.5 mg 12.5 mg DAILY PO Last administered on 09/04/16 08:35; Start 09/02/16 at 12:00 Sodium Chloride (Iv Sodium Chloride 0.9% 1000ml Bag) 1,000 ml @ 75 mls/hr [id number] IV Last administered on 09/03/16 09:18; Start 09/02/16 at 15:15; Stop at 12:59; Status DC Methylprednisolone Sodium Succinate (Solu-Medrol 125mg Vial) 125 mg 1X ONCE IV Last administered on 09/03/16 11:38; Start 09/03/16 at 09:30; Stop 09/03/16 at 09:31; Status DC Famotidine (Pepcid) 20 mg 1X ONCE IVP Last administered on 09/03/16 11:38; Start 09/03/16 at 09:30; Stop 09/03/16 at 09:31; Status DC Diphenhydramine HCl 50 mg 50 mg 1X ONCE IVP Last administered on 09/03/16 11: 38; Start 09/03/16 at 09:30; Stop 09/03/16 at 09:31; Status DC Adenosine/Sodium Chloride (Adenoscan/Iv Sodium Chloride 0.9% 50ml) 120 ml @ 200 mls/hr 1X ONCE IV ; Start 09/03/16 at 09:30; Stop 09/03/16 at 09:30; Status DC Nitroglycerin (Nitroglycerin) 200 mcg 1X ONCE IART Last administered on 11:38; Start 09/03/16 at 10:45; Stop 09/03/16 at 10:46; Status DC Verapamil HCl (Verapamil) 2.5 mg 1X ONCE IART Last administered on 09/03/16 11 :39; Start 09/03/16 at 10:45; Stop 09/03/16 at 10:46; Status DC Heparin Sodium (Porcine) (Heparin Sodium) 2,500 unit 1X ONCE IART Last administered on 09/03/16 11:40; Start 09/03/16 at 10:45; Stop 09/03/16 at 10:46; Status DC Heparin Sodium/ Sodium Chloride 1,000 unit 1X ONCE IART Last administered on 11:37; Start 09/03/16 at 10:45; Stop 09/03/16 at 10:46; Status DC Midazolam HCl (Versed) 2 mg 1X ONCE IV Last administered on 09/03/16 11:40; Start 09/03/16 at 10:45; Stop 09/03/16 at 10:46; Status DC Fentanyl Citrate (Fentanyl 2ml Vial) 100 mcg 1X ONCE IV Last administered on 11:40; Start 09/03/16 at 10:45; Stop 09/03/16 at 10:46; Status DC Iodixanol (Visipaque 320) 100 ml 1X ONCE IART Last administered on 09/03/16 11 :37; Start 09/03/16 at 10:45; Stop 09/03/16 at 10:46; Status DC Lidocaine HCl 20 ml 20 ml 1X ONCE IJ Last administered on 09/03/16 11:39; Start 09/03/16 at 10:45; Stop 09/03/16 at 10:46; Status DC Heparin Sodium/ Sodium Chloride 500 ml @ As Directed STK-MED ONCE .ROUTE ; Start 09/03/16 at 10:28; Stop 09/03/16 at 11:43; Status DC Lidocaine HCl 20 ml STK-MED ONCE .ROUTE ; Start 09/03/16 at 10:28; Stop 09/03/16 at 11:43; Status DC Iodixanol (Visipaque 320) 100 ml STK-MED ONCE .ROUTE ; Start 09/03/16 at 10:28; Stop 09/03/16 at 11:43; Status DC Nitroglycerin (Nitroglycerin) 200 mcg STK-MED ONCE .ROUTE ; Start 09/03/16 at 10: 32; Stop 09/03/16 at 11:43; Status DC Verapamil HCl (Verapamil) 5 mg STK-MED ONCE .ROUTE ; Start 09/03/16 at 10:32; Stop 09/03/16 at 11:43; Status DC Heparin Sodium (Porcine) 10,000 unit STK-MED ONCE .ROUTE ; Start 09/03/16 at 10: 32; Stop 09/03/16 at 11:44; Status DC Fentanyl Citrate (Fentanyl 2ml Vial) 100 mcg STK-MED ONCE .ROUTE ; Start at 10:32; Stop 09/03/16 at 11:44; Status DC Midazolam HCl (Versed) 2 mg STK-MED ONCE .ROUTE ; Start 09/03/16 at 10:33; Stop 09/03/16 at 11:44; Status DC Methylprednisolone Sodium Succinate (Solu-Medrol 125mg Vial) 125 mg STK-MED ONCE .ROUTE ; Start 09/03/16 at 10:34; Stop 09/03/16 at 11:44; Status DC Famotidine (Pepcid) 20 mg STK-MED ONCE .ROUTE ; Start 09/03/16 at 10:34; Stop 09/03/16 at 11:44; Status DC Diphenhydramine HCl 50 mg 50 mg STK-MED ONCE .ROUTE ; Start 09/03/16 at 10:34; Stop 09/03/16 at 11:44; Status DC Sodium Chloride (Iv Sodium Chloride 0.45%) 1,000 ml @ 60 mls/hr [id number] IV Last administered on 09/04/16 21:41; Start 09/03/16 at 14:00 Nitroglycerin (Nitrostat) 0.4 mg PRN Q5MIN PRN SL CHEST PAIN; Start 09/03/16 at 13:00 Metoprolol Tartrate (Lopressor) 12.5 mg BID PO Last administered on 09/04/16 20 :20; Start 09/04/16 at 15:00 Atorvastatin Calcium (Lipitor) 10 mg QHS PO Last administered on 09/04/16 20:19 ; Start 09/04/16 at 21:00 Multi-Ingred Cream/Lotion/Oil/ Oint (Hydrocerin) 1 eddie BID TP Last administered on 09/04/16 20:22; Start 09/04/16 at 21:00 Active Scripts Active Aspirin Ec (Aspirin) 81 Mg Tablet.dr 81 Mg PO [id number] Reported Milk Of Magnesia (Magnesium Hydroxide) 2,400 Mg/10 Ml Oral.susp 2,400 Mg PO PRN DAILY PRN Tylenol (Acetaminophen) 325 Mg Tablet 650 Mg PO PRN Q6HRS Magnesium (Magnesium Oxide) 400 Mg Capsule 2 Cap PO DAILY Hydrocodone-Apap 5-325 (Hydrocodone Bit/Acetaminophen) 1 Each Tablet 1 Tab PO Q4HRS PRN Enoxaparin Sodium 40 Mg/0.4 Ml Disp.syrin 40 Mg SQ DAILY Edarbyclor 40-12.5 Mg Tablet (Azilsartan/Chlorthalidone) 1 Each Tablet 1 Tab PO DAILY Colace (Docusate Sodium) 100 Mg Capsule 100 Mg PO DAILY Vitals/I & O Vital Sign - Last 24 Hours 09/04/16 09/04/16 09/04/16 09/04/16 11:00 15:00 16:14 19:50 Temp 97.6 97.5 97.5 97.6 97.5 97.5 Pulse 73 75 75 69 Resp 18 18 18 B/P 154/74 145/79 145/79 140/87 Pulse Ox 100 94 93 O2 Delivery Room Air Room Air Room Air 09/04/16 09/04/16 09/04/16 09/04/16 20:00 20:20 21:40 22:40 Pulse 69 B/P 140/87 O2 Delivery Room Air Room Air Room Air 09/04/16 09/05/16 09/05/16 23:05 03:25 07:00 Temp 97.7 98.3 98.5 97.7 98.3 98.5 Pulse 66 65 65 Resp 16 16 18 B/P 128/72 136/70 135/69 Pulse Ox 98 98 97 O2 Delivery Room Air Room Air Room Air Intake and Output 09/04/16 09/04/16 09/05/16 15:00 23:00 07:00 Intake Total 600 ml 300 ml Balance 600 ml 300 ml CHEPE ANTHONY MD Sep 05, 2016 09:07
[2016-09-05] MEDS: MAGNESIUM OXIDE 400 MG TABLET PO SCH (09:10)
[2016-09-05] MEDS: METOPROLOL TART IMMED RELEASE 25 MG TABLET. PO SCH ×2 (09:10→21:44)
[2016-09-05] MEDS: CHLORTHALIDONE 25 MG TABLET. PO SCH (09:11)
[2016-09-05] MEDS: ASPIRIN ENTERIC COATED 81 MG TABLET.DR. PO SCH (09:11)
[2016-09-05] MEDS: LOSARTAN POTASSIUM 50 MG TABLET. PO SCH (09:11)
[2016-09-05] MEDS: MINERAL OIL/PETROLATUM TOPICAL CREAM 113GM JAR. TP SCH ×2 (09:12→21:00)
[2016-09-05] MEDS: ENOXAPARIN 30 MG/0.3 ML SYRINGE. SQ SCH (09:12)
--- NOTE | 2016-09-05 10:00 | PDOC ---
CLAUDIA LIGHT DANNY 09/05/16 1000: CARDIO Progress Notes Date and Time Date of Service 09/05/16 Time of Evaluation 0912 Subjective Subjective: No Chest Pain, No shortness of breath, No Palpitations Vitals Vitals Vital Signs Date Time Temp Pulse Resp B/P Pulse Ox O2 Delivery O2 Flow Rate FiO2 09/05/16 09:11 65 135/69 09/05/16 07:00 98.5 18 97 Room Air 98.5 Weight Weight [ ] Input and Output Intake and Output Intake and Output 09/05/16 07:00 Intake Total 900 ml Balance 900 ml Intake Oral 900 ml # Voids 5 # Bowel Movements 1 Laboratory Labs Laboratory Tests Test 09/05/16 02:45 White Blood Count 14.0x10^3/uL (4.0-11.0) Red Blood Count 3.30x10^6/uL (3.50-5.40) Hemoglobin 9.1g/dL (12.0-15.5) Hematocrit 28.3% (36.0-47.0) Mean Corpuscular Volume 86fL (79-100) Mean Corpuscular Hemoglobin 28pg (25-35) Mean Corpuscular Hemoglobin Concent 32g/dL (31-37) Red Cell Distribution Width 16.0% (11.5-14.5) Platelet Count 151x10^3/uL (140-400) Neutrophils (%) (Auto) 74% (31-73) Lymphocytes (%) (Auto) 17% (24-48) Monocytes (%) (Auto) 7% (0-9) Eosinophils (%) (Auto) 1% (0-3) Basophils (%) (Auto) 0% (0-3) Neutrophils # (Auto) 10.4x10^3uL (1.8-7.7) Lymphocytes # (Auto) 2.3x10^3/uL (1.0-4.8) Monocytes # (Auto) 1.0x10^3/uL (0.0-1.1) Eosinophils # (Auto) 0.2x10^3/uL (0.0-0.7) Basophils # (Auto) 0.0x10^3/uL (0.0-0.2) Sodium Level 142mmol/L (136-145) Potassium Level 4.1mmol/L (3.5-5.1) Chloride Level 108mmol/L (98-107) Carbon Dioxide Level 26mmol/L (21-32) Anion Gap 8 (6-14) Blood Urea Nitrogen 33mg/dL (7-20) Creatinine 1.6mg/dL (0.6-1.0) Estimated GFR (Cockcroft-Gault) 37.9 Glucose Level 86mg/dL (70-99) Calcium Level 9.8mg/dL (8.5-10.1) Microbiology Micro Microbiology 09/01/16 Blood Culture - Preliminary, Resulted NO GROWTH AFTER 3 DAYS Physical Exam HEENT: Neck Supple W Full Motion Chest: Symmetric LUNGS: Clear to Auscultation Heart: S1S2, RRR, murmurs (3/6 systolic murmur ) Abdomen: Soft N/T Extremities: 2+ Dorsalis Pedis, No Edema, No Calf Tenderness Neurology: alert, oriented, follow commands Assessment Assessment 1. syncope likely vagal response recent echo with normal LV function and polyvalvular insufficiency no significant arrhythmias noted on telemetry 2. CAD cath revealed triple vessel disease with left main 70-80% lesion, RCA 80% lesion, and EDGE BASTER of the LAD r/b/a of high-risk PCI/stents with hemodynamic support from Impella d/w patient and family- are agreeable to proceed; will plan for PCI tomorrow. 3. HTN controlled with meds 4. AAA; infrarenal 5.4 cm infrarenal abdominal aortic aneurysm. per vascular sx 5. RUMA with CKD Cr 1.6 6. pulm HTN, severe echo with PAP 70 7. previous CVA sm. vessel ischemic disease on CT scan LILLIE ESTRADA MD 09/06/16 0752: CARDIO Progress Notes Assessment Assessment Patient seen and examined 09/05/16. Agree with [employer]'s assessment and plan. Patient presently chest pain-free. Plan for high risk PCI/stent to LMCA, RCA and possibly LAD with hemodynamic support from Impella percutaneous ventricular assist device, tomorrow. Risks and benefits were explained. CLAUDIA LIGHT APRN Sep 05, 2016 10:00 LILLIE ESTRADA MD Sep 06, 2016 07:52
--- NOTE | 2016-09-05 10:03 | PDOC ---
PROGRESS NOTES Subjective Subjective She had no new complaints. Objective Objective Vital Signs Date Time Temp Pulse Resp B/P Pulse Ox O2 Delivery O2 Flow Rate FiO2 09/05/16 09:11 65 135/69 09/05/16 07:00 98.5 18 97 Room Air 98.5 09/03/16 11:42 3.0 Intake and Output 09/05/16 07:00 Intake Total 900 ml Balance 900 ml Intake Oral 900 ml # Voids 5 # Bowel Movements 1 Physical Exam Physical Exam She is alert and comfortable and sitting in bed and walking with roller walker and cam walker boot to right foot. Assessment Assessment Problems Medical Problems: (1) Hypotension Status: Acute (2) Syncope Status: Acute Plan Plan of Long-Term with home health follow up when medically stable after stent placement. Comment Review of Relevant I have reviewed the following items james (where applicable) has been applied. Labs Laboratory Tests Test 09/04/16 07:20 09/05/16 02:45 White Blood Count 14.8x10^3/uL (4.0-11.0) 14.0x10^3/uL (4.0-11.0) Red Blood Count 3.73x10^6/uL (3.50-5.40) 3.30x10^6/uL (3.50-5.40) Hemoglobin 10.2g/dL (12.0-15.5) 9.1g/dL (12.0-15.5) Hematocrit 32.1% (36.0-47.0) 28.3% (36.0-47.0) Mean Corpuscular Volume 86fL (79-100) 86fL (79-100) Mean Corpuscular Hemoglobin 27pg (25-35) 28pg (25-35) Mean Corpuscular Hemoglobin Concent 32g/dL (31-37) 32g/dL (31-37) Red Cell Distribution Width 15.8% (11.5-14.5) 16.0% (11.5-14.5) Platelet Count 152x10^3/uL (140-400) 151x10^3/uL (140-400) Neutrophils (%) (Auto) 84% (31-73) 74% (31-73) Lymphocytes (%) (Auto) 10% (24-48) 17% (24-48) Monocytes (%) (Auto) 6% (0-9) 7% (0-9) Eosinophils (%) (Auto) 0% (0-3) 1% (0-3) Basophils (%) (Auto) 0% (0-3) 0% (0-3) Neutrophils # (Auto) 12.5x10^3uL (1.8-7.7) 10.4x10^3uL (1.8-7.7) Lymphocytes # (Auto) 1.5x10^3/uL (1.0-4.8) 2.3x10^3/uL (1.0-4.8) Monocytes # (Auto) 0.9x10^3/uL (0.0-1.1) 1.0x10^3/uL (0.0-1.1) Eosinophils # (Auto) 0.0x10^3/uL (0.0-0.7) 0.2x10^3/uL (0.0-0.7) Basophils # (Auto) 0.0x10^3/uL (0.0-0.2) 0.0x10^3/uL (0.0-0.2) Segmented Neutrophils % 84% (35-66) Lymphocytes % 11% (24-48) Monocytes % 5% (0-10) Platelet Estimate Adequate (ADEQUATE) Giant Platelets Present Poikilocytosis Present Anisocytosis Slight Ovalocytes Present Schistocytes Few Sodium Level 142mmol/L (136-145) 142mmol/L (136-145) Potassium Level 4.6mmol/L (3.5-5.1) 4.1mmol/L (3.5-5.1) Chloride Level 108mmol/L (98-107) 108mmol/L (98-107) Carbon Dioxide Level 24mmol/L (21-32) 26mmol/L (21-32) Anion Gap 10 (6-14) 8 (6-14) Blood Urea Nitrogen 34mg/dL (7-20) 33mg/dL (7-20) Creatinine 1.7mg/dL (0.6-1.0) 1.6mg/dL (0.6-1.0) Estimated GFR (Cockcroft-Gault) 35.4 37.9 Glucose Level 130mg/dL (70-99) 86mg/dL (70-99) Calcium Level 10.4mg/dL (8.5-10.1) 9.8mg/dL (8.5-10.1) Laboratory Tests Test 09/05/16 02:45 White Blood Count 14.0x10^3/uL (4.0-11.0) Red Blood Count 3.30x10^6/uL (3.50-5.40) Hemoglobin 9.1g/dL (12.0-15.5) Hematocrit 28.3% (36.0-47.0) Mean Corpuscular Volume 86fL (79-100) Mean Corpuscular Hemoglobin 28pg (25-35) Mean Corpuscular Hemoglobin Concent 32g/dL (31-37) Red Cell Distribution Width 16.0% (11.5-14.5) Platelet Count 151x10^3/uL (140-400) Neutrophils (%) (Auto) 74% (31-73) Lymphocytes (%) (Auto) 17% (24-48) Monocytes (%) (Auto) 7% (0-9) Eosinophils (%) (Auto) 1% (0-3) Basophils (%) (Auto) 0% (0-3) Neutrophils # (Auto) 10.4x10^3uL (1.8-7.7) Lymphocytes # (Auto) 2.3x10^3/uL (1.0-4.8) Monocytes # (Auto) 1.0x10^3/uL (0.0-1.1) Eosinophils # (Auto) 0.2x10^3/uL (0.0-0.7) Basophils # (Auto) 0.0x10^3/uL (0.0-0.2) Sodium Level 142mmol/L (136-145) Potassium Level 4.1mmol/L (3.5-5.1) Chloride Level 108mmol/L (98-107) Carbon Dioxide Level 26mmol/L (21-32) Anion Gap 8 (6-14) Blood Urea Nitrogen 33mg/dL (7-20) Creatinine 1.6mg/dL (0.6-1.0) Estimated GFR (Cockcroft-Gault) 37.9 Glucose Level 86mg/dL (70-99) Calcium Level 9.8mg/dL (8.5-10.1) Microbiology 09/01/16 Blood Culture - Preliminary, Resulted NO GROWTH AFTER 3 DAYS Medications Current Medications Sodium Chloride (Iv Sodium Chloride 0.9% 500ml Bag) 500 ml @ 0 mls/hr 1X ONCE IV Last administered on 09/01/16 14:50; Start 09/01/16 at 15:15; Stop 09/01/16 at 15:16; Status DC Ondansetron HCl 4 mg 4 mg PRN Q8HRS PRN IV NAUSEA/VOMITING; Start 09/01/16 at 15 :00; Stop 09/02/16 at 14:59; Status DC Sodium Chloride (Iv Sodium Chloride 0.9% 1000ml Bag) 1,000 ml @ 125 mls/hr Q8H IV Last administered on 09/02/16 08:36; Start 09/01/16 at 15:00; Stop 09/02/16 at 14:59; Status DC Acetaminophen (Tylenol) 650 mg PRN Q6HRS PRN PO PAIN/FEVER; Start 09/01/16 at 19 :15 Aspirin (Ecotrin) 81 mg DAILYWBKFT PO Last administered on 09/05/16 09:11; Start 09/02/16 at 08:00 Docusate Sodium (Colace) 100 mg DAILY PO Last administered on 09/04/16 08:35; Start 09/02/16 at 09:00 Enoxaparin Sodium (Lovenox 30mg Syringe) 30 mg Q24H SQ Last administered on 09/05 09:12; Start 09/02/16 at 09:00 Acetaminophen/ Hydrocodone Bitart (Lortab 5/325) 1 tab PRN Q4HRS PRN PO PAIN Last administered on 09/04/16 21:40; Start 09/01/16 at 19:15 Magnesium Hydroxide (Milk Of Magnesia) 2,400 mg PRN DAILY PRN PO CONSTIPATION Last administered on 09/04/16 08:34; Start 09/01/16 at 19:15 Magnesium Oxide (Magnesium Oxide) 800 mg DAILY PO Last administered on 09:10; Start 09/02/16 at 09:00 Losartan Potassium (Cozaar) 50 mg DAILY PO Last administered on 09/05/16 09:11 ; Start 09/02/16 at 12:00 Chlorthalidone 12.5 mg 12.5 mg DAILY PO Last administered on 09/05/16 09:11; Start 09/02/16 at 12:00 Sodium Chloride (Iv Sodium Chloride 0.9% 1000ml Bag) 1,000 ml @ 75 mls/hr [id number] IV Last administered on 09/03/16 09:18; Start 09/02/16 at 15:15; Stop at 12:59; Status DC Methylprednisolone Sodium Succinate (Solu-Medrol 125mg Vial) 125 mg 1X ONCE IV Last administered on 09/03/16 11:38; Start 09/03/16 at 09:30; Stop 09/03/16 at 09:31; Status DC Famotidine (Pepcid) 20 mg 1X ONCE IVP Last administered on 09/03/16 11:38; Start 09/03/16 at 09:30; Stop 09/03/16 at 09:31; Status DC Diphenhydramine HCl 50 mg 50 mg 1X ONCE IVP Last administered on 09/03/16 11: 38; Start 09/03/16 at 09:30; Stop 09/03/16 at 09:31; Status DC Adenosine/Sodium Chloride (Adenoscan/Iv Sodium Chloride 0.9% 50ml) 120 ml @ 200 mls/hr 1X ONCE IV ; Start 09/03/16 at 09:30; Stop 09/03/16 at 09:30; Status DC Nitroglycerin (Nitroglycerin) 200 mcg 1X ONCE IART Last administered on 11:38; Start 09/03/16 at 10:45; Stop 09/03/16 at 10:46; Status DC Verapamil HCl (Verapamil) 2.5 mg 1X ONCE IART Last administered on 09/03/16 11 :39; Start 09/03/16 at 10:45; Stop 09/03/16 at 10:46; Status DC Heparin Sodium (Porcine) (Heparin Sodium) 2,500 unit 1X ONCE IART Last administered on 09/03/16 11:40; Start 09/03/16 at 10:45; Stop 09/03/16 at 10:46; Status DC Heparin Sodium/ Sodium Chloride 1,000 unit 1X ONCE IART Last administered on 11:37; Start 09/03/16 at 10:45; Stop 09/03/16 at 10:46; Status DC Midazolam HCl (Versed) 2 mg 1X ONCE IV Last administered on 09/03/16 11:40; Start 09/03/16 at 10:45; Stop 09/03/16 at 10:46; Status DC Fentanyl Citrate (Fentanyl 2ml Vial) 100 mcg 1X ONCE IV Last administered on 11:40; Start 09/03/16 at 10:45; Stop 09/03/16 at 10:46; Status DC Iodixanol (Visipaque 320) 100 ml 1X ONCE IART Last administered on 09/03/16 11 :37; Start 09/03/16 at 10:45; Stop 09/03/16 at 10:46; Status DC Lidocaine HCl 20 ml 20 ml 1X ONCE IJ Last administered on 09/03/16 11:39; Start 09/03/16 at 10:45; Stop 09/03/16 at 10:46; Status DC Heparin Sodium/ Sodium Chloride 500 ml @ As Directed STK-MED ONCE .ROUTE ; Start 09/03/16 at 10:28; Stop 09/03/16 at 11:43; Status DC Lidocaine HCl 20 ml STK-MED ONCE .ROUTE ; Start 09/03/16 at 10:28; Stop 09/03/16 at 11:43; Status DC Iodixanol (Visipaque 320) 100 ml STK-MED ONCE .ROUTE ; Start 09/03/16 at 10:28; Stop 09/03/16 at 11:43; Status DC Nitroglycerin (Nitroglycerin) 200 mcg STK-MED ONCE .ROUTE ; Start 09/03/16 at 10: 32; Stop 09/03/16 at 11:43; Status DC Verapamil HCl (Verapamil) 5 mg STK-MED ONCE .ROUTE ; Start 09/03/16 at 10:32; Stop 09/03/16 at 11:43; Status DC Heparin Sodium (Porcine) 10,000 unit STK-MED ONCE .ROUTE ; Start 09/03/16 at 10: 32; Stop 09/03/16 at 11:44; Status DC Fentanyl Citrate (Fentanyl 2ml Vial) 100 mcg STK-MED ONCE .ROUTE ; Start at 10:32; Stop 09/03/16 at 11:44; Status DC Midazolam HCl (Versed) 2 mg STK-MED ONCE .ROUTE ; Start 09/03/16 at 10:33; Stop 09/03/16 at 11:44; Status DC Methylprednisolone Sodium Succinate (Solu-Medrol 125mg Vial) 125 mg STK-MED ONCE .ROUTE ; Start 09/03/16 at 10:34; Stop 09/03/16 at 11:44; Status DC Famotidine (Pepcid) 20 mg STK-MED ONCE .ROUTE ; Start 09/03/16 at 10:34; Stop 09/03/16 at 11:44; Status DC Diphenhydramine HCl 50 mg 50 mg STK-MED ONCE .ROUTE ; Start 09/03/16 at 10:34; Stop 09/03/16 at 11:44; Status DC Sodium Chloride (Iv Sodium Chloride 0.45%) 1,000 ml @ 60 mls/hr [id number] IV Last administered on 09/04/16 21:41; Start 09/03/16 at 14:00 Nitroglycerin (Nitrostat) 0.4 mg PRN Q5MIN PRN SL CHEST PAIN; Start 09/03/16 at 13:00 Metoprolol Tartrate (Lopressor) 12.5 mg BID PO Last administered on 09/05/16 09 :10; Start 09/04/16 at 15:00 Atorvastatin Calcium (Lipitor) 10 mg QHS PO Last administered on 09/04/16 20:19 ; Start 09/04/16 at 21:00 Multi-Ingred Cream/Lotion/Oil/ Oint (Hydrocerin) 1 eddie BID TP Last administered on 09/05/16 09:12; Start 09/04/16 at 21:00 Active Scripts Active Aspirin Ec (Aspirin) 81 Mg Tablet. 81 Mg PO [id number] Reported Milk Of Magnesia (Magnesium Hydroxide) 2,400 Mg/10 Ml Oral.susp 2,400 Mg PO PRN DAILY PRN Tylenol (Acetaminophen) 325 Mg Tablet 650 Mg PO PRN Q6HRS Magnesium (Magnesium Oxide) 400 Mg Capsule 2 Cap PO DAILY Hydrocodone-Apap 5-325 (Hydrocodone Bit/Acetaminophen) 1 Each Tablet 1 Tab PO Q4HRS PRN Enoxaparin Sodium 40 Mg/0.4 Ml Disp.syrin 40 Mg SQ DAILY Edarbyclor 40-12.5 Mg Tablet (Azilsartan/Chlorthalidone) 1 Each Tablet 1 Tab PO DAILY Colace (Docusate Sodium) 100 Mg Capsule 100 Mg PO DAILY Vitals/I & O Vital Sign - Last 24 Hours 09/04/16 09/04/16 09/04/16 09/04/16 11:00 15:00 16:14 19:50 Temp 97.6 97.5 97.5 97.6 97.5 97.5 Pulse 73 75 75 69 Resp 18 18 18 B/P 154/74 145/79 145/79 140/87 Pulse Ox 100 94 93 O2 Delivery Room Air Room Air Room Air 09/04/16 09/04/16 09/04/16 09/04/16 20:00 20:20 21:40 22:40 Pulse 69 B/P 140/87 O2 Delivery Room Air Room Air Room Air 09/04/16 09/05/16 09/05/16 09/05/16 23:05 03:25 07:00 09:10 Temp 97.7 98.3 98.5 97.7 98.3 98.5 Pulse 66 65 65 65 Resp 16 16 18 B/P 128/72 136/70 135/69 135/69 Pulse Ox 98 98 97 O2 Delivery Room Air Room Air Room Air 09/05/16 09:11 Pulse 65 B/P 135/69 Intake and Output 09/04/16 09/04/16 09/05/16 15:00 23:00 07:00 Intake Total 600 ml 300 ml Balance 600 ml 300 ml ETHEL CHOI MD Sep 05, 2016 10:03
--- NOTE | 2016-09-05 10:11 | PDOC ---
PROGRESS NOTES Subjective Subjective feeling better ,going for cardiac stents tomorrow Objective Objective Vital Signs Date Time Temp Pulse Resp B/P Pulse Ox O2 Delivery O2 Flow Rate FiO2 09/05/16 09:11 65 135/69 09/05/16 07:00 98.5 18 97 Room Air 98.5 Intake and Output 09/05/16 07:00 Intake Total 900 ml Balance 900 ml Intake Oral 900 ml # Voids 5 # Bowel Movements 1 Physical Exam Abdomen: Soft, No tenderness Heart: Normal S1, Normal S2 Extremities: Normal pulses, Other (trace RLE edema ) General: Alert, Oriented X3 HEENT: Atraumatic, Mucous membr. moist/pink Lungs: Clear to auscultation MUSCULOSKELETAL: Osteoarthritic changes both hands, Abnormal active ROM of ( right ankle ) Neuro: Normal speech Psych/Mental Status: Mental status NL Skin: No breakdown, No significant lesion Diagnosis Problem List Problems Medical Problems: (1) Hypotension Status: Acute (2) Syncope Status: Acute Assessment Assessment Problems Medical Problems: (1) Hypotension Status: Acute (2) Syncope Status: Acute FINAL IMPRESSION:CAD 3 vessel 1. Near syncopal episode resolved. 2. Possible vasovagal. 3. Orthostatic hypotension. 4. Mild renal insufficiency, acute on chronic, stage 3. 5. Abdominal aortic aneurysm, 5.2 cm. 6. Retroperitoneal adenopathy. 7. Thyroid mass. 8. Recent ankle fracture, conservative treatment with Cam walker. 9. Gallstones. PLAN: For PTCA and stent placement tomorrow. cardiac cath showed 3 vessel disease. spoke with cardiology,pt do not want CABG. will consult Vascular, pt is ready for AAA repair. cr 1.7 worsened after contrast,hydrate for now and monitor kidney function.cr 1.6 today x ray still shows fracture fibula will have ortho ?rehab f/u. pt want to go home from here.with home health needs walker for home use. consult neonatal social worker Problems: Plan Plan of Care Problems Medical Problems: (1) Hypotension Status: Acute (2) Syncope Status: Acute Comment Review of Relevant I have reviewed the following items james (where applicable) has been applied. Labs Laboratory Tests Test 09/05/16 02:45 White Blood Count 14.0x10^3/uL (4.0-11.0) Red Blood Count 3.30x10^6/uL (3.50-5.40) Hemoglobin 9.1g/dL (12.0-15.5) Hematocrit 28.3% (36.0-47.0) Mean Corpuscular Volume 86fL (79-100) Mean Corpuscular Hemoglobin 28pg (25-35) Mean Corpuscular Hemoglobin Concent 32g/dL (31-37) Red Cell Distribution Width 16.0% (11.5-14.5) Platelet Count 151x10^3/uL (140-400) Neutrophils (%) (Auto) 74% (31-73) Lymphocytes (%) (Auto) 17% (24-48) Monocytes (%) (Auto) 7% (0-9) Eosinophils (%) (Auto) 1% (0-3) Basophils (%) (Auto) 0% (0-3) Neutrophils # (Auto) 10.4x10^3uL (1.8-7.7) Lymphocytes # (Auto) 2.3x10^3/uL (1.0-4.8) Monocytes # (Auto) 1.0x10^3/uL (0.0-1.1) Eosinophils # (Auto) 0.2x10^3/uL (0.0-0.7) Basophils # (Auto) 0.0x10^3/uL (0.0-0.2) Sodium Level 142mmol/L (136-145) Potassium Level 4.1mmol/L (3.5-5.1) Chloride Level 108mmol/L (98-107) Carbon Dioxide Level 26mmol/L (21-32) Anion Gap 8 (6-14) Blood Urea Nitrogen 33mg/dL (7-20) Creatinine 1.6mg/dL (0.6-1.0) Estimated GFR (Cockcroft-Gault) 37.9 Glucose Level 86mg/dL (70-99) Calcium Level 9.8mg/dL (8.5-10.1) Microbiology 09/01/16 Blood Culture - Preliminary, Resulted NO GROWTH AFTER 3 DAYS Medications Current Medications Atorvastatin Calcium (Lipitor) 10 mg QHS PO Last administered on 09/04/16 20:19 ; Start 09/04/16 at 21:00 Metoprolol Tartrate (Lopressor) 12.5 mg BID PO Last administered on 09/05/16 09 :10; Start 09/04/16 at 15:00 Multi-Ingred Cream/Lotion/Oil/ Oint (Hydrocerin) 1 eddie BID TP Last administered on 09/05/16t 09:12; Start 09/04/16 at 21:00 Vitals/I & O Vital Sign - Last 24 Hours 09/04/16 09/04/16 09/04/16 09/04/16 11:00 15:00 16:14 19:50 Temp 97.6 97.5 97.5 97.6 97.5 97.5 Pulse 73 75 75 69 Resp 18 18 18 B/P 154/74 145/79 145/79 140/87 Pulse Ox 100 94 93 O2 Delivery Room Air Room Air Room Air 09/04/16 09/04/16 09/04/16 09/04/16 20:00 20:20 21:40 22:40 Pulse 69 B/P 140/87 O2 Delivery Room Air Room Air Room Air 09/04/16 09/05/16 09/05/16 09/05/16 23:05 03:25 07:00 09:10 Temp 97.7 98.3 98.5 97.7 98.3 98.5 Pulse 66 65 65 65 Resp 16 16 18 B/P 128/72 136/70 135/69 135/69 Pulse Ox 98 98 97 O2 Delivery Room Air Room Air Room Air 09/05/16 09:11 Pulse 65 B/P 135/69 Intake and Output 09/04/16 09/04/16 09/05/16 15:00 23:00 07:00 Intake Total 600 ml 300 ml Balance 600 ml 300 ml LOS NOLASCO MD Sep 05, 2016 10:11
[2016-09-05 11:00] VITALS: BP 146/76
--- NOTE | 2016-09-05 11:41 | PDOC ---
Provider Note Provider Note VASCULAR S: Patient without complaints, cardiac stenting planned for tomorrow O: Alert and OX3 VSS A/P: 5.5 cm AAA Multivessel CAD, stenting planned for tomorrow Endovascular repair of AAA when medically stable pt is agreeable EMILY LÓPEZ APRN Sep 05, 2016 11:41
--- NOTE | 2016-09-05 14:52 | PDOC2 ---
CONSULT Date of Consult Date of Consult DATE: 09/05/16 Reason for Consult Reason for Consult: history of right ankle fracture Referring Physician Referring Physician: Dr. Arreola Identification/Chief Complaint Chief Complaint mild right ankle pain Source Source: Chart review, Patient History of Present Illness Reason for Visit: Ms. Booker is a 75 year old female patient with history of right ankle fracture. On 08/06/16, she was soaking her feet when she had a syncopal episode and twisted her right ankle. She was seen by Dr. Diaz while inpatient who recommended nonoperative treatment with a CAM walker. She states her ankle has been feeling good and she only has pain to the touch now. She has been ambulating with the CAM walker on, without any difficulty. Past Medical History Cardiovascular: CAD, HTN, Other Pulmonary: COPD CENTRAL NERVOUS SYSTEM: CVA, Other GI: Diverticulosis Musculoskeletal: Other (right ankle fracture 08/06/16) Renal/: Chronic renal insuff Endocrine: Other Past Surgical History Past Surgical History: Appendectomy, Other Family History Family History: Other (no pertinent history ) Social History No ALCOHOL: none Drugs: None Lives: [facility] (at for [facility] ) Current Problem List Problem List Problems Medical Problems: (1) Hypotension Status: Acute (2) Syncope Status: Acute Current Medications Current Medications Current Medications Sodium Chloride (Iv Sodium Chloride 0.9% 500ml Bag) 500 ml @ 0 mls/hr 1X ONCE IV Last administered on 09/01/16 14:50; Start 09/01/16 at 15:15; Stop 09/01/16 at 15:16; Status DC Ondansetron HCl 4 mg 4 mg PRN Q8HRS PRN IV NAUSEA/VOMITING; Start 09/01/16 at 15 :00; Stop 09/02/16 at 14:59; Status DC Sodium Chloride (Iv Sodium Chloride 0.9% 1000ml Bag) 1,000 ml @ 125 mls/hr Q8H IV Last administered on 09/02/16 08:36; Start 09/01/16 at 15:00; Stop 09/02/16 at 14:59; Status DC Acetaminophen (Tylenol) 650 mg PRN Q6HRS PRN PO PAIN/FEVER; Start 09/01/16 at 19 :15 Aspirin (Ecotrin) 81 mg DAILYWBKFT PO Last administered on 09/05/16 09:11; Start 09/02/16 at 08:00 Docusate Sodium (Colace) 100 mg DAILY PO Last administered on 09/04/16 08:35; Start 09/02/16 at 09:00 Enoxaparin Sodium (Lovenox 30mg Syringe) 30 mg Q24H SQ Last administered on 09/05 09:12; Start 09/02/16 at 09:00 Acetaminophen/ Hydrocodone Bitart (Lortab 5/325) 1 tab PRN Q4HRS PRN PO PAIN Last administered on 09/04/16 21:40; Start 09/01/16 at 19:15 Magnesium Hydroxide (Milk Of Magnesia) 2,400 mg PRN DAILY PRN PO CONSTIPATION Last administered on 09/04/16 08:34; Start 09/01/16 at 19:15 Magnesium Oxide (Magnesium Oxide) 800 mg DAILY PO Last administered on 09:10; Start 09/02/16 at 09:00 Losartan Potassium (Cozaar) 50 mg DAILY PO Last administered on 09/05/16 09:11 ; Start 09/02/16 at 12:00 Chlorthalidone 12.5 mg 12.5 mg DAILY PO Last administered on 09/05/16 09:11; Start 09/02/16 at 12:00 Sodium Chloride (Iv Sodium Chloride 0.9% 1000ml Bag) 1,000 ml @ 75 mls/hr [id number] IV Last administered on 09/03/16 09:18; Start 09/02/16 at 15:15; Stop at 12:59; Status DC Methylprednisolone Sodium Succinate (Solu-Medrol 125mg Vial) 125 mg 1X ONCE IV Last administered on 09/03/16 11:38; Start 09/03/16 at 09:30; Stop 09/03/16 at 09:31; Status DC Famotidine (Pepcid) 20 mg 1X ONCE IVP Last administered on 09/03/16 11:38; Start 09/03/16 at 09:30; Stop 09/03/16 at 09:31; Status DC Diphenhydramine HCl 50 mg 50 mg 1X ONCE IVP Last administered on 09/03/16 11: 38; Start 09/03/16 at 09:30; Stop 09/03/16 at 09:31; Status DC Adenosine/Sodium Chloride (Adenoscan/Iv Sodium Chloride 0.9% 50ml) 120 ml @ 200 mls/hr 1X ONCE IV ; Start 09/03/16 at 09:30; Stop 09/03/16 at 09:30; Status DC Nitroglycerin (Nitroglycerin) 200 mcg 1X ONCE IART Last administered on 11:38; Start 09/03/16 at 10:45; Stop 09/03/16 at 10:46; Status DC Verapamil HCl (Verapamil) 2.5 mg 1X ONCE IART Last administered on 09/03/16 11 :39; Start 09/03/16 at 10:45; Stop 09/03/16 at 10:46; Status DC Heparin Sodium (Porcine) (Heparin Sodium) 2,500 unit 1X ONCE IART Last administered on 09/03/16 11:40; Start 09/03/16 at 10:45; Stop 09/03/16 at 10:46; Status DC Heparin Sodium/ Sodium Chloride 1,000 unit 1X ONCE IART Last administered on 11:37; Start 09/03/16 at 10:45; Stop 09/03/16 at 10:46; Status DC Midazolam HCl (Versed) 2 mg 1X ONCE IV Last administered on 09/03/16 11:40; Start 09/03/16 at 10:45; Stop 09/03/16 at 10:46; Status DC Fentanyl Citrate (Fentanyl 2ml Vial) 100 mcg 1X ONCE IV Last administered on 11:40; Start 09/03/16 at 10:45; Stop 09/03/16 at 10:46; Status DC Iodixanol (Visipaque 320) 100 ml 1X ONCE IART Last administered on 09/03/16 11 :37; Start 09/03/16 at 10:45; Stop 09/03/16 at 10:46; Status DC Lidocaine HCl 20 ml 20 ml 1X ONCE IJ Last administered on 09/03/16 11:39; Start 09/03/16 at 10:45; Stop 09/03/16 at 10:46; Status DC Heparin Sodium/ Sodium Chloride 500 ml @ As Directed STK-MED ONCE .ROUTE ; Start 09/03/16 at 10:28; Stop 09/03/16 at 11:43; Status DC Lidocaine HCl 20 ml STK-MED ONCE .ROUTE ; Start 09/03/16 at 10:28; Stop 09/03/16 at 11:43; Status DC Iodixanol (Visipaque 320) 100 ml STK-MED ONCE .ROUTE ; Start 09/03/16 at 10:28; Stop 09/03/16 at 11:43; Status DC Nitroglycerin (Nitroglycerin) 200 mcg STK-MED ONCE .ROUTE ; Start 09/03/16 at 10: 32; Stop 09/03/16 at 11:43; Status DC Verapamil HCl (Verapamil) 5 mg STK-MED ONCE .ROUTE ; Start 09/03/16 at 10:32; Stop 09/03/16 at 11:43; Status DC Heparin Sodium (Porcine) 10,000 unit STK-MED ONCE .ROUTE ; Start 09/03/16 at 10: 32; Stop 09/03/16 at 11:44; Status DC Fentanyl Citrate (Fentanyl 2ml Vial) 100 mcg STK-MED ONCE .ROUTE ; Start at 10:32; Stop 09/03/16 at 11:44; Status DC Midazolam HCl (Versed) 2 mg STK-MED ONCE .ROUTE ; Start 09/03/16 at 10:33; Stop 09/03/16 at 11:44; Status DC Methylprednisolone Sodium Succinate (Solu-Medrol 125mg Vial) 125 mg STK-MED ONCE .ROUTE ; Start 09/03/16 at 10:34; Stop 09/03/16 at 11:44; Status DC Famotidine (Pepcid) 20 mg STK-MED ONCE .ROUTE ; Start 09/03/16 at 10:34; Stop 09/03/16 at 11:44; Status DC Diphenhydramine HCl 50 mg 50 mg STK-MED ONCE .ROUTE ; Start 09/03/16 at 10:34; Stop 09/03/16 at 11:44; Status DC Sodium Chloride (Iv Sodium Chloride 0.45%) 1,000 ml @ 60 mls/hr [id number] IV Last administered on 09/04/16t 21:41; Start 09/03/16 at 14:00 Nitroglycerin (Nitrostat) 0.4 mg PRN Q5MIN PRN SL CHEST PAIN; Start 09/03/16 at 13:00 Metoprolol Tartrate (Lopressor) 12.5 mg BID PO Last administered on 09/05/16 09 :10; Start 09/04/16 at 15:00 Atorvastatin Calcium (Lipitor) 10 mg QHS PO Last administered on 09/04/16 20:19 ; Start 09/04/16 at 21:00 Multi-Ingred Cream/Lotion/Oil/ Oint (Hydrocerin) 1 eddie BID TP Last administered on 09/05/16 09:12; Start 09/04/16 at 21:00 Active Scripts Active Aspirin Ec (Aspirin) 81 Mg Tablet. 81 Mg PO [id number] Reported Milk Of Magnesia (Magnesium Hydroxide) 2,400 Mg/10 Ml Oral.susp 2,400 Mg PO PRN DAILY PRN Tylenol (Acetaminophen) 325 Mg Tablet 650 Mg PO PRN Q6HRS Magnesium (Magnesium Oxide) 400 Mg Capsule 2 Cap PO DAILY Hydrocodone-Apap 5-325 (Hydrocodone Bit/Acetaminophen) 1 Each Tablet 1 Tab PO Q4HRS PRN Enoxaparin Sodium 40 Mg/0.4 Ml Disp.syrin 40 Mg SQ DAILY Edarbyclor 40-12.5 Mg Tablet (Azilsartan/Chlorthalidone) 1 Each Tablet 1 Tab PO DAILY Colace (Docusate Sodium) 100 Mg Capsule 100 Mg PO DAILY Allergies Allergies: Coded Allergies: iodine (Verified Allergy, Severe, 10/14/13) Penicillins (Verified Allergy, Intermediate, 08/06/16) Sulfa (Sulfonamide Antibiotics) (Verified Allergy, Intermediate, 08/06/16) lisinopril (Verified Allergy, Intermediate, 09/01/16) prednisone (Verified Allergy, Intermediate, 09/01/16) Physical Exam General: Alert, Oriented X3, Cooperative, No acute distress HEENT: Atraumatic, EOMI Lungs: Normal air movement Heart: Regular rate Abdomen: Soft Skin: No rashes, No breakdown, No significant lesion Neuro: Normal speech, Sensation intact Psych/Mental Status: Mental status NL, Mood NL MUSCULOSKELETAL: Other (The right ankle shows overall normal alignment. There is no skin lesion, erythema, or ecchymosis noted. There is very mild diffuse swelling laterally. There is mild tenderness to palpation over the fracture. No tenderness about the medial aspect of the ankle. The ankle shows full range of motion, without pain. Normal strength. No instability. Light touch sensation is intact. Dorsalis pedis and posterior tibial pulse intact.) Vitals VITALS Vital Signs Date Time Temp Pulse Resp B/P Pulse Ox O2 Delivery O2 Flow Rate FiO2 09/05/16 11:00 97.9 64 18 146/76 100 Room Air 97.9 Labs Labs Laboratory Tests Test 09/04/16 07:20 09/05/16 02:45 White Blood Count 14.8x10^3/uL (4.0-11.0) 14.0x10^3/uL (4.0-11.0) Red Blood Count 3.73x10^6/uL (3.50-5.40) 3.30x10^6/uL (3.50-5.40) Hemoglobin 10.2g/dL (12.0-15.5) 9.1g/dL (12.0-15.5) Hematocrit 32.1% (36.0-47.0) 28.3% (36.0-47.0) Mean Corpuscular Volume 86fL (79-100) 86fL (79-100) Mean Corpuscular Hemoglobin 27pg (25-35) 28pg (25-35) Mean Corpuscular Hemoglobin Concent 32g/dL (31-37) 32g/dL (31-37) Red Cell Distribution Width 15.8% (11.5-14.5) 16.0% (11.5-14.5) Platelet Count 152x10^3/uL (140-400) 151x10^3/uL (140-400) Neutrophils (%) (Auto) 84% (31-73) 74% (31-73) Lymphocytes (%) (Auto) 10% (24-48) 17% (24-48) Monocytes (%) (Auto) 6% (0-9) 7% (0-9) Eosinophils (%) (Auto) 0% (0-3) 1% (0-3) Basophils (%) (Auto) 0% (0-3) 0% (0-3) Neutrophils # (Auto) 12.5x10^3uL (1.8-7.7) 10.4x10^3uL (1.8-7.7) Lymphocytes # (Auto) 1.5x10^3/uL (1.0-4.8) 2.3x10^3/uL (1.0-4.8) Monocytes # (Auto) 0.9x10^3/uL (0.0-1.1) 1.0x10^3/uL (0.0-1.1) Eosinophils # (Auto) 0.0x10^3/uL (0.0-0.7) 0.2x10^3/uL (0.0-0.7) Basophils # (Auto) 0.0x10^3/uL (0.0-0.2) 0.0x10^3/uL (0.0-0.2) Segmented Neutrophils % 84% (35-66) Lymphocytes % 11% (24-48) Monocytes % 5% (0-10) Platelet Estimate Adequate (ADEQUATE) Giant Platelets Present Poikilocytosis Present Anisocytosis Slight Ovalocytes Present Schistocytes Few Sodium Level 142mmol/L (136-145) 142mmol/L (136-145) Potassium Level 4.6mmol/L (3.5-5.1) 4.1mmol/L (3.5-5.1) Chloride Level 108mmol/L (98-107) 108mmol/L (98-107) Carbon Dioxide Level 24mmol/L (21-32) 26mmol/L (21-32) Anion Gap 10 (6-14) 8 (6-14) Blood Urea Nitrogen 34mg/dL (7-20) 33mg/dL (7-20) Creatinine 1.7mg/dL (0.6-1.0) 1.6mg/dL (0.6-1.0) Estimated GFR (Cockcroft-Gault) 35.4 37.9 Glucose Level 130mg/dL (70-99) 86mg/dL (70-99) Calcium Level 10.4mg/dL (8.5-10.1) 9.8mg/dL (8.5-10.1) Laboratory Tests Test 09/05/16 02:45 White Blood Count 14.0x10^3/uL (4.0-11.0) Red Blood Count 3.30x10^6/uL (3.50-5.40) Hemoglobin 9.1g/dL (12.0-15.5) Hematocrit 28.3% (36.0-47.0) Mean Corpuscular Volume 86fL (79-100) Mean Corpuscular Hemoglobin 28pg (25-35) Mean Corpuscular Hemoglobin Concent 32g/dL (31-37) Red Cell Distribution Width 16.0% (11.5-14.5) Platelet Count 151x10^3/uL (140-400) Neutrophils (%) (Auto) 74% (31-73) Lymphocytes (%) (Auto) 17% (24-48) Monocytes (%) (Auto) 7% (0-9) Eosinophils (%) (Auto) 1% (0-3) Basophils (%) (Auto) 0% (0-3) Neutrophils # (Auto) 10.4x10^3uL (1.8-7.7) Lymphocytes # (Auto) 2.3x10^3/uL (1.0-4.8) Monocytes # (Auto) 1.0x10^3/uL (0.0-1.1) Eosinophils # (Auto) 0.2x10^3/uL (0.0-0.7) Basophils # (Auto) 0.0x10^3/uL (0.0-0.2) Sodium Level 142mmol/L (136-145) Potassium Level 4.1mmol/L (3.5-5.1) Chloride Level 108mmol/L (98-107) Carbon Dioxide Level 26mmol/L (21-32) Anion Gap 8 (6-14) Blood Urea Nitrogen 33mg/dL (7-20) Creatinine 1.6mg/dL (0.6-1.0) Estimated GFR (Cockcroft-Gault) 37.9 Glucose Level 86mg/dL (70-99) Calcium Level 9.8mg/dL (8.5-10.1) Images Images X-rays of the right ankle were reviewed. There is distal fibula fracture seen with slight posterior displacement of the distal fracture fragment. Position is unchanged when compared to previous x-rays. Assessment/Plan Assessment/Plan Right ankle fracture, unchanged radiographically. Continue nonoperative treatment with the CAM walker. She may WBAT with CAM walker in place. She may remove boot while resting or in bed. Ice and elevate the ankle as needed. The patient reports she does have a followup appointment with Kailey Olivas NP. Followup as scheduled. SANDRA ZENG Sep 05, 2016 14:52
[2016-09-05 15:00] VITALS: BP 136/77
[2016-09-05] MEDS: IV 1/2 NORMAL SALINE 1,000 ML IV SCH (15:26)
[2016-09-05 19:25] VITALS: BP 137/76
[2016-09-05] MEDS: ATORVASTATIN CALCIUM 10 MG TABLET. PO SCH (21:44)
[2016-09-05 23:21] VITALS: BP 143/87
[2016-09-06] VITALS (15 sets, daily range): BP systolic 93–186; BP diastolic 50–98
[2016-09-06 04:43] LABS: BASO # 0.1 x10^3/uL (0.0-0.2); BASO % 1 % (0-3); EOS % 4 % (0-3); HEMATOCRIT 32.6 % (36.0-47.0); HEMOGLOBIN 10.4 g/dL (12.0-15.5); LYMPH % 17 % (24-48); MEAN CORPUSCULAR HEMOGLOBIN 28 pg (25-35); MEAN CORPUSCULAR HGB CONC 32 g/dL (31-37); MEAN CORPUSCULAR VOLUME 86 fL (79-100); MONO % 9 % (0-9); NEUT % 70 % (31-73); PLATELET COUNT 172 x10^3/uL (140-400); RED BLOOD COUNT 3.79 x10^6/uL (3.50-5.40); RED CELL DISTRIBUTION WIDTH 15.8 % (11.5-14.5); WHITE BLOOD COUNT 12.1 x10^3/uL (4.0-11.0)
[2016-09-06 05:06] LABS: CALCIUM 10.3 mg/dL (8.5-10.1); CREATININE 1.6 mg/dL (0.6-1.0); GFR 37.9; POTASSIUM 4.2 mmol/L (3.5-5.1)
[2016-09-06] MEDS ORDERED: IODIXANOL 320 MG/ML 100 ML VIAL. ONE ×2 (06:36→09:45)
[2016-09-06] MEDS ORDERED: HEPARIN for ARTERIAL LINE 1,500 ML ONE (06:36)
[2016-09-06] MEDS ORDERED: LIDOCAINE 2% 20 ML VIAL. ONE ×2 (06:36→08:32)
[2016-09-06] MEDS ORDERED: FENTANYL PF 100 MCG/2 ML VIAL. ONE (07:22)
[2016-09-06] MEDS ORDERED: MIDAZOLAM HCL/PF 5 MG/5 ML VIAL. ONE (07:22)
[2016-09-06] MEDS: ASPIRIN ENTERIC COATED 81 MG TABLET.DR. PO SCH (08:00)
[2016-09-06] MEDS ORDERED: FAMOTIDINE 20 MG/2 ML VIAL ONE (08:12)
[2016-09-06] MEDS ORDERED: DIPHENHYDRAMINE 50 MG/ML VIAL. ONE (08:12)
[2016-09-06] MEDS ORDERED: methylPREDNISolone SOD SUCC PF 125 MG/2 ML VIAL. ONE (08:12)
[2016-09-06] MEDS ORDERED: FAMOTIDINE 20 MG/2 ML VIAL IVP ONE (08:21)
[2016-09-06] MEDS ORDERED: methylPREDNISolone SOD SUCC PF 125 MG/2 ML VIAL. IV ONE (08:21)
[2016-09-06] MEDS ORDERED: DIPHENHYDRAMINE 50 MG/ML VIAL. IVP ONE (08:21)
[2016-09-06] MEDS ORDERED: BIVALIRUDIN 250 MG VIAL. IV ONE ×2 (08:28→08:44)
[2016-09-06] MEDS: MAGNESIUM OXIDE 400 MG TABLET PO SCH (09:00)
[2016-09-06] MEDS ORDERED: MIDAZOLAM HCL/PF 5 MG/5 ML VIAL. IV ONE (09:00)
[2016-09-06] MEDS ORDERED: FENTANYL PF 100 MCG/2 ML VIAL. IV ONE (09:00)
[2016-09-06] MEDS ORDERED: LIDOCAINE 2% 20 ML VIAL. IJ ONE (09:00)
[2016-09-06] MEDS ORDERED: IODIXANOL 320 MG/ML 100 ML VIAL. IART ONE (09:00)
[2016-09-06] MEDS ORDERED: CONTRAST GIVEN MC PRN (09:00)
[2016-09-06] MEDS: MINERAL OIL/PETROLATUM TOPICAL CREAM 113GM JAR. TP SCH ×2 (09:00→21:47)
[2016-09-06] MEDS: ENOXAPARIN 30 MG/0.3 ML SYRINGE. SQ SCH (09:00)
[2016-09-06] MEDS: DOCUSATE SODIUM 100 MG CAPSULE. PO SCH (09:00)
[2016-09-06] MEDS ORDERED: LABETALOL 20 MG/4 ML DISP.SYRIN. ONE (09:10)
[2016-09-06] MEDS ORDERED: LABETALOL 20 MG/4 ML DISP.SYRIN. IVP ONE (09:13)
[2016-09-06] MEDS ORDERED: CLOPIDOGREL BISULFATE 75 MG TABLET ONE (10:41)
[2016-09-06] MEDS ORDERED: ASPIRIN 325 MG TABLET ONE (10:41)
[2016-09-06] MEDS ORDERED: CLOPIDOGREL BISULFATE 75 MG TABLET PO ONE (10:45)
[2016-09-06] MEDS ORDERED: ASPIRIN 325 MG TABLET PO ONE (10:45)
[2016-09-06] MEDS: IV 1/2 NORMAL SALINE 1,000 ML IV SCH (11:03)
[2016-09-06] MEDS ORDERED: ACETAMINOPHEN 325 MG TABLET. PO PRN (11:15)
[2016-09-06] MEDS ORDERED: NITROGLYCERIN SUBLINGUAL 0.4 MG BOTTLE OF 25. SL PRN (11:15)
[2016-09-06] MEDS ORDERED: IV 1/2 NORMAL SALINE 1,000 ML IV SCH (11:30)
--- NOTE | 2016-09-06 11:54 | CARD ---
APPROVED REPORT Procedure(s) performed: 1. Left heart catheterization, selective coronary angiography 2. Successful PCI/stents placement to the left main coronary artery and right coronary artery, succe ssful PTCA to the left circumflex artery and attempted PTCA to the left anterior descending artery 3. Assistance with cardiac output using Impella pump, continuous (percutaneous ventricular assist de vice) HISTORY : 75-year-old female presented with unstable angina and acute on chronic renal insufficiency. She is also presently being evaluated for abdominal aortic aneurysm repair. Cardiac catheterization 09/03/16 s howed significant three-vessel coronary artery disease. Since she is not a good candidate for coronar y artery bypass surgery, the option of high risk PCI/stents placement with hemodynamic support from I mpella percutaneous ventricular assist device was discussed in detail along with the risks and benefi ts and she agreed.. PROCEDURE NARRATIVE After explaining the risks, benefits and alternative options, informed consent was obtained from kyara ent. Patient was brought to the cardiac Physical Science Professor and both her groins were prepped and draped in the u sual fashion. 10 mL of 2% lidocaine was infiltrated into the skin and subcutaneous tissues of the rig ht groin for local anesthesia. Arterial access was obtained in the right common femoral artery and 8 Guamanian sheath was inserted. 20 mL of 2% lidocaine was infiltrated into the skin and subcutaneous tiss ues of the left groin for local anesthesia. Arterial access was obtained in the left common femoral a rtery and 6 Guamanian sheath was inserted. Contrast injections through the sheath confirmed suitability of this vessel for insertion of Impella ventricular assist device. Subsequently, the arteriotomy site was prepared for later closure with two Perclose devices in 'Preclose' fashion. A 14 Guamanian long she ath was then inserted in the left common femoral artery. 6 Guamanian JR4 guide catheter was used to cross the aortic valve and LVEDP measurement was made. This w as exchanged over a 0.018 guidewire to Abiomed Impella percutaneous ventricular assist device that wa s advanced into the left ventricle under fluoroscopic guidance. The device was torn on and set to max imum hemodynamic support. Selective angiography of the right and left coronary arteries confirm the p revious he described 80% stenosis in the right coronary artery, 80% stenosis involving the left main coronary artery and chronic total occlusion involving the left anterior descending artery. The right coronary artery was engaged with a 6 Guamanian JR4 guide catheter and the stenosis in the mids egment was crossed with a 0.014 inch FiftyFiver water guidewire. A 6 Guamanian guide liner catheter was advanced into the right coronary artery for backup support due to heavy calcification. The lesion was then dilated with a 2.5 x 15 mm trek balloon following wrist this was successfully treated with over lapping 3.0 x 28 and 3.5 x 15 mm MultiLink vision stent. Follow-up angiography showed resolution of t he stenosis to 0% with CHRIS-3 distal flow. Following this, the left main coronary artery was engaged with 8 Guamanian XB 3.5 guide catheter. Severa l attempts were then made to cross the chronic total occlusion involving the proximal segment of the left anterior descending artery using 0.014 inch Stream Miracle bros 6.0, Confianza followed by Fielde r XT guidewires with back up support using 2.0 balloon but were unsuccessful due to heavy calcificati on, chronic nature of the occlusion and very proximal location of the stenosis. Since patient had goo d collaterals and did not have any anterior wall motion abnormality, we decided to manage this medica lly. The left main coronary artery stenosis was crossed into the ramus intermedius artery with 0.014 inch FiftyFiver water guidewire. This was treated with 4.0 x 15 mm MultiLink vision stent was postdilated with a 5.0 x 12 mm noncompliant trek balloon. The stent struts recrossed into the left circumflex art rajat with the pool water guidewire and the stent struts and proximal left circumflex artery dilated wi th a 2.5 x 12 mm noncompliant trek balloon. Final angiography showed resolution of the stenosis in th e left main coronary artery 0% with CHRIS-3 distal flow. Patient tolerated the procedure well. Hemosta sis in the right groin was achieved using Perclose suture closure device and left groin achieved by c ompleting the preclose. There were no immediate complications. Conclusion 1. Successful complex and high risk PCI/stents placement to the right coronary artery and the left m ain coronary artery, successful PTCA to the left circumflex artery and attempted PTCA to the left ant erior descending artery. 2. Assistance with cardiac output using Impella percutaneous ventricular assist device that was terrell alejandra at the end of procedure. Recommendations 1. Aspirin 325 mg daily 2. Plavix 75 mg daily for preferably one year 3. Cardiovascular risk factor modification 4. Cleared for AAA repair from cardiac standpoint.
[2016-09-06] MEDS: CHLORTHALIDONE 25 MG TABLET. PO SCH (12:34)
[2016-09-06] MEDS: LOSARTAN POTASSIUM 50 MG TABLET. PO SCH (12:34)
[2016-09-06] MEDS: METOPROLOL TART IMMED RELEASE 25 MG TABLET. PO SCH ×2 (12:37→21:47)
--- NOTE | 2016-09-06 13:49 | PDOC ---
Provider Note Provider Note Vascular F/U Results of cath noted Will delay any consideration of AAA repair until cardiac decision addressed KAM WEST MD Sep 06, 2016 13:49
[2016-09-06] MEDS ORDERED: hydrALAZINE 20 MG/ML VIAL. IVP PRN (15:00)
[2016-09-06] MEDS ORDERED: hydrALAZINE 20 MG/ML VIAL. IVP ONE (15:00)
--- NOTE | 2016-09-06 15:42 | PDOC ---
PROGRESS NOTES Subjective Subjective cardiac intervention today Objective Objective Vital Signs Date Time Temp Pulse Resp B/P Pulse Ox O2 Delivery O2 Flow Rate FiO2 09/06/16 15:19 69 166/80 09/06/16 11:59 97.8 20 95 Room Air 97.8 09/06/16 11:57 3.0 Intake and Output 09/06/16 07:00 Intake Total 1930 ml Balance 1930 ml Intake Oral 930 ml IV Total 1000 ml # Voids 9 # Bowel Movements 4 Physical Exam Abdomen: Soft Heart: Regular rate Extremities: Normal pulses, Other (trace RLE edema ) General: Alert, Oriented X3, Cooperative, No acute distress HEENT: Atraumatic, EOMI Lungs: Normal air movement MUSCULOSKELETAL: Other (The right ankle shows overall normal alignment. There is no skin lesion, erythema, or ecchymosis noted. There is very mild diffuse swelling laterally. There is mild tenderness to palpation over the fracture. No tenderness about the medial aspect of the ankle. The ankle shows full range of motion, without pain. Normal strength. No instability. Light touch sensation is intact. Dorsalis pedis and posterior tibial pulse intact.) Neuro: Normal speech, Sensation intact Psych/Mental Status: Mental status NL, Mood NL Skin: No rashes, No breakdown, No significant lesion Diagnosis Problem List Problems Medical Problems: (1) Hypotension Status: Acute (2) Syncope Status: Acute Assessment Assessment Problems Medical Problems: (1) Hypotension Status: Acute (2) Syncope Status: Acute FINAL IMPRESSION:CAD 3 vessel 1. Near syncopal episode resolved. 2. Possible vasovagal. 3. Orthostatic hypotension. 4. Mild renal insufficiency, acute on chronic, stage 3. 5. Abdominal aortic aneurysm, 5.2 cm. 6. Retroperitoneal adenopathy. 7. Thyroid mass. 8. Recent ankle fracture, conservative treatment with Cam walker. 9. Gallstones. PLAN: For PTCA and stent placement today,spoke with cardiology cardiac cath showed 3 vessel disease. spoke with cardiology,pt do not want CABG. will consult Vascular, pt is ready for AAA repair. cr 1.7 worsened after contrast,hydrate for now and monitor kidney function.cr 1.6 today x ray still shows fracture fibula will have ortho ?rehab f/u. pt want to go home from here.with home health needs walker for home use. consult criminal justice social worker Problems: Plan Plan of Care Problems Medical Problems: (1) Hypotension Status: Acute (2) Syncope Status: Acute Comment Review of Relevant I have reviewed the following items james (where applicable) has been applied. Labs Laboratory Tests Test 09/06/16 04:15 09/06/16 04:25 White Blood Count 12.1x10^3/uL (4.0-11.0) Red Blood Count 3.79x10^6/uL (3.50-5.40) Hemoglobin 10.4g/dL (12.0-15.5) Hematocrit 32.6% (36.0-47.0) Mean Corpuscular Volume 86fL (79-100) Mean Corpuscular Hemoglobin 28pg (25-35) Mean Corpuscular Hemoglobin Concent 32g/dL (31-37) Red Cell Distribution Width 15.8% (11.5-14.5) Platelet Count 172x10^3/uL (140-400) Neutrophils (%) (Auto) 70% (31-73) Lymphocytes (%) (Auto) 17% (24-48) Monocytes (%) (Auto) 9% (0-9) Eosinophils (%) (Auto) 4% (0-3) Basophils (%) (Auto) 1% (0-3) Neutrophils # (Auto) 8.4x10^3uL (1.8-7.7) Lymphocytes # (Auto) 2.0x10^3/uL (1.0-4.8) Monocytes # (Auto) 1.1x10^3/uL (0.0-1.1) Eosinophils # (Auto) 0.4x10^3/uL (0.0-0.7) Basophils # (Auto) 0.1x10^3/uL (0.0-0.2) Sodium Level 143mmol/L (136-145) Potassium Level 4.2mmol/L (3.5-5.1) Chloride Level 109mmol/L (98-107) Carbon Dioxide Level 25mmol/L (21-32) Anion Gap 9 (6-14) Blood Urea Nitrogen 31mg/dL (7-20) Creatinine 1.6mg/dL (0.6-1.0) Estimated GFR (Cockcroft-Gault) 37.9 Glucose Level 76mg/dL (70-99) Calcium Level 10.3mg/dL (8.5-10.1) Microbiology 09/01/16 Blood Culture - Final, Complete NO GROWTH AFTER 5 DAYS Medications Current Medications Acetaminophen (Tylenol) 650 mg PRN Q6HRS PRN PO MILD PAIN / TEMP; Start at 11:15; Status UNV Aspirin (Manohar Aspirin) 325 mg STK-MED ONCE .ROUTE ; Start 09/06/16 at 10:41; Stop 09/06/16 at 10:42; Status DC Aspirin (Ecotrin) 325 mg DAILYWBKFT PO ; Start 09/07/16 at 08:00 Aspirin 325 mg 325 mg 1X ONCE PO Last administered on 09/06/16 11:00; Start at 10:45; Stop 09/06/16 at 10:46; Status DC Bivalirudin (Angiomax) 250 mg 1X ONCE IV Last administered on 09/06/16 11:00; Start 09/06/16 at 08:44; Stop 09/06/16 at 08:57; Status DC Bivalirudin (Angiomax) 250 mg STK-MED ONCE IV ; Start 09/06/16 at 08:28; Stop 09/06/16 at 08:29; Status DC Clopidogrel Bisulfate (Plavix) 75 mg DAILYWBKFT PO ; Start 09/07/16 at 08:00 Clopidogrel Bisulfate (Plavix) 75 mg STK-MED ONCE .ROUTE ; Start 09/06/16 at 10: 41; Stop 09/06/16 at 10:42; Status DC Clopidogrel Bisulfate (Plavix) 600 mg 1X ONCE PO Last administered on 11:00; Start 09/06/16 at 10:45; Stop 09/06/16 at 10:46; Status DC Diphenhydramine HCl (Benadryl) 50 mg 1X ONCE IVP Last administered on 10:55; Start 09/06/16 at 08:21; Stop 09/06/16 at 08:57; Status DC Diphenhydramine HCl (Benadryl) 50 mg STK-MED ONCE .ROUTE ; Start 09/06/16 at 08: 12; Stop 09/06/16 at 08:13; Status DC Famotidine (Pepcid) 20 mg 1X ONCE IVP Last administered on 09/06/16 10:55; Start 09/06/16 at 08:21; Stop 09/06/16 at 08:57; Status DC Famotidine (Pepcid) 20 mg STK-MED ONCE .ROUTE ; Start 09/06/16 at 08:12; Stop 09/06/16 at 08:13; Status DC Fentanyl Citrate (Fentanyl 2ml Vial) 100 mcg 1X ONCE IV Last administered on 10:59; Start 09/06/16 at 09:00; Stop 09/06/16 at 09:01; Status DC Fentanyl Citrate (Fentanyl 2ml Vial) 100 mcg STK-MED ONCE .ROUTE ; Start at 07:22; Stop 09/06/16 at 07:23; Status DC Heparin Sodium/ Sodium Chloride 1,000 unit 1X ONCE IART Last administered on 11:02; Start 09/06/16 at 09:00; Stop 09/06/16 at 09:01; Status DC Heparin Sodium/ Sodium Chloride 1,500 ml @ As Directed STK-MED ONCE .ROUTE ; Start 09/06/16 at 06:36; Stop 09/06/16 at 06:37; Status DC Hydralazine HCl (Apresoline) 10 mg PRN Q4HRS PRN IVP ELEVATED BP, SEE COMMENTS ; Start 09/06/16 at 15:00 Hydralazine HCl (Apresoline) 20 mg 1X ONCE IVP Last administered on 09/06/16 15:19; Start 09/06/16 at 15:00; Stop 09/06/16 at 15:01; Status DC Info (Do NOT chart on this entry -- for MONITORING) 1 each PRN DAILY PRN MC SEE COMMENTS; Start 09/06/16 at 09:00; Stop 09/08/16 at 08:59 Iodixanol (Visipaque 320) 100 ml 1X ONCE IART Last administered on 09/06/16 11 :01; Start 09/06/16 at 09:00; Stop 09/06/16 at 09:01; Status DC Iodixanol (Visipaque 320) 100 ml STK-MED ONCE .ROUTE ; Start 09/06/16 at 06:36; Stop 09/06/16 at 06:37; Status DC Iodixanol (Visipaque 320) 100 ml STK-MED ONCE .ROUTE ; Start 09/06/16 at 09:45; Stop 09/06/16 at 09:46; Status DC Labetalol HCl (Normodyne) 10 mg 1X ONCE IVP Last administered on 09/06/16 10: 56; Start 09/06/16 at 09:13; Stop 09/06/16 at 10:02; Status DC Labetalol HCl (Normodyne) 20 mg STK-MED ONCE .ROUTE ; Start 09/06/16 at 09:10; Stop 09/06/16 at 09:11; Status DC Lidocaine HCl 20 ml 1X ONCE IJ Last administered on 09/06/16 11:02; Start 09/06 at 09:00; Stop 09/06/16 at 09:01; Status DC Lidocaine HCl 20 ml STK-MED ONCE .ROUTE ; Start 09/06/16 at 06:36; Stop 09/06/16 at 06:37; Status DC Lidocaine HCl 20 ml STK-MED ONCE .ROUTE ; Start 09/06/16 at 08:32; Stop 09/06/16 at 08:33; Status DC Methylprednisolone Sodium Succinate (Solu-Medrol 125mg Vial) 125 mg 1X ONCE IV Last administered on 09/06/16 10:55; Start 09/06/16 at 08:21; Stop 09/06/16 at 08:57; Status DC Methylprednisolone Sodium Succinate (Solu-Medrol 125mg Vial) 125 mg STK-MED ONCE .ROUTE ; Start 09/06/16 at 08:12; Stop 09/06/16 at 08:13; Status DC Midazolam HCl (Versed) 5 mg 1X ONCE IV Last administered on 09/06/16 11:00; Start 09/06/16 at 09:00; Stop 09/06/16 at 09:01; Status DC Midazolam HCl (Versed) 5 mg STK-MED ONCE .ROUTE ; Start 09/06/16 at 07:22; Stop 09/06/16 at 07:23; Status DC Nitroglycerin (Nitrostat) 0.4 mg PRN Q5MIN PRN SL CHEST PAIN; Start 09/06/16 at 11:15; Status UNV Sodium Chloride (Iv Sodium Chloride 0.45%) 1,000 ml @ 100 mls/hr Q10H IV Last administered on 09/06/16t 11:30; Start 09/06/16 at 11:30 Vitals/I & O Vital Sign - Last 24 Hours 09/05/16 09/05/16 09/05/16 09/05/16 19:25 20:00 21:44 23:21 Temp 98.4 99.0 98.4 99.0 Pulse 75 75 78 Resp 16 16 B/P 137/76 137/76 143/87 Pulse Ox 96 94 O2 Delivery Room Air Room Air Room Air O2 Flow Rate 3.0 09/06/16 09/06/16 09/06/16 09/06/16 03:51 07:00 10:56 10:59 Temp 99.1 98.4 99.1 98.4 Pulse 68 74 65 Resp 20 18 16 B/P 133/87 137/74 192/97 Pulse Ox 96 99 98 O2 Delivery Room Air Room Air Room Air 09/06/16 09/06/16 09/06/16 09/06/16 11:03 11:30 11:36 11:45 Pulse 66 64 67 Resp 16 B/P 172/84 163/87 Pulse Ox 98 O2 Delivery Room Air Room Air 09/06/16 09/06/16 09/06/16 09/06/16 11:57 11:59 12:00 12:15 Temp 97.8 97.8 Pulse 67 68 66 Resp 20 B/P 182/84 140/84 178/89 Pulse Ox 98 95 O2 Delivery Room Air Room Air O2 Flow Rate 3.0 09/06/16 09/06/16 09/06/16 09/06/16 12:30 12:34 12:37 13:00 Pulse 59 67 61 62 B/P 182/84 182/84 182/84 149/77 09/06/16 09/06/16 09/06/16 13:30 14:00 15:19 Pulse 61 62 69 B/P 158/79 163/81 166/80 Intake and Output 09/05/16 09/05/16 09/06/16 15:00 23:00 07:00 Intake Total 480 ml 1250 ml 200 ml Balance 480 ml 1250 ml 200 ml LOS NOLASCO MD Sep 06, 2016 15:42
--- NOTE | 2016-09-06 18:31 | PDOC ---
PROGRESS NOTES Subjective Subjective She had no new complaints. Objective Objective Vital Signs Date Time Temp Pulse Resp B/P Pulse Ox O2 Delivery O2 Flow Rate FiO2 09/06/16 15:19 69 166/80 09/06/16 11:59 97.8 20 95 Room Air 97.8 09/06/16 11:57 3.0 Intake and Output 09/06/16 07:00 Intake Total 1930 ml Balance 1930 ml Intake Oral 930 ml IV Total 1000 ml # Voids 9 # Bowel Movements 4 Physical Exam Physical Exam She is sitting up with head end of propped up and does not seem to be in any distress. Assessment Assessment Problems Medical Problems: (1) Hypotension Status: Acute (2) Syncope Status: Acute Plan Plan of Detention when medically stable. Comment Review of Relevant I have reviewed the following items james (where applicable) has been applied. Labs Laboratory Tests Test 09/05/16 02:45 09/06/16 04:15 09/06/16 04:25 White Blood Count 14.0x10^3/uL (4.0-11.0) 12.1x10^3/uL (4.0-11.0) Red Blood Count 3.30x10^6/uL (3.50-5.40) 3.79x10^6/uL (3.50-5.40) Hemoglobin 9.1g/dL (12.0-15.5) 10.4g/dL (12.0-15.5) Hematocrit 28.3% (36.0-47.0) 32.6% (36.0-47.0) Mean Corpuscular Volume 86fL (79-100) 86fL (79-100) Mean Corpuscular Hemoglobin 28pg (25-35) 28pg (25-35) Mean Corpuscular Hemoglobin Concent 32g/dL (31-37) 32g/dL (31-37) Red Cell Distribution Width 16.0% (11.5-14.5) 15.8% (11.5-14.5) Platelet Count 151x10^3/uL (140-400) 172x10^3/uL (140-400) Neutrophils (%) (Auto) 74% (31-73) 70% (31-73) Lymphocytes (%) (Auto) 17% (24-48) 17% (24-48) Monocytes (%) (Auto) 7% (0-9) 9% (0-9) Eosinophils (%) (Auto) 1% (0-3) 4% (0-3) Basophils (%) (Auto) 0% (0-3) 1% (0-3) Neutrophils # (Auto) 10.4x10^3uL (1.8-7.7) 8.4x10^3uL (1.8-7.7) Lymphocytes # (Auto) 2.3x10^3/uL (1.0-4.8) 2.0x10^3/uL (1.0-4.8) Monocytes # (Auto) 1.0x10^3/uL (0.0-1.1) 1.1x10^3/uL (0.0-1.1) Eosinophils # (Auto) 0.2x10^3/uL (0.0-0.7) 0.4x10^3/uL (0.0-0.7) Basophils # (Auto) 0.0x10^3/uL (0.0-0.2) 0.1x10^3/uL (0.0-0.2) Sodium Level 142mmol/L (136-145) 143mmol/L (136-145) Potassium Level 4.1mmol/L (3.5-5.1) 4.2mmol/L (3.5-5.1) Chloride Level 108mmol/L (98-107) 109mmol/L (98-107) Carbon Dioxide Level 26mmol/L (21-32) 25mmol/L (21-32) Anion Gap 8 (6-14) 9 (6-14) Blood Urea Nitrogen 33mg/dL (7-20) 31mg/dL (7-20) Creatinine 1.6mg/dL (0.6-1.0) 1.6mg/dL (0.6-1.0) Estimated GFR (Cockcroft-Gault) 37.9 37.9 Glucose Level 86mg/dL (70-99) 76mg/dL (70-99) Calcium Level 9.8mg/dL (8.5-10.1) 10.3mg/dL (8.5-10.1) Laboratory Tests Test 09/06/16 04:15 09/06/16 04:25 White Blood Count 12.1x10^3/uL (4.0-11.0) Red Blood Count 3.79x10^6/uL (3.50-5.40) Hemoglobin 10.4g/dL (12.0-15.5) Hematocrit 32.6% (36.0-47.0) Mean Corpuscular Volume 86fL (79-100) Mean Corpuscular Hemoglobin 28pg (25-35) Mean Corpuscular Hemoglobin Concent 32g/dL (31-37) Red Cell Distribution Width 15.8% (11.5-14.5) Platelet Count 172x10^3/uL (140-400) Neutrophils (%) (Auto) 70% (31-73) Lymphocytes (%) (Auto) 17% (24-48) Monocytes (%) (Auto) 9% (0-9) Eosinophils (%) (Auto) 4% (0-3) Basophils (%) (Auto) 1% (0-3) Neutrophils # (Auto) 8.4x10^3uL (1.8-7.7) Lymphocytes # (Auto) 2.0x10^3/uL (1.0-4.8) Monocytes # (Auto) 1.1x10^3/uL (0.0-1.1) Eosinophils # (Auto) 0.4x10^3/uL (0.0-0.7) Basophils # (Auto) 0.1x10^3/uL (0.0-0.2) Sodium Level 143mmol/L (136-145) Potassium Level 4.2mmol/L (3.5-5.1) Chloride Level 109mmol/L (98-107) Carbon Dioxide Level 25mmol/L (21-32) Anion Gap 9 (6-14) Blood Urea Nitrogen 31mg/dL (7-20) Creatinine 1.6mg/dL (0.6-1.0) Estimated GFR (Cockcroft-Gault) 37.9 Glucose Level 76mg/dL (70-99) Calcium Level 10.3mg/dL (8.5-10.1) Microbiology 09/01/16 Blood Culture - Final, Complete NO GROWTH AFTER 5 DAYS Medications Current Medications Sodium Chloride (Iv Sodium Chloride 0.9% 500ml Bag) 500 ml @ 0 mls/hr 1X ONCE IV Last administered on 09/01/16 14:50; Start 09/01/16 at 15:15; Stop 09/01/16 at 15:16; Status DC Ondansetron HCl 4 mg 4 mg PRN Q8HRS PRN IV NAUSEA/VOMITING; Start 09/01/16 at 15 :00; Stop 09/02/16 at 14:59; Status DC Sodium Chloride (Iv Sodium Chloride 0.9% 1000ml Bag) 1,000 ml @ 125 mls/hr Q8H IV Last administered on 09/02/16 08:36; Start 09/01/16 at 15:00; Stop 09/02/16 at 14:59; Status DC Acetaminophen (Tylenol) 650 mg PRN Q6HRS PRN PO MILD PAIN/FEVER; Start 09/01/16 at 19:15 Aspirin (Ecotrin) 81 mg DAILYWBKFT PO Last administered on 09/05/16 09:11; Start 09/02/16 at 08:00; Stop 09/06/16 at 11:11; Status DC Docusate Sodium (Colace) 100 mg DAILY PO Last administered on 09/04/16 08:35; Start 09/02/16 at 09:00 Enoxaparin Sodium (Lovenox 30mg Syringe) 30 mg Q24H SQ Last administered on 09/05 09:12; Start 09/02/16 at 09:00 Acetaminophen/ Hydrocodone Bitart (Lortab 5/325) 1 tab PRN Q4HRS PRN PO MODERATE - SEVERE PAIN Last administered on 09/04/16 21:40; Start 09/01/16 at 19: 15 Magnesium Hydroxide (Milk Of Magnesia) 2,400 mg PRN DAILY PRN PO CONSTIPATION Last administered on 09/04/16 08:34; Start 09/01/16 at 19:15 Magnesium Oxide (Magnesium Oxide) 800 mg DAILY PO Last administered on 09:10; Start 09/02/16 at 09:00 Losartan Potassium (Cozaar) 50 mg DAILY PO Last administered on 09/06/16 12:34 ; Start 09/02/16 at 12:00 Chlorthalidone 12.5 mg 12.5 mg DAILY PO Last administered on 09/06/16 12:34; Start 09/02/16 at 12:00 Sodium Chloride (Iv Sodium Chloride 0.9% 1000ml Bag) 1,000 ml @ 75 mls/hr [id number] IV Last administered on 09/03/16 09:18; Start 09/02/16 at 15:15; Stop at 12:59; Status DC Methylprednisolone Sodium Succinate (Solu-Medrol 125mg Vial) 125 mg 1X ONCE IV Last administered on 09/03/16 11:38; Start 09/03/16 at 09:30; Stop 09/03/16 at 09:31; Status DC Famotidine (Pepcid) 20 mg 1X ONCE IVP Last administered on 09/03/16 11:38; Start 09/03/16 at 09:30; Stop 09/03/16 at 09:31; Status DC Diphenhydramine HCl 50 mg 50 mg 1X ONCE IVP Last administered on 09/03/16 11: 38; Start 09/03/16 at 09:30; Stop 09/03/16 at 09:31; Status DC Adenosine/Sodium Chloride (Adenoscan/Iv Sodium Chloride 0.9% 50ml) 120 ml @ 200 mls/hr 1X ONCE IV ; Start 09/03/16 at 09:30; Stop 09/03/16 at 09:30; Status DC Nitroglycerin (Nitroglycerin) 200 mcg 1X ONCE IART Last administered on 11:38; Start 09/03/16 at 10:45; Stop 09/03/16 at 10:46; Status DC Verapamil HCl (Verapamil) 2.5 mg 1X ONCE IART Last administered on 09/03/16 11 :39; Start 09/03/16 at 10:45; Stop 09/03/16 at 10:46; Status DC Heparin Sodium (Porcine) (Heparin Sodium) 2,500 unit 1X ONCE IART Last administered on 09/03/16 11:40; Start 09/03/16 at 10:45; Stop 09/03/16 at 10:46; Status DC Heparin Sodium/ Sodium Chloride 1,000 unit 1X ONCE IART Last administered on 11:37; Start 09/03/16 at 10:45; Stop 09/03/16 at 10:46; Status DC Midazolam HCl (Versed) 2 mg 1X ONCE IV Last administered on 09/03/16 11:40; Start 09/03/16 at 10:45; Stop 09/03/16 at 10:46; Status DC Fentanyl Citrate (Fentanyl 2ml Vial) 100 mcg 1X ONCE IV Last administered on 11:40; Start 09/03/16 at 10:45; Stop 09/03/16 at 10:46; Status DC Iodixanol (Visipaque 320) 100 ml 1X ONCE IART Last administered on 09/03/16 11 :37; Start 09/03/16 at 10:45; Stop 09/03/16 at 10:46; Status DC Lidocaine HCl 20 ml 20 ml 1X ONCE IJ Last administered on 09/03/16 11:39; Start 09/03/16 at 10:45; Stop 09/03/16 at 10:46; Status DC Heparin Sodium/ Sodium Chloride 500 ml @ As Directed STK-MED ONCE .ROUTE ; Start 09/03/16 at 10:28; Stop 09/03/16 at 11:43; Status DC Lidocaine HCl 20 ml STK-MED ONCE .ROUTE ; Start 09/03/16 at 10:28; Stop 09/03/16 at 11:43; Status DC Iodixanol (Visipaque 320) 100 ml STK-MED ONCE .ROUTE ; Start 09/03/16 at 10:28; Stop 09/03/16 at 11:43; Status DC Nitroglycerin (Nitroglycerin) 200 mcg STK-MED ONCE .ROUTE ; Start 09/03/16 at 10: 32; Stop 09/03/16 at 11:43; Status DC Verapamil HCl (Verapamil) 5 mg STK-MED ONCE .ROUTE ; Start 09/03/16 at 10:32; Stop 09/03/16 at 11:43; Status DC Heparin Sodium (Porcine) 10,000 unit STK-MED ONCE .ROUTE ; Start 09/03/16 at 10: 32; Stop 09/03/16 at 11:44; Status DC Fentanyl Citrate (Fentanyl 2ml Vial) 100 mcg STK-MED ONCE .ROUTE ; Start at 10:32; Stop 09/03/16 at 11:44; Status DC Midazolam HCl (Versed) 2 mg STK-MED ONCE .ROUTE ; Start 09/03/16 at 10:33; Stop 09/03/16 at 11:44; Status DC Methylprednisolone Sodium Succinate (Solu-Medrol 125mg Vial) 125 mg STK-MED ONCE .ROUTE ; Start 09/03/16 at 10:34; Stop 09/03/16 at 11:44; Status DC Famotidine (Pepcid) 20 mg STK-MED ONCE .ROUTE ; Start 09/03/16 at 10:34; Stop 09/03/16 at 11:44; Status DC Diphenhydramine HCl 50 mg 50 mg STK-MED ONCE .ROUTE ; Start 09/03/16 at 10:34; Stop 09/03/16 at 11:44; Status DC Sodium Chloride (Iv Sodium Chloride 0.45%) 1,000 ml @ 60 mls/hr [id number] IV Last administered on 09/06/16 11:03; Start 09/03/16 at 14:00 Nitroglycerin (Nitrostat) 0.4 mg PRN Q5MIN PRN SL CHEST PAIN; Start 09/03/16 at 13:00 Metoprolol Tartrate (Lopressor) 12.5 mg BID PO Last administered on 09/06/16 12 :37; Start 09/04/16 at 15:00 Atorvastatin Calcium (Lipitor) 10 mg QHS PO Last administered on 09/05/16 21:44 ; Start 09/04/16 at 21:00 Multi-Ingred Cream/Lotion/Oil/ Oint 1 eddie 1 eddie BID TP Last administered on 09/05 09:12; Start 09/04/16 at 21:00 Heparin Sodium/ Sodium Chloride 1,500 ml @ As Directed STK-MED ONCE .ROUTE ; Start 09/06/16 at 06:36; Stop 09/06/16 at 06:37; Status DC Lidocaine HCl 20 ml STK-MED ONCE .ROUTE ; Start 09/06/16 at 06:36; Stop 09/06/16 at 06:37; Status DC Iodixanol (Visipaque 320) 100 ml STK-MED ONCE .ROUTE ; Start 09/06/16 at 06:36; Stop 09/06/16 at 06:37; Status DC Fentanyl Citrate (Fentanyl 2ml Vial) 100 mcg STK-MED ONCE .ROUTE ; Start at 07:22; Stop 09/06/16 at 07:23; Status DC Midazolam HCl (Versed) 5 mg STK-MED ONCE .ROUTE ; Start 09/06/16 at 07:22; Stop 09/06/16 at 07:23; Status DC Methylprednisolone Sodium Succinate (Solu-Medrol 125mg Vial) 125 mg STK-MED ONCE .ROUTE ; Start 09/06/16 at 08:12; Stop 09/06/16 at 08:13; Status DC Famotidine (Pepcid) 20 mg STK-MED ONCE .ROUTE ; Start 09/06/16 at 08:12; Stop 09/06/16 at 08:13; Status DC Diphenhydramine HCl (Benadryl) 50 mg STK-MED ONCE .ROUTE ; Start 09/06/16 at 08: 12; Stop 09/06/16 at 08:13; Status DC Bivalirudin (Angiomax) 250 mg STK-MED ONCE IV ; Start 09/06/16 at 08:28; Stop 09/06/16 at 08:29; Status DC Lidocaine HCl 20 ml STK-MED ONCE .ROUTE ; Start 09/06/16 at 08:32; Stop 09/06/16 at 08:33; Status DC Heparin Sodium/ Sodium Chloride 1,000 unit 1X ONCE IART Last administered on 11:02; Start 09/06/16 at 09:00; Stop 09/06/16 at 09:01; Status DC Midazolam HCl (Versed) 5 mg 1X ONCE IV Last administered on 09/06/16 11:00; Start 09/06/16 at 09:00; Stop 09/06/16 at 09:01; Status DC Fentanyl Citrate (Fentanyl 2ml Vial) 100 mcg 1X ONCE IV Last administered on 10:59; Start 09/06/16 at 09:00; Stop 09/06/16 at 09:01; Status DC Iodixanol (Visipaque 320) 100 ml 1X ONCE IART Last administered on 09/06/16 11 :01; Start 09/06/16 at 09:00; Stop 09/06/16 at 09:01; Status DC Bivalirudin (Angiomax) 250 mg 1X ONCE IV Last administered on 09/06/16 11:00; Start 09/06/16 at 08:44; Stop 09/06/16 at 08:57; Status DC Lidocaine HCl 20 ml 1X ONCE IJ Last administered on 09/06/16 11:02; Start 09/06 at 09:00; Stop 09/06/16 at 09:01; Status DC Famotidine (Pepcid) 20 mg 1X ONCE IVP Last administered on 09/06/16 10:55; Start 09/06/16 at 08:21; Stop 09/06/16 at 08:57; Status DC Methylprednisolone Sodium Succinate (Solu-Medrol 125mg Vial) 125 mg 1X ONCE IV Last administered on 09/06/16 10:55; Start 09/06/16 at 08:21; Stop 09/06/16 at 08:57; Status DC Diphenhydramine HCl (Benadryl) 50 mg 1X ONCE IVP Last administered on 10:55; Start 09/06/16 at 08:21; Stop 09/06/16 at 08:57; Status DC Info (Do NOT chart on this entry -- for MONITORING) 1 each PRN DAILY PRN MC SEE COMMENTS; Start 09/06/16 at 09:00; Stop 09/08/16 at 08:59 Labetalol HCl (Normodyne) 20 mg STK-MED ONCE .ROUTE ; Start 09/06/16 at 09:10; Stop 09/06/16 at 09:11; Status DC Iodixanol (Visipaque 320) 100 ml STK-MED ONCE .ROUTE ; Start 09/06/16 at 09:45; Stop 09/06/16 at 09:46; Status DC Labetalol HCl (Normodyne) 10 mg 1X ONCE IVP Last administered on 09/06/16 10: 56; Start 09/06/16 at 09:13; Stop 09/06/16 at 10:02; Status DC Aspirin (Manohar Aspirin) 325 mg STK-MED ONCE .ROUTE ; Start 09/06/16 at 10:41; Stop 09/06/16 at 10:42; Status DC Clopidogrel Bisulfate (Plavix) 75 mg STK-MED ONCE .ROUTE ; Start 09/06/16 at 10: 41; Stop 09/06/16 at 10:42; Status DC Clopidogrel Bisulfate (Plavix) 600 mg 1X ONCE PO Last administered on 11:00; Start 09/06/16 at 10:45; Stop 09/06/16 at 10:46; Status DC Aspirin 325 mg 325 mg 1X ONCE PO Last administered on 09/06/16 11:00; Start at 10:45; Stop 09/06/16 at 10:46; Status DC Sodium Chloride (Iv Sodium Chloride 0.45%) 1,000 ml @ 100 mls/hr Q10H IV Last administered on 09/06/16 11:30; Start 09/06/16 at 11:30 Aspirin (Ecotrin) 325 mg DAILYWBKFT PO ; Start 09/07/16 at 08:00 Clopidogrel Bisulfate (Plavix) 75 mg DAILYWBKFT PO ; Start 09/07/16 at 08:00 Acetaminophen (Tylenol) 650 mg PRN Q6HRS PRN PO MILD PAIN / TEMP; Start at 11:15; Status UNV Nitroglycerin (Nitrostat) 0.4 mg PRN Q5MIN PRN SL CHEST PAIN; Start 09/06/16 at 11:15; Status UNV Hydralazine HCl (Apresoline) 20 mg 1X ONCE IVP Last administered on 09/06/16 15:19; Start 09/06/16 at 15:00; Stop 09/06/16 at 15:01; Status DC Hydralazine HCl (Apresoline) 10 mg PRN Q4HRS PRN IVP ELEVATED BP, SEE COMMENTS ; Start 09/06/16 at 15:00 Active Scripts Active Aspirin Ec (Aspirin) 81 Mg Tablet. 81 Mg PO DAILYWBKFT Reported Milk Of Magnesia (Magnesium Hydroxide) 2,400 Mg/10 Ml Oral.susp 2,400 Mg PO PRN DAILY PRN Tylenol (Acetaminophen) 325 Mg Tablet 650 Mg PO PRN Q6HRS Magnesium (Magnesium Oxide) 400 Mg Capsule 2 Cap PO DAILY Hydrocodone-Apap 5-325 (Hydrocodone Bit/Acetaminophen) 1 Each Tablet 1 Tab PO Q4HRS PRN Enoxaparin Sodium 40 Mg/0.4 Ml Disp.syrin 40 Mg SQ DAILY Edarbyclor 40-12.5 Mg Tablet (Azilsartan/Chlorthalidone) 1 Each Tablet 1 Tab PO DAILY Colace (Docusate Sodium) 100 Mg Capsule 100 Mg PO DAILY Vitals/I & O Vital Sign - Last 24 Hours 09/05/16 09/05/16 09/05/16 09/05/16 19:25 20:00 21:44 23:21 Temp 98.4 99.0 98.4 99.0 Pulse 75 75 78 Resp 16 16 B/P 137/76 137/76 143/87 Pulse Ox 96 94 O2 Delivery Room Air Room Air Room Air O2 Flow Rate 3.0 09/06/16 09/06/16 09/06/16 09/06/16 03:51 07:00 10:56 10:59 Temp 99.1 98.4 99.1 98.4 Pulse 68 74 65 Resp 20 18 16 B/P 133/87 137/74 192/97 Pulse Ox 96 99 98 O2 Delivery Room Air Room Air Room Air 09/06/16 09/06/16 09/06/16 09/06/16 11:03 11:30 11:36 11:45 Pulse 66 64 67 Resp 16 B/P 172/84 163/87 Pulse Ox 98 O2 Delivery Room Air Room Air 09/06/16 09/06/16 09/06/16 09/06/16 11:57 11:59 12:00 12:15 Temp 97.8 97.8 Pulse 67 68 66 Resp 20 B/P 182/84 140/84 178/89 Pulse Ox 98 95 O2 Delivery Room Air Room Air O2 Flow Rate 3.0 09/06/16 09/06/16 09/06/16 09/06/16 12:30 12:34 12:37 13:00 Pulse 59 67 61 62 B/P 182/84 182/84 182/84 149/77 09/06/16 09/06/16 09/06/16 13:30 14:00 15:19 Pulse 61 62 69 B/P 158/79 163/81 166/80 Intake and Output 09/05/16 09/05/16 09/06/16 15:00 23:00 07:00 Intake Total 480 ml 1250 ml 200 ml Balance 480 ml 1250 ml 200 ml ETHEL CHOI MD Sep 06, 2016 18:31
[2016-09-06] MEDS: ATORVASTATIN CALCIUM 10 MG TABLET. PO SCH (21:47)
[2016-09-07 03:15] VITALS: BP 121/59
[2016-09-07 07:00] VITALS: BP 137/73
[2016-09-07] MEDS ORDERED: CLOPIDOGREL BISULFATE 75 MG TABLET PO SCH (08:00)
[2016-09-07] MEDS ORDERED: ASPIRIN ENTERIC COATED 325 MG TABLET.DR. PO SCH (08:00)
[2016-09-07] MEDS: DOCUSATE SODIUM 100 MG CAPSULE. PO SCH (08:51)
[2016-09-07] MEDS: MAGNESIUM OXIDE 400 MG TABLET PO SCH (08:51)
[2016-09-07] MEDS: LOSARTAN POTASSIUM 50 MG TABLET. PO SCH (08:52)
[2016-09-07] MEDS: CHLORTHALIDONE 25 MG TABLET. PO SCH (08:52)
[2016-09-07] MEDS: METOPROLOL TART IMMED RELEASE 25 MG TABLET. PO SCH (08:54)
[2016-09-07] MEDS: MINERAL OIL/PETROLATUM TOPICAL CREAM 113GM JAR. TP SCH (08:54)
[2016-09-07] MEDS: ENOXAPARIN 30 MG/0.3 ML SYRINGE. SQ SCH (09:00)
[2016-09-07 10:42] VITALS: BP 141/77
--- NOTE | 2016-09-07 11:48 | PDOC ---
PROGRESS NOTES Subjective Subjective No new complaints. Objective Objective Vital Signs Date Time Temp Pulse Resp B/P Pulse Ox O2 Delivery O2 Flow Rate FiO2 09/07/16 10:42 97.9 72 18 141/77 100 Room Air 97.9 09/06/16 11:57 3.0 Intake and Output 09/07/16 07:00 Intake Total 60 ml Output Total 200 ml Balance -140 ml Intake Oral 60 ml Output Urine Total 200 ml # Voids 5 # Bowel Movements 2 Physical Exam Physical Exam She is sitting up in bedside chair without any brace and denies any discomfort in her ankle. Assessment Assessment Problems Medical Problems: (1) Hypotension Status: Acute (2) Syncope Status: Acute Plan Plan of Care Advised her to wear cam walker boot at least for another 4 weeks while up weight bearing on her foot. Comment Review of Relevant I have reviewed the following items james (where applicable) has been applied. Labs Laboratory Tests Test 09/06/16 04:15 09/06/16 04:25 White Blood Count 12.1x10^3/uL (4.0-11.0) Red Blood Count 3.79x10^6/uL (3.50-5.40) Hemoglobin 10.4g/dL (12.0-15.5) Hematocrit 32.6% (36.0-47.0) Mean Corpuscular Volume 86fL (79-100) Mean Corpuscular Hemoglobin 28pg (25-35) Mean Corpuscular Hemoglobin Concent 32g/dL (31-37) Red Cell Distribution Width 15.8% (11.5-14.5) Platelet Count 172x10^3/uL (140-400) Neutrophils (%) (Auto) 70% (31-73) Lymphocytes (%) (Auto) 17% (24-48) Monocytes (%) (Auto) 9% (0-9) Eosinophils (%) (Auto) 4% (0-3) Basophils (%) (Auto) 1% (0-3) Neutrophils # (Auto) 8.4x10^3uL (1.8-7.7) Lymphocytes # (Auto) 2.0x10^3/uL (1.0-4.8) Monocytes # (Auto) 1.1x10^3/uL (0.0-1.1) Eosinophils # (Auto) 0.4x10^3/uL (0.0-0.7) Basophils # (Auto) 0.1x10^3/uL (0.0-0.2) Sodium Level 143mmol/L (136-145) Potassium Level 4.2mmol/L (3.5-5.1) Chloride Level 109mmol/L (98-107) Carbon Dioxide Level 25mmol/L (21-32) Anion Gap 9 (6-14) Blood Urea Nitrogen 31mg/dL (7-20) Creatinine 1.6mg/dL (0.6-1.0) Estimated GFR (Cockcroft-Gault) 37.9 Glucose Level 76mg/dL (70-99) Calcium Level 10.3mg/dL (8.5-10.1) Microbiology 09/01/16 Blood Culture - Final, Complete NO GROWTH AFTER 5 DAYS Medications Current Medications Sodium Chloride (Iv Sodium Chloride 0.9% 500ml Bag) 500 ml @ 0 mls/hr 1X ONCE IV Last administered on 09/01/16 14:50; Start 09/01/16 at 15:15; Stop 09/01/16 at 15:16; Status DC Ondansetron HCl 4 mg 4 mg PRN Q8HRS PRN IV NAUSEA/VOMITING; Start 09/01/16 at 15 :00; Stop 09/02/16 at 14:59; Status DC Sodium Chloride (Iv Sodium Chloride 0.9% 1000ml Bag) 1,000 ml @ 125 mls/hr Q8H IV Last administered on 09/02/16 08:36; Start 09/01/16 at 15:00; Stop 09/02/16 at 14:59; Status DC Acetaminophen (Tylenol) 650 mg PRN Q6HRS PRN PO MILD PAIN/FEVER; Start 09/01/16 at 19:15 Aspirin (Ecotrin) 81 mg DAILYWBKFT PO Last administered on 09/05/16 09:11; Start 09/02/16 at 08:00; Stop 09/06/16 at 11:11; Status DC Docusate Sodium (Colace) 100 mg DAILY PO Last administered on 09/07/16 08:51; Start 09/02/16 at 09:00 Enoxaparin Sodium (Lovenox 30mg Syringe) 30 mg Q24H SQ Last administered on 09/05 09:12; Start 09/02/16 at 09:00 Acetaminophen/ Hydrocodone Bitart (Lortab 5/325) 1 tab PRN Q4HRS PRN PO MODERATE - SEVERE PAIN Last administered on 09/04/16 21:40; Start 09/01/16 at 19: 15 Magnesium Hydroxide (Milk Of Magnesia) 2,400 mg PRN DAILY PRN PO CONSTIPATION Last administered on 09/04/16 08:34; Start 09/01/16 at 19:15 Magnesium Oxide (Magnesium Oxide) 800 mg DAILY PO Last administered on 08:51; Start 09/02/16 at 09:00 Losartan Potassium (Cozaar) 50 mg DAILY PO Last administered on 09/07/16 08:52 ; Start 09/02/16 at 12:00 Chlorthalidone 12.5 mg 12.5 mg DAILY PO Last administered on 09/07/16 08:52; Start 09/02/16 at 12:00 Sodium Chloride (Iv Sodium Chloride 0.9% 1000ml Bag) 1,000 ml @ 75 mls/hr [id number] IV Last administered on 09/03/16 09:18; Start 09/02/16 at 15:15; Stop at 12:59; Status DC Methylprednisolone Sodium Succinate (Solu-Medrol 125mg Vial) 125 mg 1X ONCE IV Last administered on 09/03/16 11:38; Start 09/03/16 at 09:30; Stop 09/03/16 at 09:31; Status DC Famotidine (Pepcid) 20 mg 1X ONCE IVP Last administered on 09/03/16 11:38; Start 09/03/16 at 09:30; Stop 09/03/16 at 09:31; Status DC Diphenhydramine HCl 50 mg 50 mg 1X ONCE IVP Last administered on 09/03/16 11: 38; Start 09/03/16 at 09:30; Stop 09/03/16 at 09:31; Status DC Adenosine/Sodium Chloride (Adenoscan/Iv Sodium Chloride 0.9% 50ml) 120 ml @ 200 mls/hr 1X ONCE IV ; Start 09/03/16 at 09:30; Stop 09/03/16 at 09:30; Status DC Nitroglycerin (Nitroglycerin) 200 mcg 1X ONCE IART Last administered on 11:38; Start 09/03/16 at 10:45; Stop 09/03/16 at 10:46; Status DC Verapamil HCl (Verapamil) 2.5 mg 1X ONCE IART Last administered on 09/03/16 11 :39; Start 09/03/16 at 10:45; Stop 09/03/16 at 10:46; Status DC Heparin Sodium (Porcine) (Heparin Sodium) 2,500 unit 1X ONCE IART Last administered on 09/03/16 11:40; Start 09/03/16 at 10:45; Stop 09/03/16 at 10:46; Status DC Heparin Sodium/ Sodium Chloride 1,000 unit 1X ONCE IART Last administered on 11:37; Start 09/03/16 at 10:45; Stop 09/03/16 at 10:46; Status DC Midazolam HCl (Versed) 2 mg 1X ONCE IV Last administered on 09/03/16 11:40; Start 09/03/16 at 10:45; Stop 09/03/16 at 10:46; Status DC Fentanyl Citrate (Fentanyl 2ml Vial) 100 mcg 1X ONCE IV Last administered on 11:40; Start 09/03/16 at 10:45; Stop 09/03/16 at 10:46; Status DC Iodixanol (Visipaque 320) 100 ml 1X ONCE IART Last administered on 09/03/16 11 :37; Start 09/03/16 at 10:45; Stop 09/03/16 at 10:46; Status DC Lidocaine HCl 20 ml 20 ml 1X ONCE IJ Last administered on 09/03/16 11:39; Start 09/03/16 at 10:45; Stop 09/03/16 at 10:46; Status DC Heparin Sodium/ Sodium Chloride 500 ml @ As Directed STK-MED ONCE .ROUTE ; Start 09/03/16 at 10:28; Stop 09/03/16 at 11:43; Status DC Lidocaine HCl 20 ml STK-MED ONCE .ROUTE ; Start 09/03/16 at 10:28; Stop 09/03/16 at 11:43; Status DC Iodixanol (Visipaque 320) 100 ml STK-MED ONCE .ROUTE ; Start 09/03/16 at 10:28; Stop 09/03/16 at 11:43; Status DC Nitroglycerin (Nitroglycerin) 200 mcg STK-MED ONCE .ROUTE ; Start 09/03/16 at 10: 32; Stop 09/03/16 at 11:43; Status DC Verapamil HCl (Verapamil) 5 mg STK-MED ONCE .ROUTE ; Start 09/03/16 at 10:32; Stop 09/03/16 at 11:43; Status DC Heparin Sodium (Porcine) 10,000 unit STK-MED ONCE .ROUTE ; Start 09/03/16 at 10: 32; Stop 09/03/16 at 11:44; Status DC Fentanyl Citrate (Fentanyl 2ml Vial) 100 mcg STK-MED ONCE .ROUTE ; Start at 10:32; Stop 09/03/16 at 11:44; Status DC Midazolam HCl (Versed) 2 mg STK-MED ONCE .ROUTE ; Start 09/03/16 at 10:33; Stop 09/03/16 at 11:44; Status DC Methylprednisolone Sodium Succinate (Solu-Medrol 125mg Vial) 125 mg STK-MED ONCE .ROUTE ; Start 09/03/16 at 10:34; Stop 09/03/16 at 11:44; Status DC Famotidine (Pepcid) 20 mg STK-MED ONCE .ROUTE ; Start 09/03/16 at 10:34; Stop 09/03/16 at 11:44; Status DC Diphenhydramine HCl 50 mg 50 mg STK-MED ONCE .ROUTE ; Start 09/03/16 at 10:34; Stop 09/03/16 at 11:44; Status DC Sodium Chloride (Iv Sodium Chloride 0.45%) 1,000 ml @ 60 mls/hr [id number] IV Last administered on 09/06/16 11:03; Start 09/03/16 at 14:00; Stop 09/06/16 at 19: 17; Status DC Nitroglycerin (Nitrostat) 0.4 mg PRN Q5MIN PRN SL CHEST PAIN; Start 09/03/16 at 13:00 Metoprolol Tartrate (Lopressor) 12.5 mg BID PO Last administered on 09/07/16 08 :54; Start 09/04/16 at 15:00 Atorvastatin Calcium (Lipitor) 10 mg QHS PO Last administered on 09/06/16 21:47 ; Start 09/04/16 at 21:00 Multi-Ingred Cream/Lotion/Oil/ Oint 1 eddie 1 eddie BID TP Last administered on 09/07 08:54; Start 09/04/16 at 21:00 Heparin Sodium/ Sodium Chloride 1,500 ml @ As Directed STK-MED ONCE .ROUTE ; Start 09/06/16 at 06:36; Stop 09/06/16 at 06:37; Status DC Lidocaine HCl 20 ml STK-MED ONCE .ROUTE ; Start 09/06/16 at 06:36; Stop 09/06/16 at 06:37; Status DC Iodixanol (Visipaque 320) 100 ml STK-MED ONCE .ROUTE ; Start 09/06/16 at 06:36; Stop 09/06/16 at 06:37; Status DC Fentanyl Citrate (Fentanyl 2ml Vial) 100 mcg STK-MED ONCE .ROUTE ; Start at 07:22; Stop 09/06/16 at 07:23; Status DC Midazolam HCl (Versed) 5 mg STK-MED ONCE .ROUTE ; Start 09/06/16 at 07:22; Stop 09/06/16 at 07:23; Status DC Methylprednisolone Sodium Succinate (Solu-Medrol 125mg Vial) 125 mg STK-MED ONCE .ROUTE ; Start 09/06/16 at 08:12; Stop 09/06/16 at 08:13; Status DC Famotidine (Pepcid) 20 mg STK-MED ONCE .ROUTE ; Start 09/06/16 at 08:12; Stop 09/06/16 at 08:13; Status DC Diphenhydramine HCl (Benadryl) 50 mg STK-MED ONCE .ROUTE ; Start 09/06/16 at 08: 12; Stop 09/06/16 at 08:13; Status DC Bivalirudin (Angiomax) 250 mg STK-MED ONCE IV ; Start 09/06/16 at 08:28; Stop 09/06/16 at 08:29; Status DC Lidocaine HCl 20 ml STK-MED ONCE .ROUTE ; Start 09/06/16 at 08:32; Stop 09/06/16 at 08:33; Status DC Heparin Sodium/ Sodium Chloride 1,000 unit 1X ONCE IART Last administered on 11:02; Start 09/06/16 at 09:00; Stop 09/06/16 at 09:01; Status DC Midazolam HCl (Versed) 5 mg 1X ONCE IV Last administered on 09/06/16 11:00; Start 09/06/16 at 09:00; Stop 09/06/16 at 09:01; Status DC Fentanyl Citrate (Fentanyl 2ml Vial) 100 mcg 1X ONCE IV Last administered on 10:59; Start 09/06/16 at 09:00; Stop 09/06/16 at 09:01; Status DC Iodixanol (Visipaque 320) 100 ml 1X ONCE IART Last administered on 09/06/16 11 :01; Start 09/06/16 at 09:00; Stop 09/06/16 at 09:01; Status DC Bivalirudin (Angiomax) 250 mg 1X ONCE IV Last administered on 09/06/16 11:00; Start 09/06/16 at 08:44; Stop 09/06/16 at 08:57; Status DC Lidocaine HCl 20 ml 1X ONCE IJ Last administered on 09/06/16 11:02; Start 09/06 at 09:00; Stop 09/06/16 at 09:01; Status DC Famotidine (Pepcid) 20 mg 1X ONCE IVP Last administered on 09/06/16 10:55; Start 09/06/16 at 08:21; Stop 09/06/16 at 08:57; Status DC Methylprednisolone Sodium Succinate (Solu-Medrol 125mg Vial) 125 mg 1X ONCE IV Last administered on 09/06/16 10:55; Start 09/06/16 at 08:21; Stop 09/06/16 at 08:57; Status DC Diphenhydramine HCl (Benadryl) 50 mg 1X ONCE IVP Last administered on 10:55; Start 09/06/16 at 08:21; Stop 09/06/16 at 08:57; Status DC Info (Do NOT chart on this entry -- for MONITORING) 1 each PRN DAILY PRN MC SEE COMMENTS; Start 09/06/16 at 09:00; Stop 09/08/16 at 08:59 Labetalol HCl (Normodyne) 20 mg STK-MED ONCE .ROUTE ; Start 09/06/16 at 09:10; Stop 09/06/16 at 09:11; Status DC Iodixanol (Visipaque 320) 100 ml STK-MED ONCE .ROUTE ; Start 09/06/16 at 09:45; Stop 09/06/16 at 09:46; Status DC Labetalol HCl (Normodyne) 10 mg 1X ONCE IVP Last administered on 09/06/16 10: 56; Start 09/06/16 at 09:13; Stop 09/06/16 at 10:02; Status DC Aspirin (Manohar Aspirin) 325 mg STK-MED ONCE .ROUTE ; Start 09/06/16 at 10:41; Stop 09/06/16 at 10:42; Status DC Clopidogrel Bisulfate (Plavix) 75 mg STK-MED ONCE .ROUTE ; Start 09/06/16 at 10: 41; Stop 09/06/16 at 10:42; Status DC Clopidogrel Bisulfate (Plavix) 600 mg 1X ONCE PO Last administered on 11:00; Start 09/06/16 at 10:45; Stop 09/06/16 at 10:46; Status DC Aspirin 325 mg 325 mg 1X ONCE PO Last administered on 09/06/16 11:00; Start at 10:45; Stop 09/06/16 at 10:46; Status DC Sodium Chloride (Iv Sodium Chloride 0.45%) 1,000 ml @ 100 mls/hr Q10H IV Last administered on 09/06/16 11:30; Start 09/06/16 at 11:30; Stop 09/06/16 at 19:17; Status DC Aspirin (Ecotrin) 325 mg DAILYWBKFT PO Last administered on 09/07/16 08:51; Start 09/07/16 at 08:00 Clopidogrel Bisulfate (Plavix) 75 mg DAILYWBKFT PO Last administered on 08:52; Start 09/07/16 at 08:00 Acetaminophen (Tylenol) 650 mg PRN Q6HRS PRN PO MILD PAIN / TEMP; Start at 11:15; Status UNV Nitroglycerin (Nitrostat) 0.4 mg PRN Q5MIN PRN SL CHEST PAIN; Start 09/06/16 at 11:15; Status UNV Hydralazine HCl (Apresoline) 20 mg 1X ONCE IVP Last administered on 09/06/16t 15:19; Start 09/06/16 at 15:00; Stop 09/06/16 at 15:01; Status DC Hydralazine HCl (Apresoline) 10 mg PRN Q4HRS PRN IVP ELEVATED BP, SEE COMMENTS ; Start 09/06/16 at 15:00 Active Scripts Active Aspirin Ec (Aspirin) 81 Mg Tablet.dr 81 Mg PO DAILYWBKFT Reported Milk Of Magnesia (Magnesium Hydroxide) 2,400 Mg/10 Ml Oral.susp 2,400 Mg PO PRN DAILY PRN Tylenol (Acetaminophen) 325 Mg Tablet 650 Mg PO PRN Q6HRS Magnesium (Magnesium Oxide) 400 Mg Capsule 2 Cap PO DAILY Hydrocodone-Apap 5-325 (Hydrocodone Bit/Acetaminophen) 1 Each Tablet 1 Tab PO Q4HRS PRN Enoxaparin Sodium 40 Mg/0.4 Ml Disp.syrin 40 Mg SQ DAILY Edarbyclor 40-12.5 Mg Tablet (Azilsartan/Chlorthalidone) 1 Each Tablet 1 Tab PO DAILY Colace (Docusate Sodium) 100 Mg Capsule 100 Mg PO DAILY Vitals/I & O Vital Sign - Last 24 Hours 09/06/16 09/06/16 09/06/16 09/06/16 11:57 11:59 12:00 12:15 Temp 97.8 97.8 Pulse 67 68 66 Resp 20 B/P 182/84 140/84 178/89 Pulse Ox 98 95 O2 Delivery Room Air Room Air O2 Flow Rate 3.0 09/06/16 09/06/16 09/06/16 09/06/16 12:30 12:34 12:37 13:00 Pulse 59 67 61 62 B/P 182/84 182/84 182/84 149/77 09/06/16 09/06/16 09/06/16 09/06/16 13:30 14:00 15:00 15:19 Pulse 61 62 77 69 B/P 158/79 163/81 106/57 166/80 09/06/16 09/06/16 09/06/16 09/06/16 19:48 20:00 21:47 23:05 Temp 97.3 97.7 97.3 97.7 Pulse 78 77 72 Resp 18 18 B/P 93/50 106/60 111/57 Pulse Ox 95 95 O2 Delivery Room Air Room Air Room Air 09/07/16 09/07/16 09/07/16 09/07/16 03:15 07:00 08:00 08:52 Temp 97.9 98.2 97.9 98.2 Pulse 72 70 70 Resp 18 18 B/P 121/59 137/73 137/73 Pulse Ox 95 97 O2 Delivery Room Air Room Air Room Air 09/07/16 09/07/16 08:54 10:42 Temp 97.9 97.9 Pulse 70 72 Resp 18 B/P 137/73 141/77 Pulse Ox 100 O2 Delivery Room Air Intake and Output 09/06/16 09/06/16 09/07/16 15:00 23:00 07:00 Intake Total 60 ml Output Total 200 ml Balance -200 ml 60 ml ETHEL CHOI MD Sep 07, 2016 11:48
--- NOTE | 2016-09-07 12:09 | PDOC ---
PROGRESS NOTES Subjective Subjective feels better ,anxious to go home Objective Objective Vital Signs Date Time Temp Pulse Resp B/P Pulse Ox O2 Delivery O2 Flow Rate FiO2 09/07/16 10:42 97.9 72 18 141/77 100 Room Air 97.9 09/06/16 11:57 3.0 Intake and Output 09/07/16 07:00 Intake Total 60 ml Output Total 200 ml Balance -140 ml Intake Oral 60 ml Output Urine Total 200 ml # Voids 5 # Bowel Movements 2 Physical Exam Abdomen: Soft Heart: Regular rate Extremities: Normal pulses, Other (trace RLE edema ) General: Alert, Oriented X3, Cooperative, No acute distress HEENT: Atraumatic, EOMI Lungs: Normal air movement MUSCULOSKELETAL: Other (The right ankle shows overall normal alignment. There is no skin lesion, erythema, or ecchymosis noted. There is very mild diffuse swelling laterally. There is mild tenderness to palpation over the fracture. No tenderness about the medial aspect of the ankle. The ankle shows full range of motion, without pain. Normal strength. No instability. Light touch sensation is intact. Dorsalis pedis and posterior tibial pulse intact.) Neuro: Normal speech, Sensation intact Psych/Mental Status: Mental status NL, Mood NL Skin: No rashes, No breakdown, No significant lesion Diagnosis Problem List Problems Medical Problems: (1) Hypotension Status: Acute (2) Syncope Status: Acute Assessment Assessment Problems Medical Problems: (1) Hypotension Status: Acute (2) Syncope Status: Acute FINAL IMPRESSION:CAD 3 vessel 1. Near syncopal episode resolved. 2. Possible vasovagal. 3. Orthostatic hypotension. 4. Mild renal insufficiency, acute on chronic, stage 3. 5. Abdominal aortic aneurysm, 5.2 cm. 6. Retroperitoneal adenopathy. 7. Thyroid mass. 8. Recent ankle fracture, conservative treatment with Cam walker. 9. Gallstones. PLAN: d/c home today,refusing home health. For PTCA and stent placement yesterday. spoke with cardiology cardiac cath showed 3 vessel disease. spoke with cardiology,pt do not want CABG. will consult Vascular, pt is ready for AAA repair. cr 1.7 worsened after contrast,hydrate for now and monitor kidney function.cr 1.6 today x ray still shows fracture fibula will have ortho ?rehab f/u. pt want to go home from here.with home health needs walker for home use. consult hospital social worker Problems: Plan Plan of Care Problems Medical Problems: (1) Hypotension Status: Acute (2) Syncope Status: Acute Comment Review of Relevant I have reviewed the following items james (where applicable) has been applied. Labs Microbiology 09/01/16 Blood Culture - Final, Complete NO GROWTH AFTER 5 DAYS Medications Current Medications Aspirin (Ecotrin) 325 mg DAILYWBKFT PO Last administered on 09/07/16 08:51; Start 09/07/16 at 08:00 Clopidogrel Bisulfate (Plavix) 75 mg DAILYWBKFT PO Last administered on 08:52; Start 09/07/16 at 08:00 Hydralazine HCl (Apresoline) 10 mg PRN Q4HRS PRN IVP ELEVATED BP, SEE COMMENTS ; Start 09/06/16 at 15:00 Hydralazine HCl (Apresoline) 20 mg 1X ONCE IVP Last administered on 09/06/16 15:19; Start 09/06/16 at 15:00; Stop 09/06/16 at 15:01; Status DC Vitals/I & O Vital Sign - Last 24 Hours 09/06/16 09/06/16 09/06/16 09/06/16 12:15 12:30 12:34 12:37 Pulse 66 59 67 61 B/P 178/89 182/84 182/84 182/84 09/06/16 09/06/16 09/06/16 09/06/16 13:00 13:30 14:00 15:00 Pulse 62 61 62 77 B/P 149/77 158/79 163/81 106/57 09/06/16 09/06/16 09/06/16 09/06/16 15:19 19:48 20:00 21:47 Temp 97.3 97.3 Pulse 69 78 77 Resp 18 B/P 166/80 93/50 106/60 Pulse Ox 95 O2 Delivery Room Air Room Air 09/06/16 09/07/16 09/07/16 09/07/16 23:05 03:15 07:00 08:00 Temp 97.7 97.9 98.2 97.7 97.9 98.2 Pulse 72 72 70 Resp 18 18 18 B/P 111/57 121/59 137/73 Pulse Ox 95 95 97 O2 Delivery Room Air Room Air Room Air Room Air 09/07/16 09/07/16 09/07/16 08:52 08:54 10:42 Temp 97.9 97.9 Pulse 70 70 72 Resp 18 B/P 137/73 137/73 141/77 Pulse Ox 100 O2 Delivery Room Air Intake and Output 09/06/16 09/06/16 09/07/16 15:00 23:00 07:00 Intake Total 60 ml Output Total 200 ml Balance -200 ml 60 ml LOS NOLASCO MD Sep 07, 2016 12:09
[2016-09-07] MEDS ORDERED: ATOR10TA60 PO (12:13)
[2016-09-07] MEDS ORDERED: CLOP75TA PO (12:13)
[2016-09-07] MEDS ORDERED: METO25TA4 PO (12:13)
--- NOTE | 2016-09-10 09:46 | PDOC ---
Provider Note Provider Note Discharge summary dictated. #[id number] LOS NOLASCO MD Sep 10, 2016 09:46
== END 2016-09-07 13:20 | disposition home or self-care (01) | DRG 215 ==
LOC: ER 12:11 → 5 SOUTH 14:50 → 6 SOUTH 15:40 → 2 NORTH 09-06 11:35
PROVIDERS: ADMIT Internal Medicine; ATTEND Internal Medicine
PROC: 4A023N7 Measurement of Cardiac Sampling and Pressure, Left Heart, Percutaneous Approach (ICD-10-PCS; principal; 2016-09-06)
PROC: B2110ZZ Fluoroscopy of Multiple Coronary Arteries using High Osmolar Contrast (ICD-10-PCS; 2016-09-06)
PROC: 02HA3RZ Insertion of Short-term External Heart Assist System into Heart, Percutaneous Approach (ICD-10-PCS; 2016-09-06)
PROC: 5A0221D Assistance with Cardiac Output using Impeller Pump, Continuous (ICD-10-PCS; 2016-09-06)
PROC: 02713EZ Dilation of Coronary Artery, Two Arteries with Two Intraluminal Devices, Percutaneous Approach (ICD-10-PCS; 2016-09-06)
PROC: 02713ZZ Dilation of Coronary Artery, Two Arteries, Percutaneous Approach (ICD-10-PCS; 2016-09-06)
DX: I25.110 Atherosclerotic heart disease of native coronary artery with unstable angina pectoris (principal); N17.9 Acute kidney failure, unspecified; D69.3 Immune thrombocytopenic purpura; E44.0 Moderate protein-calorie malnutrition; R55 Syncope and collapse; D63.8 Anemia in other chronic diseases classified elsewhere; E04.2 Nontoxic multinodular goiter; E78.5 Hyperlipidemia, unspecified; I12.9 Hypertensive chronic kidney disease with stage 1 through stage 4 chronic kidney disease, or unspecified chronic kidney disease; I27.2 Other secondary pulmonary hypertension; I71.4 Abdominal aortic aneurysm, without rupture; I73.9 Peripheral vascular disease, unspecified; M94.0 Chondrocostal junction syndrome [Tietze]; I95.1 Orthostatic hypotension; J44.9 Chronic obstructive pulmonary disease, unspecified; K80.20 Calculus of gallbladder without cholecystitis without obstruction; N18.3 Chronic kidney disease, stage 3 (moderate); Z80.9 Family history of malignant neoplasm, unspecified; Z86.73 Personal history of transient ischemic attack (TIA), and cerebral infarction without residual deficits; Z86.79 Personal history of other diseases of the circulatory system; Z87.891 Personal history of nicotine dependence; Z90.49 Acquired absence of other specified parts of digestive tract; Z90.81 Acquired absence of spleen; Z91.041 Radiographic dye allergy status; Z95.5 Presence of coronary angioplasty implant and graft; Z88.0 Allergy status to penicillin; Z88.2 Allergy status to sulfonamides; Z88.8 Allergy status to other drugs, medicaments and biological substances
CPT/HCPCS: 33990; 36415; 51701; 70450; 71010; 73610; 80048; 80053; 81001; 82607; 82728; 82746; 83540; 83550; 83605; 84484; 85007; 85027; 85045; 87040; 87641; 92921; 92928; 93005; 93458; 96360; C1725; C1769; C1771; C1877; C1887; C1892; G0269; J0360; J0583; J1200; J1650; J2250; J2930; J3010; J3490; J7030; J7040; S0028; 97116; 97530; 97535; 99285-25

== ENCOUNTER → 2016-09-23 | Outpatient (CLI) | payer OTHER ==
[2016-09-07 10:42] VITALS: BP 141/77
[~2016-09-23] MED LIST changes: +ACET325T9 PO; +ATOR10TA60 PO; +CLOP75TA PO; +MAGN2400 PO; +METO25TA4 PO
--- NOTE | 2016-09-23 14:38 | RAD ---
Right ankle and right foot radiographs History: Closed right ankle fracture 3 weeks ago. Comparison: Right ankle radiographs 09/04/2016. Findings: AP, lateral, and oblique views of the right ankle. Osseous structures appear demineralized, may be due from disuse osteopenia. There is persistent soft tissue swelling of the right ankle. Slightly displaced obliquely oriented distal fibular fracture is without change in alignment from previous study. There is evidence of a mild callus formation, compatible with partial healing. AP, lateral, and oblique views of the right foot. There is irregular appearance of the third metatarsal neck with lucency present. Findings may represent combination of remote fracture with superimposed acute or subacute fracture component. Impression: 1. Mild interval healing of subacute distal fibular fracture. 2. Irregular appearance of the third metatarsal neck. This could represent changes of old fracture as well as superimposed, nondisplaced acute versus subacute fracture.
--- NOTE | 2016-09-23 14:45 | RAD ---
EXAM: DIGITAL SCREEN BILAT W/CAD. HISTORY: Screening. COMPARISON: 08/09/2015 and 08/11/2012. FINDINGS: Digital mammography was performed. Computer-aided detection (CAD) was utilized. The breast parenchyma demonstrates scattered fibroglandular densities (tissue density B). No dominant suspicious mass, suspicious microcalcifications, or architectural distortion is identified. Both breasts demonstrate benign appearing calcifications. IMPRESSION: No mammographic evidence of malignancy. BI-RADS CATEGORY: 2 BENIGN FINDING(S) RECOMMENDED FOLLOW-UP: 12M 12 MONTH FOLLOW-UP PQRS compliance statement: Patient information was entered into a reminder system with a target due date for the next mammogram. Mammography is a sensitive method for finding small breast cancers, but it does not detect them all and is not a substitute for careful clinical examination. A negative mammogram does not negate a clinically suspicious finding and should not result in delay in biopsying a clinically suspicious abnormality. "Our facility is accredited by the [employer] Mammography Program."
== END | disposition home or self-care (01) ==
LOC: RAD 13:37
PROVIDERS: ATTEND Internal Medicine
DX: Z12.31 Encounter for screening mammogram for malignant neoplasm of breast (principal); W19.XXXD Unspecified fall, subsequent encounter; S82.891G Other fracture of right lower leg, subsequent encounter for closed fracture with delayed healing; S92.901G Unspecified fracture of right foot, subsequent encounter for fracture with delayed healing; Y93.89 Activity, other specified; Y92.89 Other specified places as the place of occurrence of the external cause; Y99.8 Other external cause status
CPT/HCPCS: 73610; 73630; G0202; 77067

== ENCOUNTER → 2018-01-01 | Outpatient (CLI) | payer OTHER | END | disposition home or self-care (01) | LOC: MAMMO 10:07 | DX: Z12.31 Encounter for screening mammogram for malignant neoplasm of breast (principal); M17.0 Bilateral primary osteoarthritis of knee; I12.9 Hypertensive chronic kidney disease with stage 1 through stage 4 chronic kidney disease, or unspecified chronic kidney disease; N18.3 Chronic kidney disease, stage 3 (moderate); E78.5 Hyperlipidemia, unspecified; J44.9 Chronic obstructive pulmonary disease, unspecified; E83.42 Hypomagnesemia; I48.0 Paroxysmal atrial fibrillation; Z86.79 Personal history of other diseases of the circulatory system; Z87.891 Personal history of nicotine dependence; Z95.5 Presence of coronary angioplasty implant and graft; Z87.01 Personal history of pneumonia (recurrent) | CPT/HCPCS: 77067 ==

== ENCOUNTER 2018-08-04 20:06 | Inpatient (IN) | payer MEDICARE, OTHER ==
[~2018-08-04] VITALS: Ht 165.1 cm; Wt 49.5 kg
[~2018-08-04 20:06] MED LIST changes: +ASPI-612 PO; -ASPI81TA9 PO; +BENZ-8 PO; -BENZ100C2 PO; +COLC0.6T34 PO; +DICL100G18 TP; +DOCU-109 PO; -DOCU-27 PO; -HYDR-2666 PO; +HYDR-2761 PO; +MULT1TAB52 PO; +PANT40TA3 PO
[2018-08-04] MEDS ORDERED: IV NORMAL SALINE 1000ML BAG 1,000 ML IV ONE (22:00)
[2018-08-04 23:12] LABS: BASO # 0.1 x10^3/uL (0.0-0.2); BASO % 1 % (0-3); EOS # 0.1 x10^3/uL (0.0-0.7); EOS % 1 % (0-3); HEMATOCRIT 33.3 % (36.0-47.0); HEMOGLOBIN 10.9 g/dL (12.0-15.5); LYMPH # 1.5 x10^3/uL (1.0-4.8); LYMPH % 17 % (24-48); MEAN CORPUSCULAR HEMOGLOBIN 27 pg (25-35); MEAN CORPUSCULAR HGB CONC 33 g/dL (31-37); MEAN CORPUSCULAR VOLUME 83 fL (79-100); MONO # 0.6 x10^3/uL (0.0-1.1); MONO % 7 % (0-9); NEUT # 6.4 x10^3uL (1.8-7.7); NEUT % 74 % (31-73); PLATELET COUNT 131 x10^3/uL (140-400); RED BLOOD COUNT 4.02 x10^6/uL (3.50-5.40); RED CELL DISTRIBUTION WIDTH 18.9 % (11.5-14.5); WHITE BLOOD COUNT 8.7 x10^3/uL (4.0-11.0)
[2018-08-04 23:17] LABS: CALCIUM 9.9 mg/dL (8.5-10.1); CREATININE 1.2 mg/dL (0.6-1.0); GFR 52.6; POTASSIUM 4.2 mmol/L (3.5-5.1)
[2018-08-04 23:20] LABS: PROTHROMBIN TIME PATIENT 14.9 SEC (11.7-14.0)
[2018-08-04 23:22] LABS: ALBUMIN 3.2 g/dL (3.4-5.0); ALBUMIN/GLOBULIN RATIO 0.7 (1.0-1.7); TOTAL BILIRUBIN 0.4 mg/dL (0.2-1.0); TOTAL PROTEIN 8.1 g/dL (6.4-8.2)
--- NOTE | 2018-08-04 23:29 | RAD ---
CT Abdomen and Pelvis without contrast History: Upper abdominal pain, diarrhea Technique: Noncontrast CT imaging was performed of the abdomen and pelvis. Multiplanar images are reviewed. Exposure: One or more of the following individualized dose reduction techniques were utilized for this examination: 1. Automated exposure control 2. Adjustment of the mA and/or kV according to patient size 3. Use of iterative reconstruction technique. Comparison: August 27, 2016 Findings: Spleen is absent. There is no hydronephrosis or renal calculus. There is aortobiiliac stent graft. Maximal aneurysm sac caliber is about 6 cm transverse by 5.2 cm AP, no previous post procedural exam to evaluate for change in caliber of the aneurysm sac. Previous greatest transverse dimension of the aneurysm sac prior to procedure is about 5.4 cm. Gallbladder is present without obvious intraluminal abnormality by CT although somewhat hyperdense joyce as seen previously. There is also possible mild pericholecystic fluid closer to the gallbladder neck. There is no obvious focal abnormality of the liver or pancreas, limited evaluation without contrast. There is elongation of the right lobe of liver. There is no free air or significant free fluid. There are some air-fluid levels in the colon. Bowel is not significantly dilated. There is mild lumbar dextroscoliosis. Impression: 1. There are some air-fluid levels in the colon as may be seen with diarrheal state. 2. There is aortobiiliac stent graft. Maximal caliber of the aneurysm sac is greater than previous preprocedural exam although no previous post procedural exam to evaluate for change. 3. There is again nonspecific relative hyperdense appearance of the gallbladder joyce. Mild pericholecystic fluid is possible such as seen closer to the neck. Electronically signed by: Donn Acosta MD (08/04/2018 11:26 PM) [facility]
[2018-08-04] MEDS ORDERED: PANTOPRAZOLE IV PUSH 40 MG VIAL. IVP ONE (23:30)
[2018-08-04] MEDS ORDERED: ONDANSETRON PF 4 MG/2 ML VIAL. IV ONE (23:30)
[2018-08-04 23:57] LABS: MICROCYTOSIS SLIGHT; PLT ESTIMATE DECREASED (ADEQUATE); POIKILOCYTOSIS SLIGHT; POLYCHROMASIA SLIGHT; SCHISTOCYTES OCC; SPHEROCYTES OCC; TARGET CELLS OCC
--- NOTE | 2018-08-05 00:10 | PHYS DOC ---
Past Medical History Past Medical History: Hypertension, Pneumonia, Other Additional Past Medical Histor: LOW PLATLET COUNT, AAA, fx to R foot Past Surgical History: Appendectomy, Splenectomy, Other Additional Past Surgical Histo: ANEURYSM REPAIR Alcohol Use: Occasionally Drug Use: None Adult General Chief Complaint Chief Complaint: NAUSEA/VOMITING/DIARRHA HPI HPI 77 y/o female presents with 1-2 week history of diarrhea. Reports some abdominal discomfort. Family reports concern that stool was "very dark" . Denies use of blood thinners. Denies fever/chills. Patient reports generalized malaise and weakness. Denies known sick contacts. Review of Systems Review of Systems Constitutional: Denies fever or chills [] Eyes: Denies change in visual acuity, redness, or eye pain [] HENT: Denies nasal congestion or sore throat [] Respiratory: Denies cough or shortness of breath [] Cardiovascular: Denies chest pain or palpitations GI: Reports abdominal pain and diarrhea [] : Denies dysuria or hematuria [] Musculoskeletal: Denies back pain or joint pain [] Integument: Denies rash or skin lesions [] Neurologic: Denies headache, focal weakness or sensory changes; reports generalized weakness Complete systems were reviewed and found to be within normal limits, except as documented in this note. Current Medications Current Medications Current Medications Medications (Trade) Dose Ordered Sig/Rene Start Time Stop Time Status Last Admin Dose Admin Ondansetron HCl (Zofran) 4 mg 1X ONCE 08/04/18 23:30 08/04/18 23:31 DC 08/04/18 23:07 4 MG Pantoprazole Sodium (PROTONIX VIAL for IV PUSH) 40 mg 1X ONCE 08/04/18 23:30 08/04/18 23:31 DC 08/04/18 23:07 40 MG Sodium Chloride 1,000 ml @ 1,000 mls/hr 1X ONCE 08/04/18 22:00 08/04/18 22:59 DC 08/04/18 23:07 1,000 MLS/HR Allergies Allergies Allergies Coded Allergies Type Severity Reaction Last Updated Verified iodine Allergy Severe 01/01/17 Yes Penicillins Allergy Intermediate 01/01/17 Yes Sulfa (Sulfonamide Antibiotics) Allergy Intermediate 01/01/17 Yes lisinopril Allergy Intermediate 01/01/17 Yes Physical Exam Physical Exam Constitutional: Well developed, well nourished, no acute distress, non-toxic appearance. [] HENT: Normocephalic, atraumatic, oropharynx moist Eyes: PERRL, EOMI, conjunctiva normal, no discharge. [] Neck: Normal range of motion, no tenderness, supple, no meningeal signs Cardiovascular:Heart rate regular rhythm, no murmur [] Lungs & Thorax: Bilateral breath sounds clear to auscultation [] Abdomen: Soft, no tenderness Skin: Warm, dry, no erythema, no rash. [] Back: No tenderness, no CVA tenderness. [] Extremities: No tenderness, ROM intact, no edema. [] Neurologic: Alert and oriented X 3, normal motor function, normal sensory function, no focal deficits noted. [] Psychologic: Affect normal, judgement normal, mood normal. [] Current Patient Data Vital Signs Vital Signs Date Time Temp Pulse Resp B/P (MAP) Pulse Ox O2 Delivery O2 Flow Rate FiO2 08/05/18 00:22 80 20 135/77 (96) 95 Room Air 08/04/18 22:00 98.6 98.6 Lab Values Laboratory Tests Test 08/04/18 22:53 08/05/18 00:27 08/05/18 00:32 White Blood Count 8.7 x10^3/uL (4.0-11.0) Red Blood Count 4.02 x10^6/uL (3.50-5.40) Hemoglobin 10.9 g/dL (12.0-15.5) L Hematocrit 33.3 % (36.0-47.0) L Mean Corpuscular Volume 83 fL (79-100) Mean Corpuscular Hemoglobin 27 pg (25-35) Mean Corpuscular Hemoglobin Concent 33 g/dL (31-37) Red Cell Distribution Width 18.9 % (11.5-14.5) H Platelet Count 131 x10^3/uL (140-400) L Neutrophils (%) (Auto) 74 % (31-73) H Lymphocytes (%) (Auto) 17 % (24-48) L Monocytes (%) (Auto) 7 % (0-9) Eosinophils (%) (Auto) 1 % (0-3) Basophils (%) (Auto) 1 % (0-3) Neutrophils # (Auto) 6.4 x10^3uL (1.8-7.7) Lymphocytes # (Auto) 1.5 x10^3/uL (1.0-4.8) Monocytes # (Auto) 0.6 x10^3/uL (0.0-1.1) Eosinophils # (Auto) 0.1 x10^3/uL (0.0-0.7) Basophils # (Auto) 0.1 x10^3/uL (0.0-0.2) Platelet Estimate Decreased (ADEQUATE) Polychromasia Slight Poikilocytosis Slight Microcytosis Slight Macrocytosis Slight Spherocytes Occ Target Cells Occ Schistocytes Occ Prothrombin Time 14.9 SEC (11.7-14.0) H Prothrombin Time INR 1.2 (0.8-1.1) H PTT 46 SEC (24-38) H Sodium Level 144 mmol/L (136-145) Potassium Level 4.2 mmol/L (3.5-5.1) Chloride Level 108 mmol/L (98-107) H Carbon Dioxide Level 24 mmol/L (21-32) Anion Gap 12 (6-14) Blood Urea Nitrogen 24 mg/dL (7-20) H Creatinine 1.2 mg/dL (0.6-1.0) H Estimated GFR (Cockcroft-Gault) 52.6 BUN/Creatinine Ratio 20 (6-20) Glucose Level 98 mg/dL (70-99) Lactic Acid Level 0.6 mmol/L (0.4-2.0) Calcium Level 9.9 mg/dL (8.5-10.1) Total Bilirubin 0.4 mg/dL (0.2-1.0) Aspartate Amino Transferase (AST) 69 U/L (15-37) H Alanine Aminotransferase (ALT) 40 U/L (14-59) Alkaline Phosphatase 97 U/L (46-116) Creatine Kinase 869 U/L (26-192) H Creatine Kinase MB (Mass) 4.7 ng/mL (0.0-3.6) H Creatine Kinase MB Relative Index 0.5 % (0-4) Troponin I Quantitative 0.029 ng/mL (0.000-0.055) Total Protein 8.1 g/dL (6.4-8.2) Albumin 3.2 g/dL (3.4-5.0) L Albumin/Globulin Ratio 0.7 (1.0-1.7) L Lipase 135 U/L (73-393) Urine Collection Type U cath Urine Color Yellow Urine Clarity Clear Urine pH 5.5 Urine Specific [place] 1.015 Urine Protein 30 mg/dL (NEG-TRACE) Urine Glucose (UA) Negative mg/dL (NEG) Urine Ketones (Stick) Negative mg/dL (NEG) Urine Blood Small (NEG) Urine Nitrite Negative (NEG) Urine Bilirubin Negative (NEG) Urine Urobilinogen Dipstick 0.2 mg/dL (0.2 mg/dL) Urine Leukocyte Esterase Negative (NEG) Urine RBC Occ /HPF (0-2) Urine WBC 1-4 /HPF (0-4) Urine Squamous Epithelial Cells None /LPF Urine Amorphous Sediment Present /HPF Urine Bacteria 0 /HPF (0-FEW) Urine Hyaline Casts Moderate /HPF Stool Occult Blood Positive (NEG) Laboratory Tests 08/04/18 22:53 Laboratory Tests 08/04/18 22:53 EKG EKG @2224 sinus tachycardia at 102bpm, NO ST elevation, Q wave in III Radiology/Procedures Radiology/Procedures PROCEDURE: CT ABDOMEN PELVIS WO CONTRAST CT Abdomen and Pelvis without contrast History: Upper abdominal pain, diarrhea Technique: Noncontrast CT imaging was performed of the abdomen and pelvis. Multiplanar images are reviewed. Exposure: One or more of the following individualized dose reduction techniques were utilized for this examination: 1. Automated exposure control 2. Adjustment of the mA and/or kV according to patient size 3. Use of iterative reconstruction technique. Comparison: August 27, 2016 Findings: Spleen is absent. There is no hydronephrosis or renal calculus. There is aortobiiliac stent graft. Maximal aneurysm sac caliber is about 6 cm transverse by 5.2 cm AP, no previous post procedural exam to evaluate for change in caliber of the aneurysm sac. Previous greatest transverse dimension of the aneurysm sac prior to procedure is about 5.4 cm. Gallbladder is present without obvious intraluminal abnormality by CT although somewhat hyperdense joyce as seen previously. There is also possible mild pericholecystic fluid closer to the gallbladder neck. There is no obvious focal abnormality of the liver or pancreas, limited evaluation without contrast. There is elongation of the right lobe of liver. There is no free air or significant free fluid. There are some air-fluid levels in the colon. Bowel is not significantly dilated. There is mild lumbar dextroscoliosis. Impression: 1. There are some air-fluid levels in the colon as may be seen with diarrheal state. 2. There is aortobiiliac stent graft. Maximal caliber of the aneurysm sac is greater than previous preprocedural exam although no previous post procedural exam to evaluate for change. 3. There is again nonspecific relative hyperdense appearance of the gallbladder joyce. Mild pericholecystic fluid is possible such as seen closer to the neck. Electronically signed by: Donn Acosta MD (08/04/2018 11:26 PM) [facility] Course & Med Decision Making Course & Med Decision Making Pertinent Labs and Imaging studies reviewed. (See chart for details) Elderly patient presents with 1-2 week history of diarrhea. Abdomen nonpertoneal. Labs obtained and posted to chart. CT abd/pelvis without acute process. Patient requiring admission for further evaluation and treatment. Discussed with Dr. Nolasco (PCP) who is in agreement with admit. Discussed findings and plan with patient and family, who acknowledge understanding and agreement. Dragon Disclaimer Dragon Disclaimer This electronic medical record was generated, in whole or in part, using a voice recognition dictation system. Departure Departure Impression: Primary Impression: Intractable diarrhea Disposition: ADMITTED INPATIENT Admitting Physician: Julianna Nolasco Condition: STABLE Referrals: JULIANNA NOLASCO MD (PCP) KAM OGLESBY DO Aug 05, 2018 00:10
[2018-08-05 00:42] LABS: BILIRUBIN,URINE NEGATIVE (NEG); CLARITY,URINE CLEAR; COLOR,URINE YELLOW; NITRITE,URINE NEGATIVE (NEG); PH,URINE 5.5; PROTEIN,URINE 30 mg/dL (NEG-TRACE); UROBILINOGEN,URINE 0.2 mg/dL (0.2 mg/dL)
[2018-08-05] MEDS ORDERED: fentaNYL PF VIAL 100 MCG/2 ML VIAL IV PRN (00:45)
[2018-08-05] MEDS ORDERED: ONDANSETRON PF 4 MG/2 ML VIAL. IV PRN (00:45)
[2018-08-05 01:07] LABS: RBC,URINE OCC /HPF (0-2)
[2018-08-05 01:08] LABS: AMORPHOUS SEDIMENT,UR PRESENT /HPF; BACTERIA,URINE 0 /HPF (0-FEW); HYALINE CASTS, URINE MODERATE /HPF
[2018-08-05 01:09] LABS: FECAL OB PT POSITIVE (NEG)
[2018-08-05 03:51] VITALS: BP 142/84
[2018-08-05] MEDS ORDERED: COLC0.6T42 PO (05:03)
[2018-08-05] MEDS ORDERED: ACYC800T PO (05:03)
[2018-08-05] MEDS ORDERED: COLCHICINE 0.6 MG TABLET PO PRN (06:45)
--- NOTE | 2018-08-05 06:48 | EKG ---
[facility] [address] [place] [address] Test Date: 2018-08-04 Test Time: 22:24:31 Pat Name: DIONE GOMEZ Department: Room: 652 1 Gender: F [employer] Machine: : 1940 Requested By: KAM OGLESBY Order Number: [id number] Reading MD: Andrea Mack MD Measurements Intervals [place] Rate: 102 P: 180 [place]: 198 QRS: 50 QRSD: 82 T: 16 QT: 334 QTc: 439 Interpretive Statements PROBABLE SINUS RHYTHM WITH 1ST DEGREE AVB NON-SPECIFIC ST/T CHANGES Electronically Signed On 08-06-2018 11:32:12 DIRECTOR OF INVESTIGATIONS by Andrea Mack MD
[2018-08-05 07:00] VITALS: BP 129/75
[2018-08-05] MEDS ORDERED: IV NORMAL SALINE 1000ML BAG 1,000 ML IV ONE (08:00)
[2018-08-05] MEDS: CLOPIDOGREL BISULFATE 75 MG TABLET PO SCH (08:45)
[2018-08-05] MEDS: DICLOFENAC SODIUM 1% TOPICAL GEL 100GM TUBE. TP SCH ×2 (08:53→21:06)
[2018-08-05] MEDS: ACYCLOVIR 200 MG CAPSULE. PO SCH (09:00)
--- NOTE | 2018-08-05 09:13 | PDOC2 ---
GI CONSULT Reason For Consult: Diarrhea HPI: HPI: 77 y/o female seen earlier this morning. Alone in room, not the most ideal historian. Reports "black diarrhea" (watery w/ some chunks) x 1 week. Can't tell me how frequent. Thinks began after eating beef soup at her granddaughter' s democr[employer]. Thinks she's had a stool since arriving at the hospital - RN says no. Denies n/v and abd pain. Thinks she takes ASA but not Plavix (though Plavix ordered). 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 Also doesn't think she takes Voltaren (on summary list). I think used to take PO iron but not recently. Had EGD w/ Dr. Farmer for melena and anemia in 12/2016 that showed several AVMs in 2nd portion of duodenum w/ fresh clot/small clot - some cauterized. Previous GI consult suggests she reported normal colonoscopy <10 years ago - now she says she never had a colonoscopy. No GB, liver, or pancreas history. PMH: PMH: CAD w/ stent, HTN, infrarenal AAA s/p endovascular repair, COPD, CVA, CKD, right thyroid nodule, appendectomy, hysterectomy, splenectomy FH: Family History: No pertinent hx Social History: Smoke: No ALCOHOL: none Drugs: None ROS: GEN: Denies fevers, chills, sweats HEENT: Denies blurred vision, sore throat CV: Denies chest pain RESP: Denies shortness of air, cough GI: Per HPI : Denies hematuria, dysuria ENDO: Denies weight changes NEURO: +dizziness MSK: Denies weakness, joint pain/swelling SKIN: Denies jaundice, pruritus Vitals: Vitals: Vital Signs Date Time Temp Pulse Resp B/P (MAP) Pulse Ox O2 Delivery O2 Flow Rate FiO2 08/05/18 07:00 98.3 74 16 129/75 (93) 98 Room Air 98.3 Labs: Labs: Laboratory Tests Test 08/04/18 22:53 08/05/18 00:27 08/05/18 00:32 White Blood Count 8.7 x10^3/uL (4.0-11.0) Red Blood Count 4.02 x10^6/uL (3.50-5.40) Hemoglobin 10.9 g/dL (12.0-15.5) Hematocrit 33.3 % (36.0-47.0) Mean Corpuscular Volume 83 fL (79-100) Mean Corpuscular Hemoglobin 27 pg (25-35) Mean Corpuscular Hemoglobin Concent 33 g/dL (31-37) Red Cell Distribution Width 18.9 % (11.5-14.5) Platelet Count 131 x10^3/uL (140-400) Neutrophils (%) (Auto) 74 % (31-73) Lymphocytes (%) (Auto) 17 % (24-48) Monocytes (%) (Auto) 7 % (0-9) Eosinophils (%) (Auto) 1 % (0-3) Basophils (%) (Auto) 1 % (0-3) Neutrophils # (Auto) 6.4 x10^3uL (1.8-7.7) Lymphocytes # (Auto) 1.5 x10^3/uL (1.0-4.8) Monocytes # (Auto) 0.6 x10^3/uL (0.0-1.1) Eosinophils # (Auto) 0.1 x10^3/uL (0.0-0.7) Basophils # (Auto) 0.1 x10^3/uL (0.0-0.2) Platelet Estimate Decreased (ADEQUATE) Polychromasia Slight Poikilocytosis Slight Microcytosis Slight Macrocytosis Slight Spherocytes Occ Target Cells Occ Schistocytes Occ Prothrombin Time 14.9 SEC (11.7-14.0) Prothromb Time International Ratio 1.2 (0.8-1.1) Activated Partial Thromboplast Time 46 SEC (24-38) Sodium Level 144 mmol/L (136-145) Potassium Level 4.2 mmol/L (3.5-5.1) Chloride Level 108 mmol/L (98-107) Carbon Dioxide Level 24 mmol/L (21-32) Anion Gap 12 (6-14) Blood Urea Nitrogen 24 mg/dL (7-20) Creatinine 1.2 mg/dL (0.6-1.0) Estimated GFR (Cockcroft-Gault) 52.6 BUN/Creatinine Ratio 20 (6-20) Glucose Level 98 mg/dL (70-99) Lactic Acid Level 0.6 mmol/L (0.4-2.0) Calcium Level 9.9 mg/dL (8.5-10.1) Total Bilirubin 0.4 mg/dL (0.2-1.0) Aspartate Amino Transf (AST/SGOT) 69 U/L (15-37) Alanine Aminotransferase (ALT/SGPT) 40 U/L (14-59) Alkaline Phosphatase 97 U/L (46-116) Creatine Kinase 869 U/L (26-192) Creatine Kinase MB (Mass) 4.7 ng/mL (0.0-3.6) Creatine Kinase MB Relative Index 0.5 % (0-4) Troponin I Quantitative 0.029 ng/mL (0.000-0.055) Total Protein 8.1 g/dL (6.4-8.2) Albumin 3.2 g/dL (3.4-5.0) Albumin/Globulin Ratio 0.7 (1.0-1.7) Lipase 135 U/L (73-393) Urine Collection Type U cath Urine Color Yellow Urine Clarity Clear Urine pH 5.5 Urine Specific [place] 1.015 Urine Protein 30 mg/dL (NEG-TRACE) Urine Glucose (UA) Negative mg/dL (NEG) Urine Ketones (Stick) Negative mg/dL (NEG) Urine Blood Small (NEG) Urine Nitrite Negative (NEG) Urine Bilirubin Negative (NEG) Urine Urobilinogen Dipstick 0.2 mg/dL (0.2 mg/dL) Urine Leukocyte Esterase Negative (NEG) Urine RBC Occ /HPF (0-2) Urine WBC 1-4 /HPF (0-4) Urine Squamous Epithelial Cells None /LPF Urine Amorphous Sediment Present /HPF Urine Bacteria 0 /HPF (0-FEW) Urine Hyaline Casts Moderate /HPF Stool Occult Blood Positive (NEG) Allergies: Coded Allergies: iodine (Verified Allergy, Severe, 01/01/17) Penicillins (Verified Allergy, Intermediate, 01/01/17) Sulfa (Sulfonamide Antibiotics) (Verified Allergy, Intermediate, 01/01/17) lisinopril (Verified Allergy, Intermediate, 01/01/17) Medications: Current Medications Medications (Trade) Dose Ordered Sig/Rene Route PRN Reason Start Time Stop Time Status Last Admin Dose Admin Sodium Chloride 1,000 ml @ 1,000 mls/hr 1X ONCE IV 08/04/18 22:00 3/5/19 22:59 DC 08/04/18 23:07 Pantoprazole Sodium (PROTONIX VIAL for IV PUSH) 40 mg 1X ONCE IVP 08/04/18 23:30 08/04/18 23:31 DC 08/04/18 23:07 Ondansetron HCl (Zofran) 4 mg 1X ONCE IV 08/04/18 23:30 08/04/18 23:31 DC 08/04/18 23:07 Colchicine (Colcrys) 0.6 mg PRN BID PRN PO INFLAMMATION 08/05/18 06:45 08/05/18 07:11 Clopidogrel Bisulfate (Plavix) 75 mg DAILY PO 08/05/18 09:00 08/05/18 08:45 Diclofenac Sodium (Voltaren) 1 eddie BID TP 08/05/18 09:00 08/05/18 08:53 Sodium Chloride 1,000 ml @ 100 mls/hr 1X ONCE IV 08/05/18 08:00 08/05/18 17:59 08/05/18 08:46 Imaging: Imaging: CT A/P Impression: 1. There are some air-fluid levels in the colon as may be seen with diarrheal state. 2. There is aortobiiliac stent graft. Maximal caliber of the aneurysm sac is greater than previous preprocedural exam although no previous post procedural exam to evaluate for change. 3. There is again nonspecific relative hyperdense appearance of the gallbladder joyce. Mild pericholecystic fluid is possible such as seen closer to the neck. PE: GEN: NAD HEENT: Atraumatic, PERRL LUNGS: CTAB HEART: RRR ABD: NABS, S/ND/NT EXTREMITY: No edema SKIN: No rashes, no jaundice NEURO/PSYCH: A & O 3 A/P: A/P: "Black diarrhea," heme positive Chronic anemia - stable H/o SB AVMs CRC screen - unclear timing H/o CAD, CVA, CKD -- Monitor. Okay for clears. Check stool studies (already ordered). Add PPI and iron if she'll take it. KATIE CAPONE Aug 05, 2018 09:13
--- NOTE | 2018-08-05 10:33 | PDOC ---
Provider Note Provider Note Pt seen.H&P to be dictated.#[id number] LOS NOLASCO MD Aug 05, 2018 10:33
[2018-08-05 11:00] VITALS: BP 130/78
[2018-08-05] MEDS: IV NORMAL SALINE 1000ML BAG 1,000 ML IV SCH ×2 (11:00→18:01)
--- NOTE | 2018-08-05 11:56 | NUR ---
SW following. Discussed with RN, pt from home. SW awaiting PT/OT to determine discharge recommendations. SW will continue to follow.
[2018-08-05] MEDS: PANTOPRAZOLE 40 MG TABLET.DR. PO SCH (13:12)
[2018-08-05] MEDS: FERROUS SULFATE ORAL 300 MG/5 ML SOLUTION. PO SCH ×2 (13:12→17:52)
[2018-08-05] MEDS: ACETAMINOPHEN 325 MG TABLET. PO PRN ×2 (13:23→21:06)
[2018-08-05 16:00] VITALS: BP 151/79
--- NOTE | 2018-08-05 18:54 | HP ---
ADMIT DATE: 08/05/2018 LOCATION: [facility]. REASON FOR ADMISSION TO THE HOSPITAL: She says she has been having diarrhea, abdominal pain, loose stools, weight loss for at least going on for a couple of weeks now and she got to the point where she is weak and she came to the Emergency Room. CT scan of the abdomen and pelvis shows no acute GI pathology and the patient was admitted to the hospital. PAST MEDICAL HISTORY: She has history of hypertension, coronary artery disease, cardiac stent, has AAA, endovascular repair, chronic kidney disease, hypertension, also GI bleed in the past, had an EGD which shows AVMs in 2017, which was cauterized. PAST SURGICAL HISTORY: Has an AAA repair, cardiac stent, has appendectomy, thyroidectomy, splenectomy. She also had a right ankle fracture, she had like a postop boot for that. ALLERGIES: TO PENICILLIN, SULFA, IODINE AND LISINOPRIL. SOCIAL HISTORY: Denies smoking, alcohol, drug abuse. FAMILY HISTORY: Positive for heart disease, hypertension, kidney problems. MEDICATIONS AT HOME: The patient is on Acyclovir 800 mg daily for herpes prophylaxis, atorvastatin 10 mg daily, Plavix 75 mg daily, colchicine 0.6 twice a day and diclofenac ointment. REVIEW OF SYMPTOMS: Complains of diarrhea, weight loss. Does not feel good and weak. Denies any chest pain or shortness of breath. Rest of the 14-system was reviewed. PHYSICAL EXAMINATION: VITAL SIGNS: Temperature 97, pulse 77, respirations 16, blood pressure 142/84, 99 on room air. HEENT: Head is atraumatic. Pupils equal. The patient has puffiness in the eyelids. Oral cavity: No congestion. NECK: Supple. Thyroid not enlarged. JVD not elevated. CHEST: Symmetrical. CARDIOVASCULAR: S1, S2. LUNGS: Clear. No wheezing. ABDOMEN: Soft, nontender, bowel sounds present. Had a scar of abdominal surgery in the upper midline. No mass palpable. EXTERNAL GENITALIA: No Jimenez. RECTAL: Deferred. EXTREMITIES: No calf tenderness, no edema. Pulses 1+. NEUROLOGIC: Moving all extremities. No focal deficits noted. LABORATORY DATA: Shows a white count 8, hemoglobin 11, platelets 131. INR is 1.2. Electrolytes show sodium 144, potassium 4.2, chloride 108, bicarbonate 24, anion gap 12, BUN 34, creatinine 1.2, glucose 98. Lactic acid 0.6. LFTs were normal. CPK was 869, troponin 0.029, lipase was normal. Urine was negative for leukocytes and nitrites. Stool for occult blood was positive. CT scan of the abdomen and pelvis, which shows air fluid level within the colon, history of aorta biliary stent graft, some hyperdense appearance of the gallbladder. FINAL IMPRESSION: 1. Chronic diarrhea. 2. Weight loss. 3. History of abdominal aortic aneurysm repair in the past. 4. Aortobifemoral bypass. 5. Hypertension. 6. Hyperlipidemia. 7. Gout. 8. CAD stable s/p stent 9.CRF stage 3 PLAN: At this time, admit to hospital, hydrate with IV fluids. We will stop colchicine. This sometimes can cause diarrhea. GI is consulted. The patient will need colonoscopy at some point because of the chronic diarrhea. LOS NOLASCO MD DR: HARSHA/sal JOB#: [id number] / [id number] LAUREN
[2018-08-05 19:53] VITALS: BP 135/75
[2018-08-05] MEDS: ATORVASTATIN CALCIUM 10 MG TABLET. PO SCH (21:06)
[2018-08-05] MEDS: COLCHICINE 0.6 MG TABLET PO SCH (21:06)
[2018-08-05 23:20] VITALS: BP 144/83
[2018-08-06 03:48] VITALS: BP 129/77
[2018-08-06] MEDS: IV NORMAL SALINE 1000ML BAG 1,000 ML IV SCH ×2 (07:00→16:21)
[2018-08-06 07:05] VITALS: BP 138/80
[2018-08-06] MEDS: PANTOPRAZOLE 40 MG TABLET.DR. PO SCH (08:13)
[2018-08-06] MEDS: CLOPIDOGREL BISULFATE 75 MG TABLET PO SCH (08:13)
[2018-08-06] MEDS: ACYCLOVIR 200 MG CAPSULE. PO SCH ×2 (08:13→08:30)
[2018-08-06] MEDS: COLCHICINE 0.6 MG TABLET PO SCH (08:13)
[2018-08-06] MEDS: FERROUS SULFATE ORAL 300 MG/5 ML SOLUTION. PO SCH ×2 (08:14→18:20)
[2018-08-06] MEDS: DICLOFENAC SODIUM 1% TOPICAL GEL 100GM TUBE. TP SCH ×2 (08:14→21:35)
[2018-08-06 08:36] LABS: BASO % 0 % (0-3); EOS # 0.1 x10^3/uL (0.0-0.7); EOS % 1 % (0-3); HEMOGLOBIN 10.8 g/dL (12.0-15.5); LYMPH # 1.5 x10^3/uL (1.0-4.8); LYMPH % 17 % (24-48); MEAN CORPUSCULAR HEMOGLOBIN 26 pg (25-35); MEAN CORPUSCULAR HGB CONC 31 g/dL (31-37); MEAN CORPUSCULAR VOLUME 86 fL (79-100); MONO # 0.6 x10^3/uL (0.0-1.1); MONO % 7 % (0-9); NEUT # 6.4 x10^3uL (1.8-7.7); NEUT % 75 % (31-73); PLATELET COUNT 153 x10^3/uL (140-400); RED BLOOD COUNT 4.08 x10^6/uL (3.50-5.40); RED CELL DISTRIBUTION WIDTH 20.1 % (11.5-14.5); WHITE BLOOD COUNT 8.6 x10^3/uL (4.0-11.0)
[2018-08-06 08:52] LABS: CALCIUM 9.2 mg/dL (8.5-10.1); CREATININE 1.2 mg/dL (0.6-1.0); GFR 52.6; POTASSIUM 3.2 mmol/L (3.5-5.1)
--- NOTE | 2018-08-06 10:08 | NUR ---
No indication for c-diff testing at this time.
--- NOTE | 2018-08-06 10:09 | PDOC ---
PROGRESS NOTES Subjective Subjective dec loose stools 2-3 yesterday Objective Objective Vital Signs Date Time Temp Pulse Resp B/P (MAP) Pulse Ox O2 Delivery O2 Flow Rate FiO2 08/06/18 07:41 Room Air 08/06/18 07:05 97.9 71 16 138/80 (99) 99 97.9 Intake and Output 08/06/18 07:00 Intake Total 1650 ml Balance 1650 ml Intake Oral 1650 ml # Voids 2 # Bowel Movements 2 Physical Exam Abdomen: Normal bowel sounds, Soft Heart: Regular rate, Normal S1, Normal S2 Extremities: No clubbing General: Alert, Oriented X3 Lungs: Clear to auscultation MUSCULOSKELETAL: No deformity, Other Neck: Supple Neuro: Normal speech Psych/Mental Status: Mental status NL Skin: No breakdown Diagnosis Problem List Problems Medical Problems: (1) Intractable diarrhea Status: Acute Assessment Assessment Problems Medical Problems: (1) Intractable diarrhea Status: Acute FINAL IMPRESSION: 1. Chronic diarrhea. 2. Weight loss. 3. History of abdominal aortic aneurysm repair in the past. 4. Aortobifemoral bypass. 5. Hypertension. 6. Hyperlipidemia. 7. Gout. 8.AVM in Duodenum PLAN: Hb stable low pot 3.2 replace will need colonoscopy. clear liquid diet today stool c/s pending. At this time, admit to hospital, hydrate with IV fluids. We will stop colchicine. This sometimes can cause diarrhea. GI is consulted. The patient will need colonoscopy at some point because of the chronic diarrhea. Plan Plan of Care Problems Medical Problems: (1) Intractable diarrhea Status: Acute Comment Review of Relevant I have reviewed the following items james (where applicable) has been applied. Labs Laboratory Tests Test 08/06/18 08:05 White Blood Count 8.6 x10^3/uL (4.0-11.0) Red Blood Count 4.08 x10^6/uL (3.50-5.40) Hemoglobin 10.8 g/dL (12.0-15.5) Hematocrit 35.0 % (36.0-47.0) Mean Corpuscular Volume 86 fL (79-100) Mean Corpuscular Hemoglobin 26 pg (25-35) Mean Corpuscular Hemoglobin Concent 31 g/dL (31-37) Red Cell Distribution Width 20.1 % (11.5-14.5) Platelet Count 153 x10^3/uL (140-400) Neutrophils (%) (Auto) 75 % (31-73) Lymphocytes (%) (Auto) 17 % (24-48) Monocytes (%) (Auto) 7 % (0-9) Eosinophils (%) (Auto) 1 % (0-3) Basophils (%) (Auto) 0 % (0-3) Neutrophils # (Auto) 6.4 x10^3uL (1.8-7.7) Lymphocytes # (Auto) 1.5 x10^3/uL (1.0-4.8) Monocytes # (Auto) 0.6 x10^3/uL (0.0-1.1) Eosinophils # (Auto) 0.1 x10^3/uL (0.0-0.7) Basophils # (Auto) 0.0 x10^3/uL (0.0-0.2) Sodium Level 144 mmol/L (136-145) Potassium Level 3.2 mmol/L (3.5-5.1) Chloride Level 111 mmol/L (98-107) Carbon Dioxide Level 22 mmol/L (21-32) Anion Gap 11 (6-14) Blood Urea Nitrogen 15 mg/dL (7-20) Creatinine 1.2 mg/dL (0.6-1.0) Estimated GFR (Cockcroft-Gault) 52.6 Glucose Level 72 mg/dL (70-99) Calcium Level 9.2 mg/dL (8.5-10.1) Medications Current Medications Acetaminophen (Tylenol) 650 mg PRN Q6HRS PRN PO pain Last administered on 21:06; Start 08/05/18 at 13:15 Atorvastatin Calcium (Lipitor) 10 mg QHS PO Last administered on 08/05/18 21:06 ; Start 08/05/18 at 21:00 Colchicine (Colcrys) 0.6 mg BID PO Last administered on 08/06/18 08:13; Start 08/05/18 at 21:00; Stop 08/08/18 at 09:01 Ferrous Sulfate (Iron Oral Solution) 300 mg BIDWMEALS PO Last administered on 08:14; Start 08/05/18 at 11:00 Pantoprazole Sodium (Protonix) 40 mg DAILYAC PO Last administered on 3/7/19at 08:13; Start 08/05/18 at 10:30 Sodium Chloride 1,000 ml @ 100 mls/hr Q10H IV Last administered on 08/06/18at 07 :00; Start 08/05/18 at 11:00 Vitals/I & O Vital Sign - Last 24 Hours 08/05/18 08/05/18 08/05/18 08/05/18 11:00 16:00 19:53 20:00 Temp 98.1 98.3 97.4 98.1 98.3 97.4 Pulse 82 71 69 Resp 16 16 20 B/P (MAP) 130/78 (95) 151/79 (103) 135/75 (95) Pulse Ox 98 97 92 O2 Delivery Room Air Room Air Room Air Room Air 08/05/18 08/06/18 08/06/18 08/06/18 23:20 03:48 07:05 07:41 Temp 97.4 97.9 97.9 97.4 97.9 97.9 Pulse 67 77 71 Resp 20 18 16 B/P (MAP) 144/83 (103) 129/77 (94) 138/80 (99) Pulse Ox 92 97 99 O2 Delivery Room Air Room Air Room Air Intake and Output 08/05/18 08/05/18 08/06/18 15:00 23:00 07:00 Intake Total 600 ml 850 ml 200 ml Balance 600 ml 850 ml 200 ml Nutrition Consultation Dietary Evaluation: Recommendations by RD: Increase Calorie Intake, Protein supplementation Comments: ensure clear tid while on clear liquid diet Expected Outcomes/Goals: diet adv/ tolerance to meet > 75% est nutr needs Interpretation of weight loss: >10% in 6 months Malnutrition Findings: Body Fat Depletion (Non Severe: Mild Depletion Weight Status: Underweight LOS NOLASCO MD Aug 06, 2018 10:08
[2018-08-06] MEDS ORDERED: POTASSIUM CHLORIDE 20 MEQ TABLET.ER. PO ONE ×2 (10:15→12:15)
[2018-08-06 11:05] VITALS: BP 143/88
--- NOTE | 2018-08-06 11:18 | PDOC ---
Subjective: Subjective: Had two stools this morning - says diarrhea but then says "it looked like little white radha." Family member present and says she will have a colonoscopy prior to discharge which is what Dr. Arreola recommended. She would also prefer if Dr. Farmer spoke to them and not his dental assistant. Objective: Objective: 2 stools charted. Vital Signs: Vital Signs Date Time Temp Pulse Resp B/P (MAP) Pulse Ox O2 Delivery O2 Flow Rate FiO2 08/06/18 07:41 Room Air 08/06/18 07:05 97.9 71 16 138/80 (99) 99 97.9 Labs: Laboratory Tests Test 08/06/18 08:05 White Blood Count 8.6 x10^3/uL Red Blood Count 4.08 x10^6/uL Hemoglobin 10.8 g/dL Hematocrit 35.0 % Mean Corpuscular Volume 86 fL Mean Corpuscular Hemoglobin 26 pg Mean Corpuscular Hemoglobin Concent 31 g/dL Red Cell Distribution Width 20.1 % Platelet Count 153 x10^3/uL Neutrophils (%) (Auto) 75 % Lymphocytes (%) (Auto) 17 % Monocytes (%) (Auto) 7 % Eosinophils (%) (Auto) 1 % Basophils (%) (Auto) 0 % Neutrophils # (Auto) 6.4 x10^3uL Lymphocytes # (Auto) 1.5 x10^3/uL Monocytes # (Auto) 0.6 x10^3/uL Eosinophils # (Auto) 0.1 x10^3/uL Basophils # (Auto) 0.0 x10^3/uL Sodium Level 144 mmol/L Potassium Level 3.2 mmol/L Chloride Level 111 mmol/L Carbon Dioxide Level 22 mmol/L Anion Gap 11 Blood Urea Nitrogen 15 mg/dL Creatinine 1.2 mg/dL Estimated GFR (Cockcroft-Gault) 52.6 Glucose Level 72 mg/dL Calcium Level 9.2 mg/dL PE: GEN: NAD LUNGS: CTAB HEART: RRR ABD: NABS, S/ND/NT NEURO/PSYCH: A & O 3, forgetful? A/P: "Diarrhea" Chronic anemia (stable), +fecal occult, h/o AVMs -last EGD 2016, last colonoscopy 2014 -- ?diarrhea resolved I spoke with her son on the phone re: chronic anemia and h/o AVMs, also discussed findings of last three colonoscopies. Continue PPI and iron. Dr. Farmer will see her later today. KATIE CAPONE Aug 06, 2018 11:18
--- NOTE | 2018-08-06 13:23 | NUR ---
SW following pt. PT recommends SNU/HH and OT recommends SNU. Spoke with PT Cara who reported pt is able to go home with home health services. SW will arrange HH upon dc if ordered by Physician. Will continue to follow.
[2018-08-06] MEDS: ALLOPURINOL 100 MG TABLET. PO SCH (13:33)
--- NOTE | 2018-08-06 14:23 | RAD ---
Right ankle, 3 views, 08/06/2018: HISTORY: Chronic right ankle pain Comparison is made to a study from 09/23/2016. The bony structures are demineralized. There is an old healed fracture of the distal fibula along the superior aspect of the lateral malleolus. No new fracture or dislocation is identified. Arterial calcifications are present. There is mild generalized subcutaneous edema. IMPRESSION: 1. Demineralization. 2. Old healed distal fibular fracture. 3. No acute bony abnormality is detected. Electronically signed by: Mynor Morel MD (08/06/2018 2:20 PM) [facility]
[2018-08-06 15:10] VITALS: BP 150/91
[2018-08-06 19:47] VITALS: BP 136/83
[2018-08-06] MEDS ORDERED: DICLOFENAC SODIUM 1% TOPICAL GEL 100GM TUBE. TP SCH (21:00)
[2018-08-06] MEDS: ATORVASTATIN CALCIUM 10 MG TABLET. PO SCH (21:35)
[2018-08-06] MEDS: ACETAMINOPHEN 325 MG TABLET. PO PRN (21:35)
[2018-08-06 23:10] VITALS: BP 130/89
--- NOTE | 2018-08-07 01:23 | CONS ---
DATE OF CONSULTATION: 08/06/2018 ATTENDING PHYSICIAN: Dr. Arreola. The patient was seen at the request of Dr. Arreola for rehab evaluation. HISTORY OF PRESENT ILLNESS: This is a 77-year-old right-handed female admitted through the Emergency Room on 08/05/2018 with diarrhea, abdominal pain, weight loss, going on for about 2 weeks. She was admitted through the Emergency Room with generalized weakness. CT of the abdomen and pelvis failed to reveal any acute abnormality. The patient with known hypertension and coronary artery disease, cardiac stent, abdominal aortic aneurysm endovascular repair, chronic kidney disease, hypertension, previous GI bleeding, had EGD which showed AV malformation in 2017, which was cauterized at that time. The patient also had appendectomy, thyroidectomy, splenectomy, right ankle fracture. The patient had chronic right ankle pain being treated with a diagnosis of gouty arthritis and she has been on colchicine regularly. The patient had a Cam boot, but she feels like it is too heavy to walk with it. The patient lives alone, had stairs for her to manage. ALLERGIES: SHE IS KNOWN ALLERGIC TO PENICILLIN, SULFA, IODINE AND LISINOPRIL. FAMILY HISTORY: Heart disease, hypertension, kidney problems. She is also on Acyclovir 800 mg daily for herpes prophylaxis and also on Plavix. PHYSICAL EXAMINATION: Today revealed an elderly female. She is alert, oriented to time, place, person and circumstance and follows commands appropriately, moves all 4 extremities voluntarily where she had 4+/5 grade muscle strength. Deep tendon reflexes are 1-2+ and symmetrical and she had equal perception of touch and pinprick sensation bilaterally. She had localized tenderness to palpation over anterolateral aspect of her right ankle with minimal swelling. No obvious crepitus on range of motion of her ankles. She is independent with bed mobility and transfers. She limps on her right foot while up walking. ASSESSMENT: An elderly female with diarrhea for the last 2 weeks in a patient with known previous AV malformation of the intestine, status post cauterization, also with history of hypertension, coronary artery disease status post stenting, abdominal aortic aneurysm status post endovascular repair, chronic kidney disease, hypertension, GI bleeding in the past and also fracture right ankle with chronic right ankle sprain and tendonitis and early degenerative joint disease changes. RECOMMENDATIONS: Agree with the plans to stop colchicine to try her with air cast and [place] shoe to support her right ankle as she is hesitant to use a Cam boot, home when medically stable with outpatient followup. Dr. Arreola, I appreciate asking me to participate in the care of this interesting patient, to consider starting her on allopurinol to prevent gouty episodes as she is afraid of gout if clinically indicated. ETHEL CHOI MD DR: MINI/nts JOB#: [id number] / [id number]
[2018-08-07] MEDS: IV NORMAL SALINE 1000ML BAG 1,000 ML IV SCH ×2 (03:00→16:47)
[2018-08-07 03:10] VITALS: BP 126/77
[2018-08-07 07:00] VITALS: BP 136/84
[2018-08-07] MEDS: FERROUS SULFATE ORAL 300 MG/5 ML SOLUTION. PO SCH ×2 (08:17→16:46)
[2018-08-07] MEDS: ACYCLOVIR 200 MG CAPSULE. PO SCH (08:17)
[2018-08-07] MEDS: CLOPIDOGREL BISULFATE 75 MG TABLET PO SCH (08:18)
[2018-08-07] MEDS: ALLOPURINOL 100 MG TABLET. PO SCH (08:18)
[2018-08-07] MEDS: PANTOPRAZOLE 40 MG TABLET.DR. PO SCH (08:18)
[2018-08-07] MEDS: DICLOFENAC SODIUM 1% TOPICAL GEL 100GM TUBE. TP SCH ×2 (08:18→21:00)
--- NOTE | 2018-08-07 10:11 | PDOC ---
Subjective: Subjective: "I'm eating so I'm fine." I asked about diarrhea - "oh yeah I'm still doing that." I asked how many times - "I think maybe once." Objective: Vital Signs: Vital Signs Date Time Temp Pulse Resp B/P (MAP) Pulse Ox O2 Delivery O2 Flow Rate FiO2 08/07/18 07:18 Room Air 08/07/18 07:00 98.0 76 18 136/84 (101) 96 98.0 PE: GEN: NAD, eating gomes and eggs LUNGS: CTAB HEART: RRR ABD: NABS, S/ND/NT NEURO/PSYCH: A & O 3 A/P: Diarrhea Chronic anemia (stable), h/o AVMs -last EGD 2016, last colonoscopy 2014 -on PPI and iron here, non-compliant w/ iron at home -- Plans for colonoscopy Friday08/10/18 following prep on Friday - please see orders. Await stool studies if able to collect. KATIE CAPNOE Aug 07, 2018 10:11
--- NOTE | 2018-08-07 10:37 | PDOC ---
PROGRESS NOTES Subjective Subjective less stools today Objective Objective Vital Signs Date Time Temp Pulse Resp B/P (MAP) Pulse Ox O2 Delivery O2 Flow Rate FiO2 08/07/18 07:18 Room Air 08/07/18 07:00 98.0 76 18 136/84 (101) 96 98.0 Intake and Output 08/07/18 07:00 Intake Total 800 ml Balance 800 ml Intake Oral 800 ml # Voids 6 # Bowel Movements 3 Physical Exam Abdomen: Normal bowel sounds, Soft Heart: Regular rate, Normal S1, Normal S2 Extremities: No clubbing General: Alert, Oriented X3 Lungs: Clear to auscultation MUSCULOSKELETAL: No deformity, Other Neck: Supple Neuro: Normal speech Psych/Mental Status: Mental status NL Skin: No breakdown Diagnosis Problem List Problems Medical Problems: (1) Intractable diarrhea Status: Acute Assessment Assessment Problems Medical Problems: (1) Intractable diarrhea Status: Acute FINAL IMPRESSION: 1. Chronic diarrhea.Heam positive stool. 2. Weight loss. 3. History of abdominal aortic aneurysm repair in the past. 4. Aortobifemoral bypass. 5. Hypertension. 6. Hyperlipidemia. 7. Gout. 8.AVM in Duodenum PLAN: d/c plavix Hb stable low pot 3.2 replaced,checklabs in am will need colonoscopy.scheduled for friday clear liquid diet today stool c/s pending. rehab consult dr seymour At this time, admit to hospital, hydrate with IV fluids. We will stop colchicine. This sometimes can cause diarrhea. GI is consulted. The patient will need colonoscopy at some point because of the chronic diarrhea. Plan Plan of Care Problems Medical Problems: (1) Intractable diarrhea Status: Acute Comment Review of Relevant I have reviewed the following items james (where applicable) has been applied. Medications Current Medications Allopurinol (Zyloprim) 100 mg DAILY PO Last administered on 08/07/18at 08:18; Start 08/06/18 at 14:00 Bisacodyl (Dulcolax Tab) 10 mg PRN DAILY PRN PO CONSTIPATION; Start 08/09/18 at 11:00; Stop 08/09/18 at 11:00; Status DC Bisacodyl (Dulcolax Tab) 10 mg PRN DAILY PRN PO CONSTIPATION; Start 08/09/18 at 13:00 Diclofenac Sodium (Voltaren) 1 eddie BID TP ; Start 08/06/18 at 21:00; Stop at 21:00; Status DC Magnesium Citrate (Citroma) 296 ml 1X ONCE PO ; Start 08/09/18 at 10:00; Stop 08/09/18 at 10:01 Polyethylene Glycol (miraLAX Powder BULK BOTTLE) 238 gm 1X ONCE PO ; Start 03/20 at 12:00; Stop 08/09/18 at 12:01 Potassium Chloride (Klor-Con) 20 meq 1X ONCE PO Last administered on 08/06/18at 12:12; Start 08/06/18 at 12:15; Stop 08/06/18 at 12:16; Status DC Vitals/I & O Vital Sign - Last 24 Hours 08/06/18 08/06/18 08/06/18 08/06/18 11:05 15:10 19:47 20:00 Temp 98.0 97.2 97.3 98.0 97.2 97.3 Pulse 77 81 85 Resp 18 18 20 B/P (MAP) 143/88 (106) 150/91 (110) 136/83 (100) Pulse Ox 95 94 95 O2 Delivery Room Air Room Air Room Air Room Air 08/06/18 08/07/18 08/07/18 08/07/18 23:10 03:10 07:00 07:18 Temp 98.0 97.9 98.0 98.0 97.9 98.0 Pulse 84 82 76 Resp 18 18 18 B/P (MAP) 130/89 (103) 126/77 (93) 136/84 (101) Pulse Ox 98 98 96 O2 Delivery Room Air Room Air Room Air Room Air Intake and Output 08/06/18 08/06/18 08/07/18 15:00 23:00 07:00 Intake Total 200 ml 250 ml 350 ml Balance 200 ml 250 ml 350 ml Nutrition Consultation Dietary Evaluation: Recommendations by RD: Increase Calorie Intake, Protein supplementation Comments: ensure clear tid while on clear liquid diet Expected Outcomes/Goals: diet adv/ tolerance to meet > 75% est nutr needs Interpretation of weight loss: >10% in 6 months Malnutrition Findings: Body Fat Depletion (Non Severe: Mild Depletion Weight Status: Underweight LOS NOLASCO MD Aug 07, 2018 10:37
[2018-08-07 11:00] VITALS: BP 137/89
--- NOTE | 2018-08-07 12:40 | PDOC ---
PROGRESS NOTES Subjective Subjective She c/o abdominal and diarrhea. Objective Objective Vital Signs Date Time Temp Pulse Resp B/P (MAP) Pulse Ox O2 Delivery O2 Flow Rate FiO2 08/07/18 11:00 98.0 100 18 137/89 (105) 96 Room Air 98.0 Intake and Output 08/07/18 07:00 Intake Total 800 ml Balance 800 ml Intake Oral 800 ml # Voids 6 # Bowel Movements 3 Physical Exam Physical Exam She is alert,comfortable,sitting in bedside chair and eating her lunch.She did walk for 150' with roller walker yesterday with physical therapy.X-ray right ankle showed healed right lateral malleolus fracture but I can still see a fracture line and not any callus. Assessment Assessment Problems Medical Problems: (1) Intractable diarrhea Status: Acute Plan Plan of Care She should use cam boot or at least air cast while up walking if her ankle pain continues. Comment Review of Relevant I have reviewed the following items james (where applicable) has been applied. Labs Laboratory Tests Test 08/06/18 08:05 White Blood Count 8.6 x10^3/uL (4.0-11.0) Red Blood Count 4.08 x10^6/uL (3.50-5.40) Hemoglobin 10.8 g/dL (12.0-15.5) Hematocrit 35.0 % (36.0-47.0) Mean Corpuscular Volume 86 fL (79-100) Mean Corpuscular Hemoglobin 26 pg (25-35) Mean Corpuscular Hemoglobin Concent 31 g/dL (31-37) Red Cell Distribution Width 20.1 % (11.5-14.5) Platelet Count 153 x10^3/uL (140-400) Neutrophils (%) (Auto) 75 % (31-73) Lymphocytes (%) (Auto) 17 % (24-48) Monocytes (%) (Auto) 7 % (0-9) Eosinophils (%) (Auto) 1 % (0-3) Basophils (%) (Auto) 0 % (0-3) Neutrophils # (Auto) 6.4 x10^3uL (1.8-7.7) Lymphocytes # (Auto) 1.5 x10^3/uL (1.0-4.8) Monocytes # (Auto) 0.6 x10^3/uL (0.0-1.1) Eosinophils # (Auto) 0.1 x10^3/uL (0.0-0.7) Basophils # (Auto) 0.0 x10^3/uL (0.0-0.2) Sodium Level 144 mmol/L (136-145) Potassium Level 3.2 mmol/L (3.5-5.1) Chloride Level 111 mmol/L (98-107) Carbon Dioxide Level 22 mmol/L (21-32) Anion Gap 11 (6-14) Blood Urea Nitrogen 15 mg/dL (7-20) Creatinine 1.2 mg/dL (0.6-1.0) Estimated GFR (Cockcroft-Gault) 52.6 Glucose Level 72 mg/dL (70-99) Calcium Level 9.2 mg/dL (8.5-10.1) Medications Current Medications Sodium Chloride 1,000 ml @ 1,000 mls/hr 1X ONCE IV Last administered on at 23:07; Start 08/04/18 at 22:00; Stop 08/04/18 at 22:59; Status DC Pantoprazole Sodium (PROTONIX VIAL for IV PUSH) 40 mg 1X ONCE IVP Last administered on 08/04/18at 23:07; Start 08/04/18 at 23:30; Stop 08/04/18 at 23:31; Status DC Ondansetron HCl (Zofran) 4 mg 1X ONCE IV Last administered on 08/04/18at 23:07; Start 08/04/18 at 23:30; Stop 08/04/18 at 23:31; Status DC Ondansetron HCl (Zofran) 4 mg PRN Q8HRS PRN IV NAUSEA/VOMITING 1ST CHOICE; Start 08/05/18 at 00:45; Stop 08/06/18 at 00:44; Status DC Fentanyl Citrate (Fentanyl 2ml Vial) 25 mcg PRN Q2HRS PRN IV SEVERE PAIN; Start 08/05/18 at 00:45 Colchicine (Colcrys) 0.6 mg PRN BID PRN PO INFLAMMATION Last administered on 08/05/18at 07:11; Start 08/05/18 at 06:45; Stop 08/05/18 at 17:16; Status DC Acyclovir (Zovirax) 800 mg DAILY PO ; Start 08/05/18 at 09:00 Atorvastatin Calcium (Lipitor) 10 mg QHS PO Last administered on 08/06/18 21:35 ; Start 08/05/18 at 21:00 Clopidogrel Bisulfate (Plavix) 75 mg DAILY PO Last administered on 08/07/18 08: 18; Start 08/05/18 at 09:00; Stop 08/07/18 at 10:37; Status DC Diclofenac Sodium (Voltaren) 1 rolando BID TP Last administered on 08/07/18 08:18; Start 08/05/18 at 09:00 Sodium Chloride 1,000 ml @ 100 mls/hr 1X ONCE IV Last administered on 08:46; Start 08/05/18 at 08:00; Stop 08/05/18 at 17:59; Status DC Pantoprazole Sodium (Protonix) 40 mg DAILYAC PO Last administered on 08/07/18 08:18; Start 08/05/18 at 10:30 Ferrous Sulfate (Iron Oral Solution) 300 mg BIDWMEALS PO Last administered on 08:17; Start 08/05/18 at 11:00 Sodium Chloride 1,000 ml @ 50 mls/hr Q20H IV Last administered on 08/07/18 03: 00; Start 08/05/18 at 11:00 Acetaminophen (Tylenol) 650 mg PRN Q6HRS PRN PO pain Last administered on 21:35; Start 08/05/18 at 13:15 Colchicine (Colcrys) 0.6 mg BID PO Last administered on 08/06/18 08:13; Start 08/05/18 at 21:00; Stop 08/06/18 at 12:51; Status DC Potassium Chloride (Klor-Con) 40 meq 1X ONCE PO Last administered on 08/06/18 10:17; Start 08/06/18 at 10:15; Stop 08/06/18 at 10:16; Status DC Potassium Chloride (Klor-Con) 20 meq 1X ONCE PO Last administered on 08/06/18 12:12; Start 08/06/18 at 12:15; Stop 08/06/18 at 12:16; Status DC Diclofenac Sodium (Voltaren) 1 rolando BID TP ; Start 08/06/18 at 21:00; Stop at 21:00; Status DC Allopurinol (Zyloprim) 100 mg DAILY PO Last administered on 08/07/18at 08:18; Start 08/06/18 at 14:00 Polyethylene Glycol (miraLAX Powder BULK BOTTLE) 238 gm 1X ONCE PO ; Start 03/20 at 12:00; Stop 08/09/18 at 12:01 Magnesium Citrate (Citroma) 296 ml 1X ONCE PO ; Start 08/09/18 at 10:00; Stop 08/09/18 at 10:01 Bisacodyl (Dulcolax Tab) 10 mg PRN DAILY PRN PO CONSTIPATION; Start 08/09/18 at 11:00; Stop 08/09/18 at 11:00; Status DC Bisacodyl (Dulcolax Tab) 10 mg PRN DAILY PRN PO CONSTIPATION; Start 08/09/18 at 13:00 Active Scripts Active Voltaren (Diclofenac Sodium) 100 Gm Gel..gram. 1 Rolando TP BID 30 Days Atorvastatin Calcium 10 Mg Tablet 10 Mg PO QHS 30 Days Reported Acyclovir 800 Mg Tablet 800 Mg PO DAILY Colchicine 0.6 Mg Tablet 1 Tab PO BID PRN MDD 2 tabs Clopidogrel (Clopidogrel Bisulfate) 75 Mg Tablet 1 Tab PO DAILY Multivitamins (Multivitamin) 1 Each Tablet 1 Tab PO DAILY Edarbyclor 40-12.5 Mg Tablet (Azilsartan/Chlorthalidone) 1 Each Tablet 1 Tab PO DAILY Vitals/I & O Vital Sign - Last 24 Hours 08/06/18 08/06/18 08/06/18 08/06/18 15:10 19:47 20:00 23:10 Temp 97.2 97.3 98.0 97.2 97.3 98.0 Pulse 81 85 84 Resp 18 20 18 B/P (MAP) 150/91 (110) 136/83 (100) 130/89 (103) Pulse Ox 94 95 98 O2 Delivery Room Air Room Air Room Air Room Air 08/07/18 08/07/18 08/07/18 08/07/18 03:10 07:00 07:18 11:00 Temp 97.9 98.0 98.0 97.9 98.0 98.0 Pulse 82 76 100 Resp 18 18 18 B/P (MAP) 126/77 (93) 136/84 (101) 137/89 (105) Pulse Ox 98 96 96 O2 Delivery Room Air Room Air Room Air Room Air Intake and Output 08/06/18 08/06/18 08/07/18 15:00 23:00 07:00 Intake Total 200 ml 250 ml 350 ml Balance 200 ml 250 ml 350 ml Nutrition Consultation Dietary Evaluation: Recommendations by RD: Increase Calorie Intake, Protein supplementation Comments: ensure clear tid while on clear liquid diet Expected Outcomes/Goals: diet adv/ tolerance to meet > 75% est nutr needs Interpretation of weight loss: >10% in 6 months Malnutrition Findings: Body Fat Depletion (Non Severe: Mild Depletion Weight Status: Underweight ETHEL CHOI MD Aug 07, 2018 12:40
[2018-08-07 13:06] LABS: CREATININE 1.3 mg/dL (0.6-1.0); GFR 47.9; POTASSIUM 3.9 mmol/L (3.5-5.1)
[2018-08-07 15:00] VITALS: BP 131/76
[2018-08-07 19:54] VITALS: BP 137/82
[2018-08-07] MEDS: ATORVASTATIN CALCIUM 10 MG TABLET. PO SCH (20:57)
[2018-08-07 23:14] VITALS: BP 150/87
[2018-08-08 03:13] VITALS: BP 131/83
[2018-08-08 05:58] LABS: BASO # 0.1 x10^3/uL (0.0-0.2); BASO % 1 % (0-3); EOS # 0.1 x10^3/uL (0.0-0.7); EOS % 1 % (0-3); HEMATOCRIT 30.9 % (36.0-47.0); HEMOGLOBIN 10.1 g/dL (12.0-15.5); LYMPH # 1.6 x10^3/uL (1.0-4.8); LYMPH % 26 % (24-48); MEAN CORPUSCULAR HEMOGLOBIN 27 pg (25-35); MEAN CORPUSCULAR HGB CONC 33 g/dL (31-37); MEAN CORPUSCULAR VOLUME 84 fL (79-100); MONO # 0.6 x10^3/uL (0.0-1.1); MONO % 9 % (0-9); NEUT # 3.8 x10^3uL (1.8-7.7); NEUT % 62 % (31-73); PLATELET COUNT 152 x10^3/uL (140-400); RED BLOOD COUNT 3.69 x10^6/uL (3.50-5.40); RED CELL DISTRIBUTION WIDTH 19.1 % (11.5-14.5); WHITE BLOOD COUNT 6.1 x10^3/uL (4.0-11.0)
[2018-08-08 06:05] LABS: CALCIUM 8.9 mg/dL (8.5-10.1); CREATININE 1.1 mg/dL (0.6-1.0); GFR 58.1; POTASSIUM 3.6 mmol/L (3.5-5.1)
[2018-08-08 07:00] VITALS: BP 142/85
[2018-08-08] MEDS: ACYCLOVIR 200 MG CAPSULE. PO SCH ×2 (09:00→09:30)
[2018-08-08] MEDS: FERROUS SULFATE ORAL 300 MG/5 ML SOLUTION. PO SCH ×2 (09:29→17:36)
[2018-08-08] MEDS: PANTOPRAZOLE 40 MG TABLET.DR. PO SCH (09:29)
[2018-08-08] MEDS: ALLOPURINOL 100 MG TABLET. PO SCH (09:30)
[2018-08-08] MEDS: DICLOFENAC SODIUM 1% TOPICAL GEL 100GM TUBE. TP SCH ×2 (09:33→20:33)
--- NOTE | 2018-08-08 10:04 | PDOC ---
PROGRESS NOTES Subjective Subjective She admits continued abdominal pain but no less diarrhea. Objective Objective Vital Signs Date Time Temp Pulse Resp B/P (MAP) Pulse Ox O2 Delivery O2 Flow Rate FiO2 08/08/18 07:00 98.2 87 16 142/85 (104) 97 Room Air 98.2 Intake and Output 08/08/18 06:59 Intake Total 540 ml Balance 540 ml Intake Oral 540 ml # Voids 5 Physical Exam Physical Exam She is sitting at edge of bed and eating breakfast and she is still hesitant to use cam boot for her chronic right ankle sprain and tendinitis. Waiting for her family to get her oxford shoe for her to wear air cast brace to her right ankle. Assessment Assessment Problems Medical Problems: (1) Intractable diarrhea Status: Acute Plan Plan of Alf with home health follow up when medically stable. Comment Review of Relevant I have reviewed the following items james (where applicable) has been applied. Labs Laboratory Tests Test 08/06/18 19:30 08/07/18 12:00 08/08/18 05:10 Clostridium difficile Toxin B Gene Negative (Negative) Sodium Level 144 mmol/L (136-145) 145 mmol/L (136-145) Potassium Level 3.9 mmol/L (3.5-5.1) 3.6 mmol/L (3.5-5.1) Chloride Level 111 mmol/L (98-107) 113 mmol/L (98-107) Carbon Dioxide Level 21 mmol/L (21-32) 23 mmol/L (21-32) Anion Gap 12 (6-14) 9 (6-14) Blood Urea Nitrogen 11 mg/dL (7-20) 9 mg/dL (7-20) Creatinine 1.3 mg/dL (0.6-1.0) 1.1 mg/dL (0.6-1.0) Estimated GFR (Cockcroft-Gault) 47.9 58.1 Glucose Level 85 mg/dL (70-99) 77 mg/dL (70-99) Calcium Level 9.0 mg/dL (8.5-10.1) 8.9 mg/dL (8.5-10.1) White Blood Count 6.1 x10^3/uL (4.0-11.0) Red Blood Count 3.69 x10^6/uL (3.50-5.40) Hemoglobin 10.1 g/dL (12.0-15.5) Hematocrit 30.9 % (36.0-47.0) Mean Corpuscular Volume 84 fL (79-100) Mean Corpuscular Hemoglobin 27 pg (25-35) Mean Corpuscular Hemoglobin Concent 33 g/dL (31-37) Red Cell Distribution Width 19.1 % (11.5-14.5) Platelet Count 152 x10^3/uL (140-400) Neutrophils (%) (Auto) 62 % (31-73) Lymphocytes (%) (Auto) 26 % (24-48) Monocytes (%) (Auto) 9 % (0-9) Eosinophils (%) (Auto) 1 % (0-3) Basophils (%) (Auto) 1 % (0-3) Neutrophils # (Auto) 3.8 x10^3uL (1.8-7.7) Lymphocytes # (Auto) 1.6 x10^3/uL (1.0-4.8) Monocytes # (Auto) 0.6 x10^3/uL (0.0-1.1) Eosinophils # (Auto) 0.1 x10^3/uL (0.0-0.7) Basophils # (Auto) 0.1 x10^3/uL (0.0-0.2) Laboratory Tests Test 08/07/18 12:00 08/08/18 05:10 Sodium Level 144 mmol/L (136-145) 145 mmol/L (136-145) Potassium Level 3.9 mmol/L (3.5-5.1) 3.6 mmol/L (3.5-5.1) Chloride Level 111 mmol/L (98-107) 113 mmol/L (98-107) Carbon Dioxide Level 21 mmol/L (21-32) 23 mmol/L (21-32) Anion Gap 12 (6-14) 9 (6-14) Blood Urea Nitrogen 11 mg/dL (7-20) 9 mg/dL (7-20) Creatinine 1.3 mg/dL (0.6-1.0) 1.1 mg/dL (0.6-1.0) Estimated GFR (Cockcroft-Gault) 47.9 58.1 Glucose Level 85 mg/dL (70-99) 77 mg/dL (70-99) Calcium Level 9.0 mg/dL (8.5-10.1) 8.9 mg/dL (8.5-10.1) White Blood Count 6.1 x10^3/uL (4.0-11.0) Red Blood Count 3.69 x10^6/uL (3.50-5.40) Hemoglobin 10.1 g/dL (12.0-15.5) Hematocrit 30.9 % (36.0-47.0) Mean Corpuscular Volume 84 fL (79-100) Mean Corpuscular Hemoglobin 27 pg (25-35) Mean Corpuscular Hemoglobin Concent 33 g/dL (31-37) Red Cell Distribution Width 19.1 % (11.5-14.5) Platelet Count 152 x10^3/uL (140-400) Neutrophils (%) (Auto) 62 % (31-73) Lymphocytes (%) (Auto) 26 % (24-48) Monocytes (%) (Auto) 9 % (0-9) Eosinophils (%) (Auto) 1 % (0-3) Basophils (%) (Auto) 1 % (0-3) Neutrophils # (Auto) 3.8 x10^3uL (1.8-7.7) Lymphocytes # (Auto) 1.6 x10^3/uL (1.0-4.8) Monocytes # (Auto) 0.6 x10^3/uL (0.0-1.1) Eosinophils # (Auto) 0.1 x10^3/uL (0.0-0.7) Basophils # (Auto) 0.1 x10^3/uL (0.0-0.2) Medications Current Medications Sodium Chloride 1,000 ml @ 1,000 mls/hr 1X ONCE IV Last administered on at 23:07; Start 08/04/18 at 22:00; Stop 08/04/18 at 22:59; Status DC Pantoprazole Sodium (PROTONIX VIAL for IV PUSH) 40 mg 1X ONCE IVP Last administered on 08/04/18at 23:07; Start 08/04/18 at 23:30; Stop 08/04/18 at 23:31; Status DC Ondansetron HCl (Zofran) 4 mg 1X ONCE IV Last administered on 3/5/19at 23:07; Start 08/04/18 at 23:30; Stop 08/04/18 at 23:31; Status DC Ondansetron HCl (Zofran) 4 mg PRN Q8HRS PRN IV NAUSEA/VOMITING 1ST CHOICE; Start 08/05/18 at 00:45; Stop 08/06/18 at 00:44; Status DC Fentanyl Citrate (Fentanyl 2ml Vial) 25 mcg PRN Q2HRS PRN IV SEVERE PAIN; Start 08/05/18 at 00:45 Colchicine (Colcrys) 0.6 mg PRN BID PRN PO INFLAMMATION Last administered on 07:11; Start 08/05/18 at 06:45; Stop 08/05/18 at 17:16; Status DC Acyclovir (Zovirax) 800 mg DAILY PO Last administered on 08/08/18 09:30; Start 08/05/18 at 09:00 Atorvastatin Calcium (Lipitor) 10 mg QHS PO Last administered on 08/07/18 20:57 ; Start 08/05/18 at 21:00 Clopidogrel Bisulfate (Plavix) 75 mg DAILY PO Last administered on 08/07/18 08: 18; Start 08/05/18 at 09:00; Stop 08/07/18 at 10:37; Status DC Diclofenac Sodium (Voltaren) 1 rolando BID TP Last administered on 08/08/18 09:33; Start 08/05/18 at 09:00 Sodium Chloride 1,000 ml @ 100 mls/hr 1X ONCE IV Last administered on 08:46; Start 08/05/18 at 08:00; Stop 08/05/18 at 17:59; Status DC Pantoprazole Sodium (Protonix) 40 mg DAILYAC PO Last administered on 08/08/18 09:29; Start 08/05/18 at 10:30 Ferrous Sulfate (Iron Oral Solution) 300 mg BIDWMEALS PO Last administered on 09:29; Start 08/05/18 at 11:00 Sodium Chloride 1,000 ml @ 50 mls/hr Q20H IV Last administered on 08/07/18 16: 47; Start 08/05/18 at 11:00 Acetaminophen (Tylenol) 650 mg PRN Q6HRS PRN PO pain Last administered on 3/7/ 19at 21:35; Start 08/05/18 at 13:15 Colchicine (Colcrys) 0.6 mg BID PO Last administered on 08/06/18at 08:13; Start 08/05/18 at 21:00; Stop 08/06/18 at 12:51; Status DC Potassium Chloride (Klor-Con) 40 meq 1X ONCE PO Last administered on 08/06/18at 10:17; Start 08/06/18 at 10:15; Stop 08/06/18 at 10:16; Status DC Potassium Chloride (Klor-Con) 20 meq 1X ONCE PO Last administered on 08/06/18at 12:12; Start 08/06/18 at 12:15; Stop 08/06/18 at 12:16; Status DC Diclofenac Sodium (Voltaren) 1 rolando BID TP ; Start 08/06/18 at 21:00; Stop at 21:00; Status DC Allopurinol (Zyloprim) 100 mg DAILY PO Last administered on 08/08/18at 09:30; Start 08/06/18 at 14:00 Polyethylene Glycol (miraLAX Powder BULK BOTTLE) 238 gm 1X ONCE PO ; Start 03/20 at 12:00; Stop 08/09/18 at 12:01 Magnesium Citrate (Citroma) 296 ml 1X ONCE PO ; Start 08/09/18 at 10:00; Stop 08/09/18 at 10:01 Bisacodyl (Dulcolax Tab) 10 mg PRN DAILY PRN PO CONSTIPATION; Start 08/09/18 at 11:00; Stop 08/09/18 at 11:00; Status DC Bisacodyl (Dulcolax Tab) 10 mg PRN DAILY PRN PO CONSTIPATION; Start 08/09/18 at 13:00 Bacitracin 97449 unit/Sodium Chloride 1,000 ml @ 1,000 mls/hr 1X ONCE IRR ; Start 08/10/18 at 06:00; Stop 08/10/18 at 06:59 Ondansetron HCl (Zofran) 4 mg PRN Q6HRS PRN IV NAUSEA/VOMITING; Start 08/10/18 at 07:00; Stop 08/11/18 at 06:59 Fentanyl Citrate (Fentanyl 2ml Vial) 25 mcg PRN Q5MIN PRN IV MILD PAIN; Start 08/10/18 at 07:00; Stop 08/11/18 at 06:59 Fentanyl Citrate (Fentanyl 2ml Vial) 50 mcg PRN Q5MIN PRN IV MODERATE TO SEVERE PAIN; Start 08/10/18 at 07:00; Stop 08/11/18 at 06:59 Morphine Sulfate (Morphine Sulfate) 1 mg PRN Q10MIN PRN IV SEVERE PAIN; Start 08/10/18 at 07:00; Stop 08/11/18 at 06:59 Ringer's Solution 1,000 ml @ 30 mls/hr Q24H IV ; Start 08/10/18 at 07:00; Stop 08/10/18 at 18:59 Lidocaine HCl (Xylocaine-Mpf 1% 2ml Vial) 2 ml PRN 1X PRN ID PRIOR TO IV START ; Start 08/10/18 at 07:00; Stop 08/11/18 at 06:59 Hydromorphone HCl (Dilaudid) 0.5 mg PRN Q10MIN PRN IV SEV PAIN, Second choice; Start 08/10/18 at 07:00; Stop 08/11/18 at 06:59 Prochlorperazine Edisylate (Compazine) 5 mg PACU PRN PRN IV NAUSEA, MRX1; Start 08/10/18 at 07:00; Stop 08/11/18 at 06:59 Active Scripts Active Voltaren (Diclofenac Sodium) 100 Gm Gel..gram. 1 Rolando TP BID 30 Days Atorvastatin Calcium 10 Mg Tablet 10 Mg PO QHS 30 Days Reported Acyclovir 800 Mg Tablet 800 Mg PO DAILY Colchicine 0.6 Mg Tablet 1 Tab PO BID PRN MDD 2 tabs Clopidogrel (Clopidogrel Bisulfate) 75 Mg Tablet 1 Tab PO DAILY Multivitamins (Multivitamin) 1 Each Tablet 1 Tab PO DAILY Edarbyclor 40-12.5 Mg Tablet (Azilsartan/Chlorthalidone) 1 Each Tablet 1 Tab PO DAILY Vitals/I & O Vital Sign - Last 24 Hours 08/07/18 08/07/18 08/07/18 08/07/18 11:00 15:00 19:52 19:54 Temp 98.0 98.0 97.5 98.0 98.0 97.5 Pulse 100 79 82 Resp 18 18 16 B/P (MAP) 137/89 (105) 131/76 (94) 137/82 (100) Pulse Ox 96 97 96 O2 Delivery Room Air Room Air Room Air Room Air 08/07/18 08/08/18 08/08/18 23:14 03:13 07:00 Temp 98.2 98.6 98.2 98.2 98.6 98.2 Pulse 79 81 87 Resp 16 16 16 B/P (MAP) 150/87 (108) 131/83 (99) 142/85 (104) Pulse Ox 97 98 97 O2 Delivery Room Air Room Air Room Air Intake and Output 08/07/18 08/07/18 08/08/18 14:59 22:59 06:59 Intake Total 240 ml 200 ml 100 ml Balance 240 ml 200 ml 100 ml Nutrition Consultation Dietary Evaluation: Recommendations by RD: Increase Calorie Intake, Protein supplementation Comments: ensure clear tid while on clear liquid diet Expected Outcomes/Goals: diet adv/ tolerance to meet > 75% est nutr needs Interpretation of weight loss: >10% in 6 months Malnutrition Findings: Body Fat Depletion (Non Severe: Mild Depletion Weight Status: Underweight ETHEL CHOI MD Aug 08, 2018 10:04
[2018-08-08 11:00] VITALS: BP 119/77
--- NOTE | 2018-08-08 11:31 | PDOC ---
PROGRESS NOTES Subjective Subjective feels better , Objective Objective Vital Signs Date Time Temp Pulse Resp B/P (MAP) Pulse Ox O2 Delivery O2 Flow Rate FiO2 08/08/18 11:00 98.0 92 16 119/77 (91) 97 Room Air 98.0 Intake and Output 08/08/18 07:00 Intake Total 540 ml Balance 540 ml Intake Oral 540 ml # Voids 5 Physical Exam Abdomen: Normal bowel sounds, Soft Heart: Regular rate, Normal S1, Normal S2 Extremities: No clubbing General: Alert, Oriented X3 Lungs: Clear to auscultation MUSCULOSKELETAL: No deformity, Other Neck: Supple Neuro: Normal speech Psych/Mental Status: Mental status NL Skin: No breakdown Diagnosis Problem List Problems Medical Problems: (1) Intractable diarrhea Status: Acute Assessment Assessment Problems Medical Problems: (1) Intractable diarrhea Status: Acute FINAL IMPRESSION: 1. Chronic diarrhea.Heam positive stool. 2. Weight loss. 3. History of abdominal aortic aneurysm repair in the past. 4. Aortobifemoral bypass. 5. Hypertension. 6. Hyperlipidemia. 7. Gout. 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 We will stop colchicine. This sometimes can cause diarrhea. GI is consulted. The patient will need colonoscopy at some point because of the chronic diarrhea. Plan Plan of Care Problems Medical Problems: (1) Intractable diarrhea Status: Acute Comment Review of Relevant I have reviewed the following items james (where applicable) has been applied. Labs Laboratory Tests Test 08/07/18 12:00 08/08/18 05:10 Sodium Level 144 mmol/L (136-145) 145 mmol/L (136-145) Potassium Level 3.9 mmol/L (3.5-5.1) 3.6 mmol/L (3.5-5.1) Chloride Level 111 mmol/L (98-107) 113 mmol/L (98-107) Carbon Dioxide Level 21 mmol/L (21-32) 23 mmol/L (21-32) Anion Gap 12 (6-14) 9 (6-14) Blood Urea Nitrogen 11 mg/dL (7-20) 9 mg/dL (7-20) Creatinine 1.3 mg/dL (0.6-1.0) 1.1 mg/dL (0.6-1.0) Estimated GFR (Cockcroft-Gault) 47.9 58.1 Glucose Level 85 mg/dL (70-99) 77 mg/dL (70-99) Calcium Level 9.0 mg/dL (8.5-10.1) 8.9 mg/dL (8.5-10.1) White Blood Count 6.1 x10^3/uL (4.0-11.0) Red Blood Count 3.69 x10^6/uL (3.50-5.40) Hemoglobin 10.1 g/dL (12.0-15.5) Hematocrit 30.9 % (36.0-47.0) Mean Corpuscular Volume 84 fL (79-100) Mean Corpuscular Hemoglobin 27 pg (25-35) Mean Corpuscular Hemoglobin Concent 33 g/dL (31-37) Red Cell Distribution Width 19.1 % (11.5-14.5) Platelet Count 152 x10^3/uL (140-400) Neutrophils (%) (Auto) 62 % (31-73) Lymphocytes (%) (Auto) 26 % (24-48) Monocytes (%) (Auto) 9 % (0-9) Eosinophils (%) (Auto) 1 % (0-3) Basophils (%) (Auto) 1 % (0-3) Neutrophils # (Auto) 3.8 x10^3uL (1.8-7.7) Lymphocytes # (Auto) 1.6 x10^3/uL (1.0-4.8) Monocytes # (Auto) 0.6 x10^3/uL (0.0-1.1) Eosinophils # (Auto) 0.1 x10^3/uL (0.0-0.7) Basophils # (Auto) 0.1 x10^3/uL (0.0-0.2) Medications Current Medications Bacitracin 05059 unit/Sodium Chloride 1,000 ml @ 1,000 mls/hr 1X ONCE IRR ; Start 08/10/18 at 06:00; Stop 08/10/18 at 06:59 Bisacodyl (Dulcolax Tab) 10 mg PRN DAILY PRN PO CONSTIPATION; Start 08/09/18 at 11:00; Stop 08/09/18 at 11:00; Status DC Bisacodyl (Dulcolax Tab) 10 mg PRN DAILY PRN PO CONSTIPATION; Start 08/09/18 at 13:00 Fentanyl Citrate (Fentanyl 2ml Vial) 25 mcg PRN Q5MIN PRN IV MILD PAIN; Start 08/10/18 at 07:00; Stop 08/11/18 at 06:59 Fentanyl Citrate (Fentanyl 2ml Vial) 50 mcg PRN Q5MIN PRN IV MODERATE TO SEVERE PAIN; Start 08/10/18 at 07:00; Stop 08/11/18 at 06:59 Hydromorphone HCl (Dilaudid) 0.5 mg PRN Q10MIN PRN IV SEV PAIN, Second choice; Start 08/10/18 at 07:00; Stop 08/11/18 at 06:59 Lidocaine HCl (Xylocaine-Mpf 1% 2ml Vial) 2 ml PRN 1X PRN ID PRIOR TO IV START ; Start 08/10/18 at 07:00; Stop 08/11/18 at 06:59 Magnesium Citrate (Citroma) 296 ml 1X ONCE PO ; Start 08/09/18 at 10:00; Stop 08/09/18 at 10:01 Morphine Sulfate (Morphine Sulfate) 1 mg PRN Q10MIN PRN IV SEVERE PAIN; Start 08/10/18 at 07:00; Stop 08/11/18 at 06:59 Ondansetron HCl (Zofran) 4 mg PRN Q6HRS PRN IV NAUSEA/VOMITING; Start 08/10/18 at 07:00; Stop 08/11/18 at 06:59 Polyethylene Glycol (miraLAX Powder BULK BOTTLE) 238 gm 1X ONCE PO ; Start 03/20 at 12:00; Stop 08/09/18 at 12:01 Prochlorperazine Edisylate (Compazine) 5 mg PACU PRN PRN IV NAUSEA, MRX1; Start 08/10/18 at 07:00; Stop 08/11/18 at 06:59 Ringer's Solution 1,000 ml @ 30 mls/hr Q24H IV ; Start 08/10/18 at 07:00; Stop 08/10/18 at 18:59 Vitals/I & O Vital Sign - Last 24 Hours 08/07/18 08/07/18 08/07/18 08/07/18 15:00 19:52 19:54 23:14 Temp 98.0 97.5 98.2 98.0 97.5 98.2 Pulse 79 82 79 Resp 18 16 16 B/P (MAP) 131/76 (94) 137/82 (100) 150/87 (108) Pulse Ox 97 96 97 O2 Delivery Room Air Room Air Room Air Room Air 08/08/18 08/08/18 08/08/18 08/08/18 03:13 07:00 08:00 11:00 Temp 98.6 98.2 98.0 98.6 98.2 98.0 Pulse 81 87 92 Resp 16 16 16 B/P (MAP) 131/83 (99) 142/85 (104) 119/77 (91) Pulse Ox 98 97 97 O2 Delivery Room Air Room Air Room Air Room Air Intake and Output 08/07/18 08/07/18 08/08/18 15:00 23:00 07:00 Intake Total 240 ml 200 ml 100 ml Balance 240 ml 200 ml 100 ml Nutrition Consultation Dietary Evaluation: Recommendations by RD: Increase Calorie Intake, Protein supplementation Comments: ensure clear tid while on clear liquid diet Expected Outcomes/Goals: diet adv/ tolerance to meet > 75% est nutr needs Interpretation of weight loss: >10% in 6 months Malnutrition Findings: Body Fat Depletion (Non Severe: Mild Depletion Weight Status: Underweight LOS NOLASCO MD Aug 08, 2018 11:31
[2018-08-08] MEDS: NYSTATIN 100,000 UNIT/GM TOPICAL OINTMENT 15GM TUBE. TP SCH ×2 (12:00→20:33)
[2018-08-08 15:00] VITALS: BP 123/75
[2018-08-08 19:42] VITALS: BP 136/81
[2018-08-08] MEDS: ATORVASTATIN CALCIUM 10 MG TABLET. PO SCH (20:33)
[2018-08-08 23:13] VITALS: BP 156/85
[2018-08-09 03:46] VITALS: BP 145/85
[2018-08-09 06:15] LABS: CHOLESTEROL/HDL RATIO 2.7
[2018-08-09 07:00] VITALS: BP 137/74
[2018-08-09] MEDS: ACYCLOVIR 200 MG CAPSULE. PO SCH (09:00)
[2018-08-09] MEDS: ALLOPURINOL 100 MG TABLET. PO SCH (09:00)
[2018-08-09] MEDS: PANTOPRAZOLE 40 MG TABLET.DR. PO SCH (09:53)
[2018-08-09] MEDS: FERROUS SULFATE ORAL 300 MG/5 ML SOLUTION. PO SCH ×2 (09:53→16:36)
[2018-08-09] MEDS: NYSTATIN 100,000 UNIT/GM TOPICAL OINTMENT 15GM TUBE. TP SCH ×2 (09:53→21:00)
[2018-08-09] MEDS: DICLOFENAC SODIUM 1% TOPICAL GEL 100GM TUBE. TP SCH ×2 (09:53→20:12)
[2018-08-09] MEDS ORDERED: MAGNESIUM CITRATE 296 ML SOLUTION. PO ONE ×2 (10:00→15:00)
[2018-08-09 11:00] VITALS: BP 128/73
[2018-08-09] MEDS ORDERED: BISACODYL 5 MG TABLET.DR. PO PRN ×2 (11:00→13:00)
[2018-08-09] MEDS ORDERED: POLYETHYLENE GLYCOL 3350 BTL 238 GM POWDER PO ONE (12:00)
--- NOTE | 2018-08-09 13:16 | PDOC ---
PROGRESS NOTES Subjective Subjective none Objective Objective Vital Signs Date Time Temp Pulse Resp B/P (MAP) Pulse Ox O2 Delivery O2 Flow Rate FiO2 08/09/18 11:00 98.0 82 18 128/73 (91) 99 Room Air 98.0 Intake and Output 08/09/18 06:59 Intake Total 690 ml Output Total 400 ml Balance 290 ml Intake Oral 690 ml Output Urine Total 400 ml # Voids 5 Physical Exam Abdomen: Normal bowel sounds, Soft Heart: Regular rate, Normal S1, Normal S2 Extremities: No clubbing General: Alert, Oriented X3 Lungs: Clear to auscultation MUSCULOSKELETAL: No deformity, Other Neck: Supple Neuro: Normal speech Psych/Mental Status: Mental status NL Skin: No breakdown Diagnosis Problem List Problems Medical Problems: (1) Intractable diarrhea Status: Acute Assessment Assessment Problems Medical Problems: (1) Intractable diarrhea Status: Acute FINAL IMPRESSION: 1. Chronic diarrhea.Heam positive stool. 2. Weight loss. 3. History of abdominal aortic aneurysm repair in the past. 4. Aortobifemoral bypass. 5. Hypertension. 6. Hyperlipidemia. 7. Gout. 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 Labs Laboratory Tests Test 08/09/18 05:00 Triglycerides Level 61 mg/dL (0-150) Cholesterol Level 85 mg/dL (0-200) LDL Cholesterol, Calculated 41 mg/dL (0-100) VLDL Cholesterol, Calculated 12 mg/dL (0-40) Non-HDL Cholesterol Calculated 53 mg/dL (0-129) HDL Cholesterol 32 mg/dL (40-60) Cholesterol/HDL Ratio 2.7 Thyroid Stimulating Hormone (TSH) 1.787 uIU/mL (0.358-3.74) Microbiology 08/06/18 Stool Culture - Final, Resulted 08/06/18 Stool Culture Result 1 (SCARLETT) - Final, Resulted 08/06/18 Campylobacter Antigen Assay - Preliminary, Resulted 08/06/18 Campylobactor Result 1 - Preliminary, Resulted 08/06/18 Shiga Toxin Test, Resulted Pending Medications Current Medications Bacitracin 42999 unit/Sodium Chloride 1,000 ml @ 1,000 mls/hr 1X ONCE IRR ; Start 08/10/18 at 06:00; Stop 08/10/18 at 06:59 Bisacodyl (Dulcolax Tab) 10 mg PRN DAILY PRN PO CONSTIPATION; Start 08/09/18 at 11:00; Stop 08/09/18 at 11:00; Status DC Bisacodyl (Dulcolax Tab) 10 mg PRN DAILY PRN PO CONSTIPATION; Start 08/09/18 at 13:00 Fentanyl Citrate (Fentanyl 2ml Vial) 25 mcg PRN Q5MIN PRN IV MILD PAIN; Start 08/10/18 at 07:00; Stop 08/10/18 at 18:00 Fentanyl Citrate (Fentanyl 2ml Vial) 50 mcg PRN Q5MIN PRN IV MODERATE TO SEVERE PAIN; Start 08/10/18 at 07:00; Stop 08/10/18 at 18:00 Hydromorphone HCl (Dilaudid) 0.5 mg PRN Q10MIN PRN IV SEV PAIN, Second choice; Start 08/10/18 at 07:00; Stop 08/10/18 at 18:00 Lidocaine HCl (Xylocaine-Mpf 1% 2ml Vial) 2 ml PRN 1X PRN ID PRIOR TO IV START ; Start 08/10/18 at 07:00; Stop 08/10/18 at 15:00 Magnesium Citrate (Citroma) 296 ml 1X ONCE PO Last administered on 08/09/18at 09:54; Start 08/09/18 at 10:00; Stop 08/09/18 at 10:01; Status DC Morphine Sulfate (Morphine Sulfate) 1 mg PRN Q10MIN PRN IV SEVERE PAIN; Start 08/10/18 at 07:00; Stop 08/10/18 at 18:00 Ondansetron HCl (Zofran) 4 mg PRN Q6HRS PRN IV NAUSEA/VOMITING; Start 08/10/18 at 07:00; Stop 08/10/18 at 18:00 Polyethylene Glycol (miraLAX Powder BULK BOTTLE) 238 gm 1X ONCE PO ; Start 03/20 at 12:00; Stop 08/09/18 at 12:01; Status DC Prochlorperazine Edisylate (Compazine) 5 mg PACU PRN PRN IV NAUSEA, MRX1; Start 08/10/18 at 07:00; Stop 08/10/18 at 18:00 Ringer's Solution 1,000 ml @ 30 mls/hr Q24H IV ; Start 08/10/18 at 07:00; Stop 08/10/18 at 07:00; Status DC Vitals/I & O Vital Sign - Last 24 Hours 08/08/18 08/08/18 08/08/18 08/08/18 15:00 19:42 20:00 23:13 Temp 98.1 98.6 97.4 98.1 98.6 97.4 Pulse 81 84 83 Resp 16 16 20 B/P (MAP) 123/75 (91) 136/81 (99) 156/85 (108) Pulse Ox 97 93 100 O2 Delivery Room Air Room Air Room Air Room Air 08/09/18 08/09/18 08/09/18 08/09/18 03:46 07:00 08:00 11:00 Temp 98.1 98.1 98.0 98.1 98.1 98.0 Pulse 83 80 82 Resp 20 18 18 B/P (MAP) 145/85 (105) 137/74 (95) 128/73 (91) Pulse Ox 98 100 99 O2 Delivery Room Air Room Air Room Air Room Air Intake and Output 08/08/18 08/08/18 08/09/18 14:59 22:59 06:59 Intake Total 300 ml 100 ml 290 ml Output Total 400 ml Balance 300 ml 100 ml -110 ml Nutrition Consultation Dietary Evaluation: Recommendations by RD: Increase Calorie Intake, Protein supplementation Comments: ensure clear tid while on clear liquid diet Expected Outcomes/Goals: diet adv/ tolerance to meet > 75% est nutr needs Interpretation of weight loss: >10% in 6 months Malnutrition Findings: Body Fat Depletion (Non Severe: Mild Depletion Weight Status: Underweight LOS NOLASCO MD Aug 09, 2018 13:16
--- NOTE | 2018-08-09 13:56 | PDOC2 ---
CARDIOLOGY CONSULT NOTE CHEIF COMPLAINT: Diarrhea and nausea asked to be evaluated by cardiology since she is unable to come to our office. HPI: 77-year-old woman with past medical history as noted below presenting to the hospital initially for GI complaints. Cardio was asked to comment on her coronary disease due to significant prior interventional history. Currently she denies any active chest pain or dyspnea. She's able to get along well at home. Reports compliance with her medications. Previously had a history of bleeding and for her atrial fibrillation was treated with medical therapy. No syncope or palpitations. No orthopnea or PND. PMHX: Coronary artery disease status post PCI to the left main, circumflex and RCA with known chronic total occlusion of the LAD in 2017 Abdominal aortic aneurysm status post endovascular repair Hypertension Dyslipidemia Anemia and GI bleed history Paroxysmal atrial fibrillation SOCHX: Denies any alcohol, tobacco or illicit drug use. FAMHX: Noncontributory CURRENT MEDS: Current Medications Medications (Trade) Dose Ordered Sig/Rene Start Time Stop Time Status Last Admin Dose Admin Acetaminophen (Tylenol) 650 mg PRN Q6HRS PRN 08/05/18 13:15 08/06/18 21:35 650 MG Acyclovir (Zovirax) 800 mg DAILY 08/05/18 09:00 Allopurinol (Zyloprim) 100 mg DAILY 08/06/18 14:00 08/08/18 09:30 100 MG Atorvastatin Calcium (Lipitor) 10 mg QHS 08/05/18 21:00 08/08/18 20:33 10 MG Bacitracin 69591 unit/Sodium Chloride 1,000 ml @ 1,000 mls/hr 1X ONCE 08/10/18 06:00 08/10/18 06:59 Bisacodyl (Dulcolax Tab) 10 mg PRN DAILY PRN 08/09/18 13:00 Clopidogrel Bisulfate (Plavix) 75 mg DAILY 08/05/18 09:00 08/07/18 10:37 DC 08/07/18 08:18 75 MG Colchicine (Colcrys) 0.6 mg BID 08/05/18 21:00 08/06/18 12:51 DC 08/06/18 08:13 0.6 MG Diclofenac Sodium (Voltaren) 1 eddie BID 08/06/18 21:00 08/06/18 21:00 DC Fentanyl Citrate (Fentanyl 2ml Vial) 50 mcg PRN Q5MIN PRN 08/10/18 07:00 08/10/18 18:00 Ferrous Sulfate (Iron Oral Solution) 300 mg BIDWMEALS 08/05/18 11:00 08/09/18 09:53 300 MG Hydromorphone HCl (Dilaudid) 0.5 mg PRN Q10MIN PRN 08/10/18 07:00 08/10/18 18:00 Lidocaine HCl (Xylocaine-Mpf 1% 2ml Vial) 2 ml PRN 1X PRN 08/10/18 07:00 08/10/18 15:00 Magnesium Citrate (Citroma) 296 ml 1X ONCE 08/09/18 10:00 08/09/18 10:01 DC 08/09/18 09:54 296 ML Morphine Sulfate (Morphine Sulfate) 1 mg PRN Q10MIN PRN 08/10/18 07:00 08/10/18 18:00 Nystatin (Mycostatin) 1 eddie BID 08/08/18 12:00 08/09/18 09:53 1 EDDIE Ondansetron HCl (Zofran) 4 mg PRN Q6HRS PRN 08/10/18 07:00 08/10/18 18:00 Pantoprazole Sodium (PROTONIX VIAL for IV PUSH) 40 mg 1X ONCE 08/04/18 23:30 08/04/18 23:31 DC 08/04/18 23:07 40 MG Pantoprazole Sodium (Protonix) 40 mg DAILYAC 08/05/18 10:30 08/09/18 09:53 40 MG Polyethylene Glycol (miraLAX Powder BULK BOTTLE) 238 gm 1X ONCE 08/09/18 12:00 08/09/18 12:01 DC Potassium Chloride (Klor-Con) 20 meq 1X ONCE 08/06/18 12:15 08/06/18 12:16 DC 08/06/18 12:12 20 MEQ Prochlorperazine Edisylate (Compazine) 5 mg PACU PRN PRN 08/10/18 07:00 08/10/18 18:00 Ringer's Solution 1,000 ml @ 30 mls/hr Q24H 08/10/18 07:00 08/10/18 07:00 DC Sodium Chloride 1,000 ml @ 50 mls/hr Q20H 08/05/18 11:00 08/08/18 11:29 DC 08/07/18 16:47 50 MLS/HR ALLERGIES: Allergies Coded Allergies Type Severity Reaction Last Updated Verified iodine Allergy Severe 01/01/17 Yes Penicillins Allergy Intermediate 01/01/17 Yes Sulfa (Sulfonamide Antibiotics) Allergy Intermediate 01/01/17 Yes lisinopril Allergy Intermediate 01/01/17 Yes ROS: As noted above in history of present illness PHYSICAL EXAM: Vital Signs: Vital Signs Date Time Temp Pulse Resp B/P (MAP) Pulse Ox O2 Delivery O2 Flow Rate FiO2 08/09/18 11:00 98.0 82 18 128/73 (91) 99 Room Air 98.0 I & O Intake and Output 08/09/18 07:00 Intake Total 690 ml Output Total 400 ml Balance 290 ml Intake Oral 690 ml Output Urine Total 400 ml # Voids 5 Physical Exam: Elderly frail woman in no distress Normal heart tones Normal lung exam Soft abdomen No edema No focal neurological deficits DIAGNOSTIC TESTING: Chest x-ray with right-sided pleural effusion. EKG demonstrates sinus rhythm. Lab Lipids at goal with an LDL of 41 Hemoglobin notable for some anemia at 10.1 Cr unremarkable. ASSESSMENT: 1. CAD status post left main, left circumflex and RCA PCI in 2017 2. HTN 3. PAD status post endovascular repair 4. Dyslipidemia with LDL of 41. 5. Pulmonary HTN secondary pulmonary hypertension PLAN: 1. From a purely cardiovascular perspective she does not have any significant angina. Blood pressure stable. Lipids are at goal. 2. We will check an echocardiogram to evaluate for her pulmonary hypertension. 3. Continue aspirin for her previous history of left main stents after clearance from GI. Ok to stop plavix. She's a poor anticoagulation candidate due to her history of bleeding. Would defer any treatment for her paroxysmal atrial fibrillation especially since she is in sinus rhythm at this time. No further cardiac testing necessary at this time. Supportive care. Follow-up in the office as able to. STEFANIE IGNACIO MD Aug 09, 2018 13:56
[2018-08-09 15:00] VITALS: BP 144/92
--- NOTE | 2018-08-09 16:00 | EKG ---
[facility] [address] [place] [address] Test Date: 2018-08-09 Test Time: 15:54:59 Pat Name: DIONE GOMEZ Department: Room: 652 1 Gender: F [employer] Teacher: : 1940 Requested By: LOS NOLASCO Order Number: [id number] Reading MD: Andrea Mack MD Measurements Intervals [place] Rate: 81 P: 34 CT: 208 QRS: 21 QRSD: 78 T: 32 QT: 354 QTc: 412 Interpretive Statements SINUS RHYTHM LVH Electronically Signed On 08-09-2018 16:22:06 CDT by Andrea Mack MD
--- NOTE | 2018-08-09 18:59 | RAD ---
EXAM: Abdomen, single view. HISTORY: Pain and distention. COMPARISON: None. FINDINGS: Frontal views of the abdomen and pelvis are obtained. There is mild gaseous distention of the stomach. There are distended air-filled loops of small and large bowel throughout the abdomen. No transition point is seen. There is an endograft repair of the abdominal aorta. There are clips within the left upper quadrant. There are suspected small bilateral pleural effusions with diffuse lower lobe predominant interstitial infiltrate or chronic interstitial changes. IMPRESSION: 1. Distended air-filled bowel throughout the abdomen. The absence of a transition point favors ileus rather than distal obstruction. 2. Suspected small bilateral pleural effusions with lower lobe predominant interstitial infiltrate or chronic interstitial changes. Correlate with a dedicated chest radiograph. Electronically signed by: Sharmin Lay MD (08/09/2018 6:56 PM) [facility]
[2018-08-09 19:29] VITALS: BP 160/93
[2018-08-09] MEDS ORDERED: BISACODYL 10 MG SUPP.RECT. PR ONE (20:00)
[2018-08-09] MEDS ORDERED: METHYLNALTREXONE 12 MG/0.6 ML VIAL. SQ ONE (20:00)
[2018-08-09] MEDS: ATORVASTATIN CALCIUM 10 MG TABLET. PO SCH (20:12)
[2018-08-09] MEDS: IV NORMAL SALINE 1000ML BAG 1,000 ML IV SCH (20:42)
[2018-08-09] MEDS: ZOLPIDEM 5 MG TABLET. PO PRN (22:10)
[2018-08-09 23:01] VITALS: BP 150/94
[2018-08-10 00:07] LABS: HEMOGLOBIN A1C 5.1 % (4.8-5.6)
[2018-08-10 03:06] VITALS: BP 138/76
[2018-08-10] MEDS ORDERED: BACITRACIN 50,000 UNIT in IV NORMAL SALINE 1000ML BAG 1,000 ML IRR ONE (06:00)
[2018-08-10 07:00] VITALS: BP 126/85
[2018-08-10] MEDS ORDERED: PROCHLORPERAZINE 10 MG/2 ML VIAL. IV PRN (07:00)
[2018-08-10] MEDS ORDERED: MORPHINE SULFATE 2 MG/ML VIAL. IV PRN (07:00)
[2018-08-10] MEDS ORDERED: ONDANSETRON PF 4 MG/2 ML VIAL. IV PRN (07:00)
[2018-08-10] MEDS ORDERED: fentaNYL PF VIAL 100 MCG/2 ML VIAL IV PRN ×4 (07:00→11:00)
[2018-08-10] MEDS ORDERED: HYDROmorphone 2 MG/ML VIAL IV PRN (07:00)
[2018-08-10] MEDS ORDERED: LIDOCAINE 1% PF 2 ML VIAL. ID PRN ×2 (07:00→11:00)
[2018-08-10] MEDS ORDERED: IV RINGERS,LACTATED 1000ML 1,000 ML IV SCH (07:00)
[2018-08-10] MEDS: PANTOPRAZOLE 40 MG TABLET.DR. PO SCH (07:30)
--- NOTE | 2018-08-10 07:48 | RAD ---
Chest, 2 views, 08/09/2018: HISTORY: Shortness of breath Comparison is made to a study from 09/01/2016. The heart is enlarged. There are coronary artery calcifications and/or a stent in place. There is calcific plaquing and tortuosity of the thoracic aorta. The pulmonary vascularity is normal. There is a moderate volume of bilateral pleural fluid with mild underlying bibasilar atelectasis. The upper lung condon are clear. There are scattered degenerative changes in the spine. The upper end of a aortic stent graft is noted in the upper abdomen. There are surgical clips in the left upper quadrant. IMPRESSION: 1. Cardiomegaly and aortic atherosclerosis. 2. Moderate sized bilateral pleural effusions. Electronically signed by: Mynor Morel MD (08/10/2018 7:45 AM) [facility]
--- NOTE | 2018-08-10 07:54 | RAD ---
EXAM: Abdomen, single view. HISTORY: Ileus. COMPARISON: 08/09/2018 FINDINGS: Frontal views of the abdomen and pelvis are obtained. There are stable prominent air-filled bowel throughout the abdomen. There is no transition point to suggest obstruction. There are suspected small bilateral pleural effusions with bilateral lower lobe infiltrate. There are clips within the left upper quadrant. There is endograft repair of the abdominal aorta. IMPRESSION: No significant change in distended air-filled loops of bowel. There is no transition point to suggest obstruction. Electronically signed by: Sharmin Lay MD (08/10/2018 7:51 AM) [facility]
[2018-08-10] MEDS: FERROUS SULFATE ORAL 300 MG/5 ML SOLUTION. PO SCH ×2 (08:23→17:41)
[2018-08-10] MEDS: ACYCLOVIR 200 MG CAPSULE. PO SCH ×2 (08:48→09:00)
[2018-08-10] MEDS: ALLOPURINOL 100 MG TABLET. PO SCH (08:48)
--- NOTE | 2018-08-10 09:02 | PDOC2 ---
DORABUZZ Zion [employer] 08/10/18 0902: CONSULT Date of Consult Date of Consult DATE: 08/10/18 TIME: 08:57 Reason for Consult Reason for Consult: ileus Referring Physician Referring Physician: Dr Arreola Identification/Chief Complaint Chief Complaint chronic diarrhea Source Source: Chart review, Patient History of Present Illness Reason for Visit: Here for diarrhea, dark stools. Noted plans for colonoscopy today Denies nausea or emesis. + flatus and stool, bowel prep yesterday Past Medical History Cardiovascular: CAD, HTN, Other Pulmonary: COPD CENTRAL NERVOUS SYSTEM: CVA GI: Diverticulosis Musculoskeletal: Other Renal/: Chronic renal insuff Endocrine: Other Past Surgical History Past Surgical History: Appendectomy, Hysterectomy, Other (splenectomy ) Family History Family History: No Significant Social History No ALCOHOL: none Drugs: None Lives: Intermediate Current Problem List Problem List Problems Medical Problems: (1) Intractable diarrhea Status: Acute Current Medications Current Medications Current Medications Sodium Chloride 1,000 ml @ 1,000 mls/hr 1X ONCE IV Last administered on at 23:07; Start 08/04/18 at 22:00; Stop 08/04/18 at 22:59; Status DC Pantoprazole Sodium (PROTONIX VIAL for IV PUSH) 40 mg 1X ONCE IVP Last administered on 08/04/18at 23:07; Start 08/04/18 at 23:30; Stop 08/04/18 at 23:31; Status DC Ondansetron HCl (Zofran) 4 mg 1X ONCE IV Last administered on 08/04/18at 23:07; Start 08/04/18 at 23:30; Stop 08/04/18 at 23:31; Status DC Ondansetron HCl (Zofran) 4 mg PRN Q8HRS PRN IV NAUSEA/VOMITING 1ST CHOICE; Start 08/05/18 at 00:45; Stop 08/06/18 at 00:44; Status DC Fentanyl Citrate (Fentanyl 2ml Vial) 25 mcg PRN Q2HRS PRN IV SEVERE PAIN; Start 08/05/18 at 00:45 Colchicine (Colcrys) 0.6 mg PRN BID PRN PO INFLAMMATION Last administered on 08/05/18at 07:11; Start 08/05/18 at 06:45; Stop 08/05/18 at 17:16; Status DC Acyclovir (Zovirax) 800 mg DAILY PO Last administered on 08/10/18 08:48; Start 08/05/18 at 09:00 Atorvastatin Calcium (Lipitor) 10 mg QHS PO Last administered on 08/09/18 20: 12; Start 08/05/18 at 21:00 Clopidogrel Bisulfate (Plavix) 75 mg DAILY PO Last administered on 08/07/18 08: 18; Start 08/05/18 at 09:00; Stop 08/07/18 at 10:37; Status DC Diclofenac Sodium (Voltaren) 1 rolando BID TP Last administered on 08/09/18 20:12 ; Start 08/05/18 at 09:00 Sodium Chloride 1,000 ml @ 100 mls/hr 1X ONCE IV Last administered on 08:46; Start 08/05/18 at 08:00; Stop 08/05/18 at 17:59; Status DC Pantoprazole Sodium (Protonix) 40 mg DAILYAC PO Last administered on 08/09/18 09:53; Start 08/05/18 at 10:30 Ferrous Sulfate (Iron Oral Solution) 300 mg BIDWMEALS PO Last administered on 16:36; Start 08/05/18 at 11:00 Sodium Chloride 1,000 ml @ 50 mls/hr Q20H IV Last administered on 08/07/18 16: 47; Start 08/05/18 at 11:00; Stop 08/08/18 at 11:29; Status DC Acetaminophen (Tylenol) 650 mg PRN Q6HRS PRN PO pain Last administered on 21:35; Start 08/05/18 at 13:15 Colchicine (Colcrys) 0.6 mg BID PO Last administered on 08/06/18 08:13; Start 08/05/18 at 21:00; Stop 08/06/18 at 12:51; Status DC Potassium Chloride (Klor-Con) 40 meq 1X ONCE PO Last administered on 08/06/18 10:17; Start 08/06/18 at 10:15; Stop 08/06/18 at 10:16; Status DC Potassium Chloride (Klor-Con) 20 meq 1X ONCE PO Last administered on 08/06/18 12:12; Start 08/06/18 at 12:15; Stop 08/06/18 at 12:16; Status DC Diclofenac Sodium (Voltaren) 1 rolando BID TP ; Start 08/06/18 at 21:00; Stop at 21:00; Status DC Allopurinol (Zyloprim) 100 mg DAILY PO Last administered on 08/10/18at 08:48; Start 08/06/18 at 14:00 Polyethylene Glycol (miraLAX Powder BULK BOTTLE) 238 gm 1X ONCE PO Last administered on 08/09/18at 16:34; Start 08/09/18 at 12:00; Stop 08/09/18 at 12:01 ; Status DC Magnesium Citrate (Citroma) 296 ml 1X ONCE PO Last administered on 08/09/18at 09:54; Start 08/09/18 at 10:00; Stop 08/09/18 at 10:01; Status DC Bisacodyl (Dulcolax Tab) 10 mg PRN DAILY PRN PO CONSTIPATION; Start 08/09/18 at 11:00; Stop 08/09/18 at 11:00; Status DC Bisacodyl (Dulcolax Tab) 10 mg PRN DAILY PRN PO CONSTIPATION; Start 08/09/18 at 13:00 Bacitracin 14380 unit/Sodium Chloride 1,000 ml @ 1,000 mls/hr 1X ONCE IRR ; Start 08/10/18 at 06:00; Stop 08/10/18 at 06:59; Status DC Ondansetron HCl (Zofran) 4 mg PRN Q6HRS PRN IV NAUSEA/VOMITING; Start 08/10/18 at 07:00; Stop 08/10/18 at 18:00 Fentanyl Citrate (Fentanyl 2ml Vial) 25 mcg PRN Q5MIN PRN IV MILD PAIN; Start 08/10/18 at 07:00; Stop 08/10/18 at 18:00 Fentanyl Citrate (Fentanyl 2ml Vial) 50 mcg PRN Q5MIN PRN IV MODERATE TO SEVERE PAIN; Start 08/10/18 at 07:00; Stop 08/10/18 at 18:00 Morphine Sulfate (Morphine Sulfate) 1 mg PRN Q10MIN PRN IV SEVERE PAIN; Start 08/10/18 at 07:00; Stop 08/10/18 at 18:00 Ringer's Solution 1,000 ml @ 30 mls/hr Q24H IV ; Start 08/10/18 at 07:00; Stop 08/10/18 at 07:00; Status DC Lidocaine HCl (Xylocaine-Mpf 1% 2ml Vial) 2 ml PRN 1X PRN ID PRIOR TO IV START ; Start 08/10/18 at 07:00; Stop 08/10/18 at 15:00 Hydromorphone HCl (Dilaudid) 0.5 mg PRN Q10MIN PRN IV SEV PAIN, Second choice; Start 08/10/18 at 07:00; Stop 08/10/18 at 18:00 Prochlorperazine Edisylate (Compazine) 5 mg PACU PRN PRN IV NAUSEA, MRX1; Start 08/10/18 at 07:00; Stop 08/10/18 at 18:00 Nystatin (Mycostatin) 1 rolando BID TP Last administered on 08/09/18at 21:00; Start 08/08/18 at 12:00 Magnesium Citrate (Citroma) 296 ml 1X ONCE PO Last administered on 08/09/18at 15:44; Start 08/09/18 at 15:00; Stop 08/09/18 at 15:01; Status DC Bisacodyl (Dulcolax Supp) 10 mg 1X ONCE SC Last administered on 08/09/18at 20: 12; Start 08/09/18 at 20:00; Stop 08/09/18 at 20:01; Status DC Methylnaltrexone [place] (Relistor) 12 mg 1X ONCE SQ Last administered on 08/09at 20:12; Start 08/09/18 at 20:00; Stop 08/09/18 at 20:01; Status DC Sodium Chloride 1,000 ml @ 75 mls/hr [id number] IV Last administered on at 20:42; Start 08/09/18 at 20:00 Zolpidem Tartrate (Ambien) 5 mg PRN QHS PRN PO INSOMNIA Last administered on 03/20at 22:10; Start 08/09/18 at 22:00 Active Scripts Active Voltaren (Diclofenac Sodium) 100 Gm Gel..gram. 1 Rolando TP BID 30 Days Atorvastatin Calcium 10 Mg Tablet 10 Mg PO QHS 30 Days Reported Acyclovir 800 Mg Tablet 800 Mg PO DAILY Colchicine 0.6 Mg Tablet 1 Tab PO BID PRN MDD 2 tabs Clopidogrel (Clopidogrel Bisulfate) 75 Mg Tablet 1 Tab PO DAILY Multivitamins (Multivitamin) 1 Each Tablet 1 Tab PO DAILY Edarbyclor 40-12.5 Mg Tablet (Azilsartan/Chlorthalidone) 1 Each Tablet 1 Tab PO DAILY Allergies Allergies: Coded Allergies: iodine (Verified Allergy, Severe, 08/10/18) Penicillins (Verified Allergy, Intermediate, 08/10/18) Sulfa (Sulfonamide Antibiotics) (Verified Allergy, Intermediate, 08/10/18) lisinopril (Verified Allergy, Intermediate, 08/10/18) ROS General: No: Chills, Other (fevers) PSYCHOLOGICAL ROS: No: Anxiety, Depression Eyes: No Blurry vision, No Double vision HEENT: No: Heacaches, Sore Throat Hematological and Lymphatic: YES: Bleeding Problems; No: Blood Clots Respiratory: No: Cough, Shortness of breath Cardiovascular: No Chest Pain, No Palpitations Gastrointestinal: Yes Other (see hpi) Genitourinary: No Dysuria, No Hematuria Musculoskeletal: No Joint Pain, No Muscle Pain Neurological: No Confusion, No Numbness/Tingling Skin: No Pruritus, No Rash Physical Exam General: Alert, Oriented X3, Cooperative, No acute distress HEENT: PERRLA, Mucous membr. moist/pink Lungs: Clear to auscultation, Normal air movement Heart: Regular rate, Normal S1, Normal S2, No murmurs Abdomen: Soft, Other (ND, NTTP) Extremities: No clubbing, No cyanosis Skin: No rashes, No breakdown Neuro: Normal speech, Sensation intact Psych/Mental Status: Mental status NL, Mood NL MUSCULOSKELETAL: No deformity, No swelling Vitals VITALS Vital Signs Date Time Temp Pulse Resp B/P (MAP) Pulse Ox O2 Delivery O2 Flow Rate FiO2 08/10/18 08:00 Room Air 2.0 08/10/18 07:00 97.7 110 16 126/85 (99) 98 97.7 Labs Labs Laboratory Tests Test 08/09/18 05:00 Hemoglobin A1c 5.1 % (4.8-5.6) Triglycerides Level 61 mg/dL (0-150) Cholesterol Level 85 mg/dL (0-200) LDL Cholesterol, Calculated 41 mg/dL (0-100) VLDL Cholesterol, Calculated 12 mg/dL (0-40) Non-HDL Cholesterol Calculated 53 mg/dL (0-129) HDL Cholesterol 32 mg/dL (40-60) Cholesterol/HDL Ratio 2.7 Thyroid Stimulating Hormone (TSH) 1.787 uIU/mL (0.358-3.74) Assessment/Plan Assessment/Plan diarrhea, heme + stools plans for colonoscopy per GI imaging reviewed no surgical needs, available if needed ROBIN CAMARA MD 08/10/18 1945: CONSULT Assessment/Plan Assessment/Plan pt seen,interviewed and examined agree with above will sign off please call if we can be of help Thanks for consult BUZZ JOHN APRN Aug 10, 2018 09:02 ROBIN CAMARA MD Aug 10, 2018 19:45
[2018-08-10] MEDS: NYSTATIN 100,000 UNIT/GM TOPICAL OINTMENT 15GM TUBE. TP SCH ×2 (09:07→20:51)
[2018-08-10] MEDS: DICLOFENAC SODIUM 1% TOPICAL GEL 100GM TUBE. TP SCH ×2 (09:07→20:51)
[2018-08-10] MEDS: IV NORMAL SALINE 1000ML BAG 1,000 ML IV SCH ×2 (09:20→22:40)
--- NOTE | 2018-08-10 09:35 | PDOC ---
PROGRESS NOTES Subjective Subjective abd pain ,she was getting ready to do colon prep Objective Objective Vital Signs Date Time Temp Pulse Resp B/P (MAP) Pulse Ox O2 Delivery O2 Flow Rate FiO2 08/10/18 08:00 Room Air 2.0 08/10/18 07:00 97.7 110 16 126/85 (99) 98 97.7 Intake and Output 08/10/18 07:00 Intake Total 975 ml Balance 975 ml Intake Oral 975 ml # Voids 4 # Bowel Movements 1 Physical Exam Abdomen: Soft, Other (scar ,mild distention) Heart: Regular rate, Normal S1, Normal S2, No murmurs Extremities: No clubbing, No cyanosis General: Alert, Oriented X3, Cooperative, No acute distress HEENT: PERRLA, Mucous membr. moist/pink Lungs: Clear to auscultation, Normal air movement MUSCULOSKELETAL: No deformity, No swelling Neck: Supple Neuro: Normal speech, Sensation intact Psych/Mental Status: Mental status NL, Mood NL Skin: No rashes, No breakdown Diagnosis Problem List Problems Medical Problems: (1) Intractable diarrhea Status: Acute Assessment Assessment Problems Medical Problems: (1) Intractable diarrhea Status: Acute FINAL IMPRESSION:ABD pain 1. Chronic diarrhea.Heam positive stool. 2. Weight loss. 3. History of abdominal aortic aneurysm repair in the past. 4. Aortobifemoral bypass. 5. Hypertension. 6. Hyperlipidemia. 7. Gout. 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 Labs Microbiology 08/06/18 Stool Culture - Final, Resulted 08/06/18 Stool Culture Result 1 (SCARLETT) - Final, Resulted 08/06/18 Campylobacter Antigen Assay - Preliminary, Resulted 08/06/18 Campylobactor Result 1 - Preliminary, Resulted 08/06/18 Shiga Toxin Test, Resulted Pending Medications Current Medications Bacitracin 15265 unit/Sodium Chloride 1,000 ml @ 1,000 mls/hr 1X ONCE IRR ; Start 08/10/18 at 06:00; Stop 08/10/18 at 06:59; Status DC Bisacodyl (Dulcolax Supp) 10 mg 1X ONCE AK Last administered on 08/09/18at 20: 12; Start 08/09/18 at 20:00; Stop 08/09/18 at 20:01; Status DC Bisacodyl (Dulcolax Tab) 10 mg PRN DAILY PRN PO CONSTIPATION; Start 08/09/18 at 11:00; Stop 08/09/18 at 11:00; Status DC Bisacodyl (Dulcolax Tab) 10 mg PRN DAILY PRN PO CONSTIPATION; Start 08/09/18 at 13:00 Fentanyl Citrate (Fentanyl 2ml Vial) 25 mcg PRN Q5MIN PRN IV MILD PAIN; Start 08/10/18 at 07:00; Stop 08/10/18 at 18:00 Fentanyl Citrate (Fentanyl 2ml Vial) 50 mcg PRN Q5MIN PRN IV MODERATE TO SEVERE PAIN; Start 08/10/18 at 07:00; Stop 08/10/18 at 18:00 Hydromorphone HCl (Dilaudid) 0.5 mg PRN Q10MIN PRN IV SEV PAIN, Second choice; Start 08/10/18 at 07:00; Stop 08/10/18 at 18:00 Lidocaine HCl (Xylocaine-Mpf 1% 2ml Vial) 2 ml PRN 1X PRN ID PRIOR TO IV START ; Start 08/10/18 at 07:00; Stop 08/10/18 at 15:00 Magnesium Citrate (Citroma) 296 ml 1X ONCE PO Last administered on 08/09/18at 09:54; Start 08/09/18 at 10:00; Stop 08/09/18 at 10:01; Status DC Magnesium Citrate (Citroma) 296 ml 1X ONCE PO Last administered on 08/09/18at 15:44; Start 08/09/18 at 15:00; Stop 08/09/18 at 15:01; Status DC Methylnaltrexone [place] (Relistor) 12 mg 1X ONCE SQ Last administered on 08/09at 20:12; Start 08/09/18 at 20:00; Stop 08/09/18 at 20:01; Status DC Morphine Sulfate (Morphine Sulfate) 1 mg PRN Q10MIN PRN IV SEVERE PAIN; Start 08/10/18 at 07:00; Stop 08/10/18 at 18:00 Ondansetron HCl (Zofran) 4 mg PRN Q6HRS PRN IV NAUSEA/VOMITING; Start 08/10/18 at 07:00; Stop 08/10/18 at 18:00 Polyethylene Glycol (miraLAX Powder BULK BOTTLE) 238 gm 1X ONCE PO Last administered on 08/09/18at 16:34; Start 08/09/18 at 12:00; Stop 08/09/18 at 12:01 ; Status DC Prochlorperazine Edisylate (Compazine) 5 mg PACU PRN PRN IV NAUSEA, MRX1; Start 08/10/18 at 07:00; Stop 08/10/18 at 18:00 Ringer's Solution 1,000 ml @ 30 mls/hr Q24H IV ; Start 08/10/18 at 07:00; Stop 08/10/18 at 07:00; Status DC Sodium Chloride 1,000 ml @ 75 mls/hr [id number] IV Last administered on at 20:42; Start 08/09/18 at 20:00 Zolpidem Tartrate (Ambien) 5 mg PRN QHS PRN PO INSOMNIA Last administered on 03/20at 22:10; Start 08/09/18 at 22:00 Vitals/I & O Vital Sign - Last 24 Hours 08/09/18 08/09/18 08/09/18 08/09/18 11:00 15:00 19:29 20:00 Temp 98.0 97.7 98.0 98.0 97.7 98.0 Pulse 82 80 79 Resp 18 18 20 B/P (MAP) 128/73 (91) 144/92 (109) 160/93 (115) Pulse Ox 99 98 100 O2 Delivery Room Air Room Air Nasal Cannula Room Air O2 Flow Rate 2.0 08/09/18 08/10/18 08/10/18 08/10/18 23:01 03:06 07:00 08:00 Temp 98.6 98.1 97.7 98.6 98.1 97.7 Pulse 78 71 110 Resp 18 18 16 B/P (MAP) 150/94 (112) 138/76 (96) 126/85 (99) Pulse Ox 100 96 98 O2 Delivery Nasal Cannula Nasal Cannula Room Air Room Air O2 Flow Rate 2.0 2.0 2.0 Intake and Output 08/09/18 08/09/18 08/10/18 15:00 23:00 07:00 Intake Total 600 ml 375 ml Balance 600 ml 375 ml Nutrition Consultation Dietary Evaluation: Recommendations by RD: Increase Calorie Intake, Protein supplementation Comments: ensure clear tid while on clear liquid diet Expected Outcomes/Goals: diet adv/ tolerance to meet > 75% est nutr needs Interpretation of weight loss: >10% in 6 months Malnutrition Findings: Body Fat Depletion (Non Severe: Mild Depletion Weight Status: Underweight LOS NOLASCO MD Aug 10, 2018 09:35
[2018-08-10 11:00] VITALS: BP 132/80
[2018-08-10] MEDS ORDERED: MIDAZOLAM HCL/PF 2 MG/2 ML VIAL. IV PRN (11:00)
[2018-08-10 11:30] LABS: BASO % 1 % (0-3); EOS # 0.1 x10^3/uL (0.0-0.7); EOS % 1 % (0-3); HEMATOCRIT 30.2 % (36.0-47.0); HEMOGLOBIN 9.8 g/dL (12.0-15.5); LYMPH # 1.3 x10^3/uL (1.0-4.8); LYMPH % 20 % (24-48); MEAN CORPUSCULAR HEMOGLOBIN 27 pg (25-35); MEAN CORPUSCULAR HGB CONC 33 g/dL (31-37); MEAN CORPUSCULAR VOLUME 83 fL (79-100); MONO # 0.5 x10^3/uL (0.0-1.1); MONO % 8 % (0-9); NEUT # 4.6 x10^3uL (1.8-7.7); NEUT % 70 % (31-73); PLATELET COUNT 157 x10^3/uL (140-400); RED BLOOD COUNT 3.62 x10^6/uL (3.50-5.40); RED CELL DISTRIBUTION WIDTH 19.3 % (11.5-14.5); WHITE BLOOD COUNT 6.6 x10^3/uL (4.0-11.0)
[2018-08-10 11:38] LABS: CALCIUM 9.6 mg/dL (8.5-10.1); GFR 64.9; POTASSIUM 3.4 mmol/L (3.5-5.1)
[2018-08-10] MEDS: IV RINGERS,LACTATED 1000ML 1,000 ML IV SCH ×2 (12:09→18:54)
[2018-08-10] MEDS ORDERED: PROPOFOL 20 ML IV ONE (12:44)
--- NOTE | 2018-08-10 13:03 | PDOC4 ---
PROCEDURE Procedure Colonoscopy/biopsies Indication: diarrhea, heme positive Meds: per anesthesia Findings: APRIL: normal --'Scope advanced to cecum. Prep sub-optimal with moderate liquid opaque stool in many areas; suctioned and washed with fair visualization. Mucosa seen normal. Multiple diverticula in sigmoid. No polyps, masses. One tiny AVM seen in cecum. --Random biopsies from cecum/ascending and rectum re; the diarrhea. Normal retroflex w/o hemorrhoids noted. Yuliet. well. IMP: diverticulosis No overt cause for the diarrhea. One AVM seen. REC: symptomatic treatment for diarrhea. Await path. ADAT Home at your discretion. Thanks. KAM MTZ MD Aug 10, 2018 13:03
--- NOTE | 2018-08-10 14:30 | CARD ---
MR#: [id number] Date of Study: 08/10/2018 Ordering Physician: STEFANIE IGNACIO, Referring Physician: LOS NOLASCO Tech: Nancy Joshi RUST APPROVED REPORT EXAM: Two-dimensional and M-mode echocardiogram with Doppler and color Doppler. Other Information Quality : Good INDICATION Pulmonary Hypertention 2D DIMENSIONS RVDd2.7 (2.9-3.5cm)Left Atrium(2D)3.6 (1.6-4.0cm) IVSd1.1 (0.7-1.1cm)Aortic Root(2D)3.0 (2.0-3.7cm) LVDd3.8 (3.9-5.9cm)LVOT Diameter2.0 (1.8-2.4cm) PWd1.0 (0.7-1.1cm)LVDs2.4 (2.5-4.0cm) FS (%) 36.4 %SV42.3 ml LVEF(%)65.0 (>50%) Aortic Valve AoV Peak Gurmeet.161.3cm/sAoV VTI31.8cm AO Peak GR.10.4mmHgLVOT Peak Gurmeet.124.1cm/s AO Mean GR.6mmHgAVA (VMAX)2.44cm2 PREETHI (VTI)2.06mz7FD P 1/2 [id number] Mitral Valve MV E Tdbaenun62.4cm/sMV DECEL [id number] MV A Xohagvxz764.0cm/sE/A Ratio0.8 Tricuspid Valve TR P. Idjredsc895pf/sRAP [id number] TR Peak Gr.67nbOhFCRJ174rvMq Pulmonary Vein S1 Zqrsyhfz65.4cm/sD2 Fytntvcj88.1cm/s LEFT VENTRICLE The left ventricle is normal size. There is moderate concentric left ventricular hypertrophy. The lef t ventricular systolic function is normal and the ejection fraction is within normal range. The Eject ion Fraction is 60-65%. There is normal LV segmental wall motion. Transmitral Doppler flow pattern is Grade I-abnormal relaxation pattern. RIGHT VENTRICLE The right ventricle is normal size. The right ventricular systolic function is normal. ATRIA The left atrium size is normal. The right atrium size is normal. The interatrial septum is intact wit h no evidence for an atrial septal defect or patent foramen ovale as noted on 2-D or Doppler imaging. AORTIC VALVE The aortic valve is calcified but opens well. Doppler and Color Flow revealed mild aortic regurgitati on. There is no significant aortic valvular stenosis. MITRAL VALVE The mitral valve is calcified but opens well. Mitral annular calcification is mild. There is no evide nce of mitral valve prolapse. There is no mitral valve stenosis. Doppler and Color-flow revealed mild to moderate eccentric mitral regurgitation. TRICUSPID VALVE The tricuspid valve is normal in structure and function. Doppler and Color Flow revealed moderate to severe tricuspid regurgitation. There is severe pulmonary hypertension. The PA pressure was estimated at 110 mmHg. There is no tricuspid valve stenosis. PULMONIC VALVE The pulmonary valve is normal in structure and function. Doppler and Color Flow revealed no pulmonic valvular regurgitation. There is no pulmonic valvular stenosis. GREAT VESSELS The aortic root is normal in size. The ascending aorta is normal in size. The pulmonary artery is dil ated. The IVC is dilated and collapses <50% with inspiration. PERICARDIAL EFFUSION There is a trace to small circumferential pericardial effusion. Critical Notification Critical Value: No <Conclusion> The left ventricular systolic function is normal and the ejection fraction is within normal range. Th e Ejection Fraction is 60-65%. There is normal LV segmental wall motion. Doppler and Color-flow revealed mild to moderate eccentric mitral regurgitation. Doppler and Color Flow revealed moderate to severe tricuspid regurgitation. There is severe pulmonary hypertension. The PA pressure was estimated at 110 mmHg. The IVC is dilated and collapses <50% with inspiration. The pulmonary artery is dilated. There is a trace to small circumferential pericardial effusion. Signed by : Stefanie Ignacio, Electronically Approved : 08/10/2018 14:30:12
[2018-08-10 15:00] VITALS: BP 111/59
--- NOTE | 2018-08-10 16:20 | PDOC ---
PROGRESS NOTES Subjective Subjective She admits right ankle area pain. Objective Objective Vital Signs Date Time Temp Pulse Resp B/P (MAP) Pulse Ox O2 Delivery O2 Flow Rate FiO2 08/10/18 15:00 97.9 70 18 111/59 (76) 98 Room Air 97.9 08/10/18 12:02 2.0 Intake and Output 08/10/18 07:00 Intake Total 975 ml Balance 975 ml Intake Oral 975 ml # Voids 4 # Bowel Movements 1 Physical Exam Physical Exam She is independent walking without any assistive devices and not much pain on ROM of right ankle and she had tenderness to palpation over right ankle anterio lateral aspect. Assessment Assessment Problems Medical Problems: (1) Intractable diarrhea Status: Acute Plan Plan of [facility] when medically stable. Comment Review of Relevant I have reviewed the following items james (where applicable) has been applied. Labs Laboratory Tests Test 08/09/18 05:00 08/10/18 11:07 Hemoglobin A1c 5.1 % (4.8-5.6) Triglycerides Level 61 mg/dL (0-150) Cholesterol Level 85 mg/dL (0-200) LDL Cholesterol, Calculated 41 mg/dL (0-100) VLDL Cholesterol, Calculated 12 mg/dL (0-40) Non-HDL Cholesterol Calculated 53 mg/dL (0-129) HDL Cholesterol 32 mg/dL (40-60) Cholesterol/HDL Ratio 2.7 Thyroid Stimulating Hormone (TSH) 1.787 uIU/mL (0.358-3.74) White Blood Count 6.6 x10^3/uL (4.0-11.0) Red Blood Count 3.62 x10^6/uL (3.50-5.40) Hemoglobin 9.8 g/dL (12.0-15.5) Hematocrit 30.2 % (36.0-47.0) Mean Corpuscular Volume 83 fL (79-100) Mean Corpuscular Hemoglobin 27 pg (25-35) Mean Corpuscular Hemoglobin Concent 33 g/dL (31-37) Red Cell Distribution Width 19.3 % (11.5-14.5) Platelet Count 157 x10^3/uL (140-400) Neutrophils (%) (Auto) 70 % (31-73) Lymphocytes (%) (Auto) 20 % (24-48) Monocytes (%) (Auto) 8 % (0-9) Eosinophils (%) (Auto) 1 % (0-3) Basophils (%) (Auto) 1 % (0-3) Neutrophils # (Auto) 4.6 x10^3uL (1.8-7.7) Lymphocytes # (Auto) 1.3 x10^3/uL (1.0-4.8) Monocytes # (Auto) 0.5 x10^3/uL (0.0-1.1) Eosinophils # (Auto) 0.1 x10^3/uL (0.0-0.7) Basophils # (Auto) 0.0 x10^3/uL (0.0-0.2) Sodium Level 151 mmol/L (136-145) Potassium Level 3.4 mmol/L (3.5-5.1) Chloride Level 113 mmol/L (98-107) Carbon Dioxide Level 28 mmol/L (21-32) Anion Gap 10 (6-14) Blood Urea Nitrogen 10 mg/dL (7-20) Creatinine 1.0 mg/dL (0.6-1.0) Estimated GFR (Cockcroft-Gault) 64.9 Glucose Level 77 mg/dL (70-99) Calcium Level 9.6 mg/dL (8.5-10.1) Laboratory Tests Test 08/10/18 11:07 White Blood Count 6.6 x10^3/uL (4.0-11.0) Red Blood Count 3.62 x10^6/uL (3.50-5.40) Hemoglobin 9.8 g/dL (12.0-15.5) Hematocrit 30.2 % (36.0-47.0) Mean Corpuscular Volume 83 fL (79-100) Mean Corpuscular Hemoglobin 27 pg (25-35) Mean Corpuscular Hemoglobin Concent 33 g/dL (31-37) Red Cell Distribution Width 19.3 % (11.5-14.5) Platelet Count 157 x10^3/uL (140-400) Neutrophils (%) (Auto) 70 % (31-73) Lymphocytes (%) (Auto) 20 % (24-48) Monocytes (%) (Auto) 8 % (0-9) Eosinophils (%) (Auto) 1 % (0-3) Basophils (%) (Auto) 1 % (0-3) Neutrophils # (Auto) 4.6 x10^3uL (1.8-7.7) Lymphocytes # (Auto) 1.3 x10^3/uL (1.0-4.8) Monocytes # (Auto) 0.5 x10^3/uL (0.0-1.1) Eosinophils # (Auto) 0.1 x10^3/uL (0.0-0.7) Basophils # (Auto) 0.0 x10^3/uL (0.0-0.2) Sodium Level 151 mmol/L (136-145) Potassium Level 3.4 mmol/L (3.5-5.1) Chloride Level 113 mmol/L (98-107) Carbon Dioxide Level 28 mmol/L (21-32) Anion Gap 10 (6-14) Blood Urea Nitrogen 10 mg/dL (7-20) Creatinine 1.0 mg/dL (0.6-1.0) Estimated GFR (Cockcroft-Gault) 64.9 Glucose Level 77 mg/dL (70-99) Calcium Level 9.6 mg/dL (8.5-10.1) Microbiology 08/06/18 Stool Culture - Final, Resulted 08/06/18 Stool Culture Result 1 (SCARLETT) - Final, Resulted 08/06/18 Campylobacter Antigen Assay - Preliminary, Resulted 08/06/18 Campylobactor Result 1 - Preliminary, Resulted 08/06/18 Shiga Toxin Test - Final, Resulted Medications Current Medications Sodium Chloride 1,000 ml @ 1,000 mls/hr 1X ONCE IV Last administered on at 23:07; Start 08/04/18 at 22:00; Stop 08/04/18 at 22:59; Status DC Pantoprazole Sodium (PROTONIX VIAL for IV PUSH) 40 mg 1X ONCE IVP Last administered on 08/04/18at 23:07; Start 08/04/18 at 23:30; Stop 08/04/18 at 23:31; Status DC Ondansetron HCl (Zofran) 4 mg 1X ONCE IV Last administered on 08/04/18at 23:07; Start 08/04/18 at 23:30; Stop 08/04/18 at 23:31; Status DC Ondansetron HCl (Zofran) 4 mg PRN Q8HRS PRN IV NAUSEA/VOMITING 1ST CHOICE; Start 08/05/18 at 00:45; Stop 08/06/18 at 00:44; Status DC Fentanyl Citrate (Fentanyl 2ml Vial) 25 mcg PRN Q2HRS PRN IV SEVERE PAIN; Start 08/05/18 at 00:45 Colchicine (Colcrys) 0.6 mg PRN BID PRN PO INFLAMMATION Last administered on 07:11; Start 08/05/18 at 06:45; Stop 08/05/18 at 17:16; Status DC Acyclovir (Zovirax) 800 mg DAILY PO ; Start 08/05/18 at 09:00 Atorvastatin Calcium (Lipitor) 10 mg QHS PO Last administered on 08/09/18 20: 12; Start 08/05/18 at 21:00 Clopidogrel Bisulfate (Plavix) 75 mg DAILY PO Last administered on 08/07/18 08: 18; Start 08/05/18 at 09:00; Stop 08/07/18 at 10:37; Status DC Diclofenac Sodium (Voltaren) 1 rolando BID TP Last administered on 08/10/18 09:07 ; Start 08/05/18 at 09:00 Sodium Chloride 1,000 ml @ 100 mls/hr 1X ONCE IV Last administered on 08:46; Start 08/05/18 at 08:00; Stop 08/05/18 at 17:59; Status DC Pantoprazole Sodium (Protonix) 40 mg DAILYAC PO Last administered on 08/09/18 09:53; Start 08/05/18 at 10:30 Ferrous Sulfate (Iron Oral Solution) 300 mg BIDWMEALS PO Last administered on 16:36; Start 08/05/18 at 11:00 Sodium Chloride 1,000 ml @ 50 mls/hr Q20H IV Last administered on 08/07/18 16: 47; Start 08/05/18 at 11:00; Stop 08/08/18 at 11:29; Status DC Acetaminophen (Tylenol) 650 mg PRN Q6HRS PRN PO pain Last administered on 21:35; Start 08/05/18 at 13:15 Colchicine (Colcrys) 0.6 mg BID PO Last administered on 08/06/18 08:13; Start 08/05/18 at 21:00; Stop 08/06/18 at 12:51; Status DC Potassium Chloride (Klor-Con) 40 meq 1X ONCE PO Last administered on 08/06/18at 10:17; Start 08/06/18 at 10:15; Stop 08/06/18 at 10:16; Status DC Potassium Chloride (Klor-Con) 20 meq 1X ONCE PO Last administered on 08/06/18at 12:12; Start 08/06/18 at 12:15; Stop 08/06/18 at 12:16; Status DC Diclofenac Sodium (Voltaren) 1 rolando BID TP ; Start 08/06/18 at 21:00; Stop at 21:00; Status DC Allopurinol (Zyloprim) 100 mg DAILY PO Last administered on 08/10/18at 08:48; Start 08/06/18 at 14:00 Polyethylene Glycol (miraLAX Powder BULK BOTTLE) 238 gm 1X ONCE PO Last administered on 08/09/18at 16:34; Start 08/09/18 at 12:00; Stop 08/09/18 at 12:01 ; Status DC Magnesium Citrate (Citroma) 296 ml 1X ONCE PO Last administered on 08/09/18at 09:54; Start 08/09/18 at 10:00; Stop 08/09/18 at 10:01; Status DC Bisacodyl (Dulcolax Tab) 10 mg PRN DAILY PRN PO CONSTIPATION; Start 08/09/18 at 11:00; Stop 08/09/18 at 11:00; Status DC Bisacodyl (Dulcolax Tab) 10 mg PRN DAILY PRN PO CONSTIPATION; Start 08/09/18 at 13:00 Bacitracin 12297 unit/Sodium Chloride 1,000 ml @ 1,000 mls/hr 1X ONCE IRR ; Start 08/10/18 at 06:00; Stop 08/10/18 at 06:59; Status DC Ondansetron HCl (Zofran) 4 mg PRN Q6HRS PRN IV NAUSEA/VOMITING; Start 08/10/18 at 07:00; Stop 08/10/18 at 18:00 Fentanyl Citrate (Fentanyl 2ml Vial) 25 mcg PRN Q5MIN PRN IV MILD PAIN; Start 08/10/18 at 07:00; Stop 08/10/18 at 18:00 Fentanyl Citrate (Fentanyl 2ml Vial) 50 mcg PRN Q5MIN PRN IV MODERATE TO SEVERE PAIN; Start 08/10/18 at 07:00; Stop 08/10/18 at 18:00 Morphine Sulfate (Morphine Sulfate) 1 mg PRN Q10MIN PRN IV SEVERE PAIN; Start 08/10/18 at 07:00; Stop 08/10/18 at 18:00 Ringer's Solution 1,000 ml @ 30 mls/hr Q24H IV ; Start 08/10/18 at 07:00; Stop 08/10/18 at 07:00; Status DC Lidocaine HCl (Xylocaine-Mpf 1% 2ml Vial) 2 ml PRN 1X PRN ID PRIOR TO IV START ; Start 08/10/18 at 07:00; Stop 08/10/18 at 15:00; Status DC Hydromorphone HCl (Dilaudid) 0.5 mg PRN Q10MIN PRN IV SEV PAIN, Second choice; Start 08/10/18 at 07:00; Stop 08/10/18 at 18:00 Prochlorperazine Edisylate (Compazine) 5 mg PACU PRN PRN IV NAUSEA, MRX1; Start 08/10/18 at 07:00; Stop 08/10/18 at 18:00 Nystatin (Mycostatin) 1 rolando BID TP Last administered on 08/10/18at 09:07; Start 08/08/18 at 12:00 Magnesium Citrate (Citroma) 296 ml 1X ONCE PO Last administered on 08/09/18at 15:44; Start 08/09/18 at 15:00; Stop 08/09/18 at 15:01; Status DC Bisacodyl (Dulcolax Supp) 10 mg 1X ONCE NM Last administered on 08/09/18at 20: 12; Start 08/09/18 at 20:00; Stop 08/09/18 at 20:01; Status DC Methylnaltrexone [place] (Relistor) 12 mg 1X ONCE SQ Last administered on 08/09at 20:12; Start 08/09/18 at 20:00; Stop 08/09/18 at 20:01; Status DC Sodium Chloride 1,000 ml @ 75 mls/hr [id number] IV Last administered on at 20:42; Start 08/09/18 at 20:00 Zolpidem Tartrate (Ambien) 5 mg PRN QHS PRN PO INSOMNIA Last administered on 03/20at 22:10; Start 08/09/18 at 22:00 Midazolam HCl (Versed) 2 mg PRN 1X PRN IV PRIOR TO PROCEDURE; Start 08/10/18 at 11:00; Stop 08/11/18 at 10:59 Fentanyl Citrate (Fentanyl 2ml Vial) 25 mcg PRN Q5MIN PRN IV X 2 DOSES FOR PAIN ; Start 08/10/18 at 11:00; Stop 08/11/18 at 10:59 Fentanyl Citrate (Fentanyl 2ml Vial) 50 mcg PRN Q5MIN PRN IV X 2 DOSES FOR PAIN ; Start 08/10/18 at 11:00; Stop 08/11/18 at 10:59 Ringer's Solution 1,000 ml @ 125 mls/hr Q8H IV Last administered on 08/10/18at 12:09; Start 08/10/18 at 10:54; Stop 08/10/18 at 22:53 Lidocaine HCl (Xylocaine-Mpf 1% 2ml Vial) 2 ml 1X PRN PRN ID IV START; Start at 11:00; Stop 08/11/18 at 10:59 Propofol 20 ml @ As Directed STK-MED ONCE IV ; Start 08/10/18 at 12:44; Stop 04/20 at 12:45; Status DC Active Scripts Active Voltaren (Diclofenac Sodium) 100 Gm Gel..gram. 1 Rolando TP BID 30 Days Atorvastatin Calcium 10 Mg Tablet 10 Mg PO QHS 30 Days Reported Acyclovir 800 Mg Tablet 800 Mg PO DAILY Colchicine 0.6 Mg Tablet 1 Tab PO BID PRN MDD 2 tabs Clopidogrel (Clopidogrel Bisulfate) 75 Mg Tablet 1 Tab PO DAILY Multivitamins (Multivitamin) 1 Each Tablet 1 Tab PO DAILY Edarbyclor 40-12.5 Mg Tablet (Azilsartan/Chlorthalidone) 1 Each Tablet 1 Tab PO DAILY Vitals/I & O Vital Sign - Last 24 Hours 08/09/18 08/09/18 08/09/18 08/10/18 19:29 20:00 23:01 03:06 Temp 98.0 98.6 98.1 98.0 98.6 98.1 Pulse 79 78 71 Resp 20 18 18 B/P (MAP) 160/93 (115) 150/94 (112) 138/76 (96) Pulse Ox 100 100 96 O2 Delivery Nasal Cannula Room Air Nasal Cannula Nasal Cannula O2 Flow Rate 2.0 2.0 2.0 08/10/18 08/10/18 08/10/18 08/10/18 07:00 08:00 11:00 12:02 Temp 97.7 98.1 98 97.7 98.1 98.0 Pulse 110 75 78 Resp 16 16 17 B/P (MAP) 126/85 (99) 132/80 (97) Pulse Ox 98 97 98 O2 Delivery Room Air Room Air Room Air O2 Flow Rate 2.0 08/10/18 08/10/18 08/10/18 08/10/18 12:02 13:00 13:15 13:30 Pulse 81 69 71 Resp 18 18 18 B/P (MAP) 150/90 138/86 156/85 Pulse Ox 96 95 O2 Delivery Room Air Room Air Room Air O2 Flow Rate 2.0 08/10/18 15:00 Temp 97.9 97.9 Pulse 70 Resp 18 B/P (MAP) 111/59 (76) Pulse Ox 98 O2 Delivery Room Air Intake and Output 08/09/18 08/09/18 08/10/18 15:00 23:00 07:00 Intake Total 600 ml 375 ml Balance 600 ml 375 ml Nutrition Consultation Dietary Evaluation: Recommendations by RD: Increase Calorie Intake, Protein supplementation Comments: continue regular diet Expected Outcomes/Goals: diet adv/ tolerance - met to meet > 75% est nutr needs- goal ongoing Interpretation of weight loss: >10% in 6 months Malnutrition Findings: Body Fat Depletion (Non Severe: Mild Depletion Weight Status: Underweight ETHEL CHOI MD Aug 10, 2018 16:20
[2018-08-10] MEDS ORDERED: MINERAL OIL/PETROLATUM TOPICAL CREAM 113GM JAR. TP PRN (16:30)
[2018-08-10 19:00] VITALS: BP 113/69
[2018-08-10] MEDS: ZOLPIDEM 5 MG TABLET. PO PRN (20:51)
[2018-08-10] MEDS: ATORVASTATIN CALCIUM 10 MG TABLET. PO SCH (20:51)
[2018-08-10 23:00] VITALS: BP 130/82
[2018-08-11 03:00] VITALS: BP 126/86
[2018-08-11 07:10] VITALS: BP 137/91
[2018-08-11] MEDS: ACYCLOVIR 200 MG CAPSULE. PO SCH (07:46)
--- NOTE | 2018-08-11 08:19 | NUR ---
SW following. PT/OT recommends home assistance/home health. [facility]DA will arrange HH upon dc if ordered by Physician. No other dc recommendation noted at this time. Will continue to follow.
[2018-08-11] MEDS: FERROUS SULFATE ORAL 300 MG/5 ML SOLUTION. PO SCH (08:39)
[2018-08-11] MEDS: PANTOPRAZOLE 40 MG TABLET.DR. PO SCH (08:39)
[2018-08-11] MEDS: DICLOFENAC SODIUM 1% TOPICAL GEL 100GM TUBE. TP SCH (08:40)
[2018-08-11] MEDS: ALLOPURINOL 100 MG TABLET. PO SCH (08:40)
[2018-08-11] MEDS: NYSTATIN 100,000 UNIT/GM TOPICAL OINTMENT 15GM TUBE. TP SCH (08:40)
--- NOTE | 2018-08-11 09:45 | PDOC ---
PROGRESS NOTES Subjective Subjective No new complaints. Objective Objective Vital Signs Date Time Temp Pulse Resp B/P (MAP) Pulse Ox O2 Delivery O2 Flow Rate FiO2 08/11/18 07:10 97.7 120 18 137/91 (106) 99 Room Air 97.7 08/10/18 12:02 2.0 Intake and Output 08/11/18 06:59 Intake Total 1890 ml Balance 1890 ml Intake Oral 1640 ml IV Total 250 ml # Voids 1 Physical Exam Physical Exam She is sitting at edge of bed and eating breakfast and she remains independent with her mobility at roller walker level without any limping on her right foot. Assessment Assessment Problems Medical Problems: (1) Intractable diarrhea Status: Acute Plan Plan of Group Home when medically stable. Comment Review of Relevant I have reviewed the following items james (where applicable) has been applied. Labs Laboratory Tests Test 08/10/18 11:07 White Blood Count 6.6 x10^3/uL (4.0-11.0) Red Blood Count 3.62 x10^6/uL (3.50-5.40) Hemoglobin 9.8 g/dL (12.0-15.5) Hematocrit 30.2 % (36.0-47.0) Mean Corpuscular Volume 83 fL (79-100) Mean Corpuscular Hemoglobin 27 pg (25-35) Mean Corpuscular Hemoglobin Concent 33 g/dL (31-37) Red Cell Distribution Width 19.3 % (11.5-14.5) Platelet Count 157 x10^3/uL (140-400) Neutrophils (%) (Auto) 70 % (31-73) Lymphocytes (%) (Auto) 20 % (24-48) Monocytes (%) (Auto) 8 % (0-9) Eosinophils (%) (Auto) 1 % (0-3) Basophils (%) (Auto) 1 % (0-3) Neutrophils # (Auto) 4.6 x10^3uL (1.8-7.7) Lymphocytes # (Auto) 1.3 x10^3/uL (1.0-4.8) Monocytes # (Auto) 0.5 x10^3/uL (0.0-1.1) Eosinophils # (Auto) 0.1 x10^3/uL (0.0-0.7) Basophils # (Auto) 0.0 x10^3/uL (0.0-0.2) Sodium Level 151 mmol/L (136-145) Potassium Level 3.4 mmol/L (3.5-5.1) Chloride Level 113 mmol/L (98-107) Carbon Dioxide Level 28 mmol/L (21-32) Anion Gap 10 (6-14) Blood Urea Nitrogen 10 mg/dL (7-20) Creatinine 1.0 mg/dL (0.6-1.0) Estimated GFR (Cockcroft-Gault) 64.9 Glucose Level 77 mg/dL (70-99) Calcium Level 9.6 mg/dL (8.5-10.1) Laboratory Tests Test 08/10/18 11:07 White Blood Count 6.6 x10^3/uL (4.0-11.0) Red Blood Count 3.62 x10^6/uL (3.50-5.40) Hemoglobin 9.8 g/dL (12.0-15.5) Hematocrit 30.2 % (36.0-47.0) Mean Corpuscular Volume 83 fL (79-100) Mean Corpuscular Hemoglobin 27 pg (25-35) Mean Corpuscular Hemoglobin Concent 33 g/dL (31-37) Red Cell Distribution Width 19.3 % (11.5-14.5) Platelet Count 157 x10^3/uL (140-400) Neutrophils (%) (Auto) 70 % (31-73) Lymphocytes (%) (Auto) 20 % (24-48) Monocytes (%) (Auto) 8 % (0-9) Eosinophils (%) (Auto) 1 % (0-3) Basophils (%) (Auto) 1 % (0-3) Neutrophils # (Auto) 4.6 x10^3uL (1.8-7.7) Lymphocytes # (Auto) 1.3 x10^3/uL (1.0-4.8) Monocytes # (Auto) 0.5 x10^3/uL (0.0-1.1) Eosinophils # (Auto) 0.1 x10^3/uL (0.0-0.7) Basophils # (Auto) 0.0 x10^3/uL (0.0-0.2) Sodium Level 151 mmol/L (136-145) Potassium Level 3.4 mmol/L (3.5-5.1) Chloride Level 113 mmol/L (98-107) Carbon Dioxide Level 28 mmol/L (21-32) Anion Gap 10 (6-14) Blood Urea Nitrogen 10 mg/dL (7-20) Creatinine 1.0 mg/dL (0.6-1.0) Estimated GFR (Cockcroft-Gault) 64.9 Glucose Level 77 mg/dL (70-99) Calcium Level 9.6 mg/dL (8.5-10.1) Microbiology 08/06/18 Stool Culture - Final, Resulted 08/06/18 Stool Culture Result 1 (SCARLETT) - Final, Resulted 08/06/18 Campylobacter Antigen Assay - Preliminary, Resulted 08/06/18 Campylobactor Result 1 - Preliminary, Resulted 08/06/18 Shiga Toxin Test - Final, Resulted Medications Current Medications Sodium Chloride 1,000 ml @ 1,000 mls/hr 1X ONCE IV Last administered on at 23:07; Start 08/04/18 at 22:00; Stop 08/04/18 at 22:59; Status DC Pantoprazole Sodium (PROTONIX VIAL for IV PUSH) 40 mg 1X ONCE IVP Last administered on 08/04/18at 23:07; Start 08/04/18 at 23:30; Stop 08/04/18 at 23:31; Status DC Ondansetron HCl (Zofran) 4 mg 1X ONCE IV Last administered on 08/04/18at 23:07; Start 08/04/18 at 23:30; Stop 08/04/18 at 23:31; Status DC Ondansetron HCl (Zofran) 4 mg PRN Q8HRS PRN IV NAUSEA/VOMITING 1ST CHOICE; Start 08/05/18 at 00:45; Stop 08/06/18 at 00:44; Status DC Fentanyl Citrate (Fentanyl 2ml Vial) 25 mcg PRN Q2HRS PRN IV SEVERE PAIN; Start 08/05/18 at 00:45 Colchicine (Colcrys) 0.6 mg PRN BID PRN PO INFLAMMATION Last administered on 08/05/18at 07:11; Start 08/05/18 at 06:45; Stop 08/05/18 at 17:16; Status DC Acyclovir (Zovirax) 800 mg DAILY PO ; Start 08/05/18 at 09:00 Atorvastatin Calcium (Lipitor) 10 mg QHS PO Last administered on 08/10/18 20: 51; Start 08/05/18 at 21:00 Clopidogrel Bisulfate (Plavix) 75 mg DAILY PO Last administered on 08/07/18 08: 18; Start 08/05/18 at 09:00; Stop 08/07/18 at 10:37; Status DC Diclofenac Sodium (Voltaren) 1 rolando BID TP Last administered on 08/11/18 08:40 ; Start 08/05/18 at 09:00 Sodium Chloride 1,000 ml @ 100 mls/hr 1X ONCE IV Last administered on 08:46; Start 08/05/18 at 08:00; Stop 08/05/18 at 17:59; Status DC Pantoprazole Sodium (Protonix) 40 mg DAILYAC PO Last administered on 08/11/18 08:39; Start 08/05/18 at 10:30 Ferrous Sulfate (Iron Oral Solution) 300 mg BIDWMEALS PO Last administered on 08:39; Start 08/05/18 at 11:00 Sodium Chloride 1,000 ml @ 50 mls/hr Q20H IV Last administered on 08/07/18 16: 47; Start 08/05/18 at 11:00; Stop 08/08/18 at 11:29; Status DC Acetaminophen (Tylenol) 650 mg PRN Q6HRS PRN PO pain Last administered on 21:35; Start 08/05/18 at 13:15 Colchicine (Colcrys) 0.6 mg BID PO Last administered on 08/06/18 08:13; Start 08/05/18 at 21:00; Stop 08/06/18 at 12:51; Status DC Potassium Chloride (Klor-Con) 40 meq 1X ONCE PO Last administered on 08/06/18 10:17; Start 08/06/18 at 10:15; Stop 08/06/18 at 10:16; Status DC Potassium Chloride (Klor-Con) 20 meq 1X ONCE PO Last administered on 08/06/18 12:12; Start 08/06/18 at 12:15; Stop 08/06/18 at 12:16; Status DC Diclofenac Sodium (Voltaren) 1 rolando BID TP ; Start 08/06/18 at 21:00; Stop at 21:00; Status DC Allopurinol (Zyloprim) 100 mg DAILY PO Last administered on 08/11/18at 08:40; Start 08/06/18 at 14:00 Polyethylene Glycol (miraLAX Powder BULK BOTTLE) 238 gm 1X ONCE PO Last administered on 08/09/18at 16:34; Start 08/09/18 at 12:00; Stop 08/09/18 at 12:01 ; Status DC Magnesium Citrate (Citroma) 296 ml 1X ONCE PO Last administered on 08/09/18at 09:54; Start 08/09/18 at 10:00; Stop 08/09/18 at 10:01; Status DC Bisacodyl (Dulcolax Tab) 10 mg PRN DAILY PRN PO CONSTIPATION; Start 08/09/18 at 11:00; Stop 08/09/18 at 11:00; Status DC Bisacodyl (Dulcolax Tab) 10 mg PRN DAILY PRN PO CONSTIPATION; Start 08/09/18 at 13:00 Bacitracin 54204 unit/Sodium Chloride 1,000 ml @ 1,000 mls/hr 1X ONCE IRR ; Start 08/10/18 at 06:00; Stop 08/10/18 at 06:59; Status DC Ondansetron HCl (Zofran) 4 mg PRN Q6HRS PRN IV NAUSEA/VOMITING; Start 08/10/18 at 07:00; Stop 08/10/18 at 18:00; Status DC Fentanyl Citrate (Fentanyl 2ml Vial) 25 mcg PRN Q5MIN PRN IV MILD PAIN; Start 08/10/18 at 07:00; Stop 08/10/18 at 18:00; Status DC Fentanyl Citrate (Fentanyl 2ml Vial) 50 mcg PRN Q5MIN PRN IV MODERATE TO SEVERE PAIN; Start 08/10/18 at 07:00; Stop 08/10/18 at 18:00; Status DC Morphine Sulfate (Morphine Sulfate) 1 mg PRN Q10MIN PRN IV SEVERE PAIN; Start 08/10/18 at 07:00; Stop 08/10/18 at 18:00; Status DC Ringer's Solution 1,000 ml @ 30 mls/hr Q24H IV ; Start 08/10/18 at 07:00; Stop 08/10/18 at 07:00; Status DC Lidocaine HCl (Xylocaine-Mpf 1% 2ml Vial) 2 ml PRN 1X PRN ID PRIOR TO IV START ; Start 08/10/18 at 07:00; Stop 08/10/18 at 15:00; Status DC Hydromorphone HCl (Dilaudid) 0.5 mg PRN Q10MIN PRN IV SEV PAIN, Second choice; Start 08/10/18 at 07:00; Stop 08/10/18 at 18:00; Status DC Prochlorperazine Edisylate (Compazine) 5 mg PACU PRN PRN IV NAUSEA, MRX1; Start 08/10/18 at 07:00; Stop 08/10/18 at 18:00; Status DC Nystatin (Mycostatin) 1 rolando BID TP Last administered on 08/11/18at 08:40; Start 08/08/18 at 12:00 Magnesium Citrate (Citroma) 296 ml 1X ONCE PO Last administered on 08/09/18at 15:44; Start 08/09/18 at 15:00; Stop 08/09/18 at 15:01; Status DC Bisacodyl (Dulcolax Supp) 10 mg 1X ONCE [place] Last administered on 08/09/18at 20: 12; Start 08/09/18 at 20:00; Stop 08/09/18 at 20:01; Status DC Methylnaltrexone [place] (Relistor) 12 mg 1X ONCE SQ Last administered on 08/09at 20:12; Start 08/09/18 at 20:00; Stop 08/09/18 at 20:01; Status DC Sodium Chloride 1,000 ml @ 75 mls/hr [id number] IV Last administered on at 20:42; Start 08/09/18 at 20:00 Zolpidem Tartrate (Ambien) 5 mg PRN QHS PRN PO INSOMNIA Last administered on 04/20at 20:51; Start 08/09/18 at 22:00 Midazolam HCl (Versed) 2 mg PRN 1X PRN IV PRIOR TO PROCEDURE; Start 08/10/18 at 11:00; Stop 08/11/18 at 10:59 Fentanyl Citrate (Fentanyl 2ml Vial) 25 mcg PRN Q5MIN PRN IV X 2 DOSES FOR PAIN ; Start 08/10/18 at 11:00; Stop 08/11/18 at 10:59 Fentanyl Citrate (Fentanyl 2ml Vial) 50 mcg PRN Q5MIN PRN IV X 2 DOSES FOR PAIN ; Start 08/10/18 at 11:00; Stop 08/11/18 at 10:59 Ringer's Solution 1,000 ml @ 125 mls/hr Q8H IV Last administered on 08/10/18at 12:09; Start 08/10/18 at 10:54; Stop 08/10/18 at 22:53; Status DC Lidocaine HCl (Xylocaine-Mpf 1% 2ml Vial) 2 ml 1X PRN PRN ID IV START; Start at 11:00; Stop 08/11/18 at 10:59 Propofol 20 ml @ As Directed STK-MED ONCE IV ; Start 08/10/18 at 12:44; Stop 04/20 at 12:45; Status DC Multi-Ingred Cream/Lotion/Oil/ Oint (Hydrocerin Cream) 1 rolando PRN Q1HR PRN TP DRY SKIN / SCALING; Start 08/10/18 at 16:30 Active Scripts Active Voltaren (Diclofenac Sodium) 100 Gm Gel..gram. 1 Rolando TP BID 30 Days Atorvastatin Calcium 10 Mg Tablet 10 Mg PO QHS 30 Days Reported Acyclovir 800 Mg Tablet 800 Mg PO DAILY Colchicine 0.6 Mg Tablet 1 Tab PO BID PRN MDD 2 tabs Clopidogrel (Clopidogrel Bisulfate) 75 Mg Tablet 1 Tab PO DAILY Multivitamins (Multivitamin) 1 Each Tablet 1 Tab PO DAILY Edarbyclor 40-12.5 Mg Tablet (Azilsartan/Chlorthalidone) 1 Each Tablet 1 Tab PO DAILY Vitals/I & O Vital Sign - Last 24 Hours 08/10/18 08/10/18 08/10/18 08/10/18 11:00 12:02 12:02 13:00 Temp 98.1 98 98.1 98.0 Pulse 75 78 81 Resp 16 17 18 B/P (MAP) 132/80 (97) 150/90 Pulse Ox 97 98 O2 Delivery Room Air Room Air O2 Flow Rate 2.0 08/10/18 08/10/18 08/10/18 08/10/18 13:15 13:30 15:00 19:00 Temp 97.9 98.2 97.9 98.2 Pulse 69 71 70 84 Resp 18 B/P (MAP) 138/86 156/85 111/59 (76) 113/69 (84) Pulse Ox 96 95 98 93 O2 Delivery Room Air Room Air Room Air Room Air 08/10/18 08/10/18 08/11/18 08/11/18 20:00 23:00 03:00 07:10 Temp 98.2 98.5 97.7 98.2 98.5 97.7 Pulse 105 111 120 Resp 18 B/P (MAP) 130/82 (98) 126/86 (99) 137/91 (106) Pulse Ox 98 99 O2 Delivery Room Air Room Air Room Air Room Air Intake and Output 08/10/18 08/10/18 08/11/18 14:59 22:59 06:59 Intake Total 250 ml 1100 ml 540 ml Balance 250 ml 1100 ml 540 ml Nutrition Consultation Dietary Evaluation: Recommendations by RD: Increase Calorie Intake, Protein supplementation Comments: continue regular diet Expected Outcomes/Goals: diet adv/ tolerance - met to meet > 75% est nutr needs- goal ongoing Interpretation of weight loss: >10% in 6 months Malnutrition Findings: Body Fat Depletion (Non Severe: Mild Depletion Weight Status: Underweight ETHEL CHOI MD Aug 11, 2018 09:45
--- NOTE | 2018-08-11 10:37 | PDOC ---
PROGRESS NOTES Subjective Subjective feels good Objective Objective Vital Signs Date Time Temp Pulse Resp B/P (MAP) Pulse Ox O2 Delivery O2 Flow Rate FiO2 08/11/18 07:10 97.7 120 18 137/91 (106) 99 Room Air 97.7 08/10/18 12:02 2.0 Intake and Output 08/11/18 06:59 Intake Total 1890 ml Balance 1890 ml Intake Oral 1640 ml IV Total 250 ml # Voids 1 Physical Exam Abdomen: Soft, Other (scar ,mild distention) Heart: Regular rate, Normal S1, Normal S2, No murmurs Extremities: No clubbing, No cyanosis General: Alert, Oriented X3, Cooperative, No acute distress HEENT: PERRLA, Mucous membr. moist/pink Lungs: Clear to auscultation, Normal air movement MUSCULOSKELETAL: No deformity, No swelling Neck: Supple Neuro: Normal speech, Sensation intact Psych/Mental Status: Mental status NL, Mood NL Skin: No rashes, No breakdown Diagnosis Problem List Problems Medical Problems: (1) Intractable diarrhea Status: Acute Assessment Assessment Problems Medical Problems: (1) Intractable diarrhea Status: Acute FINAL IMPRESSION:ABD pain 1. Chronic diarrhea.Heam positive stool. 2. Weight loss. 3. History of abdominal aortic aneurysm repair in the past. 4. Aortobifemoral bypass. 5. Hypertension. 6. Hyperlipidemia. 7. Gout. 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 Labs Laboratory Tests Test 08/10/18 11:07 White Blood Count 6.6 x10^3/uL (4.0-11.0) Red Blood Count 3.62 x10^6/uL (3.50-5.40) Hemoglobin 9.8 g/dL (12.0-15.5) Hematocrit 30.2 % (36.0-47.0) Mean Corpuscular Volume 83 fL (79-100) Mean Corpuscular Hemoglobin 27 pg (25-35) Mean Corpuscular Hemoglobin Concent 33 g/dL (31-37) Red Cell Distribution Width 19.3 % (11.5-14.5) Platelet Count 157 x10^3/uL (140-400) Neutrophils (%) (Auto) 70 % (31-73) Lymphocytes (%) (Auto) 20 % (24-48) Monocytes (%) (Auto) 8 % (0-9) Eosinophils (%) (Auto) 1 % (0-3) Basophils (%) (Auto) 1 % (0-3) Neutrophils # (Auto) 4.6 x10^3uL (1.8-7.7) Lymphocytes # (Auto) 1.3 x10^3/uL (1.0-4.8) Monocytes # (Auto) 0.5 x10^3/uL (0.0-1.1) Eosinophils # (Auto) 0.1 x10^3/uL (0.0-0.7) Basophils # (Auto) 0.0 x10^3/uL (0.0-0.2) Sodium Level 151 mmol/L (136-145) Potassium Level 3.4 mmol/L (3.5-5.1) Chloride Level 113 mmol/L (98-107) Carbon Dioxide Level 28 mmol/L (21-32) Anion Gap 10 (6-14) Blood Urea Nitrogen 10 mg/dL (7-20) Creatinine 1.0 mg/dL (0.6-1.0) Estimated GFR (Cockcroft-Gault) 64.9 Glucose Level 77 mg/dL (70-99) Calcium Level 9.6 mg/dL (8.5-10.1) Microbiology 08/06/18 Stool Culture - Final, Complete 08/06/18 Stool Culture Result 1 (SCARLETT) - Final, Complete 08/06/18 Campylobacter Antigen Assay - Final, Complete 08/06/18 Campylobactor Result 1 - Final, Complete 08/06/18 Shiga Toxin Test - Final, Complete Medications Current Medications Fentanyl Citrate (Fentanyl 2ml Vial) 25 mcg PRN Q5MIN PRN IV X 2 DOSES FOR PAIN ; Start 08/10/18 at 11:00; Stop 08/11/18 at 10:59 Fentanyl Citrate (Fentanyl 2ml Vial) 50 mcg PRN Q5MIN PRN IV X 2 DOSES FOR PAIN ; Start 08/10/18 at 11:00; Stop 08/11/18 at 10:59 Lidocaine HCl (Xylocaine-Mpf 1% 2ml Vial) 2 ml 1X PRN PRN ID IV START; Start at 11:00; Stop 08/11/18 at 10:59 Midazolam HCl (Versed) 2 mg PRN 1X PRN IV PRIOR TO PROCEDURE; Start 08/10/18 at 11:00; Stop 08/11/18 at 10:59 Multi-Ingred Cream/Lotion/Oil/ Oint (Hydrocerin Cream) 1 eddie PRN Q1HR PRN TP DRY SKIN / SCALING; Start 08/10/18 at 16:30 Propofol 20 ml @ As Directed STK-MED ONCE IV ; Start 08/10/18 at 12:44; Stop 04/20 at 12:45; Status DC Ringer's Solution 1,000 ml @ 125 mls/hr Q8H IV Last administered on 08/10/18at 12:09; Start 08/10/18 at 10:54; Stop 08/10/18 at 22:53; Status DC Vitals/I & O Vital Sign - Last 24 Hours 08/10/18 08/10/18 08/10/18 08/10/18 11:00 12:02 12:02 13:00 Temp 98.1 98 98.1 98.0 Pulse 75 78 81 Resp 16 17 18 B/P (MAP) 132/80 (97) 150/90 Pulse Ox 97 98 O2 Delivery Room Air Room Air O2 Flow Rate 2.0 08/10/18 08/10/18 08/10/18 08/10/18 13:15 13:30 15:00 19:00 Temp 97.9 98.2 97.9 98.2 Pulse 69 71 70 84 Resp 18 18 18 18 B/P (MAP) 138/86 156/85 111/59 (76) 113/69 (84) Pulse Ox 96 95 98 93 O2 Delivery Room Air Room Air Room Air Room Air 08/10/18 08/10/18 08/11/18 08/11/18 20:00 23:00 03:00 07:10 Temp 98.2 98.5 97.7 98.2 98.5 97.7 Pulse 105 111 120 Resp 18 18 18 B/P (MAP) 130/82 (98) 126/86 (99) 137/91 (106) Pulse Ox 98 99 O2 Delivery Room Air Room Air Room Air Room Air Intake and Output 08/10/18 08/10/18 08/11/18 14:59 22:59 06:59 Intake Total 250 ml 1100 ml 540 ml Balance 250 ml 1100 ml 540 ml Nutrition Consultation Dietary Evaluation: Recommendations by RD: Increase Calorie Intake, Protein supplementation Comments: continue regular diet Expected Outcomes/Goals: diet adv/ tolerance - met to meet > 75% est nutr needs- goal ongoing Interpretation of weight loss: >10% in 6 months Malnutrition Findings: Body Fat Depletion (Non Severe: Mild Depletion Weight Status: Underweight LOS NOLASCO MD Aug 11, 2018 10:37
[2018-08-11] MEDS ORDERED: ASPI81TA50 PO (10:40)
[2018-08-11 11:02] VITALS: BP 109/77
[2018-08-11 11:23] LABS: CALCIUM 9.4 mg/dL (8.5-10.1); CREATININE 1.1 mg/dL (0.6-1.0); GFR 58.1; POTASSIUM 4.1 mmol/L (3.5-5.1)
[2018-08-11] MEDS: IV NORMAL SALINE 1000ML BAG 1,000 ML IV SCH (12:00)
--- NOTE | 2018-08-11 12:19 | PDOC ---
G I PROGRESS NOTE Subjective No GI complaints. Heart "pounding". Physical Exam Lungs clear. Tachy, regular. Abdomen soft, not tender nor distended. Review of Relevant I have reviewed the following items james (where applicable) has been applied. Labs Laboratory Tests Test 08/10/18 11:07 08/11/18 10:55 White Blood Count 6.6 x10^3/uL (4.0-11.0) Red Blood Count 3.62 x10^6/uL (3.50-5.40) Hemoglobin 9.8 g/dL (12.0-15.5) Hematocrit 30.2 % (36.0-47.0) Mean Corpuscular Volume 83 fL (79-100) Mean Corpuscular Hemoglobin 27 pg (25-35) Mean Corpuscular Hemoglobin Concent 33 g/dL (31-37) Red Cell Distribution Width 19.3 % (11.5-14.5) Platelet Count 157 x10^3/uL (140-400) Neutrophils (%) (Auto) 70 % (31-73) Lymphocytes (%) (Auto) 20 % (24-48) Monocytes (%) (Auto) 8 % (0-9) Eosinophils (%) (Auto) 1 % (0-3) Basophils (%) (Auto) 1 % (0-3) Neutrophils # (Auto) 4.6 x10^3uL (1.8-7.7) Lymphocytes # (Auto) 1.3 x10^3/uL (1.0-4.8) Monocytes # (Auto) 0.5 x10^3/uL (0.0-1.1) Eosinophils # (Auto) 0.1 x10^3/uL (0.0-0.7) Basophils # (Auto) 0.0 x10^3/uL (0.0-0.2) Sodium Level 151 mmol/L (136-145) 143 mmol/L (136-145) Potassium Level 3.4 mmol/L (3.5-5.1) 4.1 mmol/L (3.5-5.1) Chloride Level 113 mmol/L (98-107) 107 mmol/L (98-107) Carbon Dioxide Level 28 mmol/L (21-32) 29 mmol/L (21-32) Anion Gap 10 (6-14) 7 (6-14) Blood Urea Nitrogen 10 mg/dL (7-20) 17 mg/dL (7-20) Creatinine 1.0 mg/dL (0.6-1.0) 1.1 mg/dL (0.6-1.0) Estimated GFR (Cockcroft-Gault) 64.9 58.1 Glucose Level 77 mg/dL (70-99) 89 mg/dL (70-99) Calcium Level 9.6 mg/dL (8.5-10.1) 9.4 mg/dL (8.5-10.1) Laboratory Tests Test 08/11/18 10:55 Sodium Level 143 mmol/L (136-145) Potassium Level 4.1 mmol/L (3.5-5.1) Chloride Level 107 mmol/L (98-107) Carbon Dioxide Level 29 mmol/L (21-32) Anion Gap 7 (6-14) Blood Urea Nitrogen 17 mg/dL (7-20) Creatinine 1.1 mg/dL (0.6-1.0) Estimated GFR (Cockcroft-Gault) 58.1 Glucose Level 89 mg/dL (70-99) Calcium Level 9.4 mg/dL (8.5-10.1) Microbiology 08/06/18 Stool Culture - Final, Complete 08/06/18 Stool Culture Result 1 (SCARLETT) - Final, Complete 08/06/18 Campylobacter Antigen Assay - Final, Complete 08/06/18 Campylobactor Result 1 - Final, Complete 08/06/18 Shiga Toxin Test - Final, Complete Vitals/I & O Vital Sign - Last 24 Hours 08/10/18 08/10/18 08/10/18 08/10/18 13:00 13:15 13:30 15:00 Temp 97.9 97.9 Pulse 81 69 71 70 Resp 18 18 18 18 B/P (MAP) 150/90 138/86 156/85 111/59 (76) Pulse Ox 96 95 98 O2 Delivery Room Air Room Air Room Air 08/10/18 08/10/18 08/10/18 08/11/18 19:00 20:00 23:00 03:00 Temp 98.2 98.2 98.5 98.2 98.2 98.5 Pulse 84 105 111 Resp 18 18 18 B/P (MAP) 113/69 (84) 130/82 (98) 126/86 (99) Pulse Ox 93 98 O2 Delivery Room Air Room Air Room Air Room Air 08/11/18 08/11/18 08/11/18 07:10 08:00 11:02 Temp 97.7 97.4 97.7 97.4 Pulse 120 121 Resp 18 18 B/P (MAP) 137/91 (106) 109/77 (88) Pulse Ox 99 O2 Delivery Room Air Room Air Nasal Cannula O2 Flow Rate 2.0 2.0 Intake and Output 08/10/18 08/10/18 08/11/18 14:59 22:59 06:59 Intake Total 250 ml 1100 ml 540 ml Balance 250 ml 1100 ml 540 ml Problem List Problems Medical Problems: (1) Intractable diarrhea Status: Acute Assessment Diarrhea, gone presently. Some of this is a chronic issue and may be functional. Diverticulosis. Plan of Care Note Unless cardiac issue precludes, OK with us to dismiss at your discretion. Could consider colonoscopy again in 5 years. Symptomatic treatment of chronic issues; consider small dose fiber, titrated to best effect. KAM MTZ MD Aug 11, 2018 12:19
[2018-08-11 15:06] VITALS: BP 139/92
--- NOTE | 2018-08-11 15:24 | NUR ---
Discharge Note: DIONE GOMEZ [address] [place] [address] Discharge instructions and medications reviewed with Patient and a copy given. All questions have been answered and understanding verbalized. The following instructions and handouts were given: Diverticulosis and PCP f/u and signs to return to ED Discontinued lines and drains: 1 IV removed from R neck tip intact and no complications Patient discharged to home with daughter
--- NOTE | 2018-08-12 16:07 | PATHOLOGY ---
[facility] Accession Number: [id number] . 01 Material submitted: . PART A: CECUM AND ASCENDING BIOPSY PART B: RECTUM BIOPSY . 01 Clinical history: . Diarrhea . 02 Diagnosis: A. Colonic mucosa, cecum and ascending colon biopsies: - Patchy mild acute (active) colitis. . B. Colorectal mucosa, rectal biopsies: - Patchy mild acute (active) proctitis. . (JPM:mml; 08/12/2018) QLM/08/12/2018 . 02 Comment: Sections of the cecum/ascending colon and rectal biopsies show patchy foci of acute cryptitis and mild acute inflammation within the lamina propria. There is no basal plasmacytosis or significant crypt architectural distortion. The findings are suggestive of an acute self-limited or infectious colitis. . The case is also examined by Dr. Uche Cotton and Dr. Kaitlin Veliz, who concur with the diagnosis. . (JPM:mml; 08/12/2018) . 02 Electronically signed: . Bear Shields MD, Pathologist NPI- [id number] . 01 Gross description: . A. Received in formalin labeled "Book[place], [place], cecum and ascending BX," are 5 segments of connor soft tissue measuring 1.0 x 0.9 x 0.1 cm in aggregate dimensions and ranging from 0.3 to 0.7 cm in maximum dimension. The specimen is submitted entirely in cassette A1. . B. Received in formalin labeled "Booker, [place], rectum BX," are 4 segments of connor soft tissue measuring 1.3 x 0.6 x 0.2 cm in aggregate dimensions and ranging from 0.3 to 0.7 cm in maximum dimension. The specimen is submitted entirely in cassette B1. (TSD; 08/10/2018) TOB/TOB . 02 Pathologist provided ICD-10: K52.9, K62.89 . 02 CPT . 143772, 213500 Specimen Comment: A courtesy copy of this report has been sent to Specimen Comment: [phone], , . Specimen Comment: Report sent to ,DR NOLASCO / DR OGLESBY Specimen Comment: A duplicate report has been generated due to demographic updates. Performed at: 01 [facility] [address], [place] [id number] MD Jose Montes De Oca MD Phone: [phone] Performed at: 02 [facility] [address] [place], [place] [id number] MD Bear Shields MD Phone: [phone]
--- NOTE | 2018-08-12 16:19 | PDOC ---
Provider Note Provider Note Discharge summary dictated. #[id number]. LOS NOLASCO MD Aug 12, 2018 16:19
--- NOTE | 2018-08-12 22:31 | DS ---
DATE OF DISCHARGE: 08/11/2018 REASON FOR ADMISSION TO THE HOSPITAL: Subacute diarrhea, weakness. CONSULTATIONS: 1. Dr. Farmer. 2. Dr. Mack. 3. Dr. Moore. 4. Rehabilitation. 5. Surgical consult. PROCEDURES DONE: 1. Echocardiogram. 2. Colonoscopy. HOSPITAL COURSE: The patient is a 77-year-old female. The patient has a history of AAA repair in the past and she was having diarrhea, she was losing weight, got progressively weak and was admitted to the hospital. Her stool was positive for Heme. The patient had C. diff, was negative. Stool culture was negative. The patient was seen by GI, had a CT scan of the abdomen and pelvis, showed some diverticulosis, history of previous AAA repair, endovascular repair. The patient was seen by GI, had a colonoscopy. At one time when she was preparing for colonoscopy, drinking the liquid, she developed acute abdominal pain with abdominal distention. KUB showed ileus. Surgical consult was obtained, which was not a surgical abdomen. The patient had a colonoscopy, which showed diverticulosis, one AVM was seen. Had a biopsy, which showed some colitis, nonspecific. The patient has history of coronary artery disease, angioplasty and stent in the past and because the stool for Hemoccult was positive, the patient's stent was more than one year ago, decided to stop Plavix and just give aspirin. She had left circumflex and right coronary artery stent placement in 2017 and the patient was seen by rehab and she was discharged. FINAL DIAGNOSES: 1. Subacute diarrhea, abdominal pain, some diverticulosis, nonspecific colitis. 2. History of coronary artery disease, previous stents in 2017. Medically stable. Echocardiogram showed a good left ventricular function, [id number] tricuspid regurgitation and pulmonary artery pressure was high, more than 100. 3. Hypertension. 4. Gout. 5. History of previous ankle fracture. DISPOSITION: Home. DISCHARGE MEDICATIONS: See [facility] for discharge medications. LOS NOLASCO MD DR: HARSHA/sal JOB#: [id number] / [id number]
== END 2018-08-11 15:14 | disposition home or self-care (01) | DRG 392 ==
LOC: ER 20:06 → 6 SOUTH 08-05 00:39
PROVIDERS: ADMIT Internal Medicine; ATTEND Internal Medicine
PROC: 0DBP8ZX Excision of Rectum, Via Natural or Artificial Opening Endoscopic, Diagnostic (ICD-10-PCS; 2018-08-10)
PROC: 0DBH8ZX Excision of Cecum, Via Natural or Artificial Opening Endoscopic, Diagnostic (ICD-10-PCS; 2018-08-10)
PROC: 0DBK8ZX Excision of Ascending Colon, Via Natural or Artificial Opening Endoscopic, Diagnostic (ICD-10-PCS; principal; 2018-08-10 13:30)
DX: K57.30 Diverticulosis of large intestine without perforation or abscess without bleeding (principal); K56.7 Ileus, unspecified; Z68.1 Body mass index [BMI] 19.9 or less, adult; K52.9 Noninfective gastroenteritis and colitis, unspecified; K64.9 Unspecified hemorrhoids; K31.819 Angiodysplasia of stomach and duodenum without bleeding; M10.9 Gout, unspecified; I12.9 Hypertensive chronic kidney disease with stage 1 through stage 4 chronic kidney disease, or unspecified chronic kidney disease; N18.9 Chronic kidney disease, unspecified; E78.5 Hyperlipidemia, unspecified; R63.4 Abnormal weight loss; I25.10 Atherosclerotic heart disease of native coronary artery without angina pectoris; N18.3 Chronic kidney disease, stage 3 (moderate); I27.29 Other secondary pulmonary hypertension; I07.1 Rheumatic tricuspid insufficiency; M19.90 Unspecified osteoarthritis, unspecified site; E89.0 Postprocedural hypothyroidism; G89.29 Other chronic pain; J44.9 Chronic obstructive pulmonary disease, unspecified; Z90.81 Acquired absence of spleen; Z82.49 Family history of ischemic heart disease and other diseases of the circulatory system; Z88.0 Allergy status to penicillin; Z88.8 Allergy status to other drugs, medicaments and biological substances; Z91.041 Radiographic dye allergy status; Z86.79 Personal history of other diseases of the circulatory system; Z95.5 Presence of coronary angioplasty implant and graft; Z86.010 Personal history of colon polyps; Z79.82 Long term (current) use of aspirin; Z86.73 Personal history of transient ischemic attack (TIA), and cerebral infarction without residual deficits; Z91.14 Patient's other noncompliance with medication regimen; Z90.710 Acquired absence of both cervix and uterus
CPT/HCPCS: 36415; 45380; 71046; 73610; 74018; 74176; 80048; 80053; 80061; 81001; 82274; 82553; 83036; 83605; 83690; 84443; 84484; 85025; 85610; 85730; 87045; 87177; 87493; 88305; 93005; 93306; 96374; 96375; C9113; J2212; J2405; J2704; J7030; J7120; 97116; 97530; 97535; 99285-25